=== PATIENT | female | born 1970 | race Caucasian/White ===

== ENCOUNTER 2016-10-27 13:16 | Inpatient (IN) | payer MEDICAID ==
[~2016-10-27] VITALS: Ht 147.3 cm; Wt 87.8 kg
[2016-10-27] MEDS ORDERED: SOD CHLORIDE 0.9% 1,000 ML IV STA ×2 (14:19→18:04)
[2016-10-27] MEDS ORDERED: ONDANSETRON 4 MG INJ IV STA (14:19)
[2016-10-27] MEDS ORDERED: KETOROLAC 30 MG INJ IV STA (14:19)
[2016-10-27 15:30] LABS: ALBUMIN 4.6 g/dl (3.3-4.9); POTASSIUM 3.7 mmol/L (3.5-5.1)
[2016-10-27 15:32] LABS: BASOPHILS % 0.3 % (0.0-2.0); CREATININE 0.48 mg/dl (0.44-1.00); EOSINOPHILS # 0.1 10^3/ul (0.0-0.5); EOSINOPHILS % 0.5 % (0.0-7.0); HEMATOCRIT 42.1 % (37.0-47.0); HEMOGLOBIN 14.8 g/dl (12.0-16.0); LYMPHOCYTES % 16.8 % (15.0-51.0); MEAN CORPUSCULAR HEMOGLOBIN 32.4 pg (29.0-33.0); MEAN CORPUSCULAR HGB CONC 35.2 g/dl (32.0-37.0); MEAN CORPUSCULAR VOLUME 92.1 fl (82.0-101.0); MEAN PLATELET VOLUME 8.4 fl (7.4-10.4); MONOCYTE # 0.5 10^3/ul (0.3-0.9); MONOCYTES % 4.5 % (0.0-11.0); NEUTROPHIL # 9.3 10^3/ul (1.6-7.5); NEUTROPHILS % 77.9 % (39.0-77.0); PLATELET COUNT 254 10^3/UL (140-440); RED BLOOD COUNT 4.57 10^6/ul (4.20-5.40); RED CELL DISTRIBUTION WIDTH 12.3 % (11.5-14.5)
[2016-10-27 15:33] LABS: ALBUMIN/GLOBULIN RATIO 1.09; BILIRUBIN,INDIRECT 0.9 mg/dl (0-1.1); BILIRUBIN,TOTAL 0.9 mg/dl (0.2-1.3); CALCIUM 9.4 mg/dl (8.4-10.2); CONDITION 1; TOTAL PROTEIN 8.8 g/dl (6.1-8.1)
[2016-10-27 15:46] LABS: ADD UMIC YES; URINE BILIRUBIN (Dip) NEGATIVE (NEGATIVE); URINE BLOOD (Dip) NEGATIVE (NEGATIVE); URINE COLOR YELLOW (YELLOW); URINE GLUCOSE (Dip) NEGATIVE (NEGATIVE); URINE KETONES (Dip) TRACE (NEGATIVE); URINE LEUKOCYTE ESTERASE (Dip) NEGATIVE (NEGATIVE); URINE NITRITE (Dip) NEGATIVE (NEGATIVE); URINE TOTAL PROTEIN (Dip) TRACE (NEGATIVE); URINE UROBILINOGEN (Dip) 1.0 E.U./dL (0.1-1.0)
[2016-10-27 15:56] LABS: MUCUS,URINE MODERATE; URINE RBCS 0-2 /HPF (0)
[2016-10-27 15:57] LABS: BACTERIA,URINE FEW
[2016-10-27] MEDS ORDERED: IOHEXOL 300MG/ML 150 ML BTL ONE (17:29)
[2016-10-27] MEDS ORDERED: SOD CHLORIDE 0.9% 100 ML ONE (17:29)
[2016-10-27] MEDS ORDERED: metroNIDAZOLE 500 MG/NS (PMX) 100 ML IVPB STA (18:04)
[2016-10-27] MEDS ORDERED: CIPROFLOXACIN 400MG/D5W 200 ML IVPB STA (18:04)
--- NOTE | 2016-10-27 18:07 | RADRPT ---
PROCEDURE: CT Abdomen and Pelvis with contrast. CLINICAL INDICATION: Abdomen and pelvis pain. TECHNIQUE: CT scan of the abdomen and pelvis with contrast was performed. The patient was scanned following the uncomplicated intravenous administration of 100 cc of Omnipaque-300. Coronal and sag ittal reformatted images were obtained from the axial source images. Images were reviewed on a high- resolution PACS workstation. Total exam DLP is 812.81 mGy-cm. CTDIvol is 15.18 mGy. One or more o f the following dose reduction techniques were used: Automated exposure control, adjustment of the m A and/or kV according to patient size, use of iterative reconstruction technique. COMPARISON: None. FINDINGS: The lung bases are normal. There is no pleural effusion. The liver is normal in size and diffusely decreased attenuation consistent with fatty metamorphosis. There is no focal hepatic lesion. The gallbladder and bile ducts are normal. The spleen is normal in size. There is no focal splenic lesion. Both adrenals are normal with no enlargement or mass. The pancreas is unremarkable with no mass or evidence of pancreatitis. Both kidneys demonstrate normal contrast enhancement. There is no renal mass or hydronephrosis. The abdominal aorta is not dilated. There is no retroperitoneal lymphadenopathy or mass. There is no pelvic lymphadenopathy. There is a large predominately cystic midline anterior pelvic m ass measuring 7.7 x 14.2 x 8.3 cm in AP, transverse, and cranial caudal dimensions. There is a sing le thin vertical septation in the sagittal plane. A second cyst is noted posteriorly on the right c onsistent with a right adnexal cyst measuring 4.0 x 2.7 x 3.3 cm in AP, transverse, and cranial caud al dimensions. The bladder and distal ureters are normal. At the expected location of the appendix, there is a tubular blind ending fluid filled structure kia suring 10.3 x 4.5 x 4.5 cm in AP, transverse, and cranial caudal dimensions. A small amount of calc ification is present in the wall superiorly and there is a round calcification measuring 0.5 cm at t he bases adjacent to the cecum. This is suspicious for a mucocele of the appendix. There is diverticulosis of the sigmoid colon. There is diffuse thickening of the wall of the sigmoi d colon. In the midsigmoid colon there is a region of focal wall thickening, surrounding mesenteric edema, and microperforation with free air in a region measuring approximately 2.5 cm in maximal dim ension. There is no abscess at this site with no fluid collection or mass. There is no free fluid. The osseous structures are unremarkable with no fracture or lytic lesion. IMPRESSION: 1. Fatty metamorphosis of the liver. 2. 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 3. Right ovarian cyst measuring 4.0 x 2.7 x 3.3 cm. 4. 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 5. Diverticulosis of the sigmoid colon with probable region of diverticulitis in the midsigmoid col on with microperforation and adjacent free air. No abscess. Neoplasm with perforation may also giv e this appearance. Clinical correlation and follow-up advised. 6. Otherwise unremarkable study. Call report: A call report of the findings was made to Dr. Giordano on 10/27/2016 at 1805 hours. RPTAT: QQ .Monster Zacarias MD, Date Time Electronically viewed and signed by .Monster Zacarias MD, MD on 10/27/2016 18:07 .R/
--- NOTE | 2016-10-27 18:16 | ERA ---
ER Documentation Chief Complaint Date/Time DATE: 10/27/16 TIME: 18:13 Chief Complaint headache and fever for the past 2 days. no distress. no cough HPI This is a 46-year-old female with no past medical history that presents to the emergency department complaining of 3 days of generalized myalgias, decrease in appetite, bandlike headache and a documented fever of 102. The patient indicates that she also developed a sudden onset of severe left lower quadrant pain, nonradiating with a pressure-like sensation 3 days ago. The pain has been persistent. She indicates she has been taking Tylenol every 4 hours for the past 3 days and the last dose was at 12:20 PM, roughly 2 hours ago. She states she also is experiencing pain with urination but denies any gross hematuria. She indicates her past surgical history is 3 sections. She denies any recent remote blunt or penetrating abdominal trauma. She indicates that the headache is not the worst headache of her life. She denies any neck pain. She has had no rashes. She denies any chest pressure that radiates to the neck arm back or jaw no shortness of breath ROS All systems reviewed and are negative except as per history of present illness. PMhx/Soc Medical and Surgical Hx: pt denies Medical Hx History of Surgery: Yes (csect x3) Hx Alcohol Use: No Hx Substance Use: No Hx Tobacco Use: No Physical Exam Vitals Vital Signs Date Time Temp Pulse Resp B/P Pulse Ox O2 Delivery O2 Flow Rate FiO2 10/27/16 13:18 98.8 98 16 150/68 99 Physical Exam Constitutional:Well-developed. Well-nourished. HEENT:Normocephalic. Atraumatic.Pupils were equal round reactive to light. Moist mucous membranes.No tonsillar exudates. Endoscopy exam shows sharp optic disc bilaterally venous pulsations were present Neck: No nuchal rigidity. No lymphadenopathy. No posterior cervical spine tenderness or step-offs. Respiratory: Not using accessory muscles of respiration.Lungs were clear to auscultation bilaterally. No rhonchi. No rales. No wheezing. Cardiovascular: Regular rate regular rhythm.No murmurs. No rubs were appreciated.S1, S2 normal. Distal pulses are palpable 2+ bilaterally. GI: Abdomen was obese so exam is limited due to body habitus. Tenderness in the left lower. Non Distended. No pulsatile abdominal masses or bruits. No rebound. Voluntary guarding. Bowel sounds were present and normal. Muscle skeletal: Full range of motion of both the upper and lower extremities bilaterally.Normal muscle tone.No assymetrical calf tenderness or swelling. Skin: No petechia, no purpura. No lesions on the palms or the soles of the feet. No maculopapular rash. NEURO: Patient was alert, awake, orientated x3.No facial droop. Gait observed and normal with no ataxia.Speech had regular rate and rhythm. No focal neurological deficits. Result Diagram: 10/27/16 1455 10/27/16 1455 Results 24 hrs Laboratory Tests Test 10/27/16 14:55 10/27/16 15:15 Alanine Aminotransferase (ALT/SGPT) 62IU/L Albumin 4.6g/dl Albumin/Globulin Ratio 1.09 Alkaline Phosphatase 87IU/L Amylase Level 57U/L Anion Gap 20 Aspartate Amino Transf (AST/SGOT) 52IU/L Basophils # 0.010^3/ul Basophils % 0.3% Blood Urea Nitrogen 9mg/dl Calcium Level 9.4mg/dl Carbon Dioxide Level 28mmol/L Chloride Level 100mmol/L Creatinine 0.48mg/dl Direct Bilirubin 0.00mg/dl Eosinophils # 0.110^3/ul Eosinophils % 0.5% Globulin 4.20g/dl Glucose Level 143mg/dl Hematocrit 42.1% Hemoglobin 14.8g/dl Indirect Bilirubin 0.9mg/dl Lipase 82U/L Lymphocytes # 2.010^3/ul Lymphocytes % 16.8% Mean Corpuscular Hemoglobin 32.4pg Mean Corpuscular Hemoglobin Concent 35.2g/dl Mean Corpuscular Volume 92.1fl Mean Platelet Volume 8.4fl Monocytes # 0.510^3/ul Monocytes % 4.5% Neutrophils # 9.310^3/ul Neutrophils % 77.9% Nucleated Red Blood Cells # 0.010^3/ul Nucleated Red Blood Cells % 0.0/100WBC Platelet Count 06787^3/UL Potassium Level 3.7mmol/L Red Blood Count 4.5710^6/ul Red Cell Distribution Width 12.3% Sodium Level 144mmol/L Total Bilirubin 0.9mg/dl Total Protein 8.8g/dl White Blood Count 12.010^3/ul Urine Bacteria FEW Urine Bilirubin NEGATIVE Urine Clarity SLIGHTLY CLOUDY Urine Color YELLOW Urine Epithelial Cells MANY Urine Glucose NEGATIVE% Urine Hemoglobin NEGATIVE Urine Ketones TRACE Urine Leukocyte Esterase NEGATIVE Urine Microscopic RBC 0-2/HPF Urine Microscopic WBC 0-2/HPF Urine Mucus MODERATE Urine Nitrite NEGATIVE Urine Specific [place] >=1.030 Urine Total Protein TRACE Urine Urobilinogen 1.0 E.U./dL Urine pH 5.5 Current Medications Medications (Trade) Dose Ordered Sig/Nubia Route PRN Reason Start Time Stop Time Status Last Admin Dose Admin Sodium Chloride (NS) 1,000 ml @ 1,000 mls/hr Q1H STAT IV 10/27/16 14:19 10/27/16 15:18 DC 10/27/16 15:13 Ondansetron HCl (Zofran Inj) 4 mg ONCE STAT IV 10/27/16 14:19 10/27/16 14:21 DC 10/27/16 15:12 Ketorolac Tromethamine (Toradol) 30 mg ONCE STAT IV 10/27/16 14:19 10/27/16 14:21 DC 10/27/16 15:13 IV Flush 10 ml 10 ml STK-MED ONCE .ROUTE 10/27/16 17:29 10/27/16 17:30 DC 10/27/16 17:41 Sodium Chloride (NS) 100 ml @ ud STK-MED ONCE .ROUTE 10/27/16 17:29 10/27/16 17:30 DC 10/27/16 17:41 Iohexol 150 ml 150 ml STK-MED ONCE .ROUTE 10/27/16 17:29 10/27/16 17:30 DC 10/27/16 17:41 Sodium Chloride 1,000 ml @ 1,000 mls/hr Q1H STAT IV 10/27/16 18:04 10/27/16 19:03 10/27/16 18:17 Metronidazole 100 ml @ 100 mls/hr ONCE STAT IVPB 10/27/16 18:04 10/27/16 19:03 10/27/16 18:17 Ciprofloxacin/ Dextrose (Cipro Ivpb) 200 ml @ 200 mls/hr ONCE STAT IVPB 10/27/16 18:04 10/27/16 19:03 Ondansetron HCl (Zofran Inj) 4 mg BRIDGE ORDER PRN IV NAUSEA AND/OR VOMITING 10/27/16 18:30 10/28/16 18:29 Procedures/MDM This patient presented to the emergency department with abdominal pain and was seen and evaluated by myself. My differential diagnosis included but was not limited to abdominal aortic aneurysm, appendicitis, pancreatitis, perforated peptic ulcer, perforated viscus, Boerhaaves syndrome or visceral pain such as diverticulitis, DKA, esophagitis, hepatitis or bowel obstruction. The patient was placed on a alarm operator, continuous pulse oximetry, and IV access was established by nursing staff. The patient received intravenous morphine and Zofran for analgesic control. The patient was afebrile upon arrival to the emergency department but did take antipyretics just prior to arrival. The patient also presented to the emergency department with an acute single headache that presented within hours of onset my differential diagnosis included but was not limited to meningitis, SAH, intracerebral hemorrhage, hypertensive encephalopathy, cranial artery dissection, cerebral venous sinus thrombosis, traumatic, acute sinusitis. The patient has no ocular symptoms to suggest temporal neuritis, acute narrow-angle glaucoma or pituitary apoplexy. The patient did not appear to have a toxic or metabolic etiology such as fever, hypoglycemia, high-altitude disease or carbon monoxide poisoning. This was not the patients worse headache of their life. The patient had a complete neurologic and fundoscopic exam performed by myself that was normal with no focal neurological deficits or retinal hemorrhage. The patient stated this headache was not severe or distinct from other headaches and the history with the physical exam findings did not likely suggest SAH. Therefore, I did not feel it was clinically necessary to perform a lumbar puncture and CSF analysis. I did feel the patient's bandlike headache was likely result of her fever and a tension headache. I spoke with Dr. Zacarias who reviewed the patient's CT scan that I had obtained due to her tenderness in her left lower quadrant. The CT scan findings indicated the followin. Fatty metamorphosis of the liver. 2. 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 3. Right ovarian cyst measuring 4.0 x 2.7 x 3.3 cm. 4. 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 5. Diverticulosis of the sigmoid colon with probable region of diverticulitis in the midsigmoid colon with microperforation and adjacent free air. No abscess. Neoplasm with perforation may also give this appearance. Clinical correlation and follow-up advised. At this time I spoke with Dr. Orosco, who kindly stated he will be consulted as a surgeon. Patient was given broad-spectrum antibiotics which included ciprofloxacin, flagyl and IV Zosyn. In addition to the patient's diverticulitis with microperforation and mucocele and the appendix, the patient also had a very large left ovarian cyst. I obtained an ultrasound of the pelvis which showed no evidence of ovarian torsion. I placed a consult to the SUPERVISOR MAINTENANCE who stated they will kindly come and see the patient. I spoke with Dr. Vance however she will sign the patient out to the oncoming [employer] as she currently was in a surgical procedure section. The patient will be admitted in serious condition with an anticipated stay of greater than 2 midnights under the care of Dr. Lara. Critical Care: Time: 55 minutes Treatments/Evaluations: Close monitoring and treatment of unstable vital signs, cardiorespiratory, and neurologic status, while maintaining tight balance of fluid, respiratory, and cardiac interventions. Time does not include performing any of the above billable procedures. Departure Diagnosis: Primary Impression: Diverticulitis of colon with perforation Additional Impressions: Mucocele of appendix Ovarian cyst Qualified Code: N83.202 - Cyst of left ovary Condition: Serious ROSAS CLEMENTE Oct 27, 2016 18:16
[2016-10-27] MEDS ORDERED: NACL 0.9% 3 ML SYG IV SCH (18:30)
[2016-10-27] MEDS ORDERED: BISACODYL (EC) 5 MG TAB PO PRN (18:30)
[2016-10-27] MEDS ORDERED: DOCUSATE SODIUM 100 MG CAP PO PRN (18:30)
[2016-10-27] MEDS ORDERED: ONDANSETRON 4 MG INJ IV PRN (18:30)
[2016-10-27] MEDS: HYDROCODONE/APAP (5/325) TAB PO PRN (19:47)
--- NOTE | 2016-10-27 19:48 | HP ---
DATE OF ADMISSION: 10/27/2016 CONSULTANTS: 1. Dr. Cruz, BENCH REPAIR TECHNICIAN. 2. Dr. Orosco, general surgery. CHIEF COMPLAINT: Abdominal pain. HISTORY OF PRESENT ILLNESS: This is a pleasant 46-year-old female with no significant past medical history, past surgical history of x3, who presents to [facility] to having abdominal discomfort off and on for the past month, abdominal distention, and 3 days of severe abdominal pain accompanied with nausea without any vomiting. Upon arrival to emergency room , patient was found to be afebrile with temperature 98.0, blood pressure 150/68. WBC was found to b e mildly elevated at 12.0, anion gap 20, AST 52. Urinalysis was negative. The patient had a CT of the abdomen and pelvis, which was positive for large predominantly cystic midline anterior pelvic ma ss measuring 7.7 x 14.2 x 8.3 cm, likely due to left ovarian cystic neoplasm, which may be benign or malignant, right ovarian cyst measuring 4.0 x 2.7 x 3.3 cm, probable mucocele of the appendix measu ring 10.3 x 4.5 x 4.5 cm, diverticulosis of the sigmoid colon with probable region of diverticulitis in the mid sigmoid colon with microperforation and adjacent free air, no abscess, neoplasm and perf oration may also give this appearance. Otherwise, the patient was treated with normal saline, Torad ol, and Zofran in the course of the emergency room. At this time, patient denies having any chest p ain, shortness of breath. Positive for nausea, no vomiting. Positive for abdominal pain in the mid epigastric. No recent travel history. No sick contact. No consumption of unusual food. No hemato chezia, melena, or hematemesis. No change in the color of stool. No dysuria, hematuria, urgency, i ncontinence. Other 12 review of systems has been found to be negative. PAST MEDICAL AND SURGICAL HISTORY: As above per HPI. MEDICATIONS: None. ALLERGIES: NO KNOWN DRUG ALLERGIES. FAMILY HISTORY: No family history of cancer. Positive for hypertension, diabetes mellitus. SOCIAL HISTORY: Negative x3 for smoking, alcohol, illicit drugs. REVIEW OF SYSTEMS: As above per HPI, otherwise 12 review of systems has been found to be negative. PHYSICAL EXAMINATION: VITAL SIGNS: Temperature 98.8, pulse 98, respirations 16, blood pressure 150/60, oxygen saturation 99% in room air. GENERAL APPEARANCE: The patient is lying in the bed with mild discomfort. She is awake, alert, alexx ented. Body habitus morbidly obese. EYES AND EARS, NOSE, THROAT: Conjunctivae and lids are normal. Pupils are normal. Extraocular nor mal. Hearing grossly normal. Lips are normal. Oral mucosa is mildly dry. NECK: Supple. Trachea is midline. No lymphadenopathy. RESPIRATORY: Effort is normal. Clear to auscultation bilaterally. CARDIOVASCULAR: Normal S1, S2. Regular rhythm and rate. No murmur, no bruits, no edema. Peripher al pulses, radial pulses palpable. Cap refill is normal. CHEST: Normal expansion of thorax during inspiration. GASTROINTESTINAL: Abdomen is soft, mildly distended. Tender in superior region. Bowel sounds are distant secondary to body habitus. GENITOURINARY: Deferred. MUSCULOSKELETAL: Upper and lower extremities within normal limits. Full range of motion. Strength 5/5 in both upper and lower extremities. NEUROLOGIC: Cranial nerves II through XII are grossly intact. PSYCHIATRIC: Normal judgment and insight. Alert and oriented x3. Mood and affect is normal. LABORATORY WORK AND IMAGING: Urinalysis within normal limits except many epithelial cells. WBC 12, hemoglobin 14.8, hematocrit 42.1, platelets 254. Sodium 144, potassium 3.7, chloride 100, bicarbon ate 28, BUN 9, creatinine 0.48, glucose 143. AST 52, ALT 62. Lipase 82. CT of the abdomen and pel vis as above per HPI. ASSESSMENT AND PLAN: 1. Bilateral ovarian cysts, likely due to the left ovarian cyst neoplasm, which may be benign or ma lignant. BENCH REPAIR TECHNICIAN has been consulted. We will follow their recommendation. 2. Mucocele of the appendix. General surgery has been consulted. The patient has been started on ciprofloxacin, Flagyl, and pain medication. 3. Diverticulitis with microperforation. General surgery has been consulted. Obtain an MRCP to ru le out neoplasm. 4. For deep venous thrombosis prophylaxis, on Lovenox. 5. For gastrointestinal prophylaxis, on Protonix. 6. Morbid obesity. Diet and exercise has been recommended. 7. We will continue to monitor patient closely. Further recommendations, management, and treatment as clinical course. Total amount of time that was spent on evaluation of the patient and admission workup was 40 minutes . Dictated By: SOFIE COBB/NTS Conf#: [id number] DID#: [id number]
[2016-10-27] MEDS: D5W-0.45 NACL + KCL 20 MEQ 1,000 ML IV SCH (19:53)
[2016-10-27 19:55] VITALS: TEMP 98.8
--- NOTE | 2016-10-27 20:04 | RADRPT ---
PROCEDURE: Pelvic ultrasound. CLINICAL INDICATION: Pelvic pain TECHNIQUE: Martinez scale, color doppler, spectral doppler ultrasound of the pelvis was performed with transabdominal and transvaginal transducers. COMPARISON: CT abdomen pelvis 10/27/1969 FINDINGS: Uterus: Position: Retroverted Normal myometrial echogenicity. Normal appearance of the endometrium. Poor visualization of the right ovary and lack of visualization of the left ovary. Partial incomplete visualization of bilateral cystic adnexal lesions. Blood flows present bilateral ly however these lesions are not adequately characterized due to their size and location. IMPRESSION: Ovaries are not well visualized. Large cystic lesions seen on the prior CT abdomen pelvis are only partially visualized. No evidence of torsion is seen. Recommend MRI of the pelvis with and without contrast for further evaluation. RPTAT: AADD .Navneet Delarosa MD, MD Date Time Electronically viewed and signed by .Navneet Delarosa MD, on 10/27/2016 20:04 .B/
[2016-10-27 20:22] LABS: INR 0.99; PROTIME 13.1 Sec (12.2-14.2)
[2016-10-27 20:23] LABS: PARTIAL THROMBOPLASTIN TIME 33.8 Sec (25.0-35.0)
[2016-10-27 20:24] LABS: CREATINE KINASE 57 IU/L (23-200)
[2016-10-27 21:06] LABS: CK-MB < 0.22 ng/ml (0.0-2.4); TROPONIN-I < 0.012 ng/ml (0.00-0.12)
[2016-10-27 21:50] VITALS: Ht 147.3 cm; Wt 87.8 kg
[2016-10-27 22:00] VITALS: BP 122/61; PULSE 122; RESP 19
[2016-10-27] MEDS: ACETAMINOPHEN 650 MG SUPP PR PRN (22:12)
--- NOTE | 2016-10-27 23:01 | CONS ---
Date/Time of Note Date/Time of Note DATE: 10/27/16 TIME: 22:49 Assessment/Plan Assessment/Plan Chief Complaint/Hosp Course 46-year-old obese female admitted for 1. Lower abdominal pain, bilateral ? adnexal cystic mass, larger in the left side than right, ultrasound limited however did not show any evidence of torsion CT shows presence of possible mucocele of appendix. Recommended further evaluation by MRI of the abdomen and pelvis with and without contrast, due to inability to adequately evaluate if these masses belonged to ovaries versus other pelvic structures. Cannot rule out benign versus malignant ovarian masses, like mucinous serocystadenoma versus mucinous serous cystadenocarcinoma Recommended to have tumor markers including CA 125, CA-19-9 and CEA . This has been requested and will be followed by upcoming BENCH SHEAR OPERATOR team ( Laborist team). If tumor markers abnormal, BENCH SHEAR OPERATOR onc consultation will be considered. 2, fever , CT findings consistent with diverticulosis with diverticulitis with microperforation she is currently being treated medically by primary team by antibiotics 3, obesity irregular cycles, likely secondary to chronic anovulation secondary to body habitus. Cannot rule out hypothyroidism. patient never been on medication for menstrual regulation as well as never been evaluated. TSH, Free T4 requested. Consider endometrial evaluation by biopsy as a pre op evaluation and that can be set up when the patient is stable and her clinical condition improves. 4. Chronic hypertension, after reviewing her blood pressure during this admission. Follow-up and evaluation by primary care team If at any time patient need to go to operating room for treatment of her diverticulitis, please contact BENCH SHEAR OPERATOR for availability in OR. Patient will be followed by BENCH SHEAR OPERATOR team Thank you Dr. Bell for letting us to take care of this patient, Please contact extension: [phone] for any additional questions or concerns Problems: Consultation Date/Type/Reason Admit Date/Time Oct 27, 2016 at 18:25 Date of Consultation: Oct 27, 2016 Type of Consultation: BENCH SHEAR OPERATOR Reason for Consultation Left lower abdominal pain and left adnexal mass Hx of Present Illness I was consulted by Dr. Bell, for BENCH SHEAR OPERATOR evaluation for this very pleasant 46- year-old female who presented today to emergency department with complaint of left lower quadrant pain for the last 3 days. Patient reports pain has been going on for about 1 and half years however significantly worsened for the past 3 days. She also reports fever started 3 days ago as well as a frontal headache. Patient reports pain is sharp, constant and stabbing. She reports sitting as well as standing and bending will worsen the pain. She also reports pain worsens with bowel movement. She reports when she had a bowel movement she feels, something is tearing inside. She denies any bloating, early satiety or history of gynecologic problem in the past. She denies any history of ovarian cyst, pelvic mass or fibroids. She has been currently undergoing treatment by primary care team for diverticulitis and currently receiving IV antibiotics. Patient is a 3 para 3. Status post 3. She denies any prior gynecologic problem except that had one episode of heavy vaginal bleeding 2 years ago that resolved. In further history and physical examination patient reports that her cycles has been irregular and she has her period every 2 years very scant. She had not been evaluated for this or has not been seen by her garment parts cutter hand for this issue. Her last Pap smear was about 3 years ago and she denies any history of abnormal Pap smear in the past. She reports that she had a left sided breast cyst about 12 years ago that was diagnosed to be benign. She denies feeling any breast lump or mass or abnormal discharge. Her last mammogram was about 5 years ago. Patient denies having any medical problems. Subjective hx not possible: other (Stable, febrile) Constitutional: febrile Eyes: no complaints ENT: no complaints Respiratory: no complaints Cardiovascular: no complaints Gastrointestinal: other (Lower abdominal pain in the left side. Feels something tearing inside with a bowel movement patient feels that something is moving inside her abdomen like a baby. ), pain Genitourinary: other (Low back pain) Musculoskeletal: back pain Skin: no complaints Neurologic: no complaints Endocrine: no complaints Lymphatic: no complaints Psychological: no complaints Immunologic: no complaints Past Medical History Medical History: no pertinent history Past Surgical History Status post section 3 Family History Significant Family History: other (Mother with arthritis) Social History Alcohol Use: none Smoking Status: Former smoker Drug Use: none Other Social History Patient was previously working in restaurant She reports that she has green card Exam/Review of Systems Vital Signs Vitals Vital Signs Date Time Temp Pulse Resp B/P Pulse Ox O2 Delivery O2 Flow Rate FiO2 10/27/16 22:00 102.1 122 19 122/61 95 Room Air Exam Constitutional: alert, obese, oriented, other (In mild distress) Psych: no complaints Head: atraumatic, normocephalic Eyes: EOMI, nl conjunctiva, nl lids ENMT: nl external ears & nose, nl lips & teeth, nl nasal mucosa & septum Neck: non-tender, supple Respiratory: clear to auscultation, normal air movement Cardiovascular: nl pulses, regular rate and rhythm Gastrointestinal: other (Tenderness noted in palpation in different parts of the abdomen, area of tenderness moving and changing during examination. There is tenderness above the umbilicus and sometimes in the left and sometimes in the right lower quadrant as well as tenderness in the right upper quadrant and sometimes in the left upper quadrant. There is no rebound tenderness, no guarding, no rigidity, no evidence of acute abdomen. Abdomen is soft.), soft Genitourinary - Female: other (Speculum examination, there is scant amount cervix looks normal cottage cheesy vaginal discharge .. No blood in the vault. No purulent vaginal discharge noted. Exam consistent with Vandana vaginalis. bimanual examination no CMT. No fullness in adnexa uterus appears to be normal size there is tenderness in palpation in lower abdomen mild to moderate. Exam is very limited due to patient's discomfort during palpation of the lower abdomen. ) Musculoskeletal: nl extremities to inspection, nl gait and stance Extremities: normal pulses Neurological: CENTER MANAGER II-XII intact, nl mental status, nl speech, nl strength Skin: nl turgor Lymph: nl lymph nodes Results Result Diagram: 10/27/16 1455 10/27/16 1455 Results 24 hrs Laboratory Tests Test 10/27/16 14:55 10/27/16 15:15 10/27/16 20:00 Alanine Aminotransferase (ALT/SGPT) 62 Albumin 4.6 Albumin/Globulin Ratio 1.09 Alkaline Phosphatase 87 Amylase Level 57 Anion Gap 20 H Aspartate Amino Transf (AST/SGOT) 52 H Basophils # 0.0 Basophils % 0.3 Blood Urea Nitrogen 9 Calcium Level 9.4 Carbon Dioxide Level 28 Chloride Level 100 Creatinine 0.48 Direct Bilirubin 0.00 Eosinophils # 0.1 Eosinophils % 0.5 Globulin 4.20 H Glucose Level 143 Hematocrit 42.1 Hemoglobin 14.8 Indirect Bilirubin 0.9 Lipase 82 Lymphocytes # 2.0 Lymphocytes % 16.8 Mean Corpuscular Hemoglobin 32.4 Mean Corpuscular Hemoglobin Concent 35.2 Mean Corpuscular Volume 92.1 Mean Platelet Volume 8.4 Monocytes # 0.5 Monocytes % 4.5 Neutrophils # 9.3 H Neutrophils % 77.9 H Nucleated Red Blood Cells # 0.0 Nucleated Red Blood Cells % 0.0 Platelet Count 254 Potassium Level 3.7 Red Blood Count 4.57 Red Cell Distribution Width 12.3 Sodium Level 144 Total Bilirubin 0.9 Total Protein 8.8 H White Blood Count 12.0 H Urine Bacteria FEW Urine Bilirubin NEGATIVE Urine Clarity SLIGHTLY CLOUDY Urine Color YELLOW Urine Epithelial Cells MANY Urine Glucose NEGATIVE Urine Hemoglobin NEGATIVE Urine Ketones TRACE H Urine Leukocyte Esterase NEGATIVE Urine Microscopic RBC 0-2 Urine Microscopic WBC 0-2 Urine Mucus MODERATE Urine Nitrite NEGATIVE Urine Specific [place] >=1.030 H Urine Total Protein TRACE Urine Urobilinogen 1.0 E.U./dL Urine pH 5.5 Activated Partial Thromboplast Time 33.8 Creatine Kinase 57 Creatine Kinase Index 0.4 Creatinine Kinase MB (Mass) < 0.22 INR International Normalized Ratio 0.99 Lactic Acid Level 1.2 Prothrombin Time 13.1 Prothrombin Time Ratio 1.0 Troponin I < 0.012 Medications Medications Current Medications Potassium Chloride/Dextrose/ Sod Cl (D5-1/2ns + KCl 20 Meq) 1,000 ml @ 70 mls/ hr [id number] IV Last administered on 10/27/16 19:53; Admin Dose 70 MLS/HR; Start 10/27/16 at 18:28 Ondansetron HCl (Zofran Inj) 4 mg Q6H PRN IV NAUSEA AND/OR VOMITING; Start at 18:30 Acetaminophen (Tylenol Tab) 650 mg Q6H PRN PO PAIN LEVEL 1-3 OR FEVER; Start at 18:30 Acetaminophen (Tylenol Supp) 650 mg Q6H PRN DE PAIN LEVEL 1-3 OR FEVER Last administered on 10/27/16 22:12; Admin Dose 650 MG; Start 10/27/16 at 18:30 Acetaminophen/ Hydrocodone Bitart ([place] (5/325)) 1 tab Q6H PRN PO MODERATE PAIN LEVEL 4-6 Last administered on 10/27/16 19:47; Admin Dose 1 TAB; Start at 18:30 Morphine Sulfate (morphine) 2 mg Q4H PRN IV SEVERE PAIN LEVEL 7-10; Start 10/27 at 18:30 Docusate Sodium (Colace) 100 mg Q12H PRN PO CONSTIPATION; Start 10/27/16 at 18: 30 Bisacodyl (Dulcolax) 5 mg DAILY PRN PO CONSTIPATION; Start 10/27/16 at 18:30 Pantoprazole 40 mg 40 mg DAILY@06 PO ; Start 10/28/16 at 06:00 Ciprofloxacin/ Dextrose 200 ml @ 200 mls/hr Q12 IVPB ; Start 10/28/16 at 07:30 Metronidazole (Flagyl 500 Mg (Pmx)) 100 ml @ 100 mls/hr Q8 IVPB ; Start at 01:00 Procedures Procedures PROCEDURE: Pelvic ultrasound. CLINICAL INDICATION: Pelvic pain TECHNIQUE: Martinez scale, color doppler, spectral doppler ultrasound of the pelvis was performed with transabdominal and transvaginal transducers. COMPARISON: CT abdomen pelvis 10/27/1969 FINDINGS: Uterus: Position: Retroverted Normal myometrial echogenicity. Normal appearance of the endometrium. Poor visualization of the right ovary and lack of visualization of the left ovary. Partial incomplete visualization of bilateral cystic adnexal lesions. Blood flows present bilaterally however these lesions are not adequately characterized due to their size and location. IMPRESSION: Ovaries are not well visualized. Large cystic lesions seen on the prior CT abdomen pelvis are only partially visualized. No evidence of torsion is seen. Recommend MRI of the pelvis with and without contrast for further evaluation. RPTAT: AADD PROCEDURE: CT Abdomen and Pelvis with contrast. CLINICAL INDICATION: Abdomen and pelvis pain. TECHNIQUE: CT scan of the abdomen and pelvis with contrast was performed. The patient was scanned following the uncomplicated intravenous administration of 100 cc of Omnipaque-300. Coronal and sagittal reformatted images were obtained from the axial source images. Images were reviewed on a high- resolution PACS workstation. Total exam DLP is 812.81 mGy-cm. CTDIvol is 15.18 mGy. One or more of the following dose reduction techniques were used: Automated exposure control, adjustment of the mA and/or kV according to patient size, use of iterative reconstruction technique. COMPARISON: None. FINDINGS: The lung bases are normal. There is no pleural effusion. The liver is normal in size and diffusely decreased attenuation consistent with fatty metamorphosis. There is no focal hepatic lesion. The gallbladder and bile ducts are normal. The spleen is normal in size. There is no focal splenic lesion. Both adrenals are normal with no enlargement or mass. The pancreas is unremarkable with no mass or evidence of pancreatitis. Both kidneys demonstrate normal contrast enhancement. There is no renal mass or hydronephrosis. The abdominal aorta is not dilated. There is no retroperitoneal lymphadenopathy or mass. There is no pelvic lymphadenopathy. There is a large predominately cystic midline anterior pelvic mass measuring 7.7 x 14.2 x 8.3 cm in AP, transverse, and cranial caudal dimensions. There is a single thin vertical septation in the sagittal plane. A second cyst is noted posteriorly on the right consistent with a right adnexal cyst measuring 4.0 x 2.7 x 3.3 cm in AP, transverse, and cranial caudal dimensions. The bladder and distal ureters are normal. At the expected location of the appendix, there is a tubular blind ending fluid filled structure measuring 10.3 x 4.5 x 4.5 cm in AP, transverse, and cranial caudal dimensions. A small amount of calcification is present in the wall superiorly and there is a round calcification measuring 0.5 cm at the bases adjacent to the cecum. This is suspicious for a mucocele of the appendix. There is diverticulosis of the sigmoid colon. There is diffuse thickening of the wall of the sigmoid colon. In the midsigmoid colon there is a region of focal wall thickening, surrounding mesenteric edema, and microperforation with free air in a region measuring approximately 2.5 cm in maximal dimension. There is no abscess at this site with no fluid collection or mass. There is no free fluid. The osseous structures are unremarkable with no fracture or lytic lesion. IMPRESSION: 1. Fatty metamorphosis of the liver. 2. 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 3. Right ovarian cyst measuring 4.0 x 2.7 x 3.3 cm. 4. 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 5. Diverticulosis of the sigmoid colon with probable region of diverticulitis in the midsigmoid colon with microperforation and adjacent free air. No abscess. Neoplasm with perforation may also give this appearance. Clinical correlation and follow-up advised. 6. Otherwise unremarkable study. Call report: A call report of the findings was made to Dr. Giordano on 2016 at 1805 hours. STEFFANIE OLIVER MD Oct 27, 2016 23:00
[2016-10-27 23:30] VITALS: BP 111/55; RESP 18
[2016-10-28 00:53] LABS: CANCER ANTIGEN 125 7.7 U/ml (0.0-35.0)
[2016-10-28] MEDS: metroNIDAZOLE 500 MG/NS (PMX) 100 ML IVPB SCH ×4 (01:08→22:17)
[2016-10-28] MEDS: PANTOPRAZOLE (EC) 40 MG TAB PO SCH (05:34)
[2016-10-28] MEDS: ACETAMINOPHEN 325 MG TAB PO PRN ×2 (05:35→18:17)
[2016-10-28] MEDS: morphine 2 MG INJ IV PRN ×4 (05:40→22:10)
[2016-10-28] MEDS: D5W-0.45 NACL + KCL 20 MEQ 1,000 ML IV SCH ×2 (06:07→12:44)
[2016-10-28 06:32] LABS: ALBUMIN 3.8 g/dl (3.3-4.9)
[2016-10-28 06:33] LABS: POTASSIUM 3.9 mmol/L (3.5-5.1)
[2016-10-28 06:35] LABS: ALBUMIN/GLOBULIN RATIO 1.26; BILIRUBIN,INDIRECT 1.3 mg/dl (0-1.1); BILIRUBIN,TOTAL 1.3 mg/dl (0.2-1.3); CALCIUM 8.8 mg/dl (8.4-10.2); CREATININE 0.47 mg/dl (0.44-1.00); TOTAL PROTEIN 6.8 g/dl (6.1-8.1)
[2016-10-28 06:36] LABS: CHOL/HDL RATIO 3.1 RATIO; MAGNESIUM 1.8 mg/dl (1.7-2.5)
[2016-10-28 07:34] VITALS: BP 114/55; RESP 18
[2016-10-28 08:04] LABS: BASOPHILS % 0.2 % (0.0-2.0); HEMATOCRIT 36.2 % (37.0-47.0); HEMOGLOBIN 12.4 g/dl (12.0-16.0); LYMPHOCYTES # 1.7 10^3/ul (0.8-2.9); LYMPHOCYTES % 12.9 % (15.0-51.0); MEAN CORPUSCULAR HEMOGLOBIN 31.7 pg (29.0-33.0); MEAN CORPUSCULAR HGB CONC 34.3 g/dl (32.0-37.0); MEAN CORPUSCULAR VOLUME 92.6 fl (82.0-101.0); MEAN PLATELET VOLUME 10.4 fl (7.4-10.4); MONOCYTE # 0.7 10^3/ul (0.3-0.9); MONOCYTES % 5.1 % (0.0-11.0); NEUTROPHIL # 10.8 10^3/ul (1.6-7.5); NEUTROPHILS % 81.3 % (39.0-77.0); PLATELET COUNT 215 10^3/UL (140-415); RED BLOOD COUNT 3.91 10^6/ul (4.20-5.40); RED CELL DISTRIBUTION WIDTH 12.2 % (11.5-14.5); WHITE BLOOD COUNT 13.2 10^3/ul (4.8-10.8)
[2016-10-28 08:11] LABS: IRON 27 ug/dl (35-150)
[2016-10-28 08:20] LABS: TOTAL IRON BINDING CAPACITY 234 ug/dl (241-421)
[2016-10-28] MEDS: CIPROFLOXACIN 400MG/D5W 200 ML IVPB SCH ×2 (08:41→21:25)
[2016-10-28] MEDS: HYDROCODONE/APAP (5/325) TAB PO PRN (08:43)
--- NOTE | 2016-10-28 10:48 | CONS ---
DATE OF ADMISSION: 10/27/2016 DATE OF CONSULTATION: 10/28/2016 TYPE OF CONSULTATION: Surgical REASON FOR CONSULTATION: Perforated diverticulitis. HISTORY OF PRESENT ILLNESS: The patient is a 46-year-old female who presented to the emergency room with a 3-day history of left lower quadrant abdominal pain. In the emergency room, she was noted t o have a tender left lower quadrant, an elevated white blood cell count of 12,[address] scan whic h showed diverticulitis with microperforation. Incidentally, also found were bilateral ovarian cyst s for which the patient has been seen and evaluated by HIGH SCHOOL COUNSELOR yesterday. Another incidental finding wa s a mucocele of the appendix. She has been started on intravenous antibiotics. The patient states that she feels symptomatically improved today; however, her white blood cell count has gone up to 13 ,200. This morning she is afebrile, but her maximum temperature yesterday was 103. PAST MEDICAL HISTORY: The patient has had section in the past. No other hospitalizations or illnesses. OUTPATIENT MEDICATIONS: None. ALLERGIES: NONE. REVIEW OF SYSTEMS: HEENT: Unremarkable. PULMONARY: No history of pneumonia or shortness of breath. CARDIAC: No history of chest pain or NV. ABDOMEN: As in the HPI. EXTREMITIES: Unremarkable. PHYSICAL EXAMINATION: GENERAL: The patient is a morbidly obese 46-year-old, predominantly [place]adian-speaking female who is awake and alert, in no acute distress. HEENT: Within normal limits. LUNGS: Clear. HEART: Regular rhythm. ABDOMEN: Obese with slight tenderness in the left lower quadrant without guarding or rebound. EXTREMITIES: Unremarkable. LABORATORY DATA: Hematocrit is 36 with a white count of 13,200. CT findings as noted above. IMPRESSION: Diverticulitis with microperforation. PLAN: We will continue to treat with broad-spectrum antibiotics. Further recommendations will depe nd on the patient's further workup and clinical course. If there is no response to medical manageme nt or the patient worsens, patient will require surgery. I will follow with you. Dictated By: ANISHA MO/NTS Conf#: [id number] DID#: [id number]
[2016-10-28] MEDS ORDERED: hydrALAzine 20 MG INJ IV PRN (15:00)
--- NOTE | 2016-10-28 15:27 | PN ---
DATE: 10/28/2016 SUBJECTIVE DATA: Complains of abdominal pain. Pain well controlled with analgesics. Complains of nausea. Denies any vomiting. OBJECTIVE DATA: VITAL SIGNS: Temperature 99.6, pulse rate 91, respiratory rate 18, blood pressure 114/55, oxygen saturation 96% on room air. GENERAL: This is an obese female lying in bed in no apparent distress. HEENT: Head normocephalic and atraumatic. Eyes: Anicteric sclerae. Conjunctivae clear. ENT: Nasal septum is midline. Oral mucosa is dry. NECK: Short and obese. Unable to visualize any neck veins. CARDIAC: Regular rate and rhythm. ABDOMEN: Distended. Diffuse tenderness. Bowel sounds hypoactive in all 4 quadrants. GENITOURINARY: Deferred. EXTREMITIES: No cyanosis, no clubbing, no edema. Peripheral pulses are palpable. NEUROLOGIC: The patient is awake, alert and oriented. Cranial nerves are grossly intact. LABORATORY AND DIAGNOSTIC DATA: WBC 13.2, hemoglobin 12.4, hematocrit 36.2, platelet count 215. Sodium 141, potassium 3.9, chloride 103, carbon dioxide 27 , anion gap 15, BUN 6, creatinine 0.47, glucose 151, calcium 8.8, magnesium 1.8. ASSESSMENT AND PLAN: 1. Acute abdominal pain. Most probably secondary to underlying diverticulitis with microperforation. Continue n.p.o. Continue empiric antibiotics. We will involve infectious disease on the case. General surgery following the patient. 2. Questionable bilateral adnexal cystic mass. The patient was seen and evaluated by MACHINE WIPER. Tumor markers are negative so far. Pending MRI for further evaluation of this. 3. Essential hypertension. Continue antihypertensives. Blood pressure well controlled. 4. Systemic inflammatory response syndrome with fevers, leukocytosis and sinus tachycardia. Most probably secondary to underlying intra-abdominal pathology. Continue antibiotics. We will involve infectious diseases on the case. 5. Obesity. BMI of 40.5 kg/meter squared. Fasting lipid panel satisfactory. Hemoglobin A1c 5.7. We will advise weight reduction on this patient. 6. Iron deficiency with no evidence of anemia. We will monitor hemoglobin and hematocrit closely. 7. Fluid, electrolytes and nutrition. Continue IV fluids. We will keep the patient n.p.o. 8. Deep venous thrombosis prophylaxis. Bilateral sequential compression devices. 9. Gastrointestinal prophylaxis. Proton pump inhibitors. PLAN: Continue pain control. Continue antibiotics. Call infectious disease consult for antibiotic management. Await abdominal and pelvic MRI results. Case discussed with Dr. Patten. The plan of care was explained to the patient's family who was at the bedside. CL PATTEN MD, AM/LIBAN Conf#: [id number] DID#: [id number] MTDD
--- NOTE | 2016-10-28 19:22 | CONS ---
DATE OF ADMISSION: 10/27/2016 DATE OF CONSULTATION: 10/28/2016 TYPE OF CONSULTATION: Infectious Disease. REASON FOR CONSULTATION: Antibiotic management. HISTORY OF PRESENT ILLNESS: Ayah Jurado is 46-year-old female who was admitted with abdo brett pain and is being seen for antibiotic management. Her past problems include past surgical his tory of C-sections x3. She presents with abdominal discomfort intermittently over the past month, w ith abstention and 3 days of severe abdominal pain. accompanied with nausea without any vomiting. S he was afebrile. White count was mildly elevated at 12, anion gap of 20. Urinalysis was negative. CT of the abdomen and pelvis was positive for large, predominantly cystic, midline, anterior pelvic mass measuring 7.7 x 14.2 x 8.3 cm, likely due to a left ovarian cyst neoplasm, which may be benig n or malignant. She has a right ovarian cyst measuring 4.0 x 2.7 x 3.3, probable mucocele of the ap pendix, measuring 10.3 x 4.5 x 4.5 cm. She has diverticulosis of the sigmoid colon, with a probable region of diverticulitis in the mid-sigmoid colon with microperforation and adjacent free air; no a bscess, neoplasm, or perforation. Otherwise, the patient was treated with normal saline, Toradol an d Zofran. On admission, her white count was 12,000; H and H of 14.8/42.1; platelet count 254,000. BUN and creatinine 9/0.48, glucose 143, AST 52, ALT 62. Lipase 82. CT scan of the abdomen and pelv is as per above. PAST MEDICAL HISTORY: Operations, as outlined. FAMILY HISTORY: Noncontributory. SOCIAL HISTORY: She does not smoke, drink or abuse drugs. ALLERGIES: NONE TO PENICILLIN, SULFA OR FOODS. MEDICATIONS: Per chart. REVIEW OF SYSTEMS: As per HPI. PHYSICAL EXAMINATION GENERAL: The patient is a well-developed, well-nourished, actually morbidly obese female who is porter rt, responsive, in no acute distress. VITAL SIGNS: Stable. She is afebrile. SKIN: Without generalized rash. HEENT: Within normal limits. NECK: Supple. LYMPHATIC: Lymph nodes: None palpable. CHEST: Decreased breath sounds at the bases. HEART: Without murmur or gallop. ABDOMEN: Soft, nontender, without organosplenomegaly or masses. RECTAL: Deferred. GENITAL: Deferred. NEUROLOGIC: No focal neurological abnormalities. IMPRESSION AND PLAN: The patient has bilateral ovarian cysts. She could have a neoplasm. She was started on Cipro and Flagyl. She has possible diverticulitis with microperforation. A general surg antony has been requested. An MRCP was also requested. A pelvic ultrasound just showed a ____ cystic lesion. The CT scan of the abdomen and pelvis is essentially as outlined. I do not see any obvious source of sepsis, at this point. Her urine, however, is growing gram-negative rods but only 20,000 to 30,000 colony-forming units per mL, which is not significant and influenza A and B are negative. We will continue her antibiotics, however, for the time being. I will dictate my findings to the hospitalist and to Dr. Orosco, who felt that the patient had perforated diverticulitis and that was the cause of the abdominal distention and a temperature of 103 yesterday. Her white count went up t o 13.2. We will continue her on the current therapy. We may want to switch her over to Zosyn. I will dictate my findings to the hospitalist and to Dr. Orosco. Dictated By: JEFFRY DAVILA MD, JD/LIBAN Conf#: [id number] DID#: [id number]
[2016-10-28 20:15] VITALS: BP 135/71; RESP 20
[2016-10-28] MEDS: MICONAZOLE 200 MG VAG SUPP VAG SCH (21:34)
--- NOTE | 2016-10-28 23:39 | CONS ---
DATE OF ADMISSION: 10/27/2016 DATE OF CONSULTATION: HISTORY OF PRESENT ILLNESS: This patient is a 46-year-old . She is 3, para 3, all deliveries by . She came to the hospital yesterday complaining of lower abdominal pain mostly on the left side for 2 days. On CAT scan, there is a description of a large predominantly cystic midline anterior pelvic mass measuring 7.7 x 14.2 x 8.3. The bladder and distal ureters were normal. The appendix was normal. The right ovary was 4 x 2.7 x 3.3 cm. Also there was evidence of diverticulosis of the sigmoid colon with probable region of diverticulitis in the mid sigmoid colon with microperforation adjacent to the free air. No abscess, no other neoplasm was noted. With these findings, the patient was seen by General Surgery, Dr. Orosco as well as a GI specialist and will be seen by an infectious disease specialist tom. She is scheduled to have an MRI to further clarify her condition. PHYSICAL EXAMINATION: Today she had a temperature of around 100. She is still complaining of headache as well as the abdominal pain. On examination, the pain is mostly on the left lower quadrant. However, she does have pain generalized on the abdomen. There is slight rebound tenderness. Pelvic exam was not repeated. With these findings, she will have her MRI today, and if any suspicions of malignancy, we will contact an oncologist. Other than that, if she is going to have a diagnostic laparotomy, a airways control specialist, one of us would be involved. Dictated By: HAKAN FERRIS/LIBAN Conf#: [id number] DID#: [id number] MTDD
[2016-10-29] MEDS: morphine 2 MG INJ IV PRN ×5 (02:09→21:57)
[2016-10-29] MEDS: D5W-0.45 NACL + KCL 20 MEQ 1,000 ML IV SCH ×3 (02:10→18:23)
[2016-10-29 05:26] LABS: ADD SCAN DIFF NO
[2016-10-29 05:32] LABS: BASOPHILS % 0.2 % (0.0-2.0); EOSINOPHILS % 0.4 % (0.0-7.0); HEMATOCRIT 37.5 % (37.0-47.0); LYMPHOCYTES # 1.9 10^3/ul (0.8-2.9); LYMPHOCYTES % 16.5 % (15.0-51.0); MEAN CORPUSCULAR HEMOGLOBIN 31.4 pg (29.0-33.0); MEAN CORPUSCULAR HGB CONC 34.7 g/dl (32.0-37.0); MEAN CORPUSCULAR VOLUME 90.6 fl (82.0-101.0); MEAN PLATELET VOLUME 9.7 fl (7.4-10.4); MONOCYTE # 0.5 10^3/ul (0.3-0.9); MONOCYTES % 4.6 % (0.0-11.0); NEUTROPHIL # 8.8 10^3/ul (1.6-7.5); NEUTROPHILS % 77.9 % (39.0-77.0); PLATELET COUNT 231 10^3/UL (140-415); RED BLOOD COUNT 4.14 10^6/ul (4.20-5.40); WHITE BLOOD COUNT 11.3 10^3/ul (4.8-10.8)
[2016-10-29] MEDS: PANTOPRAZOLE (EC) 40 MG TAB PO SCH (05:35)
[2016-10-29] MEDS: metroNIDAZOLE 500 MG/NS (PMX) 100 ML IVPB SCH ×3 (05:35→22:06)
[2016-10-29 05:52] LABS: POTASSIUM 3.9 mmol/L (3.5-5.1)
[2016-10-29 05:54] LABS: CREATININE 0.51 mg/dl (0.44-1.00)
[2016-10-29 05:55] LABS: CALCIUM 9.3 mg/dl (8.4-10.2)
[2016-10-29 05:58] LABS: MAGNESIUM 1.9 mg/dl (1.7-2.5); PHOSPHORUS 3.7 mg/dl (2.5-4.9)
--- NOTE | 2016-10-29 08:01 | RADRPT ---
PROCEDURE: MRI abdomen with contrast CLINICAL INDICATION: Pelvic mass and diverticulitis TECHNIQUE: An MRI of the abdomen was performed utilizing a high field MRI scanner with the following pulsed seq uences: Axial T2 fast spin-echo, axial T2 non-fat saturation fast spin-echo, axial T1 gradient echo in-phase and opposed-phase. Coronal BFFE T2-weighted images and coronal T2 fat saturation images we re obtained. Single coronal MRCP image was also obtained. In addition, axial T1 gradient-echo post-p hase fat saturation pre- and post-contrast images were obtained after the uncomplicated intravenous administration of 20 mL of Magnevist. Images were obtained at 20 seconds, 1 minute, 3 minutes, 5 mi nutes and 8 minutes. COMPARISON: CT 10/27/2016 FINDINGS: These are the findings for the MRI of the abdomen with description of only the abdominal structures. Please see separate report for the MRI pelvis with pelvic findings. The lung bases are clear. There is hepatomegaly with diffuse loss of signal throughout the hepatic parenchyma on the out-of-ph ase gradient images consistent with fatty infiltration of the liver. There is no focal signal abnor mality within the liver or abnormal enhancement to suggest a hepatic mass or hepatic abscess. There is no biliary ductal dilatation. The adrenal glands are within normal limits without mass. The kidneys enhance symmetrically bilate rally without hydronephrosis or perinephric stranding. The spleen is unremarkable. The gallbladder is distended with fluid with no visible layering fillin g defects and no surrounding inflammatory changes. The portal vein is opacified with contrast witho ut evidence of thrombus. The pancreas is unremarkable without focal lesion or surrounding inflammatory changes. There is a fecal filled colon within the abdomen. There is inflammatory changes sigmoid colon again seen with adjacent susceptibility artifact consistent with extraluminal bowel gas and localized inf lammatory changes which could represent developing phlegmon without a visible mature abscess. Aorta is unremarkable. There is no acute osseous abnormality. RPTAT: AA IMPRESSION: Diverticulitis with adjacent extraluminal bowel gas with no evidence of a mature abscess at this erica e. Developing phlegmon is suspected adjacent to the area of inflammation. Diffuse fatty infiltration of the liver without evidence of a hepatic mass. Please see separate report for the MRI pelvis for remainder of the pelvic organs findings para .Josh Segovia MD, MD Date Time Electronically viewed and signed by .Josh Segovia MD, MD on 10/29/2016 08:01 .J/
--- NOTE | 2016-10-29 08:04 | CONS ---
Date/Time of Note Date/Time of Note DATE: 10/29/16 TIME: 07:58 Consult Date/Type/Reason Admit Date/Time Oct 27, 2016 at 18:25 Initial Consult Date 10/27/16 Type of Consultation: OPERATING ROOM SCHEDULER Subjective Pt feeling better with pain meds although still having some abdominal pain. CLINICAL INDICATION: Pelvic mass TECHNIQUE: Multiplanar, multisequence imaging of the pelvis was obtained. Sequences include coronal, sagittal, and axial T2-weighted images with axial T2 fat-saturated images. Axial T1 and fat saturated T1-weighted images were obtained with postcontrast fat saturated T1-weighted images as well. The patient received 20 ml of Magnevist intravenously. Axial diffusion-weighted images and ADC maps were also obtained. COMPARISON: CT 10/27/2016 FINDINGS: The uterus is anteverted and retroflexed. There is a prominent appearance of the junctional zone that measures up to 15 mm encompassing the majority of the uterine parenchyma. Nabothian cysts are seen in the cervix. There is no focal uterine mass. In the anterior pelvis arising from the left ovary there is a large cystic structure which measures 7.8 x 1.3 x 8.5 cm as a single septation which enhances. There is a unilocular structure within the right ovary there is posterior to the uterus measuring 3.8 cm and has a thin wall which enhances. There is no visible nodular component. In addition, along the right pelvis there is an oblong somewhat tubular-shaped structure that measures 11.2 x 3.5 x 3.9 cm in diameter. There is had previously been more lateral and anterior within the right pelvis on the CT and now has a more medial appearance of the pelvis and is indeterminate. It is not appeared to be definitively connected with bowel and has a thin enhancing wall without a visible nodular component. Inflammatory changes of the sigmoid colon is seen with diverticulitis adjacent extrapleural air and developing phlegmonous changes. There is a trace amount of free fluid in the pelvis. There are no enlarged lymph nodes present. There is no acute osseous abnormality. The bladder and urethra are grossly unremarkable. There is a small fat containing umbilical hernia. RPTAT: AA IMPRESSION: There is a large ovarian cystic structure with a single septation that has enhancement arising to the left ovary and this could represent a benign or malignant ovarian neoplasm. There is a unilocular cyst with a thin enhancing wall involving the right ovary and this could represent a follicle or cystic lesion of the ovary. There is an indeterminate oblong somewhat tubular-shaped structure seen in the right pelvis which appears mobile since the prior CT. This could represent a focally distended loop of bowel or could represent a hydrosalpinx. Continued follow-up is recommended with MRI after 3 months. Prominence of the junctional zone of the uterus is suggestive for adenomyosis. There is acute diverticulitis with surrounding inflammatory changes of the sigmoid colon and phlegmonous changes of the mesentery with small bubbles of extraluminal bowel gas. Objective Vital Signs Date Time Temp Pulse Resp B/P Pulse Ox O2 Delivery O2 Flow Rate FiO2 10/28/16 20:15 99.4 101 20 135/71 93 10/27/16 23:30 Room Air Intake and Output 10/28/16 10/28/16 10/29/16 15:00 23:00 07:00 Intake Total 200 ml 1300 ml 1010 ml Balance 200 ml 1300 ml 1010 ml Gen: lying in bed asleep, easily arousable, NAD, pleasant CV: RRR, nl s1s2 Resp: CTAB Abd: soft, obese, NABS, min to mod TTP LUQ and bilateral lower quadrants mainly Results/Medications Result Diagram: 10/29/1615 10/29/16 0515 Results 24 hrs Laboratory Tests Test 10/29/16 05:15 Anion Gap 14 Basophils # 0.0 Basophils % 0.2 Blood Urea Nitrogen 5 L Calcium Level 9.3 Carbon Dioxide Level 28 Chloride Level 101 Creatinine 0.51 Eosinophils # 0.0 Eosinophils % 0.4 Glucose Level 125 Hematocrit 37.5 Hemoglobin 13.0 Lymphocytes # 1.9 Lymphocytes % 16.5 Magnesium Level 1.9 Mean Corpuscular Hemoglobin 31.4 Mean Corpuscular Hemoglobin Concent 34.7 Mean Corpuscular Volume 90.6 Mean Platelet Volume 9.7 Monocytes # 0.5 Monocytes % 4.6 Neutrophils # 8.8 H Neutrophils % 77.9 H Nucleated Red Blood Cells # 0.0 Nucleated Red Blood Cells % 0.0 Phosphorus Level 3.7 Platelet Count 231 Potassium Level 3.9 Red Blood Count 4.14 L Red Cell Distribution Width 12.0 Sodium Level 139 White Blood Count 11.3 H Medications Current Medications Potassium Chloride/Dextrose/ Sod Cl (D5-1/2ns + KCl 20 Meq) 1,000 ml @ 100 mls/ hr Q10H IV Last administered on 10/29/16 02:10; Admin Dose 100 MLS/HR; Start 10/27/16 at 18:28 Ondansetron HCl (Zofran Inj) 4 mg Q6H PRN IV NAUSEA AND/OR VOMITING; Start at 18:30 Acetaminophen (Tylenol Tab) 650 mg Q6H PRN PO PAIN LEVEL 1-3 OR FEVER Last administered on 10/28/16 18:17; Admin Dose 650 MG; Start 10/27/16 at 18:30 Acetaminophen (Tylenol Supp) 650 mg Q6H PRN ME PAIN LEVEL 1-3 OR FEVER Last administered on 10/27/16 22:12; Admin Dose 650 MG; Start 10/27/16 at 18:30 Acetaminophen/ Hydrocodone Bitart ([place] (5/325)) 1 tab Q6H PRN PO MODERATE PAIN LEVEL 4-6 Last administered on 10/28/16 08:43; Admin Dose 1 TAB; Start at 18:30 Morphine Sulfate (morphine) 2 mg Q4H PRN IV SEVERE PAIN LEVEL 7-10 Last administered on 10/29/16 07:16; Admin Dose 2 MG; Start 10/27/16 at 18:30 Docusate Sodium (Colace) 100 mg Q12H PRN PO CONSTIPATION; Start 10/27/16 at 18: 30 Bisacodyl (Dulcolax) 5 mg DAILY PRN PO CONSTIPATION; Start 10/27/16 at 18:30 Pantoprazole 40 mg 40 mg DAILY@06 PO Last administered on 10/29/16 05:35; Admin Dose 40 MG; Start 10/28/16 at 06:00 Ciprofloxacin/ Dextrose 200 ml @ 200 mls/hr Q12 IVPB Last administered on 10/28 21:25; Admin Dose 200 MLS/HR; Start 10/28/16 at 07:30 Metronidazole (Flagyl 500 Mg (Pmx)) 100 ml @ 100 mls/hr Q8 IVPB Last administered on 10/29/16 05:35; Admin Dose 100 MLS/HR; Start 10/28/16 at 01:00 Miconazole (Monistat-3) 1 supp HS VAG Last administered on 10/28/16t 21:34; Admin Dose 1 SUPP; Start 10/28/16 at 21:00; Stop 10/30/16 at 21:01 Hydralazine HCl (Apresoline) 10 mg Q6H PRN IV SBP>160; Start 10/28/16 at 15:00 Assessment/Plan Additional Assessment/Plan 46yo obese P3 admitted to medicine service 2/2 abdominal pain in the setting of fevers, diverticulitis with microperforation being treated conservatively with antibiotics and incidental bilateral ovarian masses noted on CT and seen on MRI -Pt afebrile since yesterday 0500 with downtrending WBC. -MRI A/P performed yesterday with bilateral cystic structures arising from the ovary and a midline tubular structure as well of unclear origin. Prior imaging and exam at this time not concerning for torsion. -Tumor markers thus far wnl, awaiting result of CA-19-9. Called lab this AM, having difficulty calibrating machine but will try again today if specimen still available. Will await to hear back regarding progress on resulting this marker -Discussed with the patient that should surgery not be indicated during this hospitalization, she should follow-up with a OPERATING ROOM SCHEDULER as an outpatient for a pap smear, endometrial biopsy (given hx of likely anovulatory bleeding) and surgical planning for large L ovarian cyst. Also discussed the role of her weight in anovulation and encouraged pt to f/up with hardware engineering manager to aid in weight loss to decrease risk of endometrial hyperplasia and/or CA in the event EMB is wnl. Pt verbalized understanding of counseling -Continue Abx per primary team, surgery and ID recs -Please alert OPERATING ROOM SCHEDULER (laborist on-call at 1000) if surgery is being planned FRANKLIN GONZALEZ MD Oct 29, 2016 08:04
--- NOTE | 2016-10-29 08:15 | RADRPT ---
PROCEDURE: MRI pelvis with contrast CLINICAL INDICATION: Pelvic mass TECHNIQUE: Multiplanar, multisequence imaging of the pelvis was obtained. Sequences include coron al, sagittal, and axial T2-weighted images with axial T2 fat-saturated images. Axial T1 and fat sat urated T1-weighted images were obtained with postcontrast fat saturated T1-weighted images as well. The patient received 20 ml of Magnevist intravenously. Axial diffusion-weighted images and ADC maps were also obtained. COMPARISON: CT 10/27/2016 FINDINGS: The uterus is anteverted and retroflexed. There is a prominent appearance of the junctional zone noé t measures up to 15 mm encompassing the majority of the uterine parenchyma. Nabothian cysts are see n in the cervix. There is no focal uterine mass. In the anterior pelvis arising from the left ovary there is a large cystic structure which measures 7.8 x 1.3 x 8.5 cm as a single septation which enhances. There is a unilocular structure within the right ovary there is posterior to the uterus measuring 3.8 cm and has a thin wall which enhances. There is no visible nodular component. In addition, along the right pelvis there is an oblong somew hat tubular-shaped structure that measures 11.2 x 3.5 x 3.9 cm in diameter. There is had previously been more lateral and anterior within the right pelvis on the CT and now has a more medial appearan ce of the pelvis and is indeterminate. It is not appeared to be definitively connected with bowel a nd has a thin enhancing wall without a visible nodular component. Inflammatory changes of the sigmoid colon is seen with diverticulitis adjacent extrapleural air and developing phlegmonous changes. There is a trace amount of free fluid in the pelvis. There are no enlarged lymph nodes present. There is no acute osseous abnormality. The bladder and urethra are grossly unremarkable. There is a small fat containing umbilical hernia. RPTAT: AA IMPRESSION: There is a large ovarian cystic structure with a single septation that has enhancement arising to th e left ovary and this could represent a benign or malignant ovarian neoplasm. There is a unilocular cyst with a thin enhancing wall involving the right ovary and this could repre sent a follicle or cystic lesion of the ovary. There is an indeterminate oblong somewhat tubular-shaped structure seen in the right pelvis which ap pears mobile since the prior CT. This could represent a focally distended loop of bowel or could re present a hydrosalpinx. Continued follow-up is recommended with MRI after 3 months. Prominence of the junctional zone of the uterus is suggestive for adenomyosis. There is acute diverticulitis with surrounding inflammatory changes of the sigmoid colon and phlegmo nous changes of the mesentery with small bubbles of extraluminal bowel gas. RPTAT: AA .Josh Segovia MD, Date Time Electronically viewed and signed by .Josh Segovia MD, MD on 10/29/2016 08:15 .J/
[2016-10-29] MEDS: CIPROFLOXACIN 400MG/D5W 200 ML IVPB SCH ×2 (08:29→20:32)
[2016-10-29 08:32] VITALS: BP 120/80; RESP 21
[2016-10-29] MEDS: ONDANSETRON 4 MG INJ IV PRN (09:31)
[2016-10-29 09:40] LABS: CANCER ANTIGEN 19-9 2.3 U/ml (0.0-37.0)
--- NOTE | 2016-10-29 13:43 | PN ---
DATE: 10/29/2016 SUBJECTIVE: The patient is alert, lying comfortably in bed, still has pain in her abdomen, she is i n no distress. VITAL SIGNS: T-max of 102.5, T current 99.5. LABORATORY DATA: WBC 11.3, neutrophils 77.9. No bands. BUN 5, creatinine 0.51. MICROBIOLOGY: Urine culture grew E. coli on admission. Blood cultures negative. ANTIMICROBIALS: 1. Cipro. 2. Flagyl. PHYSICAL EXAMINATION: GENERAL: This is a morbidly obese, middle-aged woman who is lying comfortably in bed. HEENT: Head atraumatic, normocephalic. Sclerae anicteric. Buccal mucosa dry. NECK: Supple, trachea midline. CHEST: Rise symmetrical. Breath sounds diminished to bases. HEART: S1, S2. ABDOMEN: Soft, bowel tones present. EXTREMITIES: Without cyanosis. ASSESSMENT: 1. Abdominal pain. 2. Large ovarian cystic structure, questionable benign or malignant ovarian neoplasm. 3. Diverticulitis with microperforation. 4. Morbid obesity. 5. Escherichia coli urinary tract infection. PLAN: The patient is covered with appropriate antimicrobials. She is being followed by multiple co nsultants. We will continue observing her and await for clinical improvement. Dictated By: FAM OSULLIVAN WEBSITE DESIGNER for JEFFRY FERRO/LIBAN Conf#: [id number] DID#: [id number]
--- NOTE | 2016-10-29 15:45 | PN ---
Date/Time of Note Date/Time of Note DATE: 10/29/16 TIME: 15:45 Assessment/Plan VTE Prophylaxis VTE Prophylaxis Intervention: SCD's Lines/Catheters IV Catheter Type (from Nrs): Peripheral IV Assessment/Plan Chief Complaint/Hosp Course 1. Acute abdominal pain. Most probably secondary to underlying diverticulitis. Continue n.p.o. Continue empiric antibiotics. General surgery following the patient. 2. Large ovarian cystic structure with a single septation arising from the left ovary along with an indeterminate oblong, somewhat tubular shaped structure in the right pelvis The patient was seen and evaluated by WAREHOUSE HELPER. Tumor markers are negative so far. Will involve WAREHOUSE HELPER/ONC on the case. 3. Essential hypertension. Continue antihypertensives. Blood pressure well controlled. 4. Systemic inflammatory response syndrome with fevers, leukocytosis and sinus tachycardia. Most probably secondary to underlying intra-abdominal pathology. Continue antibiotics. We will involve infectious diseases on the case. 5. Obesity. BMI of 40.5 kg/meter squared. Fasting lipid panel satisfactory. Hemoglobin A1c 5.7. We will advise weight reduction on this patient. 6. Iron deficiency with no evidence of anemia. We will monitor hemoglobin and hematocrit closely. 7. Vaginal candidiasis. Continue local antifungals. 8. Fluid, electrolytes and nutrition. Continue IV fluids. We will keep the patient n.p.o. 9. Deep venous thrombosis prophylaxis. Bilateral sequential compression devices. 10. Gastrointestinal prophylaxis. Proton pump inhibitors. PLAN: Continue pain control. Continue antibiotics. Call WAREHOUSE HELPER/ONC consult. Case discussed with Dr. Shin. The plan of care was explained to the patient's family who was at the bedside. Problems: Subjective 24 Hr Interval Summary Free Text/Dictation Abdominal pain well controlled with analgesics. Denies any nausea or vomiting. Exam/Review of Systems Vital Signs Vitals Vital Signs Date Time Temp Pulse Resp B/P Pulse Ox O2 Delivery O2 Flow Rate FiO2 10/29/16 08:32 99.5 100 21 120/80 96 10/27/16 23:30 Room Air Intake and Output 10/28/16 10/28/16 10/29/16 15:00 23:00 07:00 Intake Total 200 ml 1300 ml 1010 ml Balance 200 ml 1300 ml 1010 ml Exam GENERAL: This is an obese female lying in bed in no apparent distress. HEENT: Head normocephalic and atraumatic. Eyes: Anicteric sclerae. Conjunctivae clear. ENT: Nasal septum is midline. Oral mucosa is dry. NECK: Short and obese. Unable to visualize any neck veins. CARDIAC: Regular rate and rhythm. ABDOMEN: Distended. Diffuse tenderness. Bowel sounds hypoactive in all 4 quadrants. GENITOURINARY: Deferred. EXTREMITIES: No cyanosis, no clubbing, no edema. Peripheral pulses are palpable. NEUROLOGIC: The patient is awake, alert and oriented. Cranial nerves are grossly intact. Results Result Diagram: 10/29/16 0515 10/29/16 0515 Results 24 hrs Laboratory Tests Test 10/29/16 05:15 Anion Gap 14 Basophils # 0.0 Basophils % 0.2 Blood Urea Nitrogen 5 L Calcium Level 9.3 Carbon Dioxide Level 28 Chloride Level 101 Creatinine 0.51 Eosinophils # 0.0 Eosinophils % 0.4 Glucose Level 125 Hematocrit 37.5 Hemoglobin 13.0 Lymphocytes # 1.9 Lymphocytes % 16.5 Magnesium Level 1.9 Mean Corpuscular Hemoglobin 31.4 Mean Corpuscular Hemoglobin Concent 34.7 Mean Corpuscular Volume 90.6 Mean Platelet Volume 9.7 Monocytes # 0.5 Monocytes % 4.6 Neutrophils # 8.8 H Neutrophils % 77.9 H Nucleated Red Blood Cells # 0.0 Nucleated Red Blood Cells % 0.0 Phosphorus Level 3.7 Platelet Count 231 Potassium Level 3.9 Red Blood Count 4.14 L Red Cell Distribution Width 12.0 Sodium Level 139 White Blood Count 11.3 H Medications Medications Current Medications Potassium Chloride/Dextrose/ Sod Cl (D5-1/2ns + KCl 20 Meq) 1,000 ml @ 100 mls/ hr Q10H IV Last administered on 10/29/16 02:10; Admin Dose 100 MLS/HR; Start 10/27/16 at 18:28 Ondansetron HCl (Zofran Inj) 4 mg Q6H PRN IV NAUSEA AND/OR VOMITING Last administered on 10/29/16 09:31; Admin Dose 4 MG; Start 10/27/16 at 18:30 Acetaminophen (Tylenol Tab) 650 mg Q6H PRN PO PAIN LEVEL 1-3 OR FEVER Last administered on 10/28/16 18:17; Admin Dose 650 MG; Start 10/27/16 at 18:30 Acetaminophen (Tylenol Supp) 650 mg Q6H PRN [place] PAIN LEVEL 1-3 OR FEVER Last administered on 10/27/16 22:12; Admin Dose 650 MG; Start 10/27/16 at 18:30 Acetaminophen/ Hydrocodone Bitart ([place] (5/325)) 1 tab Q6H PRN PO MODERATE PAIN LEVEL 4-6 Last administered on 10/28/16 08:43; Admin Dose 1 TAB; Start at 18:30 Morphine Sulfate (morphine) 2 mg Q4H PRN IV SEVERE PAIN LEVEL 7-10 Last administered on 10/29/16 12:28; Admin Dose 2 MG; Start 10/27/16 at 18:30 Docusate Sodium (Colace) 100 mg Q12H PRN PO CONSTIPATION; Start 10/27/16 at 18: 30 Bisacodyl (Dulcolax) 5 mg DAILY PRN PO CONSTIPATION; Start 10/27/16 at 18:30 Pantoprazole 40 mg 40 mg DAILY@06 PO Last administered on 10/29/16 05:35; Admin Dose 40 MG; Start 10/28/16 at 06:00 Ciprofloxacin/ Dextrose 200 ml @ 200 mls/hr Q12 IVPB Last administered on 10/29 08:29; Admin Dose 200 MLS/HR; Start 10/28/16 at 07:30 Metronidazole (Flagyl 500 Mg (Pmx)) 100 ml @ 100 mls/hr Q8 IVPB Last administered on 10/29/16 13:57; Admin Dose 100 MLS/HR; Start 10/28/16 at 01:00 Miconazole (Monistat-3) 1 supp HS VAG Last administered on 10/28/16 21:34; Admin Dose 1 SUPP; Start 10/28/16 at 21:00; Stop 10/30/16 at 21:01 Hydralazine HCl (Apresoline) 10 mg Q6H PRN IV SBP>160; Start 10/28/16 at 15:00 CL KERR NP Oct 29, 2016 15:45
--- NOTE | 2016-10-29 15:58 | PN ---
DATE: 10/29/2016 The patient is symptomatically improved. She is afebrile since this morning. Her T-max has come do wn to 102.5. OBJECTIVE: ABDOMEN: Improved with much less left lower quadrant tenderness. LABORATORY DATA: Her white blood cell count has improved and come down to 11,300, but still with a left shift. IMPRESSION: Sigmoid diverticulitis with microperforation. PLAN: Continue medical management. I will follow with you. Dictated By: ANISHA MO/LIBAN Conf#: [id number] DID#: [id number]
[2016-10-29 20:00] VITALS: BP 130/80; PULSE 95; RESP 18
--- NOTE | 2016-10-29 22:35 | QN ---
Documentation Comment Chart reviewed in detail. Will examine and complete consultation Tuesday a.m. Thank you YASMINE GILES MD Oct 29, 2016 22:35
[2016-10-29] MEDS: MICONAZOLE 200 MG VAG SUPP VAG SCH (22:47)
[2016-10-30] MEDS: morphine 2 MG INJ IV PRN ×3 (04:46→13:42)
[2016-10-30] MEDS: metroNIDAZOLE 500 MG/NS (PMX) 100 ML IVPB SCH ×3 (05:42→22:24)
[2016-10-30] MEDS: D5W-0.45 NACL + KCL 20 MEQ 1,000 ML IV SCH ×4 (05:43→22:25)
[2016-10-30] MEDS: PANTOPRAZOLE (EC) 40 MG TAB PO SCH (05:43)
[2016-10-30 06:25] LABS: ADD SCAN DIFF NO
[2016-10-30 06:34] LABS: BASOPHILS % 0.3 % (0.0-2.0); EOSINOPHILS # 0.1 10^3/ul (0.0-0.5); HEMATOCRIT 38.7 % (37.0-47.0); HEMOGLOBIN 13.2 g/dl (12.0-16.0); LYMPHOCYTES # 1.8 10^3/ul (0.8-2.9); LYMPHOCYTES % 18.3 % (15.0-51.0); MEAN CORPUSCULAR HEMOGLOBIN 31.3 pg (29.0-33.0); MEAN CORPUSCULAR HGB CONC 34.1 g/dl (32.0-37.0); MEAN CORPUSCULAR VOLUME 91.7 fl (82.0-101.0); MEAN PLATELET VOLUME 9.7 fl (7.4-10.4); MONOCYTE # 0.5 10^3/ul (0.3-0.9); MONOCYTES % 5.2 % (0.0-11.0); NEUTROPHIL # 7.3 10^3/ul (1.6-7.5); NEUTROPHILS % 74.9 % (39.0-77.0); PLATELET COUNT 271 10^3/UL (140-415); RED BLOOD COUNT 4.22 10^6/ul (4.20-5.40); RED CELL DISTRIBUTION WIDTH 11.9 % (11.5-14.5); WHITE BLOOD COUNT 9.8 10^3/ul (4.8-10.8)
[2016-10-30 06:48] LABS: POTASSIUM 3.8 mmol/L (3.5-5.1)
[2016-10-30 06:51] LABS: CREATININE 0.65 mg/dl (0.44-1.00)
[2016-10-30 06:52] LABS: CALCIUM 9.3 mg/dl (8.4-10.2)
[2016-10-30 06:52] LABS: PHOSPHORUS 4.4 mg/dl (2.5-4.9)
[2016-10-30 08:25] VITALS: BP 113/58; RESP 20
[2016-10-30] MEDS: CIPROFLOXACIN 400MG/D5W 200 ML IVPB SCH ×2 (08:39→21:26)
--- NOTE | 2016-10-30 10:08 | PN ---
DATE: 10/30/2016 SUBJECTIVE: The patient is now afebrile for 24 hours and her white blood cell count has come down t o 9800 with resolution of her left shift. Her abdominal examination is benign. PLAN: Continue medical management. Okay to start clear liquids and gradually advance diet as coleen ated. Dictated By: ANISHA MO/LIBAN Conf#: [id number] DID#: [id number]
--- NOTE | 2016-10-30 10:25 | PN ---
Date/Time of Note Date/Time of Note DATE: 10/30/16 TIME: 10:23 Assessment/Plan VTE Prophylaxis VTE Prophylaxis Intervention: SCD's Lines/Catheters IV Catheter Type (from Nrs): Peripheral IV Assessment/Plan Chief Complaint/Hosp Course 1. Acute abdominal pain. Most probably secondary to underlying diverticulitis. Continue empiric antibiotics. General surgery following the patient. The patient was started on a clear liquid diet. 2. Large ovarian cystic structure with a single septation arising from the left ovary along with an indeterminate oblong, somewhat tubular shaped structure in the right pelvis The patient was seen and evaluated by ADMITTING CLERK. Tumor markers are negative so far. Will involve ADMITTING CLERK/ONC on the case. 3. Essential hypertension. Continue antihypertensives. Blood pressure well controlled. 4. Systemic inflammatory response syndrome with fevers, leukocytosis and sinus tachycardia. Most probably secondary to underlying intra-abdominal pathology. Continue antibiotics. Infectious diseases on the case. 5. Obesity. BMI of 40.5 kg/meter squared. Fasting lipid panel satisfactory. Hemoglobin A1c 5.7. We will advise weight reduction on this patient. 6. Iron deficiency with no evidence of anemia. We will monitor hemoglobin and hematocrit closely. 7. Vaginal candidiasis. Continue local antifungals. 8. Fluid, electrolytes and nutrition. Continue IV fluids. We will keep the patient n.p.o. 9. Deep venous thrombosis prophylaxis. Bilateral sequential compression devices. 10. Gastrointestinal prophylaxis. Proton pump inhibitors. PLAN: Continue pain control. Continue antibiotics. Await ADMITTING CLERK/ONC consult. Case discussed with Dr. Shin. The plan of care was explained to the patient's family who was at the bedside. Problems: Subjective 24 Hr Interval Summary Free Text/Dictation Had a few episodes of vomiting last night. Still having some abdominal pain. Remains afebrile. Exam/Review of Systems Vital Signs Vitals Vital Signs Date Time Temp Pulse Resp B/P Pulse Ox O2 Delivery O2 Flow Rate FiO2 10/30/16 08:25 98.9 96 20 113/58 98 10/29/16 20:00 Room Air Intake and Output 10/29/16 10/29/16 10/30/16 15:00 23:00 07:00 Intake Total 1300 ml 200 ml Balance 1300 ml 200 ml Exam GENERAL: This is an obese female lying in bed in no apparent distress. HEENT: Head normocephalic and atraumatic. Eyes: Anicteric sclerae. Conjunctivae clear. ENT: Nasal septum is midline. Oral mucosa is dry. NECK: Short and obese. Unable to visualize any neck veins. CARDIAC: Regular rate and rhythm. ABDOMEN: Distended. Diffuse tenderness. Bowel sounds hypoactive in all 4 quadrants. GENITOURINARY: Deferred. EXTREMITIES: No cyanosis, no clubbing, no edema. Peripheral pulses are palpable. NEUROLOGIC: The patient is awake, alert and oriented. Cranial nerves are grossly intact. Results Result Diagram: 10/30/16 0536 10/30/16 0536 Results 24 hrs Laboratory Tests Test 10/30/16 05:35 10/30/16 05:36 Magnesium Level 2.0 Phosphorus Level 4.4 Anion Gap 19 H Basophils # 0.0 Basophils % 0.3 Blood Urea Nitrogen 7 Calcium Level 9.3 Carbon Dioxide Level 27 Chloride Level 100 Creatinine 0.65 Eosinophils # 0.1 Eosinophils % 1.0 Glucose Level 134 Hematocrit 38.7 Hemoglobin 13.2 Lymphocytes # 1.8 Lymphocytes % 18.3 Mean Corpuscular Hemoglobin 31.3 Mean Corpuscular Hemoglobin Concent 34.1 Mean Corpuscular Volume 91.7 Mean Platelet Volume 9.7 Monocytes # 0.5 Monocytes % 5.2 Neutrophils # 7.3 Neutrophils % 74.9 Nucleated Red Blood Cells # 0.0 Nucleated Red Blood Cells % 0.0 Platelet Count 271 Potassium Level 3.8 Red Blood Count 4.22 Red Cell Distribution Width 11.9 Sodium Level 142 White Blood Count 9.8 Medications Medications Current Medications Potassium Chloride/Dextrose/ Sod Cl (D5-1/2ns + KCl 20 Meq) 1,000 ml @ 100 mls/ hr Q10H IV Last administered on 10/30/16 05:43; Admin Dose 100 MLS/HR; Start 10/27/16 at 18:28 Ondansetron HCl (Zofran Inj) 4 mg Q6H PRN IV NAUSEA AND/OR VOMITING Last administered on 10/29/16 09:31; Admin Dose 4 MG; Start 10/27/16 at 18:30 Acetaminophen (Tylenol Tab) 650 mg Q6H PRN PO PAIN LEVEL 1-3 OR FEVER Last administered on 10/28/16 18:17; Admin Dose 650 MG; Start 10/27/16 at 18:30 Acetaminophen (Tylenol Supp) 650 mg Q6H PRN [place] PAIN LEVEL 1-3 OR FEVER Last administered on 10/27/16 22:12; Admin Dose 650 MG; Start 10/27/16 at 18:30 Acetaminophen/ Hydrocodone Bitart ([place] (5/325)) 1 tab Q6H PRN PO MODERATE PAIN LEVEL 4-6 Last administered on 10/28/16 08:43; Admin Dose 1 TAB; Start at 18:30 Morphine Sulfate (morphine) 2 mg Q4H PRN IV SEVERE PAIN LEVEL 7-10 Last administered on 10/30/16 08:49; Admin Dose 2 MG; Start 10/27/16 at 18:30 Docusate Sodium (Colace) 100 mg Q12H PRN PO CONSTIPATION; Start 10/27/16 at 18: 30 Bisacodyl (Dulcolax) 5 mg DAILY PRN PO CONSTIPATION; Start 10/27/16 at 18:30 Pantoprazole 40 mg 40 mg DAILY@06 PO Last administered on 10/30/16 05:43; Admin Dose 40 MG; Start 10/28/16 at 06:00 Ciprofloxacin/ Dextrose 200 ml @ 200 mls/hr Q12 IVPB Last administered on 10/30 08:39; Admin Dose 200 MLS/HR; Start 10/28/16 at 07:30 Metronidazole (Flagyl 500 Mg (Pmx)) 100 ml @ 100 mls/hr Q8 IVPB Last administered on 10/30/16 05:42; Admin Dose 100 MLS/HR; Start 10/28/16 at 01:00 Miconazole (Monistat-3) 1 supp HS VAG Last administered on 10/29/16 22:47; Admin Dose 1 SUPP; Start 10/28/16 at 21:00; Stop 10/30/16 at 21:01 Hydralazine HCl (Apresoline) 10 mg Q6H PRN IV SBP>160; Start 10/28/16 at 15:00 CL KERR NP Oct 30, 2016 10:25
[2016-10-30] MEDS ORDERED: VITAMIN A & D 5 GM OINT PACKET TOP ONE (11:42)
--- NOTE | 2016-10-30 14:22 | CONS ---
Date/Time of Note Date/Time of Note DATE: 10/30/16 TIME: 14:22 Assessment/Plan Assessment/Plan Chief Complaint/Hosp Course ID PROGRESS NOTE CURRENT ABX=> TOTAL DAYS = #3.5 Cipro + Flagyl 24H INTERVAL SUMMARY * A/A/O sitting up in chair feels better, Afebrile, VSS, NAD * TMax 103 on admission -- now 72H afebrile w/low grade Tmax 99.5 PHYSICAL EXAMINATION: GENERAL: VSS, NAD, obese HEENT: Unremarkable -- except for white coated tongue NECK: Supple, trachea midline. CHEST: Rise symmetrical, without dyspnea on observation HEART: Pulse RRR ABDOMEN: Soft, obese EXTREMITIES: Warm, moves extremities ID ASSESSMENT 46 yo morbid obese F admit with: 1. Abdominal pain due to #3 + #4 2. Sepsis w/fever 103.0, leukocytosis, tachycardia on admission 10/27/16 -> resolved * BCx (-) * WBC normalized today * VSS, no hemodynamic compromise 3. Diverticulitis with microperforation. * MRI: Diverticulitis with adjacent extraluminal bowel gas with no evidence of a mature abscess at this time. Developing phlegmon is suspected adjacent to the area of inflammation. * CT on admission w/mucocele on appendix 4. Escherichia coli urinary tract infection/possible early pyelonephritis without hydronephrosis on CT 5. Large ovarian cystic structure, questionable benign or malignant ovarian neoplasm. * MRI ?bowel vs could represent a hydrosalpinx. Continued follow-up is recommended with MRI after 3 months. * Prominence of the junctional zone of the uterus is suggestive for adenomyosis. 6. Oral thrush on ABX -> Start Nystatin PO QID (? )MRSA Nares = not screened INVASIVES: PIV, ABX ALLERGY: KNDA CURRENT ABX: TOTAL DAYS => #3.5 Cipro + Flagyl s/p ID RECOMMENDATIONS 1. Continue current ABX as patient is improving 2. Nystatin 5mL po QID swish/spit 3. Further recs per consultants . Problems: Consultation Date/Type/Reason Admit Date/Time Oct 27, 2016 at 18:25 Initial Consult Date 10/27/16 Type of Consultation: ID Exam/Review of Systems Vital Signs Vitals Vital Signs Date Time Temp Pulse Resp B/P Pulse Ox O2 Delivery O2 Flow Rate FiO2 10/30/16 08:25 98.9 96 20 113/58 98 10/29/16 20:00 Room Air Intake and Output 10/29/16 10/29/16 10/30/16 15:00 23:00 07:00 Intake Total 1300 ml 200 ml Balance 1300 ml 200 ml Results Result Diagram: 10/30/16 0536 10/30/16 0536 Results 24 hrs Laboratory Tests Test 10/30/16 05:35 10/30/16 05:36 Magnesium Level 2.0 Phosphorus Level 4.4 Anion Gap 19 H Basophils # 0.0 Basophils % 0.3 Blood Urea Nitrogen 7 Calcium Level 9.3 Carbon Dioxide Level 27 Chloride Level 100 Creatinine 0.65 Eosinophils # 0.1 Eosinophils % 1.0 Glucose Level 134 Hematocrit 38.7 Hemoglobin 13.2 Lymphocytes # 1.8 Lymphocytes % 18.3 Mean Corpuscular Hemoglobin 31.3 Mean Corpuscular Hemoglobin Concent 34.1 Mean Corpuscular Volume 91.7 Mean Platelet Volume 9.7 Monocytes # 0.5 Monocytes % 5.2 Neutrophils # 7.3 Neutrophils % 74.9 Nucleated Red Blood Cells # 0.0 Nucleated Red Blood Cells % 0.0 Platelet Count 271 Potassium Level 3.8 Red Blood Count 4.22 Red Cell Distribution Width 11.9 Sodium Level 142 White Blood Count 9.8 Medications Medications Current Medications Potassium Chloride/Dextrose/ Sod Cl (D5-1/2ns + KCl 20 Meq) 1,000 ml @ 100 mls/ hr Q10H IV Last administered on 10/30/16 05:43; Admin Dose 100 MLS/HR; Start 10/27/16 at 18:28 Ondansetron HCl (Zofran Inj) 4 mg Q6H PRN IV NAUSEA AND/OR VOMITING Last administered on 10/29/16 09:31; Admin Dose 4 MG; Start 10/27/16 at 18:30 Acetaminophen (Tylenol Tab) 650 mg Q6H PRN PO PAIN LEVEL 1-3 OR FEVER Last administered on 10/28/16 18:17; Admin Dose 650 MG; Start 10/27/16 at 18:30 Acetaminophen (Tylenol Supp) 650 mg Q6H PRN [place] PAIN LEVEL 1-3 OR FEVER Last administered on 10/27/16 22:12; Admin Dose 650 MG; Start 10/27/16 at 18:30 Acetaminophen/ Hydrocodone Bitart ([place] (5/325)) 1 tab Q6H PRN PO MODERATE PAIN LEVEL 4-6 Last administered on 10/28/16 08:43; Admin Dose 1 TAB; Start at 18:30 Morphine Sulfate (morphine) 2 mg Q4H PRN IV SEVERE PAIN LEVEL 7-10 Last administered on 10/30/16 13:42; Admin Dose 2 MG; Start 10/27/16 at 18:30 Docusate Sodium (Colace) 100 mg Q12H PRN PO CONSTIPATION; Start 10/27/16 at 18: 30 Bisacodyl (Dulcolax) 5 mg DAILY PRN PO CONSTIPATION; Start 10/27/16 at 18:30 Pantoprazole 40 mg 40 mg DAILY@06 PO Last administered on 10/30/16 05:43; Admin Dose 40 MG; Start 10/28/16 at 06:00 Ciprofloxacin/ Dextrose 200 ml @ 200 mls/hr Q12 IVPB Last administered on 10/30 08:39; Admin Dose 200 MLS/HR; Start 10/28/16 at 07:30 Metronidazole (Flagyl 500 Mg (Pmx)) 100 ml @ 100 mls/hr Q8 IVPB Last administered on 10/30/16 13:41; Admin Dose 100 MLS/HR; Start 10/28/16 at 01:00 Miconazole (Monistat-3) 1 supp HS VAG Last administered on 10/29/16 22:47; Admin Dose 1 SUPP; Start 10/28/16 at 21:00; Stop 10/30/16 at 21:01 Hydralazine HCl (Apresoline) 10 mg Q6H PRN IV SBP>160; Start 10/28/16 at 15:00 GURU HAAS NP Oct 30, 2016 14:22
[2016-10-30] MEDS: NYSTATIN SUSP 5 ML CUP PO SCH ×2 (17:50→21:26)
--- NOTE | 2016-10-30 18:57 | CONS ---
Date/Time of Note Date/Time of Note DATE: 10/30/16 TIME: 18:56 Consultation Date/Type/Reason Admit Date/Time Oct 27, 2016 at 18:25 Hx of Present Illness Yasmine Salazar M.D. [facility] History and Physical Examination/ Consultation Ayah Lowenashnnamdi Date:Oct 30, 2016 :1970 Age: 46 Physicians: Car Seat Maker Tape Maker: Dr. Bell Oncologist Referring MD: as above History of the Present Illness: A 46 year old female with pelvic/abdominal pain bilateral probable adnexal masses and probable diverticular disease with probable diverticulitis and a possible micro-perf per imaging studies. Additionally patient noted increasing abd girth 1-2 months and pain over the last 2-4 wk. During hospital stay imaging revelaed an 8 cm left adnexal mass ( cystic), 4 cm right adnexal mass possibly ovulatory (cystic) and a 12-14 anterior/right pelvic mass subject to interpretation (hydrosalpinx vs appendiceal mucocele). Tumor markers negative. Has thus far responded well to Abx. Medical history/ROS: all other systems unremarkable. Surgical history: CS x 3. Medications: reviewed; none prior gardisil Allergies: No active allergies recorded Family Hx: non-contributary Social HX: non-contributary ROS: as above Colonoscopy: never Physical Examination General: Alert. HEENT: Pupils are equal, round, reactive to light and accommodation. Neck: Supple with no masses of lymphadenopathy. Breast: Deferred due to recent examination and responsibility of primary care physician. Chest: Clear to auscultation Heart: Normal rhythm . Abdomen: Mildly tender L > R, no ascites nor organomeglay but very obese a/o lower abd mass. No CVAT Pelvic exam: Bilateral adnexal cystic fullness, no cul-de-sac nodularity noted Rectal: confirmatory with pelvic exam. Neurological: Grossly intact Assessment: 1-Pelvic masses, benign vs CA vs endometrioma 2- Diverticulitis 3-Cystitis- unlikely pyelo as no CVAT and no hydro Plan: Continue current rx. Patients abdominal discomfort partly due to pelvic masses. Pelvic masses may be partly compressing colon and contributing to stool issue and exacerbation of diverticular issue. Will discuss ronald Orosco in terms of timing of Thread Pulling Machine Attendant procedure and whether it should be done separate as can be approached laparoscopic vs delay until complete recovery of acute colonic issue vs combined open procedure together only if essential Yasmine Salazar M.D. Constitutional: febrile Eyes: no complaints ENT: no complaints Respiratory: no complaints Cardiovascular: no complaints Gastrointestinal: other (Lower abdominal pain in the left side. Feels something tearing inside with a bowel movement patient feels that something is moving inside her abdomen like a baby. ), pain Genitourinary: other (Low back pain) Musculoskeletal: back pain Skin: no complaints Neurologic: no complaints Endocrine: no complaints Lymphatic: no complaints Psychological: no complaints Immunologic: no complaints Past Medical History Medical History: no pertinent history Social History Alcohol Use: none Smoking Status: Former smoker Drug Use: none Exam/Review of Systems Vital Signs Vitals Vital Signs Date Time Temp Pulse Resp B/P Pulse Ox O2 Delivery O2 Flow Rate FiO2 10/30/16 08:25 98.9 96 20 113/58 98 10/29/16 20:00 Room Air Intake and Output 10/29/16 10/29/16 10/30/16 15:00 23:00 07:00 Intake Total 1300 ml 200 ml Balance 1300 ml 200 ml Results Result Diagram: 10/30/16 0536 10/30/16 0536 Results 24 hrs Laboratory Tests Test 10/30/16 05:35 10/30/16 05:36 Magnesium Level 2.0 Phosphorus Level 4.4 Anion Gap 19 H Basophils # 0.0 Basophils % 0.3 Blood Urea Nitrogen 7 Calcium Level 9.3 Carbon Dioxide Level 27 Chloride Level 100 Creatinine 0.65 Eosinophils # 0.1 Eosinophils % 1.0 Glucose Level 134 Hematocrit 38.7 Hemoglobin 13.2 Lymphocytes # 1.8 Lymphocytes % 18.3 Mean Corpuscular Hemoglobin 31.3 Mean Corpuscular Hemoglobin Concent 34.1 Mean Corpuscular Volume 91.7 Mean Platelet Volume 9.7 Monocytes # 0.5 Monocytes % 5.2 Neutrophils # 7.3 Neutrophils % 74.9 Nucleated Red Blood Cells # 0.0 Nucleated Red Blood Cells % 0.0 Platelet Count 271 Potassium Level 3.8 Red Blood Count 4.22 Red Cell Distribution Width 11.9 Sodium Level 142 White Blood Count 9.8 Medications Medications Current Medications Potassium Chloride/Dextrose/ Sod Cl (D5-1/2ns + KCl 20 Meq) 1,000 ml @ 100 mls/ hr Q10H IV Last administered on 10/30/16 05:43; Admin Dose 100 MLS/HR; Start 10/27/16 at 18:28 Ondansetron HCl (Zofran Inj) 4 mg Q6H PRN IV NAUSEA AND/OR VOMITING Last administered on 10/29/16 09:31; Admin Dose 4 MG; Start 10/27/16 at 18:30 Acetaminophen (Tylenol Tab) 650 mg Q6H PRN PO PAIN LEVEL 1-3 OR FEVER Last administered on 10/28/16 18:17; Admin Dose 650 MG; Start 10/27/16 at 18:30 Acetaminophen (Tylenol Supp) 650 mg Q6H PRN [place] PAIN LEVEL 1-3 OR FEVER Last administered on 10/27/16 22:12; Admin Dose 650 MG; Start 10/27/16 at 18:30 Acetaminophen/ Hydrocodone Bitart ([place] (5/325)) 1 tab Q6H PRN PO MODERATE PAIN LEVEL 4-6 Last administered on 10/28/16 08:43; Admin Dose 1 TAB; Start at 18:30 Morphine Sulfate (morphine) 2 mg Q4H PRN IV SEVERE PAIN LEVEL 7-10 Last administered on 10/30/16 13:42; Admin Dose 2 MG; Start 10/27/16 at 18:30 Docusate Sodium (Colace) 100 mg Q12H PRN PO CONSTIPATION; Start 10/27/16 at 18: 30 Bisacodyl (Dulcolax) 5 mg DAILY PRN PO CONSTIPATION; Start 10/27/16 at 18:30 Pantoprazole 40 mg 40 mg DAILY@06 PO Last administered on 10/30/16 05:43; Admin Dose 40 MG; Start 10/28/16 at 06:00 Ciprofloxacin/ Dextrose 200 ml @ 200 mls/hr Q12 IVPB Last administered on 10/30 08:39; Admin Dose 200 MLS/HR; Start 10/28/16 at 07:30 Metronidazole (Flagyl 500 Mg (Pmx)) 100 ml @ 100 mls/hr Q8 IVPB Last administered on 10/30/16 13:41; Admin Dose 100 MLS/HR; Start 10/28/16 at 01:00 Miconazole (Monistat-3) 1 supp HS VAG Last administered on 10/29/16 22:47; Admin Dose 1 SUPP; Start 10/28/16 at 21:00; Stop 10/30/16 at 21:01 Hydralazine HCl (Apresoline) 10 mg Q6H PRN IV SBP>160; Start 10/28/16 at 15:00 Nystatin (Nystatin Susp) 5 ml QID PO Last administered on 10/30/16 17:50; Admin Dose 5 ML; Start 10/30/16 at 17:45 YASMINE SALAZAR MD Oct 30, 2016 18:57
[2016-10-30 19:53] VITALS: BP 125/67; PULSE 96; RESP 18
[2016-10-30 20:14] VITALS: BP 123/56; RESP 20
[2016-10-30] MEDS: ACETAMINOPHEN 325 MG TAB PO PRN (21:26)
[2016-10-30] MEDS: MICONAZOLE 200 MG VAG SUPP VAG SCH (21:26)
[2016-10-31] MEDS: morphine 2 MG INJ IV PRN ×6 (00:29→22:27)
[2016-10-31] MEDS: D5W-0.45 NACL + KCL 20 MEQ 1,000 ML IV SCH ×3 (03:40→14:07)
[2016-10-31] MEDS: PANTOPRAZOLE (EC) 40 MG TAB PO SCH (05:34)
[2016-10-31] MEDS: metroNIDAZOLE 500 MG/NS (PMX) 100 ML IVPB SCH ×3 (05:34→22:26)
[2016-10-31 05:48] LABS: ADD SCAN DIFF NO
[2016-10-31 06:01] LABS: POTASSIUM 3.6 mmol/L (3.5-5.1)
[2016-10-31 06:04] LABS: BASOPHILS % 0.3 % (0.0-2.0); CREATININE 0.56 mg/dl (0.44-1.00); EOSINOPHILS # 0.2 10^3/ul (0.0-0.5); EOSINOPHILS % 1.7 % (0.0-7.0); HEMOGLOBIN 12.5 g/dl (12.0-16.0); LYMPHOCYTES # 2.1 10^3/ul (0.8-2.9); LYMPHOCYTES % 24.7 % (15.0-51.0); MEAN CORPUSCULAR HEMOGLOBIN 30.9 pg (29.0-33.0); MEAN CORPUSCULAR HGB CONC 33.8 g/dl (32.0-37.0); MEAN CORPUSCULAR VOLUME 91.6 fl (82.0-101.0); MEAN PLATELET VOLUME 9.6 fl (7.4-10.4); MONOCYTE # 0.6 10^3/ul (0.3-0.9); MONOCYTES % 6.8 % (0.0-11.0); NEUTROPHIL # 5.7 10^3/ul (1.6-7.5); NEUTROPHILS % 66.2 % (39.0-77.0); PLATELET COUNT 265 10^3/UL (140-415); RED BLOOD COUNT 4.04 10^6/ul (4.20-5.40); RED CELL DISTRIBUTION WIDTH 11.9 % (11.5-14.5); WHITE BLOOD COUNT 8.6 10^3/ul (4.8-10.8)
[2016-10-31 06:07] LABS: PHOSPHORUS 4.4 mg/dl (2.5-4.9)
[2016-10-31 06:08] LABS: MAGNESIUM 2.1 mg/dl (1.7-2.5)
[2016-10-31 07:41] VITALS: BP 122/82; RESP 18
[2016-10-31] MEDS: CIPROFLOXACIN 400MG/D5W 200 ML IVPB SCH ×2 (09:52→20:49)
[2016-10-31] MEDS: NYSTATIN SUSP 5 ML CUP PO SCH ×4 (09:55→20:49)
--- NOTE | 2016-10-31 10:11 | PN ---
Date/Time of Note Date/Time of Note DATE: 10/31/16 TIME: 10:11 Assessment/Plan VTE Prophylaxis VTE Prophylaxis Intervention: SCD's Lines/Catheters IV C[facility]ter Type (from [facility] Peripheral IV Urinary Cath still in place: No Assessment/Plan Chief Complaint/Hosp Course 1. Acute abdominal pain. Most probably secondary to underlying diverticulitis. Continue empiric antibiotics. General surgery following the patient. The patient was started on a clear liquid diet. 2. Large ovarian cystic structure with a single septation arising from the left ovary along with an indeterminate oblong, somewhat tubular shaped structure in the right pelvis The patient was seen and evaluated by SOCIETY EDITOR. Tumor markers are negative so far. SOCIETY EDITOR/ONC on the case. 3. Essential hypertension. Continue antihypertensives. Blood pressure well controlled. 4. Systemic inflammatory response syndrome with fevers, leukocytosis and sinus tachycardia. Most probably secondary to underlying intra-abdominal pathology. Continue antibiotics. Infectious diseases on the case. 5. Obesity. BMI of 40.5 kg/meter squared. Fasting lipid panel satisfactory. Hemoglobin A1c 5.7. We will advise weight reduction on this patient. 6. Iron deficiency with no evidence of anemia. We will monitor hemoglobin and hematocrit closely. 7. Vaginal candidiasis. Continue local antifungals. 8. 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 Continue antibiotics. General surgery following. 9. Fluid, electrolytes and nutrition. Continue IV fluids. On clears. 10. Deep venous thrombosis prophylaxis. Bilateral sequential compression devices. 11. Gastrointestinal prophylaxis. Proton pump inhibitors. PLAN: Continue pain control. Continue antibiotics. Plan for surgical intervention by SOCIETY EDITOR/ONC. Case discussed with Dr. Shin. The plan of care was explained to the patient's family who was at the bedside. Problems: Subjective 24 Hr Interval Summary Free Text/Dictation Pain well controlled with analgesics. Exam/Review of Systems Vital Signs Vitals Vital Signs Date Time Temp Pulse Resp B/P Pulse Ox O2 Delivery O2 Flow Rate FiO2 10/31/16 07:41 99.3 93 18 122/82 97 10/30/16 19:53 Room Air Intake and Output 10/30/16 10/30/16 10/31/16 15:00 23:00 07:00 Intake Total 1980 ml 1140 ml Balance 1980 ml 1140 ml Exam GENERAL: This is an obese female lying in bed in no apparent distress. HEENT: Head normocephalic and atraumatic. Eyes: Anicteric sclerae. Conjunctivae clear. ENT: Nasal septum is midline. Oral mucosa is dry. NECK: Short and obese. Unable to visualize any neck veins. CARDIAC: Regular rate and rhythm. ABDOMEN: Distended. Diffuse tenderness. Bowel sounds hypoactive in all 4 quadrants. GENITOURINARY: Deferred. EXTREMITIES: No cyanosis, no clubbing, no edema. Peripheral pulses are palpable. NEUROLOGIC: The patient is awake, alert and oriented. Cranial nerves are grossly intact. Results Result Diagram: 10/31/16 0506 10/31/16 0506 Results 24 hrs Laboratory Tests Test 10/31/16 05:06 Anion Gap 17 H Basophils # 0.0 Basophils % 0.3 Blood Urea Nitrogen 6 L Calcium Level 9.0 Carbon Dioxide Level 28 Chloride Level 101 Creatinine 0.56 Eosinophils # 0.2 Eosinophils % 1.7 Glucose Level 117 Hematocrit 37.0 Hemoglobin 12.5 Lymphocytes # 2.1 Lymphocytes % 24.7 Magnesium Level 2.1 Mean Corpuscular Hemoglobin 30.9 Mean Corpuscular Hemoglobin Concent 33.8 Mean Corpuscular Volume 91.6 Mean Platelet Volume 9.6 Monocytes # 0.6 Monocytes % 6.8 Neutrophils # 5.7 Neutrophils % 66.2 Nucleated Red Blood Cells # 0.0 Nucleated Red Blood Cells % 0.0 Phosphorus Level 4.4 Platelet Count 265 Potassium Level 3.6 Red Blood Count 4.04 L Red Cell Distribution Width 11.9 Sodium Level 142 White Blood Count 8.6 Medications Medications Current Medications Potassium Chloride/Dextrose/ Sod Cl (D5-1/2ns + KCl 20 Meq) 1,000 ml @ 100 mls/ hr Q10H IV Last administered on 10/31/16 09:54; Admin Dose 100 MLS/HR; Start 10/27/16 at 18:28 Ondansetron HCl (Zofran Inj) 4 mg Q6H PRN IV NAUSEA AND/OR VOMITING Last administered on 10/29/16 09:31; Admin Dose 4 MG; Start 10/27/16 at 18:30 Acetaminophen (Tylenol Tab) 650 mg Q6H PRN PO PAIN LEVEL 1-3 OR FEVER Last administered on 10/30/16 21:26; Admin Dose 650 MG; Start 10/27/16 at 18:30 Acetaminophen (Tylenol Supp) 650 mg Q6H PRN [place] PAIN LEVEL 1-3 OR FEVER Last administered on 10/27/16 22:12; Admin Dose 650 MG; Start 10/27/16 at 18:30 Acetaminophen/ Hydrocodone Bitart ([place] (5/325)) 1 tab Q6H PRN PO MODERATE PAIN LEVEL 4-6 Last administered on 10/28/16 08:43; Admin Dose 1 TAB; Start at 18:30 Morphine Sulfate (morphine) 2 mg Q4H PRN IV SEVERE PAIN LEVEL 7-10 Last administered on 10/31/16 09:56; Admin Dose 2 MG; Start 10/27/16 at 18:30 Docusate Sodium (Colace) 100 mg Q12H PRN PO CONSTIPATION; Start 10/27/16 at 18: 30 Bisacodyl (Dulcolax) 5 mg DAILY PRN PO CONSTIPATION; Start 10/27/16 at 18:30 Pantoprazole 40 mg 40 mg DAILY@06 PO Last administered on 10/31/16 05:34; Admin Dose 40 MG; Start 10/28/16 at 06:00 Ciprofloxacin/ Dextrose 200 ml @ 200 mls/hr Q12 IVPB Last administered on 10/31 09:52; Admin Dose 200 MLS/HR; Start 10/28/16 at 07:30 Metronidazole (Flagyl 500 Mg (Pmx)) 100 ml @ 100 mls/hr Q8 IVPB Last administered on 10/31/16 05:34; Admin Dose 100 MLS/HR; Start 10/28/16 at 01:00 Hydralazine HCl (Apresoline) 10 mg Q6H PRN IV SBP>160; Start 10/28/16 at 15:00 Nystatin (Nystatin Susp) 5 ml QID PO Last administered on 10/31/16 09:55; Admin Dose 5 ML; Start 10/30/16 at 17:45 CL KERR NP Oct 31, 2016 10:11
--- NOTE | 2016-10-31 10:14 | PN ---
Date/Time of Note Date/Time of Note DATE: 10/31/16 TIME: 10:13 Assessment/Plan VTE Prophylaxis VTE Prophylaxis Intervention: SCD's Exam/Review of Systems Vital Signs Vitals Vital Signs Date Time Temp Pulse Resp B/P Pulse Ox O2 Delivery O2 Flow Rate FiO2 10/31/16 07:41 99.3 93 18 122/82 97 10/30/16 19:53 Room Air Intake and Output 10/30/16 10/30/16 10/31/16 15:00 23:00 07:00 Intake Total 1980 ml 1140 ml Balance 1980 ml 1140 ml Results Result Diagram: 10/31/16 0506 10/31/16 0506 Results 24 hrs Medications Medications CL KERR NP Oct 31, 2016 10:[address] Shin. The plan of care was explained to the patient's family who was at the bedside. Problems: Exam/Review of Systems Vital Signs Vitals Vital Signs Date Time Temp Pulse Resp B/P Pulse Ox O2 Delivery O2 Flow Rate FiO2 10/31/16 07:41 99.3 93 18 122/82 97 10/30/16 19:53 Room Air Intake and Output 10/30/16 10/30/16 10/31/16 15:00 23:00 07:00 Intake Total 1980 ml 1140 ml Balance 1980 ml 1140 ml Results Result Diagram: 10/31/16 0506 10/31/16 0506 Results 24 hrs Laboratory Tests Test 10/31/16 05:06 Anion Gap 17 H Basophils # 0.0 Basophils % 0.3 Blood Urea Nitrogen 6 L Calcium Level 9.0 Carbon Dioxide Level 28 Chloride Level 101 Creatinine 0.56 Eosinophils # 0.2 Eosinophils % 1.7 Glucose Level 117 Hematocrit 37.0 Hemoglobin 12.5 Lymphocytes # 2.1 Lymphocytes % 24.7 Magnesium Level 2.1 Mean Corpuscular Hemoglobin 30.9 Mean Corpuscular Hemoglobin Concent 33.8 Mean Corpuscular Volume 91.6 Mean Platelet Volume 9.6 Monocytes # 0.6 Monocytes % 6.8 Neutrophils # 5.7 Neutrophils % 66.2 Nucleated Red Blood Cells # 0.0 Nucleated Red Blood Cells % 0.0 Phosphorus Level 4.4 Platelet Count 265 Potassium Level 3.6 Red Blood Count 4.04 L Red Cell Distribution Width 11.9 Sodium Level 142 White Blood Count 8.6 Medications Medications Current Medications Potassium Chloride/Dextrose/ Sod Cl (D5-1/2ns + KCl 20 Meq) 1,000 ml @ 100 mls/ hr Q10H IV Last administered on 10/31/16 09:54; Admin Dose 100 MLS/HR; Start 10/27/16 at 18:28 Ondansetron HCl (Zofran Inj) 4 mg Q6H PRN IV NAUSEA AND/OR VOMITING Last administered on 10/29/16 09:31; Admin Dose 4 MG; Start 10/27/16 at 18:30 Acetaminophen (Tylenol Tab) 650 mg Q6H PRN PO PAIN LEVEL 1-3 OR FEVER Last administered on 10/30/16 21:26; Admin Dose 650 MG; Start 10/27/16 at 18:30 Acetaminophen (Tylenol Supp) 650 mg Q6H PRN [place] PAIN LEVEL 1-3 OR FEVER Last administered on 10/27/16 22:12; Admin Dose 650 MG; Start 10/27/16 at 18:30 Acetaminophen/ Hydrocodone Bitart ([place] (5/325)) 1 tab Q6H PRN PO MODERATE PAIN LEVEL 4-6 Last administered on 10/28/16 08:43; Admin Dose 1 TAB; Start at 18:30 Morphine Sulfate (morphine) 2 mg Q4H PRN IV SEVERE PAIN LEVEL 7-10 Last administered on 10/31/16 09:56; Admin Dose 2 MG; Start 10/27/16 at 18:30 Docusate Sodium (Colace) 100 mg Q12H PRN PO CONSTIPATION; Start 10/27/16 at 18: 30 Bisacodyl (Dulcolax) 5 mg DAILY PRN PO CONSTIPATION; Start 10/27/16 at 18:30 Pantoprazole 40 mg 40 mg DAILY@06 PO Last administered on 10/31/16 05:34; Admin Dose 40 MG; Start 10/28/16 at 06:00 Ciprofloxacin/ Dextrose 200 ml @ 200 mls/hr Q12 IVPB Last administered on 10/31 09:52; Admin Dose 200 MLS/HR; Start 10/28/16 at 07:30 Metronidazole (Flagyl 500 Mg (Pmx)) 100 ml @ 100 mls/hr Q8 IVPB Last administered on 10/31/16 05:34; Admin Dose 100 MLS/HR; Start 10/28/16 at 01:00 Hydralazine HCl (Apresoline) 10 mg Q6H PRN IV SBP>160; Start 10/28/16 at 15:00 Nystatin (Nystatin Susp) 5 ml QID PO Last administered on 10/31/16t 09:55; Admin Dose 5 ML; Start 10/30/16 at 17:45 CL KERR NP Oct 31, 2016 10:14
[2016-10-31] MEDS ORDERED: BARIUM SULF 2% 450 ML BTL (BERRY SMOOTHIE) PO ONE (10:30)
--- NOTE | 2016-10-31 10:38 | PN ---
DATE: 10/31/2016 The patient is responding nicely for therapy for diverticulitis. Her white blood cell count has com e down to 8600 with resolution of left shift. Her T-max is 100.5. Her abdominal examination is liz ign and she has symptomatically improved. IMPRESSION: Patient will be ready for laparoscopic gynecologic evaluation by Dr. Salazar. At that time, I will be happy to be present to proceed with laparoscopic appendectomy because of the patien t's mucocele of the appendix. Prior to laparoscopy, she should have a repeat CT scan to ensure that the diverticulitis has responded. We will arrange for a CT scan tomorrow morning. Dictated By: ANISHA MO/LIBAN Conf#: [id number] DID#: [id number]
[2016-10-31] MEDS: ONDANSETRON 4 MG INJ IV PRN (11:54)
[2016-10-31] MEDS ORDERED: SOD CHLORIDE 0.9% 100 ML ONE (15:29)
[2016-10-31] MEDS ORDERED: IOHEXOL 300MG/ML 150 ML BTL ONE (15:29)
--- NOTE | 2016-10-31 15:46 | CONS ---
Date/Time of Note Date/Time of Note DATE: 10/31/16 TIME: 15:41 Assessment/Plan Assessment/Plan Chief Complaint/Hosp Course ID PROGRESS NOTE CURRENT ABX=> TOTAL DAYS = #4.5 Cipro + Flagyl 24H INTERVAL SUMMARY * Continues to improve -> A/A/O sitting up in chair feels better, denies ABD pain, Afebrile, VSS, NAD * TMax 103 on admission -- now 96H afebrile w/low grade Tmax 99.5 PHYSICAL EXAMINATION: GENERAL: VSS, NAD, obese HEENT: Unremarkable -- except for white coated tongue NECK: Supple, trachea midline. CHEST: Rise symmetrical, without dyspnea on observation HEART: Pulse RRR ABDOMEN: Soft, obese EXTREMITIES: Warm, moves extremities ID ASSESSMENT 46 yo morbid obese F admit with: 1. Abdominal pain due to #3 + #4 = IMPROVING 2. Sepsis w/fever 103.0, leukocytosis, tachycardia on admission 10/27/16 -> RESOLVED * BCx (-) * WBC normalized * VSS, no hemodynamic compromise 3. Diverticulitis with microperforation. * MRI: Diverticulitis with adjacent extraluminal bowel gas with no evidence of a mature abscess at this time. Developing phlegmon is suspected adjacent to the area of inflammation. * CT on admission w/mucocele on appendix 4. Escherichia coli urinary tract infection/possible early pyelonephritis without hydronephrosis on CT 5. Large ovarian cystic structure, questionable benign or malignant ovarian neoplasm. * MRI ?bowel vs could represent a hydrosalpinx. Continued follow-up is recommended with MRI after 3 months. * Prominence of the junctional zone of the uterus is suggestive for adenomyosis. 6. Oral thrush on ABX -> Start Nystatin PO QID (? )MRSA Nares = not screened INVASIVES: PIV, ABX ALLERGY: KNDA CURRENT ABX: TOTAL DAYS => #4.5 Cipro + Flagyl + Oral Nystatin s/p ID RECOMMENDATIONS 1. Continue current ABX as patient is improving 2. Nystatin 5mL po QID swish/spit Rx for oral thrush 3. Further recs per consultants: * = CT scan planned for Wednesday 11/[address] Orosco * Plan if diverticulitis resolved on CT => to proceed to laparoscopic gynecologic evaluation + laparoscopic appendectomy because of the patient's mucocele of the appendix. . . Problems: Consultation Date/Type/Reason Admit Date/Time Oct 27, 2016 at 18:25 Initial Consult Date 10/27/16 Type of Consultation: ID Exam/Review of Systems Vital Signs Vitals Vital Signs Date Time Temp Pulse Resp B/P Pulse Ox O2 Delivery O2 Flow Rate FiO2 10/31/16 13:42 Room Air 10/31/16 07:41 99.3 93 18 122/82 97 Intake and Output 10/30/16 10/30/16 10/31/16 15:00 23:00 07:00 Intake Total 1980 ml 1140 ml Balance 1980 ml 1140 ml Results Result Diagram: 10/31/16 0506 10/31/16 0506 Results 24 hrs Laboratory Tests Test 10/31/16 05:06 Anion Gap 17 H Basophils # 0.0 Basophils % 0.3 Blood Urea Nitrogen 6 L Calcium Level 9.0 Carbon Dioxide Level 28 Chloride Level 101 Creatinine 0.56 Eosinophils # 0.2 Eosinophils % 1.7 Glucose Level 117 Hematocrit 37.0 Hemoglobin 12.5 Lymphocytes # 2.1 Lymphocytes % 24.7 Magnesium Level 2.1 Mean Corpuscular Hemoglobin 30.9 Mean Corpuscular Hemoglobin Concent 33.8 Mean Corpuscular Volume 91.6 Mean Platelet Volume 9.6 Monocytes # 0.6 Monocytes % 6.8 Neutrophils # 5.7 Neutrophils % 66.2 Nucleated Red Blood Cells # 0.0 Nucleated Red Blood Cells % 0.0 Phosphorus Level 4.4 Platelet Count 265 Potassium Level 3.6 Red Blood Count 4.04 L Red Cell Distribution Width 11.9 Sodium Level 142 White Blood Count 8.6 Medications Medications Current Medications Potassium Chloride/Dextrose/ Sod Cl (D5-1/2ns + KCl 20 Meq) 1,000 ml @ 100 mls/ hr Q10H IV Last administered on 10/31/16 09:54; Admin Dose 100 MLS/HR; Start 10/27/16 at 18:28 Ondansetron HCl (Zofran Inj) 4 mg Q6H PRN IV NAUSEA AND/OR VOMITING Last administered on 10/31/16 11:54; Admin Dose 4 MG; Start 10/27/16 at 18:30 Acetaminophen (Tylenol Tab) 650 mg Q6H PRN PO PAIN LEVEL 1-3 OR FEVER Last administered on 10/30/16 21:26; Admin Dose 650 MG; Start 10/27/16 at 18:30 Acetaminophen (Tylenol Supp) 650 mg Q6H PRN [place] PAIN LEVEL 1-3 OR FEVER Last administered on 10/27/16 22:12; Admin Dose 650 MG; Start 10/27/16 at 18:30 Acetaminophen/ Hydrocodone Bitart ([place] (5/325)) 1 tab Q6H PRN PO MODERATE PAIN LEVEL 4-6 Last administered on 10/28/16 08:43; Admin Dose 1 TAB; Start at 18:30 Morphine Sulfate (morphine) 2 mg Q4H PRN IV SEVERE PAIN LEVEL 7-10 Last administered on 10/31/16 14:28; Admin Dose 2 MG; Start 10/27/16 at 18:30 Docusate Sodium (Colace) 100 mg Q12H PRN PO CONSTIPATION; Start 10/27/16 at 18: 30 Bisacodyl (Dulcolax) 5 mg DAILY PRN PO CONSTIPATION; Start 10/27/16 at 18:30 Pantoprazole 40 mg 40 mg DAILY@06 PO Last administered on 10/31/16 05:34; Admin Dose 40 MG; Start 10/28/16 at 06:00 Ciprofloxacin/ Dextrose 200 ml @ 200 mls/hr Q12 IVPB Last administered on 10/31 09:52; Admin Dose 200 MLS/HR; Start 10/28/16 at 07:30 Metronidazole (Flagyl 500 Mg (Pmx)) 100 ml @ 100 mls/hr Q8 IVPB Last administered on 10/31/16 14:28; Admin Dose 100 MLS/HR; Start 10/28/16 at 01:00 Hydralazine HCl (Apresoline) 10 mg Q6H PRN IV SBP>160; Start 10/28/16 at 15:00 Nystatin (Nystatin Susp) 5 ml QID PO Last administered on 10/31/16 09:55; Admin Dose 5 ML; Start 10/30/16 at 17:45 GURU HAAS MEDICAL ASSISTANT FLOAT Oct 31, 2016 15:46
--- NOTE | 2016-10-31 16:26 | RADRPT ---
PROCEDURE: CT Abdomen and Pelvis without contrast. CLINICAL INDICATION: Abdominal and pelvic pain. TECHNIQUE: CT scan of the abdomen and pelvis without contrast was performed. Coronal and sagittal reformatted images were obtained from the axial source images. Images were reviewed on a high-resolu tion PACS workstation. Total exam DLP is 1907.42 mGy-cm. CTDIvol is 17.95 mGy. One or more of the following dose reduction techniques were used: Automated exposure control, adjustment of the mA and/ or kV according to patient size, use of iterative reconstruction technique. 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 FINDINGS: There is mild linear atelectasis at both lung bases posteriorly. The lung bases are otherwise kar l. There is no pleural effusion or pericardial effusion. The heart size is normal. The liver is normal in size and diffusely decreased attenuation consistent with fatty metamorphosis. There is no focal hepatic lesion. The gallbladder and bile ducts are normal. The spleen is normal in size. There is no focal splenic lesion. Both adrenals are normal with no enlargement or mass. The pancreas is unremarkable with no mass or evidence of pancreatitis. Both kidneys are normal in size.. There is no renal mass or hydronephrosis. The abdominal aorta is not dilated. There is no retroperitoneal lymphadenopathy or mass. There is no pelvic lymphadenopathy. There is a large predominately cystic midline anterior pelvic ma ss measuring 8.2 x 14.0 x 8.3 cm in AP, transverse, and cranial caudal dimensions, unchanged. There is a single thin vertical septation in the sagittal plane. A second cyst is noted posteriorly on the right consistent with a right adnexal cyst measuring 3.1 x 3.2 x 3.3 cm in AP, transverse, and cran ial caudal dimensions, unchanged. The bladder and distal ureters are normal. At the expected location of the appendix, there is a tubular blind ending fluid filled structure kia suring 10.3 x 4.5 x 4.5 cm in AP, transverse, and cranial caudal dimensions. A small amount of calci fication is present in the wall superiorly and there is a round calcification measuring 0.5 cm at th e bases adjacent to the cecum. This is suspicious for a mucocele of the appendix. There is diverticulosis of the sigmoid colon. There is diffuse thickening of the wall of the sigmoid colon. In the midsigmoid colon there is a region of focal wall thickening, surrounding mesenteric e malick, and microperforation with free air in a region measuring approximately 5.5 cm in maximal dimen abraham, larger than seen previously. The region of mesenteric edema is also larger than seen previous ly. There is no abscess at this site with no fluid collection or mass. There is no free fluid. The osseous structures are unremarkable with no fracture or lytic lesion. IMPRESSION: 1. Fatty metamorphosis of the liver. 2. Large predominately cystic midline anterior pelvic mass measuring 8.2 x 14.0 x 8.3 cm, likely due to a left ovarian cystic neoplasm which may be benign or malignant, unchanged. 3. Right ovarian cyst measuring 3.1 x 3.2 x 3.3 cm, unchanged. 4. 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 5. Diverticulosis of the sigmoid colon with probable region of diverticulitis in the midsigmoid colo n with microperforation and adjacent free air, larger than seen previously. No abscess. Neoplasm wit h perforation may also give this appearance. Clinical correlation and follow-up advised. 6. Otherwise unremarkable study. RPTAT: QQ .Monster Zacarias MD, Date Time Electronically viewed and signed by .Monster Zacarias MD, on 10/31/2016 16:26 .R/
--- NOTE | 2016-10-31 16:28 | PN ---
Date/Time of Note Date/Time of Note DATE: 10/31/16 TIME: 16:23 Assessment/Plan VTE Prophylaxis VTE Prophylaxis Intervention: SCD's Lines/Catheters IV C[facility]ter Type (from [facility] Peripheral IV Urinary Cath still in place: No Assessment/Plan Chief Complaint/Hosp Course Assessment: 1-Pelvic masses, benign vs CA vs endometrioma vs hydrosalpinx vs mucocele 2- Diverticulitis 3-Cystitis- unlikely pyelo as no CVAT and no hydro Problems: Assessment/Plan P- await CT and discuss with Dr. Orosco Subjective 24 Hr Interval Summary Free Text/Dictation S- mando clear liq but ongoing LLQ and suprapubic tenderness. O- Resp- clear CVS-NSR Abd- some distension and unchgd tenderness Ext- NT no edema A- minimal chg and diverticulitis and unclear L adnexal mass and R hydrosalpinx vs appendiceal mucocele P- await CT and discuss with Dr. Orosco Exam/Review of Systems Vital Signs Vitals Vital Signs Date Time Temp Pulse Resp B/P Pulse Ox O2 Delivery O2 Flow Rate FiO2 10/31/16 13:42 Room Air 10/31/16 07:41 99.3 93 18 122/82 97 Intake and Output 10/30/16 10/30/16 10/31/16 15:00 23:00 07:00 Intake Total 1980 ml 1140 ml Balance 1980 ml 1140 ml Results Result Diagram: 10/31/16 0506 10/31/16 0506 Results 24 hrs Laboratory Tests Test 10/31/16 05:06 Anion Gap 17 H Basophils # 0.0 Basophils % 0.3 Blood Urea Nitrogen 6 L Calcium Level 9.0 Carbon Dioxide Level 28 Chloride Level 101 Creatinine 0.56 Eosinophils # 0.2 Eosinophils % 1.7 Glucose Level 117 Hematocrit 37.0 Hemoglobin 12.5 Lymphocytes # 2.1 Lymphocytes % 24.7 Magnesium Level 2.1 Mean Corpuscular Hemoglobin 30.9 Mean Corpuscular Hemoglobin Concent 33.8 Mean Corpuscular Volume 91.6 Mean Platelet Volume 9.6 Monocytes # 0.6 Monocytes % 6.8 Neutrophils # 5.7 Neutrophils % 66.2 Nucleated Red Blood Cells # 0.0 Nucleated Red Blood Cells % 0.0 Phosphorus Level 4.4 Platelet Count 265 Potassium Level 3.6 Red Blood Count 4.04 L Red Cell Distribution Width 11.9 Sodium Level 142 White Blood Count 8.6 Medications Medications Current Medications Potassium Chloride/Dextrose/ Sod Cl (D5-1/2ns + KCl 20 Meq) 1,000 ml @ 100 mls/ hr Q10H IV Last administered on 10/31/16 09:54; Admin Dose 100 MLS/HR; Start 10/27/16 at 18:28 Ondansetron HCl (Zofran Inj) 4 mg Q6H PRN IV NAUSEA AND/OR VOMITING Last administered on 10/31/16 11:54; Admin Dose 4 MG; Start 10/27/16 at 18:30 Acetaminophen (Tylenol Tab) 650 mg Q6H PRN PO PAIN LEVEL 1-3 OR FEVER Last administered on 10/30/16 21:26; Admin Dose 650 MG; Start 10/27/16 at 18:30 Acetaminophen (Tylenol Supp) 650 mg Q6H PRN [place] PAIN LEVEL 1-3 OR FEVER Last administered on 10/27/16 22:12; Admin Dose 650 MG; Start 10/27/16 at 18:30 Acetaminophen/ Hydrocodone Bitart ([place] (5/325)) 1 tab Q6H PRN PO MODERATE PAIN LEVEL 4-6 Last administered on 10/28/16 08:43; Admin Dose 1 TAB; Start at 18:30 Morphine Sulfate (morphine) 2 mg Q4H PRN IV SEVERE PAIN LEVEL 7-10 Last administered on 10/31/16 14:28; Admin Dose 2 MG; Start 10/27/16 at 18:30 Docusate Sodium (Colace) 100 mg Q12H PRN PO CONSTIPATION; Start 10/27/16 at 18: 30 Bisacodyl (Dulcolax) 5 mg DAILY PRN PO CONSTIPATION; Start 10/27/16 at 18:30 Pantoprazole 40 mg 40 mg DAILY@06 PO Last administered on 10/31/16 05:34; Admin Dose 40 MG; Start 10/28/16 at 06:00 Ciprofloxacin/ Dextrose 200 ml @ 200 mls/hr Q12 IVPB Last administered on 10/31 09:52; Admin Dose 200 MLS/HR; Start 10/28/16 at 07:30 Metronidazole (Flagyl 500 Mg (Pmx)) 100 ml @ 100 mls/hr Q8 IVPB Last administered on 10/31/16 14:28; Admin Dose 100 MLS/HR; Start 10/28/16 at 01:00 Hydralazine HCl (Apresoline) 10 mg Q6H PRN IV SBP>160; Start 10/28/16 at 15:00 Nystatin (Nystatin Susp) 5 ml QID PO Last administered on 10/31/16 09:55; Admin Dose 5 ML; Start 10/30/16 at 17:45 YASMINE GILES MD Oct 31, 2016 16:28
[2016-10-31 19:31] VITALS: BP 129/60; RESP 18
[2016-11-01] MEDS: ACETAMINOPHEN 325 MG TAB PO PRN (00:17)
[2016-11-01] MEDS: D5W-0.45 NACL + KCL 20 MEQ 1,000 ML IV SCH ×3 (00:18→18:16)
[2016-11-01] MEDS: morphine 2 MG INJ IV PRN ×5 (02:55→20:08)
[2016-11-01 04:52] LABS: ADD SCAN DIFF NO
[2016-11-01 04:56] LABS: BASOPHILS % 0.3 % (0.0-2.0); EOSINOPHILS # 0.1 10^3/ul (0.0-0.5); EOSINOPHILS % 0.5 % (0.0-7.0); HEMATOCRIT 36.5 % (37.0-47.0); HEMOGLOBIN 12.7 g/dl (12.0-16.0); LYMPHOCYTES # 2.3 10^3/ul (0.8-2.9); LYMPHOCYTES % 19.1 % (15.0-51.0); MEAN CORPUSCULAR HEMOGLOBIN 31.5 pg (29.0-33.0); MEAN CORPUSCULAR HGB CONC 34.8 g/dl (32.0-37.0); MEAN CORPUSCULAR VOLUME 90.6 fl (82.0-101.0); MEAN PLATELET VOLUME 9.1 fl (7.4-10.4); MONOCYTE # 0.8 10^3/ul (0.3-0.9); MONOCYTES % 6.5 % (0.0-11.0); NEUTROPHIL # 8.6 10^3/ul (1.6-7.5); NEUTROPHILS % 72.9 % (39.0-77.0); PLATELET COUNT 285 10^3/UL (140-415); RED BLOOD COUNT 4.03 10^6/ul (4.20-5.40); RED CELL DISTRIBUTION WIDTH 11.6 % (11.5-14.5); WHITE BLOOD COUNT 11.8 10^3/ul (4.8-10.8)
[2016-11-01] MEDS: PANTOPRAZOLE (EC) 40 MG TAB PO SCH (05:05)
[2016-11-01] MEDS: metroNIDAZOLE 500 MG/NS (PMX) 100 ML IVPB SCH ×3 (05:05→22:37)
[2016-11-01 05:35] LABS: POTASSIUM 3.9 mmol/L (3.5-5.1)
[2016-11-01 05:37] LABS: CREATININE 0.59 mg/dl (0.44-1.00)
[2016-11-01 05:38] LABS: CALCIUM 9.1 mg/dl (8.4-10.2)
[2016-11-01 05:57] LABS: PHOSPHORUS 4.7 mg/dl (2.5-4.9)
[2016-11-01 05:58] LABS: MAGNESIUM 2.2 mg/dl (1.7-2.5)
[2016-11-01 07:47] VITALS: BP 126/70; RESP 20
[2016-11-01] MEDS: NYSTATIN SUSP 5 ML CUP PO SCH ×4 (08:35→21:13)
[2016-11-01] MEDS: CIPROFLOXACIN 400MG/D5W 200 ML IVPB SCH ×2 (08:36→21:13)
--- NOTE | 2016-11-01 13:05 | PN ---
Date/Time of Note Date/Time of Note DATE: 11/01/16 TIME: 13:02 Assessment/Plan VTE Prophylaxis VTE Prophylaxis Intervention: SCD's Lines/Catheters IV Catheter Type (from Nrs): Peripheral IV Urinary Cath still in place: No Assessment/Plan Chief Complaint/Hosp Course Assessment: 1-Pelvic masses, benign vs CA vs endometrioma vs hydrosalpinx vs mucocele 2- Diverticulitis 3-Cystitis- unlikely pyelo as no CVAT and no hydro Problems: Assessment/Plan A- ongoing fever and pain P- Discuss with Dr. Orosco and IM concerning chg in abx vs surgery Subjective 24 Hr Interval Summary Free Text/Dictation S- Ongoing LLQ and suprapubic tenderness. O- Resp- clear CVS-NSR Abd- some distension and unchgd tenderness- some suggestion of worse Ext- NT no edema A- ongoing fever and pain P- Discuss with Dr. Orosco and IM concerning chg in abx vs surgery Exam/Review of Systems Vital Signs Vitals Vital Signs Date Time Temp Pulse Resp B/P Pulse Ox O2 Delivery O2 Flow Rate FiO2 11/01/16 07:47 98.8 92 20 126/70 97 10/31/16 13:42 Room Air Intake and Output 10/31/16 10/31/16 11/01/16 14:59 22:59 06:59 Intake Total 200 ml 1400 ml 1850 ml Balance 200 ml 1400 ml 1850 ml Results Result Diagram: 11/01/16 0430 11/01/16 0430 Results 24 hrs Laboratory Tests Test 11/01/16 04:30 Anion Gap 16 Basophils # 0.0 Basophils % 0.3 Blood Urea Nitrogen 4 L Calcium Level 9.1 Carbon Dioxide Level 29 Chloride Level 100 Creatinine 0.59 Eosinophils # 0.1 Eosinophils % 0.5 Glucose Level 123 Hematocrit 36.5 L Hemoglobin 12.7 Lymphocytes # 2.3 Lymphocytes % 19.1 Magnesium Level 2.2 Mean Corpuscular Hemoglobin 31.5 Mean Corpuscular Hemoglobin Concent 34.8 Mean Corpuscular Volume 90.6 Mean Platelet Volume 9.1 Monocytes # 0.8 Monocytes % 6.5 Neutrophils # 8.6 H Neutrophils % 72.9 Nucleated Red Blood Cells # 0.0 Nucleated Red Blood Cells % 0.0 Phosphorus Level 4.7 Platelet Count 285 Potassium Level 3.9 Red Blood Count 4.03 L Red Cell Distribution Width 11.6 Sodium Level 141 White Blood Count 11.8 #H Medications Medications Current Medications Potassium Chloride/Dextrose/ Sod Cl (D5-1/2ns + KCl 20 Meq) 1,000 ml @ 100 mls/ hr Q10H IV Last administered on 11/01/16 08:36; Admin Dose 100 MLS/HR; Start 10/27/16 at 18:28 Ondansetron HCl (Zofran Inj) 4 mg Q6H PRN IV NAUSEA AND/OR VOMITING Last administered on 10/31/16 11:54; Admin Dose 4 MG; Start 10/27/16 at 18:30 Acetaminophen (Tylenol Tab) 650 mg Q6H PRN PO PAIN LEVEL 1-3 OR FEVER Last administered on 11/01/16 00:17; Admin Dose 650 MG; Start 10/27/16 at 18:30 Acetaminophen (Tylenol Supp) 650 mg Q6H PRN [place] PAIN LEVEL 1-3 OR FEVER Last administered on 10/27/16 22:12; Admin Dose 650 MG; Start 10/27/16 at 18:30 Acetaminophen/ Hydrocodone Bitart ([place] (5/325)) 1 tab Q6H PRN PO MODERATE PAIN LEVEL 4-6 Last administered on 10/28/16 08:43; Admin Dose 1 TAB; Start at 18:30 Morphine Sulfate (morphine) 2 mg Q4H PRN IV SEVERE PAIN LEVEL 7-10 Last administered on 11/01/16 11:33; Admin Dose 2 MG; Start 10/27/16 at 18:30 Docusate Sodium (Colace) 100 mg Q12H PRN PO CONSTIPATION; Start 10/27/16 at 18: 30 Bisacodyl (Dulcolax) 5 mg DAILY PRN PO CONSTIPATION; Start 10/27/16 at 18:30 Pantoprazole 40 mg 40 mg DAILY@06 PO Last administered on 11/01/16 05:05; Admin Dose 40 MG; Start 10/28/16 at 06:00 Ciprofloxacin/ Dextrose 200 ml @ 200 mls/hr Q12 IVPB Last administered on 11/01 08:36; Admin Dose 200 MLS/HR; Start 10/28/16 at 07:30 Metronidazole (Flagyl 500 Mg (Pmx)) 100 ml @ 100 mls/hr Q8 IVPB Last administered on 11/01/16 12:59; Admin Dose 100 MLS/HR; Start 10/28/16 at 01:00 Hydralazine HCl (Apresoline) 10 mg Q6H PRN IV SBP>160; Start 10/28/16 at 15:00 Nystatin (Nystatin Susp) 5 ml QID PO Last administered on 11/01/16 12:58; Admin Dose 5 ML; Start 10/30/16 at 17:45 YASMINE GILES MD Nov 01, 2016 13:05
--- NOTE | 2016-11-01 14:12 | PN ---
Date/Time of Note Date/Time of Note DATE: 11/01/16 TIME: 14:02 Assessment/Plan VTE Prophylaxis VTE Prophylaxis Intervention: SCD's Lines/Catheters IV Catheter Type (from Nrs): Peripheral IV Urinary Cath still in place: No Assessment/Plan Chief Complaint/Hosp Course Assessment and Plan: 1. Acute abdominal pain secondary to diverticulitis cont on abx. diet per surgeon. 2. Large ovarian cystic structure with a single septation arising from the left ovary along with an indeterminate oblong, somewhat tubular shaped structure in the right pelvis The patient was seen and evaluated by SIGHTER. Tumor markers negative cont with men's basketball coach/onc recs 3. Essential hypertension. Continue antihypertensives. Adjust as needed 4. Obesity. BMI of 40.5. Weight reduction advised 6. Iron deficiency . H&H stable. Will monitor 7. Vaginal candidiasis. Continue antifungals. 8. 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 Continue antibiotics. Follow up with surgeon recs. DISPO/PLAN: cont abx. Follow up with surgeon recs. Cont inpatient monitoring Discussed plan of care with Dr. Becerra Problems: Subjective 24 Hr Interval Summary Free Text/Dictation still with some reports of abd discomfort Exam/Review of Systems Vital Signs Vitals Vital Signs Date Time Temp Pulse Resp B/P Pulse Ox O2 Delivery O2 Flow Rate FiO2 11/01/16 07:47 98.8 92 20 126/70 97 10/31/16 13:42 Room Air Intake and Output 10/31/16 10/31/16 11/01/16 14:59 22:59 06:59 Intake Total 200 ml 1400 ml 1850 ml Balance 200 ml 1400 ml 1850 ml Exam General: No acute signs or symptoms of distress, obese Eyes: pupils equal round, Anicteric sclera Neck: Supple nontender, no JVD Cardiac: S1, S2 auscultated, regular rhythm and rate Pulmonary: No coarse rhonchi or breathing auscultated GI: tender on palpation. Extremities: No edema bilateral lower extremities Skin: Clean dry and intact Neurologic: Alert to person place and time and situation Results Result Diagram: 11/01/16 0430 11/01/16 0430 Results 24 hrs Laboratory Tests Test 11/01/16 04:30 Anion Gap 16 Basophils # 0.0 Basophils % 0.3 Blood Urea Nitrogen 4 L Calcium Level 9.1 Carbon Dioxide Level 29 Chloride Level 100 Creatinine 0.59 Eosinophils # 0.1 Eosinophils % 0.5 Glucose Level 123 Hematocrit 36.5 L Hemoglobin 12.7 Lymphocytes # 2.3 Lymphocytes % 19.1 Magnesium Level 2.2 Mean Corpuscular Hemoglobin 31.5 Mean Corpuscular Hemoglobin Concent 34.8 Mean Corpuscular Volume 90.6 Mean Platelet Volume 9.1 Monocytes # 0.8 Monocytes % 6.5 Neutrophils # 8.6 H Neutrophils % 72.9 Nucleated Red Blood Cells # 0.0 Nucleated Red Blood Cells % 0.0 Phosphorus Level 4.7 Platelet Count 285 Potassium Level 3.9 Red Blood Count 4.03 L Red Cell Distribution Width 11.6 Sodium Level 141 White Blood Count 11.8 #H Medications Medications Current Medications Potassium Chloride/Dextrose/ Sod Cl (D5-1/2ns + KCl 20 Meq) 1,000 ml @ 100 mls/ hr Q10H IV Last administered on 11/01/16 08:36; Admin Dose 100 MLS/HR; Start 10/27/16 at 18:28 Ondansetron HCl (Zofran Inj) 4 mg Q6H PRN IV NAUSEA AND/OR VOMITING Last administered on 10/31/16 11:54; Admin Dose 4 MG; Start 10/27/16 at 18:30 Acetaminophen (Tylenol Tab) 650 mg Q6H PRN PO PAIN LEVEL 1-3 OR FEVER Last administered on 11/01/16 00:17; Admin Dose 650 MG; Start 10/27/16 at 18:30 Acetaminophen (Tylenol Supp) 650 mg Q6H PRN [place] PAIN LEVEL 1-3 OR FEVER Last administered on 10/27/16 22:12; Admin Dose 650 MG; Start 10/27/16 at 18:30 Acetaminophen/ Hydrocodone Bitart ([place] (5/325)) 1 tab Q6H PRN PO MODERATE PAIN LEVEL 4-6 Last administered on 10/28/16 08:43; Admin Dose 1 TAB; Start at 18:30 Morphine Sulfate (morphine) 2 mg Q4H PRN IV SEVERE PAIN LEVEL 7-10 Last administered on 11/01/16 11:33; Admin Dose 2 MG; Start 10/27/16 at 18:30 Docusate Sodium (Colace) 100 mg Q12H PRN PO CONSTIPATION; Start 10/27/16 at 18: 30 Bisacodyl (Dulcolax) 5 mg DAILY PRN PO CONSTIPATION; Start 10/27/16 at 18:30 Pantoprazole 40 mg 40 mg DAILY@06 PO Last administered on 11/01/16 05:05; Admin Dose 40 MG; Start 10/28/16 at 06:00 Ciprofloxacin/ Dextrose 200 ml @ 200 mls/hr Q12 IVPB Last administered on 11/01 08:36; Admin Dose 200 MLS/HR; Start 10/28/16 at 07:30 Metronidazole (Flagyl 500 Mg (Pmx)) 100 ml @ 100 mls/hr Q8 IVPB Last administered on 11/01/16 12:59; Admin Dose 100 MLS/HR; Start 10/28/16 at 01:00 Hydralazine HCl (Apresoline) 10 mg Q6H PRN IV SBP>160; Start 10/28/16 at 15:00 Nystatin (Nystatin Susp) 5 ml QID PO Last administered on 11/01/16 12:58; Admin Dose 5 ML; Start 10/30/16 at 17:45 KHANG KWAN Nov 01, 2016 14:12
--- NOTE | 2016-11-01 14:28 | PN ---
DATE: 11/01/2016 INFECTIOUS DISEASE PROGRESS NOTE SUBJECTIVE: The patient is lying comfortably in bed. She tolerates clear liquids. She spiked feve r of 101.5 last night, currently afebrile, tolerates clear liquids. No labs this morning. MICROBIOLOGY: Blood cultures remain negative, unclear if yesterday cultures were sent. ANTIMICROBIALS: The patient is on: 1. Cipro. 2. Flagyl. PHYSICAL EXAMINATION: GENERAL: This is an obese, well-developed, middle-aged woman who is in no distress. HEENT: Head atraumatic, normocephalic. Sclerae anicteric. Buccal mucosa dry. NECK: Supple, trachea midline. CHEST: Rise symmetrical. Breath sounds diminished to bases. HEART: S1, S2. ABDOMEN: Soft, bowel sounds present. EXTREMITIES: Without cyanosis. ASSESSMENT: 1. Systemic inflammatory response syndrome with fevers and leukocytosis. 2. Multiple pelvic masses, questionable benign versus malignant. 3. Diverticulitis. 4. Status post urinary tract infection. 5. Morbid obesity. PLAN: The patient remains stable. She is being seen by surgery and also Dr. Salazar as per Dr. Aida guerrero' note, pending laparoscopic gynecologic evaluation. Continue antimicrobials. Repeat blood c ultures p.r.n. for fever of 101 and above. Dictated By: FAM OSULLIVAN FERMENTER for JEFFRY FERRO/LIBAN Conf#: [id number] DID#: [id number]
--- NOTE | 2016-11-01 14:42 | PN ---
DATE: 11/01/2016 SUBJECTIVE: The patient's abdominal pain has returned. She has had a fever of 101.5, and her white count this morning is 11,800. CT scan shows persistent diverticulitis with slightly worsening of h er diverticulitis. The mucocele and ovarian changes are unchanged. IMPRESSION: This patient will likely need open surgery consisting of partial colon resection and ap pendectomy with TECHNICAL PROJECT MANAGER evaluation and surgery by Dr. Salazar. Will contact Dr. Salazar regarding the timing of the above. Discussed this with the patient. The patient is most anxious to proceed as sh e is symptomatic. Dictated By: ANISHA MO/LIBAN Conf#: [id number] DID#: [id number]
[2016-11-01 19:12] VITALS: BP 118/62; RESP 18
[2016-11-01 23:30] VITALS: PULSE 86
[2016-11-02] MEDS: morphine 2 MG INJ IV PRN ×6 (00:25→23:29)
[2016-11-02] MEDS: D5W-0.45 NACL + KCL 20 MEQ 1,000 ML IV SCH ×3 (02:47→18:42)
[2016-11-02] MEDS: PANTOPRAZOLE (EC) 40 MG TAB PO SCH (06:32)
[2016-11-02] MEDS: metroNIDAZOLE 500 MG/NS (PMX) 100 ML IVPB SCH ×3 (06:32→23:28)
[2016-11-02 08:21] VITALS: BP 116/55; PULSE 93; RESP 18
[2016-11-02] MEDS: CIPROFLOXACIN 400MG/D5W 200 ML IVPB SCH ×2 (08:23→22:06)
[2016-11-02] MEDS: NYSTATIN SUSP 5 ML CUP PO SCH ×4 (08:23→22:06)
[2016-11-02 09:20] LABS: ADD SCAN DIFF NO
[2016-11-02 09:24] LABS: BASOPHILS % 0.2 % (0.0-2.0); EOSINOPHILS # 0.1 10^3/ul (0.0-0.5); EOSINOPHILS % 1.1 % (0.0-7.0); HEMATOCRIT 35.6 % (37.0-47.0); HEMOGLOBIN 12.1 g/dl (12.0-16.0); LYMPHOCYTES # 2.1 10^3/ul (0.8-2.9); LYMPHOCYTES % 21.6 % (15.0-51.0); MEAN CORPUSCULAR HEMOGLOBIN 31.3 pg (29.0-33.0); MEAN CORPUSCULAR VOLUME 92.2 fl (82.0-101.0); MEAN PLATELET VOLUME 9.2 fl (7.4-10.4); MONOCYTE # 0.5 10^3/ul (0.3-0.9); MONOCYTES % 5.3 % (0.0-11.0); NEUTROPHIL # 6.9 10^3/ul (1.6-7.5); NEUTROPHILS % 71.2 % (39.0-77.0); PLATELET COUNT 288 10^3/UL (140-415); RED BLOOD COUNT 3.86 10^6/ul (4.20-5.40); RED CELL DISTRIBUTION WIDTH 11.9 % (11.5-14.5); WHITE BLOOD COUNT 9.7 10^3/ul (4.8-10.8)
[2016-11-02 09:41] LABS: CREATININE 0.59 mg/dl (0.44-1.00)
[2016-11-02 09:42] LABS: CALCIUM 8.9 mg/dl (8.4-10.2)
[2016-11-02] MEDS ORDERED: MAGNESIUM CITRATE 300 ML BTL PO ONE ×2 (11:00→17:30)
--- NOTE | 2016-11-02 11:28 | PN ---
DATE: 11/02/2016 The patient's fever has improved with a T-max of 100.3. Her white count has come down to 9700. The case was discussed with Dr. Gonzalez Salazar. Because of the CT findings, the patient will undergo open sigmoid colon resection with appendectomy and CONTROL ENGINEER procedure per Dr. Salazar. This has been ar ranged for 4:30 tomorrow afternoon. I have discussed the procedure, outcomes, expectations, alterna tives and risks in detail with the patient, who has an understanding of the nature of her situation and agrees to the proposed plan of therapy as outlined. Dictated By: ANISHA OM/NTS Conf#: [id number] DID#: [id number]
--- NOTE | 2016-11-02 12:00 | CONS ---
Date/Time of Note Date/Time of Note DATE: 11/02/16 TIME: 11:57 Assessment/Plan Assessment/Plan Chief Complaint/Hosp Course SUBJECTIVE: The patient is lying comfortably in bed. Spiking low grade temps, nad MICROBIOLOGY: Blood cultures remain negative. ANTIMICROBIALS: 1. Cipro. 2. Flagyl. PHYSICAL EXAMINATION: GENERAL: This is an obese, well-developed, middle-aged woman who is in no distress. HEENT: Head atraumatic, normocephalic. Sclerae anicteric. Buccal mucosa dry. NECK: Supple, trachea midline. CHEST: Rise symmetrical. Breath sounds diminished to bases. HEART: S1, S2. ABDOMEN: Soft, bowel sounds present. EXTREMITIES: Without cyanosis. ASSESSMENT: 1. Systemic inflammatory response syndrome with fevers and leukocytosis. 2. Multiple pelvic masses, questionable benign versus malignant. 3. Diverticulitis. 4. Status post urinary tract infection. 5. Morbid obesity. PLAN: The patient remains clinically unchanged. Scheduled for open sigmoid colon resection with appendectomy per Dr Orosco and ANIMAL ATTENDANTS AND TRAINERS procedure per Dr. Salazar tomorrow. Continue abx DW staff Problems: Consultation Date/Type/Reason Admit Date/Time Oct 27, 2016 at 18:25 Initial Consult Date 10/27/16 Type of Consultation: ID Exam/Review of Systems Vital Signs Vitals Vital Signs Date Time Temp Pulse Resp B/P Pulse Ox O2 Delivery O2 Flow Rate FiO2 11/02/16 08:21 99.2 93 18 116/55 95 Room Air Intake and Output 11/01/16 11/01/16 11/02/16 15:00 23:00 07:00 Intake Total 1400 ml 2790 ml Output Total 0 ml 200 ml Balance 1400 ml 2590 ml Results Result Diagram: 11/02/16 0900 11/02/16 0900 Results 24 hrs Laboratory Tests Test 11/02/16 09:00 Anion Gap 16 Basophils # 0.0 Basophils % 0.2 Blood Urea Nitrogen 5 L Calcium Level 8.9 Carbon Dioxide Level 27 Chloride Level 100 Creatinine 0.59 Eosinophils # 0.1 Eosinophils % 1.1 Glucose Level 161 Hematocrit 35.6 L Hemoglobin 12.1 Lymphocytes # 2.1 Lymphocytes % 21.6 Mean Corpuscular Hemoglobin 31.3 Mean Corpuscular Hemoglobin Concent 34.0 Mean Corpuscular Volume 92.2 Mean Platelet Volume 9.2 Monocytes # 0.5 Monocytes % 5.3 Neutrophils # 6.9 Neutrophils % 71.2 Nucleated Red Blood Cells # 0.0 Nucleated Red Blood Cells % 0.0 Platelet Count 288 Potassium Level 4.0 Red Blood Count 3.86 L Red Cell Distribution Width 11.9 Sodium Level 139 White Blood Count 9.7 Medications Medications Current Medications Potassium Chloride/Dextrose/ Sod Cl (D5-1/2ns + KCl 20 Meq) 1,000 ml @ 100 mls/ hr Q10H IV Last administered on 11/02/16 02:47; Admin Dose 100 MLS/HR; Start 10/27/16 at 18:28 Ondansetron HCl (Zofran Inj) 4 mg Q6H PRN IV NAUSEA AND/OR VOMITING Last administered on 10/31/16 11:54; Admin Dose 4 MG; Start 10/27/16 at 18:30 Acetaminophen (Tylenol Tab) 650 mg Q6H PRN PO PAIN LEVEL 1-3 OR FEVER Last administered on 11/01/16 00:17; Admin Dose 650 MG; Start 10/27/16 at 18:30 Acetaminophen (Tylenol Supp) 650 mg Q6H PRN [place] PAIN LEVEL 1-3 OR FEVER Last administered on 10/27/16 22:12; Admin Dose 650 MG; Start 10/27/16 at 18:30 Acetaminophen/ Hydrocodone Bitart ([place] (5/325)) 1 tab Q6H PRN PO MODERATE PAIN LEVEL 4-6 Last administered on 10/28/16 08:43; Admin Dose 1 TAB; Start at 18:30 Docusate Sodium (Colace) 100 mg Q12H PRN PO CONSTIPATION; Start 10/27/16 at 18: 30 Bisacodyl (Dulcolax) 5 mg DAILY PRN PO CONSTIPATION; Start 10/27/16 at 18:30 Pantoprazole 40 mg 40 mg DAILY@06 PO Last administered on 11/02/16 06:32; Admin Dose 40 MG; Start 10/28/16 at 06:00 Ciprofloxacin/ Dextrose 200 ml @ 200 mls/hr Q12 IVPB Last administered on 11/02 08:23; Admin Dose 200 MLS/HR; Start 10/28/16 at 07:30 Metronidazole (Flagyl 500 Mg (Pmx)) 100 ml @ 100 mls/hr Q8 IVPB Last administered on 11/02/16 06:32; Admin Dose 100 MLS/HR; Start 10/28/16 at 01:00 Hydralazine HCl (Apresoline) 10 mg Q6H PRN IV SBP>160; Start 10/28/16 at 15:00 Nystatin (Nystatin Susp) 5 ml QID PO Last administered on 11/02/16 08:23; Admin Dose 5 ML; Start 10/30/16 at 17:45 Morphine Sulfate (morphine) 2 mg Q4H PRN IV SEVERE PAIN LEVEL 7-10 Last administered on 11/02/16 10:33; Admin Dose 2 MG; Start 11/01/16 at 15:30 Neomycin Sulfate (Neomycin) 500 mg QID PO ; Start 11/02/16 at 13:00 Erythromycin (Erythromycin Base (Ec)) 500 mg Q8 PO ; Start 11/02/16 at 14:00 FAM OSULLIVAN NP Nov 02, 2016 12:00
[2016-11-02] MEDS: ERYTHROMYCIN BASE (EC) 500 MG TAB PO SCH ×2 (13:52→22:06)
--- NOTE | 2016-11-02 14:27 | PN ---
Date/Time of Note Date/Time of Note DATE: 11/02/16 TIME: 14:23 Assessment/Plan VTE Prophylaxis VTE Prophylaxis Intervention: SCD's Lines/Catheters IV Catheter Type (from Nrs): Peripheral IV Urinary Cath still in place: No Assessment/Plan Chief Complaint/Hosp Course Assessment and Plan: 1. Acute abdominal pain secondary to diverticulitis cont on abx. diet per surgeon. 2. Large ovarian cystic structure with a single septation arising from the left ovary along with an indeterminate oblong, somewhat tubular shaped structure in the right pelvis The patient was seen and evaluated by INFORMATION SYSTEMS AUDITOR. Tumor markers negative cont with head machine feeder/onc recs. 3. Essential hypertension. Continue antihypertensives. Adjust as needed 4. Obesity. BMI of 40.5. Weight reduction advised 6. Iron deficiency . H&H stable. Will monitor 7. Vaginal candidiasis. Continue antifungals. 8. 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 Continue antibiotics. Follow up with surgeon recs. DISPO/PLAN: Patient with pelvic mass. Tentative plan for sigmoid colon Resection as well as appendectomy. Continue with analgesics. Discussed plan of care with Dr. Becerra Problems: Subjective 24 Hr Interval Summary Free Text/Dictation Still with reported abdominal pain. Exam/Review of Systems Vital Signs Vitals Vital Signs Date Time Temp Pulse Resp B/P Pulse Ox O2 Delivery O2 Flow Rate FiO2 11/02/16 08:21 99.2 93 18 116/55 95 Room Air Intake and Output 11/01/16 11/01/16 11/02/16 15:00 23:00 07:00 Intake Total 1400 ml 2790 ml Output Total 0 ml 200 ml Balance 1400 ml 2590 ml Exam General: No acute signs or symptoms of distress, obese Eyes: pupils equal round, Anicteric sclera Neck: Supple nontender, no JVD Cardiac: S1, S2 auscultated, regular rhythm and rate Pulmonary: No coarse rhonchi or breathing auscultated GI: tender on palpation. Extremities: No edema bilateral lower extremities Skin: Clean dry and intact Neurologic: Alert to person place and time and situation Results Result Diagram: 11/02/16 0900 11/02/16 0900 Results 24 hrs Laboratory Tests Test 11/02/16 09:00 Anion Gap 16 Basophils # 0.0 Basophils % 0.2 Blood Urea Nitrogen 5 L Calcium Level 8.9 Carbon Dioxide Level 27 Chloride Level 100 Creatinine 0.59 Eosinophils # 0.1 Eosinophils % 1.1 Glucose Level 161 Hematocrit 35.6 L Hemoglobin 12.1 Lymphocytes # 2.1 Lymphocytes % 21.6 Mean Corpuscular Hemoglobin 31.3 Mean Corpuscular Hemoglobin Concent 34.0 Mean Corpuscular Volume 92.2 Mean Platelet Volume 9.2 Monocytes # 0.5 Monocytes % 5.3 Neutrophils # 6.9 Neutrophils % 71.2 Nucleated Red Blood Cells # 0.0 Nucleated Red Blood Cells % 0.0 Platelet Count 288 Potassium Level 4.0 Red Blood Count 3.86 L Red Cell Distribution Width 11.9 Sodium Level 139 White Blood Count 9.7 Medications Medications Current Medications Potassium Chloride/Dextrose/ Sod Cl (D5-1/2ns + KCl 20 Meq) 1,000 ml @ 100 mls/ hr Q10H IV Last administered on 11/02/16 02:47; Admin Dose 100 MLS/HR; Start 10/27/16 at 18:28 Ondansetron HCl (Zofran Inj) 4 mg Q6H PRN IV NAUSEA AND/OR VOMITING Last administered on 10/31/16 11:54; Admin Dose 4 MG; Start 10/27/16 at 18:30 Acetaminophen (Tylenol Tab) 650 mg Q6H PRN PO PAIN LEVEL 1-3 OR FEVER Last administered on 11/01/16 00:17; Admin Dose 650 MG; Start 10/27/16 at 18:30 Acetaminophen (Tylenol Supp) 650 mg Q6H PRN [place] PAIN LEVEL 1-3 OR FEVER Last administered on 10/27/16 22:12; Admin Dose 650 MG; Start 10/27/16 at 18:30 Acetaminophen/ Hydrocodone Bitart ([place] (5/325)) 1 tab Q6H PRN PO MODERATE PAIN LEVEL 4-6 Last administered on 10/28/16 08:43; Admin Dose 1 TAB; Start at 18:30 Docusate Sodium (Colace) 100 mg Q12H PRN PO CONSTIPATION; Start 10/27/16 at 18: 30 Bisacodyl (Dulcolax) 5 mg DAILY PRN PO CONSTIPATION; Start 10/27/16 at 18:30 Pantoprazole 40 mg 40 mg DAILY@06 PO Last administered on 11/02/16 06:32; Admin Dose 40 MG; Start 10/28/16 at 06:00 Ciprofloxacin/ Dextrose 200 ml @ 200 mls/hr Q12 IVPB Last administered on 11/02 08:23; Admin Dose 200 MLS/HR; Start 10/28/16 at 07:30 Metronidazole (Flagyl 500 Mg (Pmx)) 100 ml @ 100 mls/hr Q8 IVPB Last administered on 11/02/16 13:52; Admin Dose 100 MLS/HR; Start 10/28/16 at 01:00 Hydralazine HCl (Apresoline) 10 mg Q6H PRN IV SBP>160; Start 10/28/16 at 15:00 Nystatin (Nystatin Susp) 5 ml QID PO Last administered on 11/02/16 13:52; Admin Dose 5 ML; Start 10/30/16 at 17:45 Morphine Sulfate (morphine) 2 mg Q4H PRN IV SEVERE PAIN LEVEL 7-10 Last administered on 11/02/16 10:33; Admin Dose 2 MG; Start 11/01/16 at 15:30 Neomycin Sulfate (Neomycin) 500 mg QID PO ; Start 11/02/16 at 13:00 Erythromycin (Erythromycin Base (Ec)) 500 mg Q8 PO Last administered on 13:52; Admin Dose 500 MG; Start 11/02/16 at 14:00 KHANG KWAN Nov 02, 2016 14:26
[2016-11-02] MEDS: NEOMYCIN 500 MG TAB PO SCH ×3 (14:39→22:06)
--- NOTE | 2016-11-02 15:55 | PN ---
Date/Time of Note Date/Time of Note DATE: 11/02/16 TIME: 15:50 Assessment/Plan VTE Prophylaxis VTE Prophylaxis Intervention: SCD's Lines/Catheters IV [facility]from [facility]): Peripheral IV Urinary Cath still in place: No Assessment/Plan Chief Complaint/Hosp Course Assessment: 1-Pelvic masses, benign vs CA vs endometrioma vs hydrosalpinx vs mucocele 2- Diverticulitis 3-Cystitis- unlikely pyelo as no CVAT and no hydro Problems: Assessment/Plan A- ongoing fever and pain-diverticulitis and pelvic masses P- Concur with surgery as planned tomorrow. Discussed options with patient ( and family) in event of finding of ovarian cancer and patient NOT interested in fertility. Therefore will do conservative surgery if benign and complete hyst/ BSO if cancer with staging and cytoreduction if needed. Subjective 24 Hr Interval Summary Free Text/Dictation S- No chg LLQ and suprapubic tenderness. O- Resp- clear CVS-NSR Abd- some distension and no change in tenderness Ext- NT no edema A- ongoing fever and pain-diverticulitis and pelvic masses P- Concur with surgery as planned tomorrow. Discussed options with patient ( and family) in event of finding of ovarian cancer and patient NOT interested in fertility. Therefore will do conservative surgery if benign and complete hyst/ BSO if cancer with staging and cytoreduction if needed. Exam/Review of Systems Vital Signs Vitals Vital Signs Date Time Temp Pulse Resp B/P Pulse Ox O2 Delivery O2 Flow Rate FiO2 11/02/16 08:21 99.2 93 18 116/55 95 Room Air Intake and Output 11/01/16 11/01/16 11/02/16 15:00 23:00 07:00 Intake Total 1400 ml 2790 ml Output Total 0 ml 200 ml Balance 1400 ml 2590 ml Results Result Diagram: 11/02/16 0900 11/02/16 0900 Results 24 hrs Laboratory Tests Test 11/02/16 09:00 Anion Gap 16 Basophils # 0.0 Basophils % 0.2 Blood Urea Nitrogen 5 L Calcium Level 8.9 Carbon Dioxide Level 27 Chloride Level 100 Creatinine 0.59 Eosinophils # 0.1 Eosinophils % 1.1 Glucose Level 161 Hematocrit 35.6 L Hemoglobin 12.1 Lymphocytes # 2.1 Lymphocytes % 21.6 Mean Corpuscular Hemoglobin 31.3 Mean Corpuscular Hemoglobin Concent 34.0 Mean Corpuscular Volume 92.2 Mean Platelet Volume 9.2 Monocytes # 0.5 Monocytes % 5.3 Neutrophils # 6.9 Neutrophils % 71.2 Nucleated Red Blood Cells # 0.0 Nucleated Red Blood Cells % 0.0 Platelet Count 288 Potassium Level 4.0 Red Blood Count 3.86 L Red Cell Distribution Width 11.9 Sodium Level 139 White Blood Count 9.7 Medications Medications Current Medications Potassium Chloride/Dextrose/ Sod Cl (D5-1/2ns + KCl 20 Meq) 1,000 ml @ 100 mls/ hr Q10H IV Last administered on 11/02/16 02:47; Admin Dose 100 MLS/HR; Start 10/27/16 at 18:28 Ondansetron HCl (Zofran Inj) 4 mg Q6H PRN IV NAUSEA AND/OR VOMITING Last administered on 10/31/16 11:54; Admin Dose 4 MG; Start 10/27/16 at 18:30 Acetaminophen (Tylenol Tab) 650 mg Q6H PRN PO PAIN LEVEL 1-3 OR FEVER Last administered on 11/01/16 00:17; Admin Dose 650 MG; Start 10/27/16 at 18:30 Acetaminophen (Tylenol Supp) 650 mg Q6H PRN [place] PAIN LEVEL 1-3 OR FEVER Last administered on 10/27/16 22:12; Admin Dose 650 MG; Start 10/27/16 at 18:30 Acetaminophen/ Hydrocodone Bitart ([place] (5/325)) 1 tab Q6H PRN PO MODERATE PAIN LEVEL 4-6 Last administered on 10/28/16 08:43; Admin Dose 1 TAB; Start at 18:30 Docusate Sodium (Colace) 100 mg Q12H PRN PO CONSTIPATION; Start 10/27/16 at 18: 30 Bisacodyl (Dulcolax) 5 mg DAILY PRN PO CONSTIPATION; Start 10/27/16 at 18:30 Pantoprazole 40 mg 40 mg DAILY@06 PO Last administered on 11/02/16 06:32; Admin Dose 40 MG; Start 10/28/16 at 06:00 Ciprofloxacin/ Dextrose 200 ml @ 200 mls/hr Q12 IVPB Last administered on 11/02 08:23; Admin Dose 200 MLS/HR; Start 10/28/16 at 07:30 Metronidazole (Flagyl 500 Mg (Pmx)) 100 ml @ 100 mls/hr Q8 IVPB Last administered on 11/02/16 13:52; Admin Dose 100 MLS/HR; Start 10/28/16 at 01:00 Hydralazine HCl (Apresoline) 10 mg Q6H PRN IV SBP>160; Start 10/28/16 at 15:00 Nystatin (Nystatin Susp) 5 ml QID PO Last administered on 11/02/16 13:52; Admin Dose 5 ML; Start 10/30/16 at 17:45 Morphine Sulfate (morphine) 2 mg Q4H PRN IV SEVERE PAIN LEVEL 7-10 Last administered on 11/02/16 14:38; Admin Dose 2 MG; Start 11/01/16 at 15:30 Neomycin Sulfate (Neomycin) 500 mg QID PO Last administered on 11/02/16 14:39 ; Admin Dose 500 MG; Start 11/02/16 at 13:00 Erythromycin (Erythromycin Base (Ec)) 500 mg Q8 PO Last administered on 13:52; Admin Dose 500 MG; Start 11/02/16 at 14:00 Magnesium Citrate (Citroma) 300 ml ONCE ONCE PO ; Start 11/02/16 at 17:30; Stop 11/02/16 at 17:31 YASMINE GILES MD Nov 02, 2016 15:55
--- NOTE | 2016-11-02 18:24 | QN ---
Documentation Comment November 02, 2016 Progress note Laboratory Tests Test 11/02/16 09:00 Anion Gap 16 Basophils # 0.010^3/ul Basophils % 0.2% Blood Urea Nitrogen 5mg/dl Calcium Level 8.9mg/dl Carbon Dioxide Level 27mmol/L Chloride Level 100mmol/L Creatinine 0.59mg/dl Eosinophils # 0.110^3/ul Eosinophils % 1.1% Glucose Level 161mg/dl Hematocrit 35.6% Hemoglobin 12.1g/dl Lymphocytes # 2.110^3/ul Lymphocytes % 21.6% Mean Corpuscular Hemoglobin 31.3pg Mean Corpuscular Hemoglobin Concent 34.0g/dl Mean Corpuscular Volume 92.2fl Mean Platelet Volume 9.2fl Monocytes # 0.510^3/ul Monocytes % 5.3% Neutrophils # 6.910^3/ul Neutrophils % 71.2% Nucleated Red Blood Cells # 0.010^3/ul Nucleated Red Blood Cells % 0.0/100WBC Platelet Count 37383^3/UL Potassium Level 4.0mmol/L Red Blood Count 3.8610^6/ul Red Cell Distribution Width 11.9% Sodium Level 139mmol/L White Blood Count 9.710^3/ul Current Medications Medications (Trade) Dose Ordered Sig/Nubia Route PRN Reason Start Time Stop Time Status Last Admin Dose Admin Sodium Chloride (NS) 1,000 ml @ 1,000 mls/hr Q1H STAT IV 10/27/16 14:19 10/27/16 15:18 DC 10/27/16 15:13 Ondansetron HCl (Zofran Inj) 4 mg ONCE STAT IV 10/27/16 14:19 10/27/16 14:21 DC 10/27/16 15:12 Ketorolac Tromethamine (Toradol) 30 mg ONCE STAT IV 10/27/16 14:19 10/27/16 14:21 DC 10/27/16 15:13 IV Flush 10 ml 10 ml STK-MED ONCE .ROUTE 10/27/16 17:29 10/27/16 17:30 DC 10/27/16 17:41 Sodium Chloride (NS) 100 ml @ ud STK-MED ONCE .ROUTE 10/27/16 17:29 10/27/16 17:30 DC 10/27/16 17:41 Iohexol 150 ml 150 ml STK-MED ONCE .ROUTE 10/27/16 17:29 10/27/16 17:30 DC 10/27/16 17:41 Sodium Chloride 1,000 ml @ 1,000 mls/hr Q1H STAT IV 10/27/16 18:04 10/27/16 19:03 DC 10/27/16 18:17 Metronidazole 100 ml @ 100 mls/hr ONCE STAT IVPB 10/27/16 18:04 10/27/16 19:03 DC 10/27/16 18:17 Ciprofloxacin/ Dextrose (Cipro Ivpb) 200 ml @ 200 mls/hr ONCE STAT IVPB 10/27/16 18:04 10/27/16 19:03 DC 10/27/16 19:07 Ondansetron HCl 4 mg 4 mg BRIDGE ORDER PRN IV NAUSEA AND/OR VOMITING 10/27/16 18:30 10/27/16 19:19 DC Potassium Chloride/Dextrose/ Sod Cl (D5-1/2ns + KCl 20 Meq) 1,000 ml @ 100 mls/hr Q10H IV 10/27/16 18:28 11/02/16 02:47 IV Flush (NS 3 ml) 3 ml PER PROTOCOL IV 10/27/16 18:30 Ondansetron HCl (Zofran Inj) 4 mg Q6H PRN IV NAUSEA AND/OR VOMITING 10/27/16 18:30 10/31/16 11:54 Acetaminophen (Tylenol Tab) 650 mg Q6H PRN PO PAIN LEVEL 1-3 OR FEVER 10/27/16 18:30 11/01/16 00:17 Acetaminophen (Tylenol Supp) 650 mg Q6H PRN [place] PAIN LEVEL 1-3 OR FEVER 10/27/16 18:30 10/27/16 22:12 Acetaminophen/ Hydrocodone Bitart ([place] (5/325)) 1 tab Q6H PRN PO MODERATE PAIN LEVEL 4-6 10/27/16 18:30 10/28/16 08:43 Morphine Sulfate (morphine) 2 mg Q4H PRN IV SEVERE PAIN LEVEL 7-10 10/27/16 18:30 11/01/16 15:29 DC 11/01/16 11:33 Docusate Sodium (Colace) 100 mg Q12H PRN PO CONSTIPATION 10/27/16 18:30 Bisacodyl (Dulcolax) 5 mg DAILY PRN PO CONSTIPATION 10/27/16 18:30 Pantoprazole 40 mg 40 mg DAILY@06 PO 10/28/16 06:00 11/02/16 06:32 Ciprofloxacin/ Dextrose 200 ml @ 200 mls/hr Q12 IVPB 10/28/16 07:30 11/02/16 08:23 Metronidazole (Flagyl 500 Mg (Pmx)) 100 ml @ 100 mls/hr Q8 IVPB 10/28/16 01:00 11/02/16 13:52 Miconazole (Monistat-3) 1 supp HS VAG 10/28/16 21:00 10/30/16 21:01 DC 10/30/16 21:26 Hydralazine HCl (Apresoline) 10 mg Q6H PRN IV SBP>160 10/28/16 15:00 Vitamin A/Vitamin D (Vitamin A & D Oint) 1 applic STK-MED ONCE TOP 10/30/16 11:42 10/30/16 11:43 DC Nystatin (Nystatin Susp) 5 ml QID PO 10/30/16 17:45 11/02/16 17:16 Barium Sulfate (Readi-Cat 2 ( [employer] )) 900 ml GIVE PRIOR TO CT ONCE PO 10/31/16 10:30 10/31/16 10:31 DC 10/31/16 11:55 IV Flush 10 ml 10 ml STK-MED ONCE .ROUTE 10/31/16 15:29 10/31/16 15:30 DC 10/31/16 15:55 Sodium Chloride (NS) 100 ml @ ud STK-MED ONCE .ROUTE 10/31/16 15:29 10/31/16 15:30 DC 10/31/16 15:55 Iohexol (Omnipaque 300mg/ ml) 150 ml STK-MED ONCE .ROUTE 10/31/16 15:29 10/31/16 15:30 DC 10/31/16 15:55 Morphine Sulfate (morphine) 2 mg Q4H PRN IV SEVERE PAIN LEVEL 7-10 11/01/16 15:30 11/02/16 14:38 Magnesium Citrate (Citroma) 300 ml ONCE ONCE PO 11/02/16 11:00 11/02/16 11:01 DC 11/02/16 14:00 Neomycin Sulfate (Neomycin) 500 mg QID PO 11/02/16 13:00 11/02/16 17:16 Erythromycin (Erythromycin Base (Ec)) 500 mg Q8 PO 11/02/16 14:00 11/02/16 13:52 Magnesium Citrate (Citroma) 300 ml ONCE ONCE PO 11/02/16 17:30 11/02/16 17:31 DC 11/02/16 17:16 This is a 46 years old 3 para 3 3 who was admitted in the hospital on October 27 with abdominal pain and fever Different diagnostic studies were done she has bilateral ovarian mass so there is a question of diverticuli with possible micro-perforation. Her fever is virtually subsided. She still complaining of pain using morphine She is scheduled to undergo a exploratory laparotomy possible removal of ovaries and it will possible partial colectomy I reviewed her condition with her and answered some of the questions that she had. Apparently she understand her condition and anticipated surgeries with possible different outcome.. She is a scheduled for surgery at 430 tomorrow afternoon. HAKAN AGUILAR MD Nov 02, 2016 18:24
[2016-11-02 20:18] VITALS: BP 121/60; RESP 24
[2016-11-03] VITALS (24 sets, daily range): BP systolic 104–134; BP diastolic 52–75; PULSE 62–106; RESP 16–35
[2016-11-03 05:42] LABS: ADD SCAN DIFF NO
[2016-11-03 05:47] LABS: BASOPHILS % 0.4 % (0.0-2.0); EOSINOPHILS # 0.2 10^3/ul (0.0-0.5); EOSINOPHILS % 1.4 % (0.0-7.0); HEMATOCRIT 35.5 % (37.0-47.0); LYMPHOCYTES # 2.5 10^3/ul (0.8-2.9); LYMPHOCYTES % 22.7 % (15.0-51.0); MEAN CORPUSCULAR HEMOGLOBIN 31.3 pg (29.0-33.0); MEAN CORPUSCULAR HGB CONC 33.8 g/dl (32.0-37.0); MEAN CORPUSCULAR VOLUME 92.7 fl (82.0-101.0); MEAN PLATELET VOLUME 9.3 fl (7.4-10.4); MONOCYTE # 0.7 10^3/ul (0.3-0.9); MONOCYTES % 6.2 % (0.0-11.0); NEUTROPHIL # 7.7 10^3/ul (1.6-7.5); NEUTROPHILS % 68.7 % (39.0-77.0); PLATELET COUNT 327 10^3/UL (140-415); RED BLOOD COUNT 3.83 10^6/ul (4.20-5.40); RED CELL DISTRIBUTION WIDTH 11.9 % (11.5-14.5); WHITE BLOOD COUNT 11.2 10^3/ul (4.8-10.8)
[2016-11-03 05:58] LABS: POTASSIUM 4.1 mmol/L (3.5-5.1)
[2016-11-03 06:00] LABS: CREATININE 0.62 mg/dl (0.44-1.00)
[2016-11-03] MEDS: ERYTHROMYCIN BASE (EC) 500 MG TAB PO SCH ×3 (06:00→22:00)
[2016-11-03] MEDS: PANTOPRAZOLE (EC) 40 MG TAB PO SCH (06:00)
[2016-11-03 06:01] LABS: CALCIUM 8.9 mg/dl (8.4-10.2)
[2016-11-03] MEDS: metroNIDAZOLE 500 MG/NS (PMX) 100 ML IVPB SCH ×3 (06:06→22:12)
[2016-11-03] MEDS: NYSTATIN SUSP 5 ML CUP PO SCH ×3 (08:30→23:25)
[2016-11-03] MEDS: CIPROFLOXACIN 400MG/D5W 200 ML IVPB SCH ×2 (08:30→22:11)
[2016-11-03] MEDS: NEOMYCIN 500 MG TAB PO SCH ×4 (08:30→21:00)
[2016-11-03] MEDS: D5W-0.45 NACL + KCL 20 MEQ 1,000 ML IV SCH ×2 (09:53→22:11)
--- NOTE | 2016-11-03 14:47 | CONS ---
Date/Time of Note Date/Time of Note DATE: 11/03/16 TIME: 14:46 Assessment/Plan Assessment/Plan Chief Complaint/Hosp Course SUBJECTIVE: The patient is lying comfortably in bed. Spiking low grade temps, nad MICROBIOLOGY: Blood cultures remain negative. ANTIMICROBIALS: 1. Cipro. 2. Flagyl. 3. Erythromycin PHYSICAL EXAMINATION: GENERAL: This is an obese, well-developed, middle-aged woman who is in no distress. HEENT: Head atraumatic, normocephalic. Sclerae anicteric. Buccal mucosa dry. NECK: Supple, trachea midline. CHEST: Rise symmetrical. Breath sounds diminished to bases. HEART: S1, S2. ABDOMEN: Soft, bowel sounds present. EXTREMITIES: Without cyanosis. ASSESSMENT: 1. Systemic inflammatory response syndrome with fevers and leukocytosis. 2. Multiple pelvic masses, questionable benign versus malignant. 3. Diverticulitis. 4. Status post urinary tract infection. 5. Morbid obesity. PLAN: The patient remains clinically unchanged. Scheduled for open sigmoid colon resection with appendectomy per Dr Orosco and INFORMATION ASSURANCE ENGINEER procedure per Dr. Salazar. Continue abx==> Erythromycin added per surgery [facility] staff Problems: Consultation Date/Type/Reason Admit Date/Time Oct 27, 2016 at 18:25 Initial Consult Date 10/27/16 Type of Consultation: ID Exam/Review of Systems Vital Signs Vitals Vital Signs Date Time Temp Pulse Resp B/P Pulse Ox O2 Delivery O2 Flow Rate FiO2 11/03/16 07:57 98.4 80 20 104/56 97 11/02/16 08:21 Room Air Intake and Output 11/02/16 11/02/16 11/03/16 15:00 23:00 07:00 Intake Total 100 ml 1170 ml 1100 ml Balance 100 ml 1170 ml 1100 ml Results Result Diagram: 11/03/16 0440 11/03/16 0440 Results 24 hrs Laboratory Tests Test 11/03/16 04:40 Anion Gap 16 Basophils # 0.0 Basophils % 0.4 Blood Urea Nitrogen 6 L Calcium Level 8.9 Carbon Dioxide Level 27 Chloride Level 102 Creatinine 0.62 Eosinophils # 0.2 Eosinophils % 1.4 Glucose Level 116 # Hematocrit 35.5 L Hemoglobin 12.0 Lymphocytes # 2.5 Lymphocytes % 22.7 Mean Corpuscular Hemoglobin 31.3 Mean Corpuscular Hemoglobin Concent 33.8 Mean Corpuscular Volume 92.7 Mean Platelet Volume 9.3 Monocytes # 0.7 Monocytes % 6.2 Neutrophils # 7.7 H Neutrophils % 68.7 Nucleated Red Blood Cells # 0.0 Nucleated Red Blood Cells % 0.0 Platelet Count 327 Potassium Level 4.1 Red Blood Count 3.83 L Red Cell Distribution Width 11.9 Sodium Level 141 White Blood Count 11.2 H Medications Medications Current Medications Potassium Chloride/Dextrose/ Sod Cl (D5-1/2ns + KCl 20 Meq) 1,000 ml @ 100 mls/ hr Q10H IV Last administered on 11/03/16 09:53; Admin Dose 100 MLS/HR; Start at 18:28 Ondansetron HCl (Zofran Inj) 4 mg Q6H PRN IV NAUSEA AND/OR VOMITING Last administered on 10/31/16 11:54; Admin Dose 4 MG; Start 10/27/16 at 18:30 Acetaminophen (Tylenol Tab) 650 mg Q6H PRN PO PAIN LEVEL 1-3 OR FEVER Last administered on 11/01/16 00:17; Admin Dose 650 MG; Start 10/27/16 at 18:30 Acetaminophen (Tylenol Supp) 650 mg Q6H PRN [place] PAIN LEVEL 1-3 OR FEVER Last administered on 10/27/16 22:12; Admin Dose 650 MG; Start 10/27/16 at 18:30 Acetaminophen/ Hydrocodone Bitart ([place] (5/325)) 1 tab Q6H PRN PO MODERATE PAIN LEVEL 4-6 Last administered on 10/28/16 08:43; Admin Dose 1 TAB; Start at 18:30 Docusate Sodium (Colace) 100 mg Q12H PRN PO CONSTIPATION; Start 10/27/16 at 18: 30 Bisacodyl (Dulcolax) 5 mg DAILY PRN PO CONSTIPATION; Start 10/27/16 at 18:30 Pantoprazole 40 mg 40 mg DAILY@06 PO Last administered on 11/02/16 06:32; Admin Dose 40 MG; Start 10/28/16 at 06:00 Ciprofloxacin/ Dextrose 200 ml @ 200 mls/hr Q12 IVPB Last administered on 08:30; Admin Dose 200 MLS/HR; Start 10/28/16 at 07:30 Metronidazole (Flagyl 500 Mg (Pmx)) 100 ml @ 100 mls/hr Q8 IVPB Last administered on 11/03/16 06:06; Admin Dose 100 MLS/HR; Start 10/28/16 at 01:00 Hydralazine HCl (Apresoline) 10 mg Q6H PRN IV SBP>160; Start 10/28/16 at 15:00 Nystatin (Nystatin Susp) 5 ml QID PO Last administered on 11/03/16 08:30; Admin Dose 5 ML; Start 10/30/16 at 17:45 Morphine Sulfate (morphine) 2 mg Q4H PRN IV SEVERE PAIN LEVEL 7-10 Last administered on 11/02/16 23:29; Admin Dose 2 MG; Start 11/01/16 at 15:30 Neomycin Sulfate (Neomycin) 500 mg QID PO Last administered on 11/02/16 22:06 ; Admin Dose 500 MG; Start 11/02/16 at 13:00 Erythromycin (Erythromycin Base (Ec)) 500 mg Q8 PO Last administered on 22:06; Admin Dose 500 MG; Start 11/02/16 at 14:00 FAM OSULLIVAN NP Nov 03, 2016 14:46
[2016-11-03] MEDS ORDERED: POLYMYXIN/BACITRACIN 1L IRRIG ONE (14:54)
[2016-11-03] MEDS ORDERED: METHYLENE BLUE 10 MG/ML VIAL ONE (14:54)
[2016-11-03] MEDS ORDERED: FENTAnyl 50 MCG/ML VIAL ONE (15:12)
[2016-11-03] MEDS ORDERED: morphine SULFATE/PF (10 MG/10 ML) INJ ONE (15:12)
[2016-11-03] MEDS ORDERED: MIDAZOLAM 1 MG/ML 2 ML INJ ONE (15:12)
--- NOTE | 2016-11-03 15:23 | PN ---
Date/Time of Note Date/Time of Note DATE: 11/03/16 TIME: 10:00 Assessment/Plan VTE Prophylaxis VTE Prophylaxis Intervention: SCD's Lines/Catheters IV Catheter Type (from Nrs): Peripheral IV Urinary Cath still in place: No Assessment/Plan Chief Complaint/Hosp Course Assessment and Plan: 1. Acute abdominal pain secondary to diverticulitis cont on abx. diet per surgeon. 2. Pelvic mass. PULP ROLLER/ONC and surgeon following. Tentative plan for surgical intervention. We'll follow-up postop care 3. Essential hypertension. Continue antihypertensives. Adjust as needed 4. Obesity. BMI of 40.5. Weight reduction advised 6. Iron deficiency . H&H stable. Will monitor 7. Vaginal candidiasis. On ABX per ID 8. 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 Continue antibiotics. Follow up with surgeon recs. Tentative plan for appendectomy DISPO/PLAN: Patient with pelvic mass. Tentative plan for surgical intervention. Continue with postop care. We'll provide with analgesics. We'll follow-up Discussed plan of care with Dr. Becerra Problems: Subjective 24 Hr Interval Summary Free Text/Dictation Still has some reports of abdominal discomfort Exam/Review of Systems Vital Signs Vitals Vital Signs Date Time Temp Pulse Resp B/P Pulse Ox O2 Delivery O2 Flow Rate FiO2 11/03/16 07:57 98.4 80 20 104/56 97 11/02/16 08:21 Room Air Intake and Output 11/02/16 11/02/16 11/03/16 15:00 23:00 07:00 Intake Total 100 ml 1170 ml 1100 ml Balance 100 ml 1170 ml 1100 ml Exam General: Still with some abdominal discomfort. No other specific complaints resting in bed. No obvious distress Eyes: Pupils equal round reactive to light Neck: No JVD seen Cardiac: Noted with regular rate. S1-S2 auscultated Pulmonary: No obvious wheezing or rhonchi. GI: Morbidly obese. Minimally tender upon palpation of lower abdomen Extremities: No edema bilateral lower extremities Skin: Clean dry and intact Neurologic: Alert to person place and time and situation Results Result Diagram: 11/03/16 0440 11/03/16 0440 Results 24 hrs Laboratory Tests Test 11/03/16 04:40 Anion Gap 16 Basophils # 0.0 Basophils % 0.4 Blood Urea Nitrogen 6 L Calcium Level 8.9 Carbon Dioxide Level 27 Chloride Level 102 Creatinine 0.62 Eosinophils # 0.2 Eosinophils % 1.4 Glucose Level 116 # Hematocrit 35.5 L Hemoglobin 12.0 Lymphocytes # 2.5 Lymphocytes % 22.7 Mean Corpuscular Hemoglobin 31.3 Mean Corpuscular Hemoglobin Concent 33.8 Mean Corpuscular Volume 92.7 Mean Platelet Volume 9.3 Monocytes # 0.7 Monocytes % 6.2 Neutrophils # 7.7 H Neutrophils % 68.7 Nucleated Red Blood Cells # 0.0 Nucleated Red Blood Cells % 0.0 Platelet Count 327 Potassium Level 4.1 Red Blood Count 3.83 L Red Cell Distribution Width 11.9 Sodium Level 141 White Blood Count 11.2 H Medications Medications Current Medications Potassium Chloride/Dextrose/ Sod Cl (D5-1/2ns + KCl 20 Meq) 1,000 ml @ 100 mls/ hr Q10H IV Last administered on 11/03/16 09:53; Admin Dose 100 MLS/HR; Start at 18:28 Ondansetron HCl (Zofran Inj) 4 mg Q6H PRN IV NAUSEA AND/OR VOMITING Last administered on 10/31/16 11:54; Admin Dose 4 MG; Start 10/27/16 at 18:30 Acetaminophen (Tylenol Tab) 650 mg Q6H PRN PO PAIN LEVEL 1-3 OR FEVER Last administered on 11/01/16 00:17; Admin Dose 650 MG; Start 10/27/16 at 18:30 Acetaminophen (Tylenol Supp) 650 mg Q6H PRN [place] PAIN LEVEL 1-3 OR FEVER Last administered on 10/27/16 22:12; Admin Dose 650 MG; Start 10/27/16 at 18:30 Acetaminophen/ Hydrocodone Bitart ([place] (5/325)) 1 tab Q6H PRN PO MODERATE PAIN LEVEL 4-6 Last administered on 10/28/16 08:43; Admin Dose 1 TAB; Start at 18:30 Docusate Sodium (Colace) 100 mg Q12H PRN PO CONSTIPATION; Start 10/27/16 at 18: 30 Bisacodyl (Dulcolax) 5 mg DAILY PRN PO CONSTIPATION; Start 10/27/16 at 18:30 Pantoprazole 40 mg 40 mg DAILY@06 PO Last administered on 11/02/16 06:32; Admin Dose 40 MG; Start 10/28/16 at 06:00 Ciprofloxacin/ Dextrose 200 ml @ 200 mls/hr Q12 IVPB Last administered on 08:30; Admin Dose 200 MLS/HR; Start 10/28/16 at 07:30 Metronidazole (Flagyl 500 Mg (Pmx)) 100 ml @ 100 mls/hr Q8 IVPB Last administered on 11/03/16 06:06; Admin Dose 100 MLS/HR; Start 10/28/16 at 01:00 Hydralazine HCl (Apresoline) 10 mg Q6H PRN IV SBP>160; Start 10/28/16 at 15:00 Nystatin (Nystatin Susp) 5 ml QID PO Last administered on 11/03/16 08:30; Admin Dose 5 ML; Start 10/30/16 at 17:45 Morphine Sulfate (morphine) 2 mg Q4H PRN IV SEVERE PAIN LEVEL 7-10 Last administered on 11/02/16 23:29; Admin Dose 2 MG; Start 11/01/16 at 15:30 Neomycin Sulfate (Neomycin) 500 mg QID PO Last administered on 11/02/16 22:06 ; Admin Dose 500 MG; Start 11/02/16 at 13:00 Erythromycin (Erythromycin Base (Ec)) 500 mg Q8 PO Last administered on 22:06; Admin Dose 500 MG; Start 11/02/16 at 14:00 KHANG KWAN Nov 03, 2016 15:23
[2016-11-03] MEDS ORDERED: DIPHENHYDRAMINE 50 MG INJ IV PRN (16:00)
[2016-11-03] MEDS ORDERED: METOCLOPRAMIDE 10 MG INJ IV PRN (16:00)
[2016-11-03] MEDS ORDERED: NALOXONE (0.4 MG/ML) INJ IV PRN ×2 (16:00→18:30)
[2016-11-03] MEDS ORDERED: morphine (1 MG/ML) 10ML SYRINGE IV PRN ×2 (16:00)
[2016-11-03] MEDS ORDERED: ONDANSETRON 4 MG INJ IV PRN (16:00)
[2016-11-03] MEDS ORDERED: FENTAnyl 50 MCG/ML VIAL IV PRN (16:00)
[2016-11-03] MEDS ORDERED: MEPERIDINE 25 MG INJ IV PRN (16:00)
[2016-11-03] MEDS ORDERED: GLUCAGON 1 MG INJ ONE (17:12)
[2016-11-03] MEDS ORDERED: NEOSTIGMINE 3 MG/3 ML SYRINGE ONE (18:27)
[2016-11-03] MEDS ORDERED: CIPROFLOXACIN 400MG/D5W 200 ML ONE (18:27)
[2016-11-03] MEDS ORDERED: ROCURONIUM 50 MG INJ ONE (18:27)
[2016-11-03] MEDS ORDERED: LIDOCAINE 2% (SDV) 5 ML INJ ONE (18:27)
[2016-11-03] MEDS ORDERED: GLYCOPYRROLATE 0.4 MG INJ ONE (18:27)
[2016-11-03] MEDS ORDERED: PROPOFOL 20 ML ONE (18:27)
[2016-11-03] MEDS ORDERED: ONDANSETRON 4 MG INJ ONE (18:27)
[2016-11-03] MEDS ORDERED: OXYCODONE/ACETAMINOPHEN (5/325) TAB PO PRN ×2 (18:30)
--- NOTE | 2016-11-03 19:17 | OPR ---
DATE OF OPERATION: 11/03/2016 PREOPERATIVE DIAGNOSES: 1. Perforated diverticulitis. 2. Large appendiceal mucocele. POSTOPERATIVE DIAGNOSES: 1. Perforated diverticulitis. 2. Large appendiceal mucocele. OPERATION PERFORMED: 1. Low anterior resection. 2. Takedown of splenic flexure. 3. Partial omentectomy. 4. Rigid sigmoidoscopy. SURGEON: Anisha Orosco MD ANESTHESIA: General. ANESTHESIOLOGIST: Dr. Chavez CEMENT MASON HELPER: Gonzalez Salazar MD OPERATIVE REPORT: After satisfactory general anesthesia was achieved, the patient was placed in Isaias stirrups and a Green catheter was placed. The abdomen was entered through a vertical midline incision. Abdominal exploration showed a large mucocele of the appendix, and an approximately 10 cm cystic structure in the left adnexa, as well as a rock hard sigmoid diverticulitis with adjacent diverticular abscess. The appendectomy was performed first. The appendix was divided at the junction of the cecum with a laparoscopic linear cutter, as was the mesoappendix. The appendix was submitted. At this point during the procedure, Dr. Gonzalez Salazar took over and did a pelvic exploration with lysis of the left ureter. His surgery consisted of a left oophorectomy, ureterolysis, and surgery on right ovarian cyst. This will be dictated separately by him. Once the gynecologic portion of the procedure was completed , we mobilized the entire left colon in order to achieve anastomosis in the pelvis, which is what was required. The splenic flexure was mobilized using electrocautery and impact LigaSure. The rectosigmoid distal to the indurated perforated colon was divided with a contour stapler. The mesentery to the sigmoid was divided with an impact LigaSure. The left transverse colon was divided over a pursestring device on the patient's side. The specimen was submitted as sigmoid colon with stapled end being distal. This would later return as benign diverticular disease with peridiverticular abscess. The proximal colon was evaluated with Doppler and had demonstrable arterial flow. A 33 mm EEA stapler was used. The anvil was inserted into the proximal colon and the pursestring tied snugly around the shaft. Next, the stapler was inserted per rectum and opened such that the piercing kyler pierced through the center of the staple line. The anvil was attached to the stapler, which was then closed, fired, and removed. Both colonic donuts were intact 360 degrees. A rigid sigmoidoscopy with insufflation was performed and there was a leak in the anterior anastomosis. This was reinforced in 2 layers, a full layer of interrupted 3-0 Vicryl sutures. The anastomosis was now retested with pressure insufflation and was now airtight. The repair was then buttressed with a seromuscular row of silk sutures anteriorly. Through a separate stab in the right lower quadrant, a #19 round Alfred drain was performed. Also, during the procedure, the Dr. Salazar performed an omentectomy, which will be dictated separately by him. Irrigant returned clear. The abdomen was closed with en janis figure-of-8 sutures of #2 Vicryl. Subcutaneous was irrigated. The drain was secured with 2-0 nylon and skin closed with mal. Operative blood loss less than a unit. Sponge, needle, and instrument counts were reported as correct x2. The patient tolerated the procedure well and without incident or complication. Dictated By: ANISHA MO/LIBAN Conf#: [id number] DID#: [id number] CC: SOFIE WATSON MD;*EndCC* MTDJoseph
[2016-11-03 21:04] LABS: HEMATOCRIT 39.9 % (37.0-47.0); HEMOGLOBIN 13.5 g/dl (12.0-16.0)
[2016-11-03] MEDS: ONDANSETRON 4 MG INJ IV PRN (22:07)
[2016-11-03] MEDS: morphine 2 MG INJ IV PRN (23:25)
[2016-11-04] VITALS (13 sets, daily range): BP systolic 104–134; BP diastolic 57–65; PULSE 88–103; RESP 16–20
[2016-11-04] MEDS: METOCLOPRAMIDE 10 MG INJ IV SCH ×4 (00:50→19:12)
[2016-11-04] MEDS: morphine 2 MG INJ IV PRN (03:37)
[2016-11-04] MEDS: ACETAMINOPHEN 650 MG SUPP PR PRN (05:10)
[2016-11-04] MEDS: PANTOPRAZOLE (EC) 40 MG TAB PO SCH (06:00)
[2016-11-04] MEDS: ERYTHROMYCIN BASE (EC) 500 MG TAB PO SCH ×3 (06:00→21:12)
[2016-11-04] MEDS: metroNIDAZOLE 500 MG/NS (PMX) 100 ML IVPB SCH ×3 (06:37→22:59)
[2016-11-04] MEDS: PANTOPRAZOLE 40 MG INJ IV SCH (06:37)
[2016-11-04] MEDS: HYDROmorphONE 0.2 MG/ML PCA IV SCH ×2 (06:49→21:46)
[2016-11-04 06:57] LABS: ADD SCAN DIFF NO
[2016-11-04 06:59] LABS: POTASSIUM 4.9 mmol/L (3.5-5.1)
[2016-11-04 07:02] LABS: CREATININE 0.83 mg/dl (0.44-1.00)
[2016-11-04 07:03] LABS: CALCIUM 8.2 mg/dl (8.4-10.2)
[2016-11-04 07:04] LABS: BASOPHILS % 0.2 % (0.0-2.0); EOSINOPHILS % 0.2 % (0.0-7.0); HEMATOCRIT 38.1 % (37.0-47.0); HEMOGLOBIN 12.9 g/dl (12.0-16.0); LYMPHOCYTES # 1.4 10^3/ul (0.8-2.9); LYMPHOCYTES % 13.9 % (15.0-51.0); MEAN CORPUSCULAR HEMOGLOBIN 31.5 pg (29.0-33.0); MEAN CORPUSCULAR HGB CONC 33.9 g/dl (32.0-37.0); MEAN CORPUSCULAR VOLUME 92.9 fl (82.0-101.0); MEAN PLATELET VOLUME 9.2 fl (7.4-10.4); MONOCYTE # 0.7 10^3/ul (0.3-0.9); MONOCYTES % 6.5 % (0.0-11.0); NEUTROPHIL # 8.2 10^3/ul (1.6-7.5); NEUTROPHILS % 78.9 % (39.0-77.0); PLATELET COUNT 349 10^3/UL (140-415); RED CELL DISTRIBUTION WIDTH 11.9 % (11.5-14.5); WHITE BLOOD COUNT 10.3 10^3/ul (4.8-10.8)
[2016-11-04] MEDS: D5W-0.45 NACL + KCL 20 MEQ 1,000 ML IV SCH ×2 (09:49→15:59)
[2016-11-04] MEDS: NEOMYCIN 500 MG TAB PO SCH ×4 (09:51→21:12)
[2016-11-04] MEDS: CIPROFLOXACIN 400MG/D5W 200 ML IVPB SCH ×2 (09:51→21:12)
[2016-11-04] MEDS: NYSTATIN SUSP 5 ML CUP PO SCH ×4 (09:52→21:12)
[2016-11-04] MEDS: ENOXAPARIN 40 MG/0.4 ML SYG SC SCH (10:05)
--- NOTE | 2016-11-04 10:07 | PN ---
DATE: 11/04/2016 Postoperative day #1. The patient's vital signs have been stable throughout. Her temperature max i s 100.7. Her abdominal examination is benign. Her dressing is blood-tinged. CASSIE drainage has been 200 mL. LABORATORY DATA: Hematocrit this morning is 38 with a white count of 10,300. BUN, glucose, electro lytes are unremarkable. IMPRESSION: Recovering well. PLAN: Ambulate. Discontinue Green. Continue medical management. Dictated By: ANISHA MO/LIBAN Conf#: [id number] DID#: [id number]
--- NOTE | 2016-11-04 15:59 | PN ---
Date/Time of Note Date/Time of Note DATE: 11/04/16 TIME: 15:54 Assessment/Plan VTE Prophylaxis VTE Prophylaxis Intervention: SCD's Lines/Catheters Urinary Cath still in place: Yes Assessment/Plan Chief Complaint/Hosp Course Assessment and Plan: 1. Acute abdominal pain noted with Pelvic mass. Patient also had perforated diverticulitis as well as large appendiceal mucocele. Patient status post appendectomy, sigmoid colon resection, left salpingo-oophorectomy, right paratubal cystectomy, ureteral lysis and omentectomy. Continue postop care and with surgeon recommendations. 3. Essential hypertension. Continue antihypertensives. Adjust as needed. stable 4. Obesity. BMI of 40.5. Weight reduction advised 6. Iron deficiency . H&H stable. Will monitor 7. Vaginal candidiasis. On ABX per ID 8. 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 Continue antibiotics. Follow up with surgeon robert. s/p appendectomy DISPO/PLAN: continue post op care. Follow up with surgeon robert. cont on abx. continue inpatient monitoring Discussed plan of care with Dr. Becerra Problems: Subjective 24 Hr Interval Summary Free Text/Dictation seen on PSYCHIATRY ADULT PHYSICIAN pump. s/p surgical intervention Exam/Review of Systems Vital Signs Vitals Vital Signs Date Time Temp Pulse Resp B/P Pulse Ox O2 Delivery O2 Flow Rate FiO2 11/04/16 15:25 100.8 106 20 118/61 94 11/04/16 05:00 Nasal Cannula 3.0 Intake and Output 11/03/16 11/03/16 11/04/16 15:00 23:00 07:00 Intake Total 700 ml 1400 ml 900 ml Output Total 780 ml 950 ml Balance 700 ml 620 ml -50 ml Exam General: reports abdominal pain secondary recent surgery. Eyes: pupils equal round, Anicteric sclera Neck: Supple nontender, no JVD Cardiac: Remains in regular rate. On telemetry. S1-S2 auscultated Pulmonary: Diminished at lung bases GI: Upon palpation. Extremities: No edema bilateral lower extremities Skin: Digital site on abdomen clean dry and intact with noted CASSIE bulb on right lower abdominal quadrant Neurologic: Alert to person place and time and situation Results Result Diagram: 11/04/16 0600 11/04/16 0608 Results 24 hrs Laboratory Tests Test 11/03/16 20:55 11/04/16 06:00 11/04/16 06:08 Hematocrit 39.9 38.1 Hemoglobin 13.5 12.9 Basophils # 0.0 Basophils % 0.2 Eosinophils # 0.0 Eosinophils % 0.2 Lymphocytes # 1.4 Lymphocytes % 13.9 L Mean Corpuscular Hemoglobin 31.5 Mean Corpuscular Hemoglobin Concent 33.9 Mean Corpuscular Volume 92.9 Mean Platelet Volume 9.2 Monocytes # 0.7 Monocytes % 6.5 Neutrophils # 8.2 H Neutrophils % 78.9 H Nucleated Red Blood Cells # 0.0 Nucleated Red Blood Cells % 0.0 Platelet Count 349 Red Blood Count 4.10 L Red Cell Distribution Width 11.9 White Blood Count 10.3 Anion Gap 16 Blood Urea Nitrogen 10 Calcium Level 8.2 L Carbon Dioxide Level 28 Chloride Level 100 Creatinine 0.83 Glucose Level 142 Potassium Level 4.9 Sodium Level 139 Medications Medications Current Medications Potassium Chloride/Dextrose/ Sod Cl (D5-1/2ns + KCl 20 Meq) 1,000 ml @ 100 mls/ hr Q10H IV Last administered on 11/04/16 09:49; Admin Dose 100 MLS/HR; Start at 18:28 Ondansetron HCl (Zofran Inj) 4 mg Q6H PRN IV NAUSEA AND/OR VOMITING Last administered on 11/03/16 22:07; Admin Dose 4 MG; Start 10/27/16 at 18:30 Acetaminophen (Tylenol Tab) 650 mg Q6H PRN PO PAIN LEVEL 1-3 OR FEVER Last administered on 11/01/16 00:17; Admin Dose 650 MG; Start 10/27/16 at 18:30 Acetaminophen (Tylenol Supp) 650 mg Q6H PRN [place] PAIN LEVEL 1-3 OR FEVER Last administered on 11/04/16 05:10; Admin Dose 650 MG; Start 10/27/16 at 18:30 Acetaminophen/ Hydrocodone Bitart ([place] (5/325)) 1 tab Q6H PRN PO MODERATE PAIN LEVEL 4-6 Last administered on 10/28/16 08:43; Admin Dose 1 TAB; Start at 18:30 Docusate Sodium (Colace) 100 mg Q12H PRN PO CONSTIPATION; Start 10/27/16 at 18: 30 Bisacodyl 5 mg 5 mg DAILY PRN PO CONSTIPATION; Start 10/27/16 at 18:30 Ciprofloxacin/ Dextrose 200 ml @ 200 mls/hr Q12 IVPB Last administered on 09:51; Admin Dose 200 MLS/HR; Start 10/28/16 at 07:30 Metronidazole (Flagyl 500 Mg (Pmx)) 100 ml @ 100 mls/hr Q8 IVPB Last administered on 11/04/16 13:47; Admin Dose 100 MLS/HR; Start 10/28/16 at 01:00 Hydralazine HCl (Apresoline) 10 mg Q6H PRN IV SBP>160; Start 10/28/16 at 15:00 Nystatin (Nystatin Susp) 5 ml QID PO Last administered on 11/04/16 13:47; Admin Dose 5 ML; Start 10/30/16 at 17:45 Morphine Sulfate (morphine) 2 mg Q4H PRN IV SEVERE PAIN LEVEL 7-10 Last administered on 11/04/16 03:37; Admin Dose 2 MG; Start 11/01/16 at 15:30 Neomycin Sulfate (Neomycin) 500 mg QID PO Last administered on 11/04/16 13:47; Admin Dose 500 MG; Start 11/02/16 at 13:00 Erythromycin (Erythromycin Base (Ec)) 500 mg Q8 PO Last administered on 13:48; Admin Dose 500 MG; Start 11/02/16 at 14:00 Naloxone HCl (Narcan) 0.2 mg Q2M PRN IV FOR RESP RATE 8 OR LESS; Start 11/03/16 at 16:00 Hydromorphone HCl (Dilaudid PSYCHIATRY ADULT PHYSICIAN) 0.4 MG LOADING DOSE 0 ... Q4PCA IV Last administered on 11/04/16 06:49; Admin Dose 0.4 MG; Start 11/04/16 at 07:00; Stop 11/06/16 at 06:59 Oxycodone/ Acetaminophen (Percocet (5/ 325)) 1 tab Q4H PRN PO MILD PAIN (1-3); Start 11/03/16 at 18:30 Oxycodone/ Acetaminophen (Percocet (5/ 325)) 2 tab Q4H PRN PO MODERATE PAIN (4- 6); Start 11/03/16 at 18:30 Metoclopramide HCl (Reglan) 10 mg Q6 IV Last administered on 11/04/16 13:47; Admin Dose 10 MG; Start 11/04/16 at 00:00 Pantoprazole (Protonix Iv) 40 mg DAILY@06 IV Last administered on 11/04/16 06: 37; Admin Dose 40 MG; Start 11/04/16 at 06:00 Enoxaparin Sodium (Lovenox) 40 mg DAILY SC Last administered on 11/04/16 10:05 ; Admin Dose 40 MG; Start 11/04/16 at 09:00 Zolpidem Tartrate (Ambien) 5 mg HS PRN PO INSOMNIA; Start 11/03/16 at 18:30 KHANG KWAN Nov 04, 2016 15:59
--- NOTE | 2016-11-04 16:04 | PN ---
DATE: 11/04/2016 SUBJECTIVE: No acute changes overnight. The patient is lying comfortably in bed. 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 T-max 100.7, T-current 98.7. WBC 10.3, platelets 349, neutrophils 78.9. BUN 10, creatinine 0.83. INDWELLINGS: Right abdominal CASSIE, Green. ANTIMICROBIALS: 1. Erythromycin. 2. Cipro 3. Flagyl. PHYSICAL EXAMINATION: GENERAL: This is a morbidly obese, middle-aged woman who is lying comfortably in bed. HEENT: Head atraumatic, normocephalic. Sclerae anicteric. Buccal mucosa dry. NECK: Supple. CHEST: Rise symmetrical. Breath sounds diminished. HEART: S1, S2. ABDOMEN: Obese, mid abdominal dressing intact. The patient has right CASSIE. EXTREMITIES: With trace edema. ASSESSMENT: 1. Systemic inflammatory response syndrome. 2. Perforated diverticulitis with a large appendiceal mucocele status post resection, partial shivani ectomy, as well as left oophorectomy, ureterolysis and surgery on the right ovarian cyst. Surgery w as performed both by Dr. Orosco and Dr. Salazar, postop day #1 today. 3. Morbid obesity. 4. Status post urinary tract infection. PLAN: The patient remains stable postoperatively. Continue present care, antibiotics. Follow intr aoperative cultures. Follow surgical recommendations. Dictated By: FAM OSULLIVAN PROPERTY ANALYST for JEFFRY DAVILA MD NI/NTS Conf#: [id number] DID#: [id number] CC: SOFIE WATSON MD;*EndCC*
[2016-11-04] MEDS: ACETAMINOPHEN 325 MG TAB PO PRN (16:39)
--- NOTE | 2016-11-04 21:34 | PN ---
Date/Time of Note Date/Time of Note DATE: 11/04/16 TIME: 21:32 Assessment/Plan VTE Prophylaxis VTE Prophylaxis Intervention: SCD's Lines/Catheters IV Catheter Type (from Nrs): Peripheral IV Urinary Cath still in place: Yes Assessment/Plan Chief Complaint/Hosp Course Assessment: 1-Pelvic masses, benign vs CA vs endometrioma vs hydrosalpinx vs mucocele 2- Diverticulitis 3-Cystitis- unlikely pyelo as no CVAT and no hydro Problems: Assessment/Plan A- doing well P- Per GS and IM Subjective 24 Hr Interval Summary Free Text/Dictation S- Feels OK other than some incisional pain, no flatus. O- Resp- clear CVS-NSR Abd- some distension and less tenderness Ext- NT no edema A- doing well P- Per GS and IM Exam/Review of Systems Vital Signs Vitals Vital Signs Date Time Temp Pulse Resp B/P Pulse Ox O2 Delivery O2 Flow Rate FiO2 11/04/16 20:09 100 11/04/16 19:29 99.4 20 128/65 93 11/04/16 08:10 Nasal Cannula 3.0 Intake and Output 11/03/16 11/03/16 11/04/16 15:00 23:00 07:00 Intake Total 700 ml 1400 ml 900 ml Output Total 780 ml 950 ml Balance 700 ml 620 ml -50 ml Results Result Diagram: 11/04/16 0600 11/04/16 0608 Results 24 hrs Laboratory Tests Test 11/04/16 06:00 11/04/16 06:08 Basophils # 0.0 Basophils % 0.2 Eosinophils # 0.0 Eosinophils % 0.2 Hematocrit 38.1 Hemoglobin 12.9 Lymphocytes # 1.4 Lymphocytes % 13.9 L Mean Corpuscular Hemoglobin 31.5 Mean Corpuscular Hemoglobin Concent 33.9 Mean Corpuscular Volume 92.9 Mean Platelet Volume 9.2 Monocytes # 0.7 Monocytes % 6.5 Neutrophils # 8.2 H Neutrophils % 78.9 H Nucleated Red Blood Cells # 0.0 Nucleated Red Blood Cells % 0.0 Platelet Count 349 Red Blood Count 4.10 L Red Cell Distribution Width 11.9 White Blood Count 10.3 Anion Gap 16 Blood Urea Nitrogen 10 Calcium Level 8.2 L Carbon Dioxide Level 28 Chloride Level 100 Creatinine 0.83 Glucose Level 142 Potassium Level 4.9 Sodium Level 139 Medications Medications Current Medications Potassium Chloride/Dextrose/ Sod Cl (D5-1/2ns + KCl 20 Meq) 1,000 ml @ 100 mls/ hr Q10H IV Last administered on 11/04/16 15:59; Admin Dose 100 MLS/HR; Start at 18:28 Ondansetron HCl (Zofran Inj) 4 mg Q6H PRN IV NAUSEA AND/OR VOMITING Last administered on 11/03/16 22:07; Admin Dose 4 MG; Start 10/27/16 at 18:30 Acetaminophen (Tylenol Tab) 650 mg Q6H PRN PO PAIN LEVEL 1-3 OR FEVER Last administered on 11/04/16 16:39; Admin Dose 650 MG; Start 10/27/16 at 18:30 Acetaminophen (Tylenol Supp) 650 mg Q6H PRN [place] PAIN LEVEL 1-3 OR FEVER Last administered on 11/04/16 05:10; Admin Dose 650 MG; Start 10/27/16 at 18:30 Acetaminophen/ Hydrocodone Bitart ([place] (5/325)) 1 tab Q6H PRN PO MODERATE PAIN LEVEL 4-6 Last administered on 10/28/16 08:43; Admin Dose 1 TAB; Start at 18:30 Docusate Sodium (Colace) 100 mg Q12H PRN PO CONSTIPATION; Start 10/27/16 at 18: 30 Bisacodyl 5 mg 5 mg DAILY PRN PO CONSTIPATION; Start 10/27/16 at 18:30 Ciprofloxacin/ Dextrose 200 ml @ 200 mls/hr Q12 IVPB Last administered on 21:12; Admin Dose 200 MLS/HR; Start 10/28/16 at 07:30 Metronidazole (Flagyl 500 Mg (Pmx)) 100 ml @ 100 mls/hr Q8 IVPB Last administered on 11/04/16 13:47; Admin Dose 100 MLS/HR; Start 10/28/16 at 01:00 Hydralazine HCl (Apresoline) 10 mg Q6H PRN IV SBP>160; Start 10/28/16 at 15:00 Nystatin (Nystatin Susp) 5 ml QID PO Last administered on 11/04/16 21:12; Admin Dose 5 ML; Start 10/30/16 at 17:45 Morphine Sulfate (morphine) 2 mg Q4H PRN IV SEVERE PAIN LEVEL 7-10 Last administered on 11/04/16 03:37; Admin Dose 2 MG; Start 11/01/16 at 15:30 Neomycin Sulfate (Neomycin) 500 mg QID PO Last administered on 11/04/16 21:12; Admin Dose 500 MG; Start 11/02/16 at 13:00 Erythromycin (Erythromycin Base (Ec)) 500 mg Q8 PO Last administered on 21:12; Admin Dose 500 MG; Start 11/02/16 at 14:00 Naloxone HCl (Narcan) 0.2 mg Q2M PRN IV FOR RESP RATE 8 OR LESS; Start 11/03/16 at 16:00 Hydromorphone HCl (Dilaudid LICENSED NUCLEAR CONTROL ROOM OPERATOR) 0.4 MG LOADING DOSE 0 ... Q4PCA IV Last administered on 11/04/16 06:49; Admin Dose 0.4 MG; Start 11/04/16 at 07:00; Stop 11/06/16 at 06:59 Oxycodone/ Acetaminophen (Percocet (5/ 325)) 1 tab Q4H PRN PO MILD PAIN (1-3); Start 11/03/16 at 18:30 Oxycodone/ Acetaminophen (Percocet (5/ 325)) 2 tab Q4H PRN PO MODERATE PAIN (4- 6); Start 11/03/16 at 18:30 Metoclopramide HCl (Reglan) 10 mg Q6 IV Last administered on 11/04/16 19:12; Admin Dose 10 MG; Start 11/04/16 at 00:00 Pantoprazole (Protonix Iv) 40 mg DAILY@06 IV Last administered on 11/04/16 06: 37; Admin Dose 40 MG; Start 11/04/16 at 06:00 Enoxaparin Sodium (Lovenox) 40 mg DAILY SC Last administered on 11/04/16 10:05 ; Admin Dose 40 MG; Start 11/04/16 at 09:00 Zolpidem Tartrate (Ambien) 5 mg HS PRN PO INSOMNIA; Start 11/03/16 at 18:30 YASMINE GILES MD Nov 04, 2016 21:34
[2016-11-05] VITALS (10 sets, daily range): BP systolic 92–122; BP diastolic 58–64; PULSE 92–111; RESP 17–18
[2016-11-05] MEDS: METOCLOPRAMIDE 10 MG INJ IV SCH ×4 (00:20→18:27)
[2016-11-05] MEDS: D5W-0.45 NACL + KCL 20 MEQ 1,000 ML IV SCH ×2 (04:07→14:07)
[2016-11-05] MEDS: metroNIDAZOLE 500 MG/NS (PMX) 100 ML IVPB SCH ×3 (06:06→22:49)
[2016-11-05] MEDS: ERYTHROMYCIN BASE (EC) 500 MG TAB PO SCH ×3 (06:06→22:48)
[2016-11-05] MEDS: PANTOPRAZOLE 40 MG INJ IV SCH (06:06)
[2016-11-05 06:55] LABS: ADD SCAN DIFF NO
[2016-11-05 07:01] LABS: BASOPHILS % 0.3 % (0.0-2.0); EOSINOPHILS # 0.1 10^3/ul (0.0-0.5); EOSINOPHILS % 0.8 % (0.0-7.0); HEMATOCRIT 34.5 % (37.0-47.0); HEMOGLOBIN 11.4 g/dl (12.0-16.0); LYMPHOCYTES # 1.6 10^3/ul (0.8-2.9); MEAN CORPUSCULAR HEMOGLOBIN 31.3 pg (29.0-33.0); MEAN CORPUSCULAR VOLUME 94.8 fl (82.0-101.0); MEAN PLATELET VOLUME 9.1 fl (7.4-10.4); MONOCYTE # 0.9 10^3/ul (0.3-0.9); MONOCYTES % 6.5 % (0.0-11.0); NEUTROPHIL # 10.4 10^3/ul (1.6-7.5); NEUTROPHILS % 79.9 % (39.0-77.0); PLATELET COUNT 305 10^3/UL (140-415); RED BLOOD COUNT 3.64 10^6/ul (4.20-5.40)
[2016-11-05 07:11] LABS: POTASSIUM 4.4 mmol/L (3.5-5.1)
[2016-11-05 07:14] LABS: CREATININE 0.66 mg/dl (0.44-1.00)
[2016-11-05 07:15] LABS: CALCIUM 8.2 mg/dl (8.4-10.2)
[2016-11-05] MEDS: HYDROmorphONE 0.2 MG/ML PCA IV SCH ×2 (08:23→18:35)
[2016-11-05] MEDS: CIPROFLOXACIN 400MG/D5W 200 ML IVPB SCH ×2 (08:56→20:58)
[2016-11-05] MEDS: NEOMYCIN 500 MG TAB PO SCH ×4 (08:56→20:58)
[2016-11-05] MEDS: ENOXAPARIN 40 MG/0.4 ML SYG SC SCH (08:57)
[2016-11-05] MEDS: NYSTATIN SUSP 5 ML CUP PO SCH ×4 (08:57→20:58)
--- NOTE | 2016-11-05 11:21 | CONS ---
Date/Time of Note Date/Time of Note DATE: 11/05/16 TIME: 11:20 Assessment/Plan Assessment/Plan Chief Complaint/Hosp Course SUBJECTIVE: No acute changes overnight. The patient is alert, tolerates clears , nad INDWELLINGS: Right abdominal CASSIE, Green. ANTIMICROBIALS: 1. Erythromycin. 2. Cipro 3. Flagyl. PHYSICAL EXAMINATION: GENERAL: This is a morbidly obese, middle-aged woman who is lying comfortably in bed. HEENT: Head atraumatic, normocephalic. Sclerae anicteric. Buccal mucosa dry. NECK: Supple. CHEST: Rise symmetrical. Breath sounds diminished. HEART: S1, S2. ABDOMEN: Obese, mid abdominal dressing intact. The patient has right CASSIE. EXTREMITIES: With trace edema. ASSESSMENT: 1. Systemic inflammatory response syndrome. 2. Perforated diverticulitis with a large appendiceal mucocele status post resection, partial laminectomy, as well as left oophorectomy, ureterolysis and surgery on the right ovarian cyst. Surgery was performed both by Dr. rOosco and Dr. Salazar, postop day #2 . 3. Morbid obesity. 4. Status post urinary tract infection. PLAN: The patient remains stable postoperatively. Continue present care, antibiotics. Follow intraoperative cultures. Follow surgical recommendations. DW staff/pt Problems: Consultation Date/Type/Reason Admit Date/Time Oct 27, 2016 at 18:25 Initial Consult Date 10/27/16 Type of Consultation: ID Exam/Review of Systems Vital Signs Vitals Vital Signs Date Time Temp Pulse Resp B/P Pulse Ox O2 Delivery O2 Flow Rate FiO2 11/05/16 08:23 103 11/05/16 07:11 98.6 18 101/58 95 11/04/16 20:00 Nasal Cannula 3.0 Intake and Output 11/04/16 11/04/16 11/05/16 15:00 23:00 07:00 Intake Total 880 ml 700 ml Output Total 1000 ml 650 ml Balance -120 ml 50 ml Results Result Diagram: 11/05/16 0615 11/05/16 0615 Results 24 hrs Laboratory Tests Test 11/05/16 06:15 Anion Gap 13 Basophils # 0.0 Basophils % 0.3 Blood Urea Nitrogen 6 L Calcium Level 8.2 L Carbon Dioxide Level 30 Chloride Level 98 Creatinine 0.66 Eosinophils # 0.1 Eosinophils % 0.8 Glucose Level 149 Hematocrit 34.5 L Hemoglobin 11.4 L Lymphocytes # 1.6 Lymphocytes % 12.0 L Mean Corpuscular Hemoglobin 31.3 Mean Corpuscular Hemoglobin Concent 33.0 Mean Corpuscular Volume 94.8 Mean Platelet Volume 9.1 Monocytes # 0.9 Monocytes % 6.5 Neutrophils # 10.4 H Neutrophils % 79.9 H Nucleated Red Blood Cells # 0.0 Nucleated Red Blood Cells % 0.0 Platelet Count 305 Potassium Level 4.4 Red Blood Count 3.64 L Red Cell Distribution Width 12.0 Sodium Level 137 White Blood Count 13.0 #H Medications Medications Current Medications Potassium Chloride/Dextrose/ Sod Cl (D5-1/2ns + KCl 20 Meq) 1,000 ml @ 100 mls/ hr Q10H IV Last administered on 11/05/16 04:07; Admin Dose 100 MLS/HR; Start at 18:28 Ondansetron HCl (Zofran Inj) 4 mg Q6H PRN IV NAUSEA AND/OR VOMITING Last administered on 11/03/16 22:07; Admin Dose 4 MG; Start 10/27/16 at 18:30 Acetaminophen (Tylenol Tab) 650 mg Q6H PRN PO PAIN LEVEL 1-3 OR FEVER Last administered on 11/04/16 16:39; Admin Dose 650 MG; Start 10/27/16 at 18:30 Acetaminophen (Tylenol Supp) 650 mg Q6H PRN [place] PAIN LEVEL 1-3 OR FEVER Last administered on 11/04/16 05:10; Admin Dose 650 MG; Start 10/27/16 at 18:30 Acetaminophen/ Hydrocodone Bitart ([place] (5/325)) 1 tab Q6H PRN PO MODERATE PAIN LEVEL 4-6 Last administered on 10/28/16 08:43; Admin Dose 1 TAB; Start at 18:30 Docusate Sodium (Colace) 100 mg Q12H PRN PO CONSTIPATION; Start 10/27/16 at 18: 30 Bisacodyl 5 mg 5 mg DAILY PRN PO CONSTIPATION; Start 10/27/16 at 18:30 Ciprofloxacin/ Dextrose 200 ml @ 200 mls/hr Q12 IVPB Last administered on 08:56; Admin Dose 200 MLS/HR; Start 10/28/16 at 07:30 Metronidazole (Flagyl 500 Mg (Pmx)) 100 ml @ 100 mls/hr Q8 IVPB Last administered on 11/05/16 06:06; Admin Dose 100 MLS/HR; Start 10/28/16 at 01:00 Hydralazine HCl (Apresoline) 10 mg Q6H PRN IV SBP>160; Start 10/28/16 at 15:00 Nystatin (Nystatin Susp) 5 ml QID PO Last administered on 11/05/16 08:57; Admin Dose 5 ML; Start 10/30/16 at 17:45 Morphine Sulfate (morphine) 2 mg Q4H PRN IV SEVERE PAIN LEVEL 7-10 Last administered on 11/04/16 03:37; Admin Dose 2 MG; Start 11/01/16 at 15:30 Neomycin Sulfate (Neomycin) 500 mg QID PO Last administered on 11/05/16 08:56; Admin Dose 500 MG; Start 11/02/16 at 13:00 Erythromycin (Erythromycin Base (Ec)) 500 mg Q8 PO Last administered on 06:06; Admin Dose 500 MG; Start 11/02/16 at 14:00 Naloxone HCl (Narcan) 0.2 mg Q2M PRN IV FOR RESP RATE 8 OR LESS; Start 11/03/16 at 16:00 Hydromorphone HCl (Dilaudid DRYLAND FARMER) 0.4 MG LOADING DOSE 0 ... Q4PCA IV Last administered on 11/05/16 08:23; Admin Dose 6 MG; Start 11/04/16 at 07:00; Stop at 06:59 Oxycodone/ Acetaminophen (Percocet (5/ 325)) 1 tab Q4H PRN PO MILD PAIN (1-3); Start 11/03/16 at 18:30 Oxycodone/ Acetaminophen (Percocet (5/ 325)) 2 tab Q4H PRN PO MODERATE PAIN (4- 6); Start 11/03/16 at 18:30 Metoclopramide HCl (Reglan) 10 mg Q6 IV Last administered on 11/05/16 06:06; Admin Dose 10 MG; Start 11/04/16 at 00:00 Pantoprazole (Protonix Iv) 40 mg DAILY@06 IV Last administered on 11/05/16 06: 06; Admin Dose 40 MG; Start 11/04/16 at 06:00 Enoxaparin Sodium (Lovenox) 40 mg DAILY SC Last administered on 11/05/16 08:57 ; Admin Dose 40 MG; Start 11/04/16 at 09:00 Zolpidem Tartrate (Ambien) 5 mg HS PRN PO INSOMNIA; Start 11/03/16 at 18:30 FAM OSULLIVAN NP Nov 05, 2016 11:21
--- NOTE | 2016-11-05 11:23 | PN ---
DATE: 11/05/2016 Postoperative day #2. The patient is clinically stable. She is afebrile. Her abdominal examination is benign. Her incision is clean and the CASSIE drainage is draining serosanguineous fluid. She has p assed gas. LABORATORY DATA: Hematocrit is 34 with a white count of 13,000 with slight left shift with 79 polys . BUN, glucose, electrolytes are within normal limits. IMPRESSION: Coming along nicely. PLAN: The patient needs to mobilize with physical therapy. Continue medical management. Dictated By: ANISHA MO/LIBAN Conf#: [id number] DID#: [id number]
--- NOTE | 2016-11-05 15:55 | PN ---
Date/Time of Note Date/Time of Note DATE: 11/05/16 TIME: 15:53 Assessment/Plan VTE Prophylaxis VTE Prophylaxis Intervention: SCD's Lines/Catheters IV [facility] Type (from [facility]): Peripheral IV Urinary Cath still in place: No Assessment/Plan Chief Complaint/Hosp Course Assessment and Plan: 1. Acute abdominal pain noted with Pelvic mass. Patient also had perforated diverticulitis as well as large appendiceal mucocele. Patient status post appendectomy, sigmoid colon resection, left salpingo-oophorectomy, right paratubal cystectomy, ureteral lysis and omentectomy. Continue postop care and with surgeon recommendations. Continue with analgesics. We'll get physical therapy to follow 3. Essential hypertension. Continue antihypertensives. Adjust as needed. stable at present 4. Obesity. BMI of 40.5. Weight reduction advised 6. Iron deficiency . H&H stable. Will monitor 7. Vaginal candidiasis. On ABX per ID. Continue recommendations 8. 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 Continue antibiotics. Follow up with surgeon recs. s/p appendectomy. Continue postop care DISPO/PLAN: Physical therapy to follow. Continue with surgeon recommendations. Discharge when cleared by consultants Discussed plan of care with Dr. Becerra Problems: Subjective 24 Hr Interval Summary Free Text/Dictation Still with abdominal pain status post surgical intervention. Exam/Review of Systems Vital Signs Vitals Vital Signs Date Time Temp Pulse Resp B/P Pulse Ox O2 Delivery O2 Flow Rate FiO2 11/05/16 15:44 100.0 104 18 115/59 98 11/05/16 07:45 Nasal Cannula 3.0 Intake and Output 11/04/16 11/04/16 11/05/16 15:00 23:00 07:00 Intake Total 880 ml 700 ml Output Total 1000 ml 650 ml Balance -120 ml 50 ml Exam General: reports abdominal pain secondary recent surgery. Not much changed Eyes: pupils equal round, Anicteric sclera Neck: Supple nontender, no JVD Cardiac: S1-S2 auscultated Pulmonary: Diminished at lung bases GI: Upon palpation. Is tender Extremities: No edema bilateral lower extremities Skin: Surgical site on abdomen clean dry and intact with noted CASSIE bulb on right lower abdominal quadrant. Noted with serosanguineous drainage Neurologic: Alert to person place and time and situation Results Result Diagram: 11/05/1615 11/05/16 0615 Results 24 hrs Laboratory Tests Test 11/05/16 06:15 Anion Gap 13 Basophils # 0.0 Basophils % 0.3 Blood Urea Nitrogen 6 L Calcium Level 8.2 L Carbon Dioxide Level 30 Chloride Level 98 Creatinine 0.66 Eosinophils # 0.1 Eosinophils % 0.8 Glucose Level 149 Hematocrit 34.5 L Hemoglobin 11.4 L Lymphocytes # 1.6 Lymphocytes % 12.0 L Mean Corpuscular Hemoglobin 31.3 Mean Corpuscular Hemoglobin Concent 33.0 Mean Corpuscular Volume 94.8 Mean Platelet Volume 9.1 Monocytes # 0.9 Monocytes % 6.5 Neutrophils # 10.4 H Neutrophils % 79.9 H Nucleated Red Blood Cells # 0.0 Nucleated Red Blood Cells % 0.0 Platelet Count 305 Potassium Level 4.4 Red Blood Count 3.64 L Red Cell Distribution Width 12.0 Sodium Level 137 White Blood Count 13.0 #H Medications Medications Current Medications Potassium Chloride/Dextrose/ Sod Cl (D5-1/2ns + KCl 20 Meq) 1,000 ml @ 100 mls/ hr Q10H IV Last administered on 11/05/16 04:07; Admin Dose 100 MLS/HR; Start at 18:28 Ondansetron HCl (Zofran Inj) 4 mg Q6H PRN IV NAUSEA AND/OR VOMITING Last administered on 11/03/16 22:07; Admin Dose 4 MG; Start 10/27/16 at 18:30 Acetaminophen (Tylenol Tab) 650 mg Q6H PRN PO PAIN LEVEL 1-3 OR FEVER Last administered on 11/04/16 16:39; Admin Dose 650 MG; Start 10/27/16 at 18:30 Acetaminophen (Tylenol Supp) 650 mg Q6H PRN [place] PAIN LEVEL 1-3 OR FEVER Last administered on 11/04/16 05:10; Admin Dose 650 MG; Start 10/27/16 at 18:30 Acetaminophen/ Hydrocodone Bitart ([place] (5/325)) 1 tab Q6H PRN PO MODERATE PAIN LEVEL 4-6 Last administered on 10/28/16 08:43; Admin Dose 1 TAB; Start at 18:30 Docusate Sodium (Colace) 100 mg Q12H PRN PO CONSTIPATION; Start 10/27/16 at 18: 30 Bisacodyl 5 mg 5 mg DAILY PRN PO CONSTIPATION; Start 10/27/16 at 18:30 Ciprofloxacin/ Dextrose 200 ml @ 200 mls/hr Q12 IVPB Last administered on 08:56; Admin Dose 200 MLS/HR; Start 10/28/16 at 07:30 Metronidazole (Flagyl 500 Mg (Pmx)) 100 ml @ 100 mls/hr Q8 IVPB Last administered on 11/05/16 13:12; Admin Dose 100 MLS/HR; Start 10/28/16 at 01:00 Hydralazine HCl (Apresoline) 10 mg Q6H PRN IV SBP>160; Start 10/28/16 at 15:00 Nystatin (Nystatin Susp) 5 ml QID PO Last administered on 11/05/16 13:12; Admin Dose 5 ML; Start 10/30/16 at 17:45 Morphine Sulfate (morphine) 2 mg Q4H PRN IV SEVERE PAIN LEVEL 7-10 Last administered on 11/04/16 03:37; Admin Dose 2 MG; Start 11/01/16 at 15:30 Neomycin Sulfate (Neomycin) 500 mg QID PO Last administered on 11/05/16 13:12; Admin Dose 500 MG; Start 11/02/16 at 13:00 Erythromycin (Erythromycin Base (Ec)) 500 mg Q8 PO Last administered on 13:12; Admin Dose 500 MG; Start 11/02/16 at 14:00 Naloxone HCl (Narcan) 0.2 mg Q2M PRN IV FOR RESP RATE 8 OR LESS; Start 11/03/16 at 16:00 Hydromorphone HCl (Dilaudid FORGE SHOP MACHINE REPAIRER) 0.4 MG LOADING DOSE 0 ... Q4PCA IV Last administered on 11/05/16 08:23; Admin Dose 6 MG; Start 11/04/16 at 07:00; Stop at 06:59 Oxycodone/ Acetaminophen (Percocet (5/ 325)) 1 tab Q4H PRN PO MILD PAIN (1-3); Start 11/03/16 at 18:30 Oxycodone/ Acetaminophen (Percocet (5/ 325)) 2 tab Q4H PRN PO MODERATE PAIN (4- 6); Start 11/03/16 at 18:30 Metoclopramide HCl (Reglan) 10 mg Q6 IV Last administered on 11/05/16 13:10; Admin Dose 10 MG; Start 11/04/16 at 00:00 Pantoprazole (Protonix Iv) 40 mg DAILY@06 IV Last administered on 11/05/16 06: 06; Admin Dose 40 MG; Start 11/04/16 at 06:00 Enoxaparin Sodium (Lovenox) 40 mg DAILY SC Last administered on 11/05/16 08:57 ; Admin Dose 40 MG; Start 11/04/16 at 09:00 Zolpidem Tartrate (Ambien) 5 mg HS PRN PO INSOMNIA; Start 11/03/16 at 18:30 KHANG KWAN Nov 05, 2016 15:55
[2016-11-06] VITALS (9 sets, daily range): BP systolic 99–111; BP diastolic 53–60; PULSE 81–110; RESP 18
[2016-11-06] MEDS: D5W-0.45 NACL + KCL 20 MEQ 1,000 ML IV SCH ×3 (00:07→20:07)
[2016-11-06] MEDS: HYDROmorphONE 0.2 MG/ML PCA IV SCH (01:54)
[2016-11-06] MEDS: ERYTHROMYCIN BASE (EC) 500 MG TAB PO SCH ×3 (05:25→22:52)
[2016-11-06] MEDS: metroNIDAZOLE 500 MG/NS (PMX) 100 ML IVPB SCH ×3 (05:25→22:52)
[2016-11-06] MEDS: PANTOPRAZOLE 40 MG INJ IV SCH (05:25)
[2016-11-06] MEDS: METOCLOPRAMIDE 10 MG INJ IV SCH ×4 (05:31→17:42)
[2016-11-06 06:55] LABS: ADD SCAN DIFF NO
[2016-11-06 07:07] LABS: BASOPHILS % 0.2 % (0.0-2.0); EOSINOPHILS # 0.3 10^3/ul (0.0-0.5); EOSINOPHILS % 2.2 % (0.0-7.0); HEMATOCRIT 30.9 % (37.0-47.0); HEMOGLOBIN 10.5 g/dl (12.0-16.0); LYMPHOCYTES # 1.8 10^3/ul (0.8-2.9); LYMPHOCYTES % 15.3 % (15.0-51.0); MEAN CORPUSCULAR HEMOGLOBIN 31.6 pg (29.0-33.0); MEAN CORPUSCULAR VOLUME 93.1 fl (82.0-101.0); MEAN PLATELET VOLUME 8.9 fl (7.4-10.4); MONOCYTE # 0.7 10^3/ul (0.3-0.9); MONOCYTES % 6.4 % (0.0-11.0); NEUTROPHIL # 8.8 10^3/ul (1.6-7.5); NEUTROPHILS % 75.4 % (39.0-77.0); PLATELET COUNT 316 10^3/UL (140-415); RED BLOOD COUNT 3.32 10^6/ul (4.20-5.40); RED CELL DISTRIBUTION WIDTH 11.9 % (11.5-14.5); WHITE BLOOD COUNT 11.6 10^3/ul (4.8-10.8)
[2016-11-06 07:15] LABS: POTASSIUM 3.4 mmol/L (3.5-5.1)
[2016-11-06 07:18] LABS: CREATININE 0.58 mg/dl (0.44-1.00)
[2016-11-06 07:19] LABS: CALCIUM 8.2 mg/dl (8.4-10.2)
--- NOTE | 2016-11-06 08:46 | PN ---
DATE: 11/06/2016 Postoperative day #3. SUBJECTIVE: Patient continues to improve. She remains afebrile, is passing gas and tolerating andres ar liquids. PHYSICAL EXAMINATION: ABDOMEN: Soft and nontender. The incision is clean. The CASSIE is serosanguineous. LABORATORY DATA: Hematocrit is 30. White blood cell count has come down to 11,600 with resolution of left shift. IMPRESSION: Continued improvement. PLAN: Continue medical therapy. Dictated By: ANISHA MO/LIBAN Conf#: [id number] DID#: [id number]
[2016-11-06] MEDS: CIPROFLOXACIN 400MG/D5W 200 ML IVPB SCH ×2 (08:57→21:48)
[2016-11-06] MEDS: NEOMYCIN 500 MG TAB PO SCH ×4 (09:01→21:48)
[2016-11-06] MEDS: NYSTATIN SUSP 5 ML CUP PO SCH ×4 (09:01→21:47)
[2016-11-06] MEDS: ENOXAPARIN 40 MG/0.4 ML SYG SC SCH (09:10)
[2016-11-06] MEDS: morphine 2 MG INJ IV PRN (10:54)
[2016-11-06] MEDS ORDERED: POTASSIUM CHLORIDE (SR) 20 MEQ TAB PO STA (12:25)
[2016-11-06] MEDS: HYDROmorphONE 1 MG/ML SYG IV PRN ×3 (13:32→21:45)
--- NOTE | 2016-11-06 14:00 | CONS ---
Date/Time of Note Date/Time of Note DATE: 11/06/16 TIME: 13:59 Assessment/Plan Assessment/Plan Chief Complaint/Hosp Course SUBJECTIVE: No acute changes overnight. The patient is alert, off DIRECTOR FINANCIAL SYSTEMS, looks comfortable, c/o poor appetite, no fevers INDWELLINGS: Right abdominal CASSIE, Green. ANTIMICROBIALS: 1. Erythromycin. 2. Cipro 3. Flagyl. PHYSICAL EXAMINATION: GENERAL: This is a morbidly obese, middle-aged woman who is lying comfortably in bed. HEENT: Head atraumatic, normocephalic. Sclerae anicteric. Buccal mucosa dry. NECK: Supple. CHEST: Rise symmetrical. Breath sounds diminished. HEART: S1, S2. ABDOMEN: Obese, mid abdominal dressing intact. The patient has right CASSIE. EXTREMITIES: With trace edema. ASSESSMENT: 1. Systemic inflammatory response syndrome. 2. Perforated diverticulitis with a large appendiceal mucocele status post resection, partial laminectomy, as well as left oophorectomy, ureterolysis and surgery on the right ovarian cyst. Surgery was performed both by Dr. Orosco and Dr. Salazar, postop day #3 . 3. Morbid obesity. 4. Status post urinary tract infection. PLAN: The patient remains stable. Continue present care, antibiotics. Follow surgical recommendations. DW staff/pt Problems: Consultation Date/Type/Reason Admit Date/Time Oct 27, 2016 at 18:25 Initial Consult Date 10/27/16 Type of Consultation: ID Exam/Review of Systems Vital Signs Vitals Vital Signs Date Time Temp Pulse Resp B/P Pulse Ox O2 Delivery O2 Flow Rate FiO2 11/06/16 12:06 96 11/06/16 11:44 99.3 18 107/53 90 11/06/16 08:00 Nasal Cannula 4.0 Intake and Output 11/05/16 11/05/16 11/06/16 15:00 23:00 07:00 Intake Total 750 ml 1250 ml Balance 750 ml 1250 ml Results Result Diagram: 11/06/16 0602 11/06/16 0602 Results 24 hrs Laboratory Tests Test 11/06/16 06:02 Anion Gap 12 Basophils # 0.0 Basophils % 0.2 Blood Urea Nitrogen 4 L Calcium Level 8.2 L Carbon Dioxide Level 31 Chloride Level 97 Creatinine 0.58 Eosinophils # 0.3 Eosinophils % 2.2 Glucose Level 105 # Hematocrit 30.9 L Hemoglobin 10.5 L Lymphocytes # 1.8 Lymphocytes % 15.3 Mean Corpuscular Hemoglobin 31.6 Mean Corpuscular Hemoglobin Concent 34.0 Mean Corpuscular Volume 93.1 Mean Platelet Volume 8.9 Monocytes # 0.7 Monocytes % 6.4 Neutrophils # 8.8 H Neutrophils % 75.4 Nucleated Red Blood Cells # 0.0 Nucleated Red Blood Cells % 0.0 Platelet Count 316 Potassium Level 3.4 L Red Blood Count 3.32 L Red Cell Distribution Width 11.9 Sodium Level 137 White Blood Count 11.6 H Medications Medications Current Medications Potassium Chloride/Dextrose/ Sod Cl (D5-1/2ns + KCl 20 Meq) 1,000 ml @ 100 mls/ hr Q10H IV Last administered on 11/06/16 10:54; Admin Dose 100 MLS/HR; Start at 18:28 Ondansetron HCl (Zofran Inj) 4 mg Q6H PRN IV NAUSEA AND/OR VOMITING Last administered on 11/03/16 22:07; Admin Dose 4 MG; Start 10/27/16 at 18:30 Acetaminophen (Tylenol Tab) 650 mg Q6H PRN PO PAIN LEVEL 1-3 OR FEVER Last administered on 11/04/16 16:39; Admin Dose 650 MG; Start 10/27/16 at 18:30 Acetaminophen (Tylenol Supp) 650 mg Q6H PRN [place] PAIN LEVEL 1-3 OR FEVER Last administered on 11/04/16 05:10; Admin Dose 650 MG; Start 10/27/16 at 18:30 Acetaminophen/ Hydrocodone Bitart ([place] (5/325)) 1 tab Q6H PRN PO MODERATE PAIN LEVEL 4-6 Last administered on 10/28/16 08:43; Admin Dose 1 TAB; Start at 18:30 Docusate Sodium (Colace) 100 mg Q12H PRN PO CONSTIPATION; Start 10/27/16 at 18: 30 Bisacodyl 5 mg 5 mg DAILY PRN PO CONSTIPATION; Start 10/27/16 at 18:30 Ciprofloxacin/ Dextrose 200 ml @ 200 mls/hr Q12 IVPB Last administered on 08:57; Admin Dose 200 MLS/HR; Start 10/28/16 at 07:30 Metronidazole (Flagyl 500 Mg (Pmx)) 100 ml @ 100 mls/hr Q8 IVPB Last administered on 11/06/16 13:29; Admin Dose 100 MLS/HR; Start 10/28/16 at 01:00 Hydralazine HCl (Apresoline) 10 mg Q6H PRN IV SBP>160; Start 10/28/16 at 15:00 Nystatin (Nystatin Susp) 5 ml QID PO Last administered on 11/06/16 13:29; Admin Dose 5 ML; Start 10/30/16 at 17:45 Morphine Sulfate (morphine) 2 mg Q4H PRN IV SEVERE PAIN LEVEL 7-10 Last administered on 11/06/16 10:54; Admin Dose 2 MG; Start 11/01/16 at 15:30 Neomycin Sulfate (Neomycin) 500 mg QID PO Last administered on 11/06/16 13:30; Admin Dose 500 MG; Start 11/02/16 at 13:00 Erythromycin (Erythromycin Base (Ec)) 500 mg Q8 PO Last administered on 05:25; Admin Dose 500 MG; Start 11/02/16 at 14:00 Naloxone HCl (Narcan) 0.2 mg Q2M PRN IV FOR RESP RATE 8 OR LESS; Start 11/03/16 at 16:00 Oxycodone/ Acetaminophen (Percocet (5/ 325)) 1 tab Q4H PRN PO MILD PAIN (1-3); Start 11/03/16 at 18:30 Oxycodone/ Acetaminophen (Percocet (5/ 325)) 2 tab Q4H PRN PO MODERATE PAIN (4- 6) Last administered on 11/06/16 09:05; Admin Dose 2 TAB; Start 11/03/16 at 18:30 Metoclopramide HCl (Reglan) 10 mg Q6 IV Last administered on 11/06/16 13:30; Admin Dose 10 MG; Start 11/04/16 at 00:00 Pantoprazole (Protonix Iv) 40 mg DAILY@06 IV Last administered on 11/06/16 05: 25; Admin Dose 40 MG; Start 11/04/16 at 06:00 Enoxaparin Sodium (Lovenox) 40 mg DAILY SC Last administered on 11/06/16 09:10 ; Admin Dose 40 MG; Start 11/04/16 at 09:00 Zolpidem Tartrate (Ambien) 5 mg HS PRN PO INSOMNIA; Start 11/03/16 at 18:30 Hydromorphone HCl (Dilaudid) 0.5 mg Q2H PRN IV PAIN Last administered on t 13:32; Admin Dose 0.5 MG; Start 11/06/16 at 13:00 FAM OSULLIVAN NP Nov 06, 2016 14:00
[2016-11-06] MEDS ORDERED: SOD CHLORIDE 0.9% 250 ML IV ONE (16:30)
--- NOTE | 2016-11-06 17:44 | PN ---
Date/Time of Note Date/Time of Note DATE: 11/06/16 TIME: 17:42 Assessment/Plan VTE Prophylaxis VTE Prophylaxis Intervention: SCD's Lines/Catheters [facility]from [facility] Saline Lock Urinary Cath still in place: No Assessment/Plan Chief Complaint/Hosp Course Assessment and Plan: 1. Acute abdominal pain noted with Pelvic mass. Patient also had perforated diverticulitis as well as large appendiceal mucocele. Patient status post appendectomy, sigmoid colon resection, left salpingo-oophorectomy, right paratubal cystectomy, ureteral lysis and omentectomy. Continue postop care and with surgeon recommendations. Continue with analgesics. encourage physical therapy involvement 3. Essential hypertension. Continue antihypertensives. Adjust as needed. stable at present 4. Obesity. BMI of 40.5. Weight reduction was advised 6. Iron deficiency . H&H stable. Will monitor 7. Vaginal candidiasis. On ABX per ID. Continue recommendations per ID 8. 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 Continue antibiotics. Follow up with surgeon recs. s/p appendectomy. Continue postop care DISPO/PLAN: Patient titrated off FUR LINER Dilaudid. Continue to encourage ambulation. Discharge when cleared by consult Discussed plan of care with Dr. Becerra Problems: Subjective 24 Hr Interval Summary Free Text/Dictation Still reports having moderate abdominal pain. Family at bedside Exam/Review of Systems Vital Signs Vitals Vital Signs Date Time Temp Pulse Resp B/P Pulse Ox O2 Delivery O2 Flow Rate FiO2 11/06/16 16:05 81 11/06/16 15:21 98.2 18 111/60 93 11/06/16 08:00 Nasal Cannula 4.0 Intake and Output 11/05/16 11/05/16 11/06/16 14:59 22:59 06:59 Intake Total 750 ml 1250 ml Balance 750 ml 1250 ml Exam General: Still reporting moderate abdominal pain. Eyes: pupils equal round, Anicteric sclera Neck: No JVD seen Cardiac: S1-S2 auscultated Pulmonary: Diminished at lung bases GI: Upon palpation. Is tender still Extremities: No edema bilateral lower extremities Skin: Surgical site on abdomen clean dry and intact with noted CASSIE bulb on right lower abdominal quadrant. Noted with serosanguineous drainage still Neurologic: Alert to person place and time and situation Results Result Diagram: 11/06/16 0602 11/06/16 0602 Results 24 hrs Laboratory Tests Test 11/06/16 06:02 Anion Gap 12 Basophils # 0.0 Basophils % 0.2 Blood Urea Nitrogen 4 L Calcium Level 8.2 L Carbon Dioxide Level 31 Chloride Level 97 Creatinine 0.58 Eosinophils # 0.3 Eosinophils % 2.2 Glucose Level 105 # Hematocrit 30.9 L Hemoglobin 10.5 L Lymphocytes # 1.8 Lymphocytes % 15.3 Mean Corpuscular Hemoglobin 31.6 Mean Corpuscular Hemoglobin Concent 34.0 Mean Corpuscular Volume 93.1 Mean Platelet Volume 8.9 Monocytes # 0.7 Monocytes % 6.4 Neutrophils # 8.8 H Neutrophils % 75.4 Nucleated Red Blood Cells # 0.0 Nucleated Red Blood Cells % 0.0 Platelet Count 316 Potassium Level 3.4 L Red Blood Count 3.32 L Red Cell Distribution Width 11.9 Sodium Level 137 White Blood Count 11.6 H Medications Medications Current Medications Potassium Chloride/Dextrose/ Sod Cl (D5-1/2ns + KCl 20 Meq) 1,000 ml @ 100 mls/ hr Q10H IV Last administered on 11/06/16 10:54; Admin Dose 100 MLS/HR; Start at 18:28 Ondansetron HCl (Zofran Inj) 4 mg Q6H PRN IV NAUSEA AND/OR VOMITING Last administered on 11/03/16 22:07; Admin Dose 4 MG; Start 10/27/16 at 18:30 Acetaminophen (Tylenol Tab) 650 mg Q6H PRN PO PAIN LEVEL 1-3 OR FEVER Last administered on 11/04/16 16:39; Admin Dose 650 MG; Start 10/27/16 at 18:30 Acetaminophen (Tylenol Supp) 650 mg Q6H PRN [place] PAIN LEVEL 1-3 OR FEVER Last administered on 11/04/16 05:10; Admin Dose 650 MG; Start 10/27/16 at 18:30 Acetaminophen/ Hydrocodone Bitart ([place] (5/325)) 1 tab Q6H PRN PO MODERATE PAIN LEVEL 4-6 Last administered on 10/28/16 08:43; Admin Dose 1 TAB; Start at 18:30 Docusate Sodium (Colace) 100 mg Q12H PRN PO CONSTIPATION; Start 10/27/16 at 18: 30 Bisacodyl 5 mg 5 mg DAILY PRN PO CONSTIPATION; Start 10/27/16 at 18:30 Ciprofloxacin/ Dextrose 200 ml @ 200 mls/hr Q12 IVPB Last administered on 08:57; Admin Dose 200 MLS/HR; Start 10/28/16 at 07:30 Metronidazole (Flagyl 500 Mg (Pmx)) 100 ml @ 100 mls/hr Q8 IVPB Last administered on 11/06/16 13:29; Admin Dose 100 MLS/HR; Start 10/28/16 at 01:00 Hydralazine HCl (Apresoline) 10 mg Q6H PRN IV SBP>160; Start 10/28/16 at 15:00 Nystatin (Nystatin Susp) 5 ml QID PO Last administered on 11/06/16 13:29; Admin Dose 5 ML; Start 10/30/16 at 17:45 Morphine Sulfate (morphine) 2 mg Q4H PRN IV SEVERE PAIN LEVEL 7-10 Last administered on 11/06/16 10:54; Admin Dose 2 MG; Start 11/01/16 at 15:30 Neomycin Sulfate (Neomycin) 500 mg QID PO Last administered on 11/06/16 13:30; Admin Dose 500 MG; Start 11/02/16 at 13:00 Erythromycin (Erythromycin Base (Ec)) 500 mg Q8 PO Last administered on 15:08; Admin Dose 500 MG; Start 11/02/16 at 14:00 Naloxone HCl (Narcan) 0.2 mg Q2M PRN IV FOR RESP RATE 8 OR LESS; Start 11/03/16 at 16:00 Oxycodone/ Acetaminophen (Percocet (5/ 325)) 1 tab Q4H PRN PO MILD PAIN (1-3); Start 11/03/16 at 18:30 Oxycodone/ Acetaminophen (Percocet (5/ 325)) 2 tab Q4H PRN PO MODERATE PAIN (4- 6) Last administered on 11/06/16 09:05; Admin Dose 2 TAB; Start 11/03/16 at 18:30 Metoclopramide HCl (Reglan) 10 mg Q6 IV Last administered on 11/06/16 13:30; Admin Dose 10 MG; Start 11/04/16 at 00:00 Pantoprazole (Protonix Iv) 40 mg DAILY@06 IV Last administered on 11/06/16 05: 25; Admin Dose 40 MG; Start 11/04/16 at 06:00 Enoxaparin Sodium (Lovenox) 40 mg DAILY SC Last administered on 11/06/16 09:10 ; Admin Dose 40 MG; Start 11/04/16 at 09:00 Zolpidem Tartrate (Ambien) 5 mg HS PRN PO INSOMNIA; Start 11/03/16 at 18:30 Hydromorphone HCl (Dilaudid) 0.5 mg Q2H PRN IV PAIN Last administered on 13:32; Admin Dose 0.5 MG; Start 11/06/16 at 13:00 KHANG KWAN Nov 06, 2016 17:44
--- NOTE | 2016-11-06 20:24 | PN ---
Date/Time of Note Date/Time of Note DATE: 11/06/16 TIME: 20:19 Assessment/Plan VTE Prophylaxis VTE Prophylaxis Intervention: SCD's Lines/Catheters IV Catheter Type (from [facility] [place]): Saline Lock Urinary Cath still in place: No Assessment/Plan Chief Complaint/Hosp Course Assessment: 1-Divertulitis/perf 2- Ovaran cystadenoma Problems: Assessment/Plan A- doing reasonably well P- discussed/reiterated findings and final path all benign; no further Ticket Writer Onc treatment needed. Will be available but per Dr. Orosco and IM Subjective 24 Hr Interval Summary Free Text/Dictation S- + flatus x 1. Minimally OOB. [place] clear liq. O- Resp- clear CVS- NSR Abd- soft, less tender and clean wound Ext- NT no edema A- doing reasonably well P- discussed/reiterated findings and final path all benign; no further Ticket Writer Onc treatment needed. Will be available but per Dr. Orosco and IM Exam/Review of Systems Vital Signs Vitals Vital Signs Date Time Temp Pulse Resp B/P Pulse Ox O2 Delivery O2 Flow Rate FiO2 11/06/16 16:05 81 11/06/16 15:21 98.2 18 111/60 93 11/06/16 08:00 Nasal Cannula 4.0 Intake and Output 11/05/16 11/05/16 11/06/16 15:00 23:00 07:00 Intake Total 750 ml 1250 ml Balance 750 ml 1250 ml Results Result Diagram: 11/06/16 0602 11/06/16 0602 Results 24 hrs Laboratory Tests Test 11/06/16 06:02 Anion Gap 12 Basophils # 0.0 Basophils % 0.2 Blood Urea Nitrogen 4 L Calcium Level 8.2 L Carbon Dioxide Level 31 Chloride Level 97 Creatinine 0.58 Eosinophils # 0.3 Eosinophils % 2.2 Glucose Level 105 # Hematocrit 30.9 L Hemoglobin 10.5 L Lymphocytes # 1.8 Lymphocytes % 15.3 Mean Corpuscular Hemoglobin 31.6 Mean Corpuscular Hemoglobin Concent 34.0 Mean Corpuscular Volume 93.1 Mean Platelet Volume 8.9 Monocytes # 0.7 Monocytes % 6.4 Neutrophils # 8.8 H Neutrophils % 75.4 Nucleated Red Blood Cells # 0.0 Nucleated Red Blood Cells % 0.0 Platelet Count 316 Potassium Level 3.4 L Red Blood Count 3.32 L Red Cell Distribution Width 11.9 Sodium Level 137 White Blood Count 11.6 H Medications Medications Current Medications Potassium Chloride/Dextrose/ Sod Cl (D5-1/2ns + KCl 20 Meq) 1,000 ml @ 100 mls/ hr Q10H IV Last administered on 11/06/16 10:54; Admin Dose 100 MLS/HR; Start at 18:28 Ondansetron HCl (Zofran Inj) 4 mg Q6H PRN IV NAUSEA AND/OR VOMITING Last administered on 11/03/16 22:07; Admin Dose 4 MG; Start 10/27/16 at 18:30 Acetaminophen (Tylenol Tab) 650 mg Q6H PRN PO PAIN LEVEL 1-3 OR FEVER Last administered on 11/04/16 16:39; Admin Dose 650 MG; Start 10/27/16 at 18:30 Acetaminophen (Tylenol Supp) 650 mg Q6H PRN [place] PAIN LEVEL 1-3 OR FEVER Last administered on 11/04/16 05:10; Admin Dose 650 MG; Start 10/27/16 at 18:30 Acetaminophen/ Hydrocodone Bitart ([place] (5/325)) 1 tab Q6H PRN PO MODERATE PAIN LEVEL 4-6 Last administered on 10/28/16 08:43; Admin Dose 1 TAB; Start at 18:30 Docusate Sodium (Colace) 100 mg Q12H PRN PO CONSTIPATION; Start 10/27/16 at 18: 30 Bisacodyl 5 mg 5 mg DAILY PRN PO CONSTIPATION; Start 10/27/16 at 18:30 Ciprofloxacin/ Dextrose 200 ml @ 200 mls/hr Q12 IVPB Last administered on 08:57; Admin Dose 200 MLS/HR; Start 10/28/16 at 07:30 Metronidazole (Flagyl 500 Mg (Pmx)) 100 ml @ 100 mls/hr Q8 IVPB Last administered on 11/06/16 13:29; Admin Dose 100 MLS/HR; Start 10/28/16 at 01:00 Hydralazine HCl (Apresoline) 10 mg Q6H PRN IV SBP>160; Start 10/28/16 at 15:00 Nystatin (Nystatin Susp) 5 ml QID PO Last administered on 11/06/16 17:42; Admin Dose 5 ML; Start 10/30/16 at 17:45 Morphine Sulfate (morphine) 2 mg Q4H PRN IV SEVERE PAIN LEVEL 7-10 Last administered on 11/06/16 10:54; Admin Dose 2 MG; Start 11/01/16 at 15:30 Neomycin Sulfate (Neomycin) 500 mg QID PO Last administered on 11/06/16 17:42; Admin Dose 500 MG; Start 11/02/16 at 13:00 Erythromycin (Erythromycin Base (Ec)) 500 mg Q8 PO Last administered on 15:08; Admin Dose 500 MG; Start 11/02/16 at 14:00 Naloxone HCl (Narcan) 0.2 mg Q2M PRN IV FOR RESP RATE 8 OR LESS; Start 11/03/16 at 16:00 Oxycodone/ Acetaminophen (Percocet (5/ 325)) 1 tab Q4H PRN PO MILD PAIN (1-3); Start 11/03/16 at 18:30 Oxycodone/ Acetaminophen (Percocet (5/ 325)) 2 tab Q4H PRN PO MODERATE PAIN (4- 6) Last administered on 11/06/16 09:05; Admin Dose 2 TAB; Start 11/03/16 at 18:30 Metoclopramide HCl (Reglan) 10 mg Q6 IV Last administered on 11/06/16 17:42; Admin Dose 10 MG; Start 11/04/16 at 00:00 Pantoprazole (Protonix Iv) 40 mg DAILY@06 IV Last administered on 11/06/16 05: 25; Admin Dose 40 MG; Start 11/04/16 at 06:00 Enoxaparin Sodium (Lovenox) 40 mg DAILY SC Last administered on 11/06/16 09:10 ; Admin Dose 40 MG; Start 11/04/16 at 09:00 Zolpidem Tartrate (Ambien) 5 mg HS PRN PO INSOMNIA; Start 11/03/16 at 18:30 Hydromorphone HCl (Dilaudid) 0.5 mg Q2H PRN IV PAIN Last administered on 17:42; Admin Dose 0.5 MG; Start 11/06/16 at 13:00 YASMINE GILES MD Nov 06, 2016 20:24
[2016-11-07] VITALS (12 sets, daily range): BP systolic 106–124; BP diastolic 53–70; PULSE 81–99; RESP 16–18
[2016-11-07] MEDS: HYDROmorphONE 1 MG/ML SYG IV PRN ×10 (00:01→23:54)
[2016-11-07] MEDS: METOCLOPRAMIDE 10 MG INJ IV SCH ×5 (00:10→23:56)
[2016-11-07] MEDS: D5W-0.45 NACL + KCL 20 MEQ 1,000 ML IV SCH ×3 (05:53→23:57)
[2016-11-07] MEDS: metroNIDAZOLE 500 MG/NS (PMX) 100 ML IVPB SCH ×3 (05:54→21:42)
[2016-11-07] MEDS: PANTOPRAZOLE 40 MG INJ IV SCH (05:59)
[2016-11-07 06:02] LABS: ADD SCAN DIFF NO
[2016-11-07] MEDS: ERYTHROMYCIN BASE (EC) 500 MG TAB PO SCH ×3 (06:02→21:42)
[2016-11-07 06:18] LABS: BASOPHILS % 0.3 % (0.0-2.0); EOSINOPHILS # 0.2 10^3/ul (0.0-0.5); HEMOGLOBIN 10.4 g/dl (12.0-16.0); LYMPHOCYTES # 1.4 10^3/ul (0.8-2.9); LYMPHOCYTES % 13.8 % (15.0-51.0); MEAN CORPUSCULAR HEMOGLOBIN 31.1 pg (29.0-33.0); MEAN CORPUSCULAR HGB CONC 33.5 g/dl (32.0-37.0); MEAN CORPUSCULAR VOLUME 92.8 fl (82.0-101.0); MEAN PLATELET VOLUME 8.8 fl (7.4-10.4); MONOCYTE # 0.7 10^3/ul (0.3-0.9); MONOCYTES % 6.8 % (0.0-11.0); NEUTROPHIL # 7.5 10^3/ul (1.6-7.5); NEUTROPHILS % 76.5 % (39.0-77.0); PLATELET COUNT 334 10^3/UL (140-415); RED BLOOD COUNT 3.34 10^6/ul (4.20-5.40); RED CELL DISTRIBUTION WIDTH 11.9 % (11.5-14.5); WHITE BLOOD COUNT 9.8 10^3/ul (4.8-10.8)
[2016-11-07 07:03] LABS: CREATININE 0.55 mg/dl (0.44-1.00)
[2016-11-07 07:04] LABS: CALCIUM 8.5 mg/dl (8.4-10.2)
--- NOTE | 2016-11-07 08:59 | PN ---
Date/Time of Note Date/Time of Note DATE: 11/07/16 TIME: 08:55 Assessment/Plan VTE Prophylaxis VTE Prophylaxis Intervention: SCD's Lines/Catheters IV [facility] Type [facility] Peripheral IV Urinary Cath still in place: No Assessment/Plan Chief Complaint/Hosp Course Assessment and Plan: 1. Acute abdominal pain noted with Pelvic mass. Patient also had perforated diverticulitis as well as large appendiceal mucocele. Patient status post appendectomy, sigmoid colon resection, left salpingo-oophorectomy, right paratubal cystectomy, ureteral lysis and omentectomy. Continue postop care and with surgeon recommendations. Continue with analgesics. encourage physical therapy involvement. Encourage incentive spirometry. Continue with analgesics. 3. Essential hypertension. Continue antihypertensives. Adjust as needed. stable at present 4. Obesity. BMI of 40.5. Weight reduction was advised 6. Iron deficiency . H&H stable today. Will monitor 7. Vaginal candidiasis. On ABX per ID. Continue recommendations per ID 8. 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 Continue antibiotics. Follow up with surgeon recs. s/p appendectomy. Continue postop care DISPO/PLAN: Continue with analgesics. Encourage participation with physical therapy. Incentive spirometry. Transfer to [facility]. Discharge when cleared by consultants Discussed plan of care with Dr. Becerra Problems: Subjective 24 Hr Interval Summary Free Text/Dictation Still with some abdominal pain. Less today. Exam/Review of Systems Vital Signs Vitals Vital Signs Date Time Temp Pulse Resp B/P Pulse Ox O2 Delivery O2 Flow Rate FiO2 11/07/16 08:08 81 11/07/16 07:30 98.5 18 112/53 97 11/07/16 04:30 Nasal Cannula 2.0 Intake and Output 11/06/16 11/06/16 11/07/16 15:00 23:00 07:00 Intake Total 1430 ml 1500 ml Output Total 15 ml Balance 1430 ml 1485 ml Exam General: Still with noted pain but less today Eyes: Pupils equal round. Neck: No JVD seen today Cardiac: S1-S2 auscultated. Regular rhythm Pulmonary: Still diminished at lung bases GI: Tender upon palpation more around the incisional site. Bowel sounds active Extremities: No edema bilateral lower extremities Skin: Surgical site on abdomen clean dry and intact with noted CASSIE bulb on right lower abdominal quadrant. Still noted with serosanguineous drainage Neurologic: Alert to person place and time and situation Results Result Diagram: 11/07/16 0536 11/07/16 0536 Results 24 hrs Laboratory Tests Test 11/07/16 05:36 Anion Gap 13 Basophils # 0.0 Basophils % 0.3 Blood Urea Nitrogen 4 L Calcium Level 8.5 Carbon Dioxide Level 30 Chloride Level 99 Creatinine 0.55 Eosinophils # 0.2 Eosinophils % 2.0 Glucose Level 121 Hematocrit 31.0 L Hemoglobin 10.4 L Lymphocytes # 1.4 Lymphocytes % 13.8 L Mean Corpuscular Hemoglobin 31.1 Mean Corpuscular Hemoglobin Concent 33.5 Mean Corpuscular Volume 92.8 Mean Platelet Volume 8.8 Monocytes # 0.7 Monocytes % 6.8 Neutrophils # 7.5 Neutrophils % 76.5 Nucleated Red Blood Cells # 0.0 Nucleated Red Blood Cells % 0.0 Platelet Count 334 Potassium Level 4.0 Red Blood Count 3.34 L Red Cell Distribution Width 11.9 Sodium Level 138 White Blood Count 9.8 Medications Medications Current Medications Potassium Chloride/Dextrose/ Sod Cl (D5-1/2ns + KCl 20 Meq) 1,000 ml @ 100 mls/ hr Q10H IV Last administered on 11/07/16 05:53; Admin Dose 100 MLS/HR; Start at 18:28 Ondansetron HCl (Zofran Inj) 4 mg Q6H PRN IV NAUSEA AND/OR VOMITING Last administered on 11/03/16 22:07; Admin Dose 4 MG; Start 10/27/16 at 18:30 Acetaminophen (Tylenol Tab) 650 mg Q6H PRN PO PAIN LEVEL 1-3 OR FEVER Last administered on 11/04/16 16:39; Admin Dose 650 MG; Start 10/27/16 at 18:30 Acetaminophen (Tylenol Supp) 650 mg Q6H PRN [place] PAIN LEVEL 1-3 OR FEVER Last administered on 11/04/16 05:10; Admin Dose 650 MG; Start 10/27/16 at 18:30 Acetaminophen/ Hydrocodone Bitart ([place] (5/325)) 1 tab Q6H PRN PO MODERATE PAIN LEVEL 4-6 Last administered on 10/28/16 08:43; Admin Dose 1 TAB; Start at 18:30 Docusate Sodium (Colace) 100 mg Q12H PRN PO CONSTIPATION; Start 10/27/16 at 18: 30 Bisacodyl 5 mg 5 mg DAILY PRN PO CONSTIPATION; Start 10/27/16 at 18:30 Ciprofloxacin/ Dextrose 200 ml @ 200 mls/hr Q12 IVPB Last administered on 21:48; Admin Dose 200 MLS/HR; Start 10/28/16 at 07:30 Metronidazole (Flagyl 500 Mg (Pmx)) 100 ml @ 100 mls/hr Q8 IVPB Last administered on 11/07/16 05:54; Admin Dose 100 MLS/HR; Start 10/28/16 at 01:00 Hydralazine HCl (Apresoline) 10 mg Q6H PRN IV SBP>160; Start 10/28/16 at 15:00 Nystatin (Nystatin Susp) 5 ml QID PO Last administered on 11/06/16 21:47; Admin Dose 5 ML; Start 10/30/16 at 17:45 Morphine Sulfate (morphine) 2 mg Q4H PRN IV SEVERE PAIN LEVEL 7-10 Last administered on 11/06/16 10:54; Admin Dose 2 MG; Start 11/01/16 at 15:30 Neomycin Sulfate (Neomycin) 500 mg QID PO Last administered on 11/06/16 21:48; Admin Dose 500 MG; Start 11/02/16 at 13:00 Erythromycin (Erythromycin Base (Ec)) 500 mg Q8 PO Last administered on 06:02; Admin Dose 500 MG; Start 11/02/16 at 14:00 Naloxone HCl (Narcan) 0.2 mg Q2M PRN IV FOR RESP RATE 8 OR LESS; Start 11/03/16 at 16:00 Oxycodone/ Acetaminophen (Percocet (5/ 325)) 1 tab Q4H PRN PO MILD PAIN (1-3); Start 11/03/16 at 18:30 Oxycodone/ Acetaminophen (Percocet (5/ 325)) 2 tab Q4H PRN PO MODERATE PAIN (4- 6) Last administered on 11/06/16 09:05; Admin Dose 2 TAB; Start 11/03/16 at 18:30 Metoclopramide HCl (Reglan) 10 mg Q6 IV Last administered on 11/07/16 05:56; Admin Dose 10 MG; Start 11/04/16 at 00:00 Pantoprazole (Protonix Iv) 40 mg DAILY@06 IV Last administered on 11/07/16 05: 59; Admin Dose 40 MG; Start 11/04/16 at 06:00 Enoxaparin Sodium (Lovenox) 40 mg DAILY SC Last administered on 11/06/16 09:10 ; Admin Dose 40 MG; Start 11/04/16 at 09:00 Zolpidem Tartrate (Ambien) 5 mg HS PRN PO INSOMNIA; Start 11/03/16 at 18:30 Hydromorphone HCl (Dilaudid) 0.5 mg Q2H PRN IV PAIN Last administered on 08:01; Admin Dose 0.5 MG; Start 11/06/16 at 13:00 KHANG KWAN Nov 07, 2016 08:59
[2016-11-07] MEDS: NEOMYCIN 500 MG TAB PO SCH ×4 (09:23→21:42)
[2016-11-07] MEDS: NYSTATIN SUSP 5 ML CUP PO SCH ×4 (09:23→21:42)
[2016-11-07] MEDS: CIPROFLOXACIN 400MG/D5W 200 ML IVPB SCH ×2 (09:23→21:42)
[2016-11-07] MEDS: ENOXAPARIN 40 MG/0.4 ML SYG SC SCH (09:52)
[2016-11-07] MEDS: ONDANSETRON 4 MG INJ IV PRN ×2 (10:47→21:41)
--- NOTE | 2016-11-07 13:48 | PN ---
DATE: 11/07/2016 SUBJECTIVE: Postoperative day #5. The patient is afebrile throughout. She is passing gas, but no bowel movements. Earlier today, she had a small emesis while on clear liquids. OBJECTIVE: ABDOMEN: Benign. Incision is clean, and CASSIE is serosanguineous. LABORATORY DATA: Hematocrit 31 with a white count of 9800 without left shift. BUN, glucose, electr olytes are unremarkable. IMPRESSION: Continued improvement emesis. Unclear whether this represents intolerance to Jello as patient thinks, or whether she is developing an ileus. PLAN: Continue medical management. Dictated By: ANISHA MO/LIBAN Conf#: [id number] DID#: [id number]
--- NOTE | 2016-11-07 15:07 | CONS ---
Date/Time of Note Date/Time of Note DATE: 11/07/16 TIME: 15:06 Assessment/Plan Assessment/Plan Chief Complaint/Hosp Course SUBJECTIVE: No acute changes overnight, looks comfortable, no fevers, s/p emesis in am INDWELLINGS: Right abdominal CASSIE, Green. ANTIMICROBIALS: 1. Erythromycin. 2. Cipro 3. Flagyl. PHYSICAL EXAMINATION: GENERAL: This is a morbidly obese, middle-aged woman who is lying comfortably in bed. HEENT: Head atraumatic, normocephalic. Sclerae anicteric. Buccal mucosa dry. NECK: Supple. CHEST: Rise symmetrical. Breath sounds diminished. HEART: S1, S2. ABDOMEN: Obese, mid abdominal dressing intact. The patient has right CASSIE. EXTREMITIES: With trace edema. ASSESSMENT: 1. Systemic inflammatory response syndrome. 2. Perforated diverticulitis with a large appendiceal mucocele status post resection, partial laminectomy, as well as left oophorectomy, ureterolysis and surgery on the right ovarian cyst. Surgery was performed both by Dr. Orosco and Dr. Salazar 11/05/16 . 3. Morbid obesity. 4. Status post urinary tract infection. PLAN: The patient remains stable. WBC tracing down. Continue present care, antibiotics. Follow surgical recommendations. DW staff/pt Problems: Consultation Date/Type/Reason Admit Date/Time Oct 27, 2016 at 18:25 Initial Consult Date 10/27/16 Type of Consultation: ID Exam/Review of Systems Vital Signs Vitals Vital Signs Date Time Temp Pulse Resp B/P Pulse Ox O2 Delivery O2 Flow Rate FiO2 11/07/16 12:16 86 11/07/16 11:37 99.0 18 108/58 98 11/07/16 08:00 Nasal Cannula 2.0 Intake and Output 11/06/16 11/06/16 11/07/16 15:00 23:00 07:00 Intake Total 1430 ml 1500 ml Output Total 15 ml Balance 1430 ml 1485 ml Results Result Diagram: 11/07/16 0536 11/07/16 0536 Results 24 hrs Laboratory Tests Test 11/07/16 05:36 Anion Gap 13 Basophils # 0.0 Basophils % 0.3 Blood Urea Nitrogen 4 L Calcium Level 8.5 Carbon Dioxide Level 30 Chloride Level 99 Creatinine 0.55 Eosinophils # 0.2 Eosinophils % 2.0 Glucose Level 121 Hematocrit 31.0 L Hemoglobin 10.4 L Lymphocytes # 1.4 Lymphocytes % 13.8 L Mean Corpuscular Hemoglobin 31.1 Mean Corpuscular Hemoglobin Concent 33.5 Mean Corpuscular Volume 92.8 Mean Platelet Volume 8.8 Monocytes # 0.7 Monocytes % 6.8 Neutrophils # 7.5 Neutrophils % 76.5 Nucleated Red Blood Cells # 0.0 Nucleated Red Blood Cells % 0.0 Platelet Count 334 Potassium Level 4.0 Red Blood Count 3.34 L Red Cell Distribution Width 11.9 Sodium Level 138 White Blood Count 9.8 Medications Medications Current Medications Potassium Chloride/Dextrose/ Sod Cl (D5-1/2ns + KCl 20 Meq) 1,000 ml @ 100 mls/ hr Q10H IV Last administered on 11/07/16 05:53; Admin Dose 100 MLS/HR; Start at 18:28 Ondansetron HCl (Zofran Inj) 4 mg Q6H PRN IV NAUSEA AND/OR VOMITING Last administered on 11/07/16 10:47; Admin Dose 4 MG; Start 10/27/16 at 18:30 Acetaminophen (Tylenol Tab) 650 mg Q6H PRN PO PAIN LEVEL 1-3 OR FEVER Last administered on 11/04/16 16:39; Admin Dose 650 MG; Start 10/27/16 at 18:30 Acetaminophen (Tylenol Supp) 650 mg Q6H PRN [place] PAIN LEVEL 1-3 OR FEVER Last administered on 11/04/16 05:10; Admin Dose 650 MG; Start 10/27/16 at 18:30 Acetaminophen/ Hydrocodone Bitart ([place] (5/325)) 1 tab Q6H PRN PO MODERATE PAIN LEVEL 4-6 Last administered on 10/28/16 08:43; Admin Dose 1 TAB; Start at 18:30 Docusate Sodium (Colace) 100 mg Q12H PRN PO CONSTIPATION; Start 10/27/16 at 18: 30 Bisacodyl 5 mg 5 mg DAILY PRN PO CONSTIPATION; Start 10/27/16 at 18:30 Ciprofloxacin/ Dextrose 200 ml @ 200 mls/hr Q12 IVPB Last administered on 09:23; Admin Dose 200 MLS/HR; Start 10/28/16 at 07:30 Metronidazole (Flagyl 500 Mg (Pmx)) 100 ml @ 100 mls/hr Q8 IVPB Last administered on 11/07/16 14:46; Admin Dose 100 MLS/HR; Start 10/28/16 at 01:00 Hydralazine HCl (Apresoline) 10 mg Q6H PRN IV SBP>160; Start 10/28/16 at 15:00 Nystatin (Nystatin Susp) 5 ml QID PO Last administered on 11/07/16 11:53; Admin Dose 5 ML; Start 10/30/16 at 17:45 Morphine Sulfate (morphine) 2 mg Q4H PRN IV SEVERE PAIN LEVEL 7-10 Last administered on 11/06/16 10:54; Admin Dose 2 MG; Start 11/01/16 at 15:30 Neomycin Sulfate (Neomycin) 500 mg QID PO Last administered on 11/07/16 11:53; Admin Dose 500 MG; Start 11/02/16 at 13:00 Erythromycin (Erythromycin Base (Ec)) 500 mg Q8 PO Last administered on 14:46; Admin Dose 500 MG; Start 11/02/16 at 14:00 Naloxone HCl (Narcan) 0.2 mg Q2M PRN IV FOR RESP RATE 8 OR LESS; Start 11/03/16 at 16:00 Oxycodone/ Acetaminophen (Percocet (5/ 325)) 1 tab Q4H PRN PO MILD PAIN (1-3); Start 11/03/16 at 18:30 Oxycodone/ Acetaminophen (Percocet (5/ 325)) 2 tab Q4H PRN PO MODERATE PAIN (4- 6) Last administered on 11/06/16 09:05; Admin Dose 2 TAB; Start 11/03/16 at 18:30 Metoclopramide HCl (Reglan) 10 mg Q6 IV Last administered on 11/07/16 11:53; Admin Dose 10 MG; Start 11/04/16 at 00:00 Pantoprazole (Protonix Iv) 40 mg DAILY@06 IV Last administered on 11/07/16 05: 59; Admin Dose 40 MG; Start 11/04/16 at 06:00 Enoxaparin Sodium (Lovenox) 40 mg DAILY SC Last administered on 11/07/16 09:52 ; Admin Dose 40 MG; Start 11/04/16 at 09:00 Zolpidem Tartrate (Ambien) 5 mg HS PRN PO INSOMNIA; Start 11/03/16 at 18:30 Hydromorphone HCl (Dilaudid) 0.5 mg Q2H PRN IV PAIN Last administered on t 14:46; Admin Dose 0.5 MG; Start 11/06/16 at 13:00 FAM OSULLIVAN NP Nov 07, 2016 15:07
--- NOTE | 2016-11-07 21:16 | OPR ---
Date/Time of Note Date/Time of Note DATE: 11/07/16 TIME: 21:15 Operative Report Free Text/Dictation OPERATIVE REPORT [facility] Name: Ayah Damon [id number] Date: 11/03/16 Preoperative Diagnosis: 1- Pelvic mass left side 2- Diverticulitis with perforation 3- Right pelvic cyst; appendiceal Mucocele vs tubal cystectomy 4- Severe pelvic/abdominal pain Postoperative Diagnosis: 1- Left benign vs LMP; pathology pending 2- Ureteral stricture 3- Right paratubal cyst 4- Diverticulitis with perforation 5- Appendiceal mucocele Procedures: 1-Left salpingoophorectomy 2- Left ureteral dissection with repositioning 3- Omentectomy with staging 4-Partial colectomy with anastamosis (dictated as a separate procedure by Dr. Orosco) 5-Appendectomy Surgeon: Dr. Salazar Regional Property Manager: Dr. Orosco Anaesthesia: General with regional Indications for surgery: The patient is a 39 year old female with a pelvic mass and diverticular disease including perforation and sepsis not doing well on antibiotics for whom Name: Ayah Damon [id number] laparotomy with USO and appropriate sigmoid colon procedure and possible staging and cytoreduction was undertaken after addressing all options with risks and benefits. Findings and Summary After opening with exploration a complex left adnexal mass densely adherent to the sidewall with anticipated severe diverticular disease and right mucocele was noted and due to the diverticular disease and adnexal mass the retroperitoneum was opened and the left ureter was dissected and repositioned laterally, permitting the IP-ligament to be addressed and sigmoid colon to be mobilized. The LSO was completed and on frozen section a possible LMP was noted in the left adnexia, after which a staging was completed and removal of small right paratubal cyst and Dr. Orosco completed the sigmoid colon resection and anastamosis and appendectomy. Procedure: After being prepped and draped in the usual manner a midline skin incision was made of appropriate length by Dr. Orosco. Upon entering the peritoneal cavity we inspected the abdominal and pelvic contents and found a complex left adnexal mass densely adherent to the sidewall with anticipated severe diverticular disease and appendiceal mucocele. We further explored and there was no intraperitoneal disease while washings were taken. Initially the Mucocele was removed by Dr. Orosco with an appendectomy and subsequently to facilitate exposure for Dr. Orosco the left round ligament was transected with a Ligasure uneventfully. The retroperitoneum was opened and the ureter was identified due to the adnexal mass being densely adherent to the sidewall and the diverticular disease. Due to very extensive anatomical displacement and some element of ureteral distortion is was essential do thoroughly dissect and reposition the ureter, as it was impossible to simply address the IP and place a clamp adjacent Name: Ayah [facility] [id number] IP-ligament. The ureter was therefore thoroughly dissected away from the broad ligament with a right angle clamp and peanut as needed throughout the length. The left IP was then isolated and cauterized and transected with the Ligasure and free-tied as well. Subsequently the triple pedicle was clamped, cut and tied with 0- Vicryl suture interrupted and the mass removed and a frozen section was suggestive of LMP. Subsequently, the omentum was dissected throughout the length of the omentum and transverse colon and an omentectomy was completed with the Ligasure and sharp dissection as needed. Subsequently the sigmoid colon resection and anastamosis was completed by Dr. Orosco. Additionally, a small right paratubal simple cyst was removed on the right without incident and sent to pathology pending with the Ligasure and sharp dissection. At this time, after all packing was removed, the abdomen thoroughly irrigated, hemostasis confirmed, and a Alfred drain placed. A 2- Vicryl suture and used for exposure by elevating with a Pean clamp. Interrupted 2- Vicryl suture was used from the rostral apex and continued to the supra-pubic area. The final suture was tied appropriately, after which the figure of eight was tied. The subcutaneous tissue was irrigated and the skin was closed with skin clips. The sponge, needle, and instrument were correct two times. The estimated blood loss was 200 cc. The patient tolerated the procedure well and left the OR in good condition. Gonzalez Salazar M.D. GONZALEZ SALAZAR MD Nov 07, 2016 21:15
[2016-11-08] VITALS (12 sets, daily range): BP systolic 100–129; BP diastolic 55–66; PULSE 75–94; RESP 16–22
[2016-11-08] MEDS: HYDROmorphONE 1 MG/ML SYG IV PRN ×8 (02:07→21:40)
[2016-11-08] MEDS: METOCLOPRAMIDE 10 MG INJ IV SCH ×3 (05:07→17:25)
[2016-11-08] MEDS: ERYTHROMYCIN BASE (EC) 500 MG TAB PO SCH ×3 (05:08→21:40)
[2016-11-08] MEDS: PANTOPRAZOLE 40 MG INJ IV SCH (05:09)
[2016-11-08] MEDS: metroNIDAZOLE 500 MG/NS (PMX) 100 ML IVPB SCH ×3 (05:12→21:40)
[2016-11-08 06:41] LABS: ADD SCAN DIFF NO
[2016-11-08 06:46] LABS: BASOPHILS % 0.4 % (0.0-2.0); EOSINOPHILS # 0.2 10^3/ul (0.0-0.5); EOSINOPHILS % 2.6 % (0.0-7.0); HEMATOCRIT 31.7 % (37.0-47.0); HEMOGLOBIN 10.7 g/dl (12.0-16.0); LYMPHOCYTES # 1.2 10^3/ul (0.8-2.9); LYMPHOCYTES % 16.6 % (15.0-51.0); MEAN CORPUSCULAR HEMOGLOBIN 31.2 pg (29.0-33.0); MEAN CORPUSCULAR HGB CONC 33.8 g/dl (32.0-37.0); MEAN CORPUSCULAR VOLUME 92.4 fl (82.0-101.0); MEAN PLATELET VOLUME 8.7 fl (7.4-10.4); MONOCYTE # 0.6 10^3/ul (0.3-0.9); MONOCYTES % 8.3 % (0.0-11.0); NEUTROPHIL # 5.2 10^3/ul (1.6-7.5); PLATELET COUNT 354 10^3/UL (140-415); RED BLOOD COUNT 3.43 10^6/ul (4.20-5.40); RED CELL DISTRIBUTION WIDTH 11.9 % (11.5-14.5); WHITE BLOOD COUNT 7.3 10^3/ul (4.8-10.8)
[2016-11-08 06:56] LABS: POTASSIUM 3.9 mmol/L (3.5-5.1)
[2016-11-08 06:58] LABS: CREATININE 0.59 mg/dl (0.44-1.00)
[2016-11-08 06:59] LABS: CALCIUM 8.5 mg/dl (8.4-10.2)
[2016-11-08] MEDS: ONDANSETRON 4 MG INJ IV PRN ×2 (08:43→21:46)
[2016-11-08] MEDS: NYSTATIN SUSP 5 ML CUP PO SCH ×4 (08:46→21:40)
[2016-11-08] MEDS: NEOMYCIN 500 MG TAB PO SCH ×4 (08:46→21:40)
[2016-11-08] MEDS: CIPROFLOXACIN 400MG/D5W 200 ML IVPB SCH ×2 (08:46→21:40)
[2016-11-08] MEDS: ENOXAPARIN 40 MG/0.4 ML SYG SC SCH (08:47)
[2016-11-08] MEDS: HYDROCODONE/APAP (5/325) TAB PO PRN (10:18)
--- NOTE | 2016-11-08 11:47 | PN ---
DATE: 11/08/2016 HOSPITALIST PROGRESS NOTE TIME OF EVALUATION: 10:45 a.m. SUBJECTIVE DATA: The patient continues to be n.p.o. Getting pain medications as needed. OBJECTIVE DATA: VITAL SIGNS: Temperature 98.6, pulse rate 80, respiratory rate 18, blood pressure 122/60, oxygen saturation 96% on low flow O2. GENERAL: This is an obese female lying in bed in no apparent distress. HEENT: Head normocephalic and atraumatic. Eyes: Anicteric sclerae. Conjunctivae clear. ENT: Nasal septum is midline. Oral mucosa is dry. NECK: Supple. No JVD noticed. RESPIRATORY: Bilaterally clear to auscultation. No adventitious breath sounds heard. No use of accessory muscles of respiration. CARDIAC: Regular rate and rhythm. No murmurs. ABDOMEN: Distended. Diffuse tenderness. Incision sites clean, dry, and intact. Right sided CASSIE drain. GENITOURINARY: Deferred. EXTREMITIES: No cyanosis, no clubbing, no edema. Peripheral pulses are palpable. NEUROLOGIC: The patient is awake, alert, and oriented. Cranial nerves are grossly intact. LABORATORY AND DIAGNOSTIC DATA: WBC 7.3, hemoglobin 10.7, hematocrit 31.7, platelet count 354. Sodium 130, potassium 2.9, chloride 100, carbon dioxide 28 , anion gap 14, BUN 5, creatinine 0.59, glucose 100, calcium 8.5. ASSESSMENT AND PLAN: 1. Perforated diverticulitis and enlarged appendiceal mucocele. Status post appendectomy and partial colectomy with anastomosis on 11/03/2016. Continue postoperative care. 2. Pelvic mass. Status post left salpingo-oophorectomy, left ureteral dissection with repositioning, and omentectomy with staging. Pathology negative for any malignancy (preliminary). Continue postoperative care. 3. Urinary tract infection. On antibiotics as per infectious diseases. 4. Essentially hypertension. Continue antihypertensives. 5. Obesity. Weight reduction advised. 6. Normocytic normochromic anemia with underlying iron deficiency. Continue to monitor the H and H closely. 7. Vaginal candidiasis. Status post treatment. 8. Fluid, electrolytes, and nutrition. N.p.o. as per surgery. 9. Deep venous thrombosis prophylaxis with bilateral sequential compression devices. Subcutaneous Lovenox. 10. Gastrointestinal prophylaxis. Proton pump inhibitors. PLAN: Continue postoperative care. Initiation and advancement of diet as per surgery. Encourage frequent ambulation. Encouraged frequent use of incentive spirometry. Continue pain control. The case was discussed with Dr. Patten. CL PATTEN MD, AM/LIBAN Conf#: [id number] DID#: [id number] MTDD
--- NOTE | 2016-11-08 11:59 | CONS ---
Date/Time of Note Date/Time of Note DATE: 11/08/16 TIME: 11:58 Assessment/Plan Assessment/Plan Chief Complaint/Hosp Course SUBJECTIVE: No acute changes overnight, alert, c/o nausea, no fevers INDWELLINGS: Right abdominal CASSIE, Green. ANTIMICROBIALS: 1. Erythromycin. 2. Cipro 3. Flagyl. PHYSICAL EXAMINATION: GENERAL: This is a morbidly obese, middle-aged woman who is lying comfortably in bed. HEENT: Head atraumatic, normocephalic. Sclerae anicteric. Buccal mucosa dry. NECK: Supple. CHEST: Rise symmetrical. Breath sounds diminished. HEART: S1, S2. ABDOMEN: Obese, mid abdominal dressing intact. The patient has right CASSIE. EXTREMITIES: With trace edema. ASSESSMENT: 1. Systemic inflammatory response syndrome. 2. Perforated diverticulitis with a large appendiceal mucocele status post resection, partial laminectomy, as well as left oophorectomy, ureterolysis and surgery on the right ovarian cyst. Surgery was performed both by Dr. Orosco and Dr. Salazar 11/05/16 . 3. Morbid obesity. 4. Status post urinary tract infection. 5. ?Post-op ileus PLAN: The patient remains stable. Continue present care, antibiotics. Follow surgical recommendations. DW staff/pt Problems: Consultation Date/Type/Reason Admit Date/Time Oct 27, 2016 at 18:25 Initial Consult Date 10/27/16 Type of Consultation: ID Exam/Review of Systems Vital Signs Vitals Vital Signs Date Time Temp Pulse Resp B/P Pulse Ox O2 Delivery O2 Flow Rate FiO2 11/08/16 11:07 98.0 79 18 129/66 95 11/08/16 07:57 Nasal Cannula 2.0 Intake and Output 11/07/16 11/07/16 11/08/16 15:00 23:00 07:00 Intake Total 100 ml 650 ml 1160 ml Output Total 200 ml 55 ml Balance 100 ml 450 ml 1105 ml Results Result Diagram: 11/08/16 0615 11/08/16 0615 Results 24 hrs Laboratory Tests Test 11/08/16 06:15 Anion Gap 14 Basophils # 0.0 Basophils % 0.4 Blood Urea Nitrogen 5 L Calcium Level 8.5 Carbon Dioxide Level 28 Chloride Level 100 Creatinine 0.59 Eosinophils # 0.2 Eosinophils % 2.6 Glucose Level 100 Hematocrit 31.7 L Hemoglobin 10.7 L Lymphocytes # 1.2 Lymphocytes % 16.6 Mean Corpuscular Hemoglobin 31.2 Mean Corpuscular Hemoglobin Concent 33.8 Mean Corpuscular Volume 92.4 Mean Platelet Volume 8.7 Monocytes # 0.6 Monocytes % 8.3 Neutrophils # 5.2 Neutrophils % 71.0 Nucleated Red Blood Cells # 0.0 Nucleated Red Blood Cells % 0.0 Platelet Count 354 Potassium Level 3.9 Red Blood Count 3.43 L Red Cell Distribution Width 11.9 Sodium Level 138 White Blood Count 7.3 # Medications Medications Current Medications Potassium Chloride/Dextrose/ Sod Cl (D5-1/2ns + KCl 20 Meq) 1,000 ml @ 100 mls/ hr Q10H IV Last administered on 11/07/16 23:57; Admin Dose 100 MLS/HR; Start at 18:28 Ondansetron HCl (Zofran Inj) 4 mg Q6H PRN IV NAUSEA AND/OR VOMITING Last administered on 11/08/16 08:43; Admin Dose 4 MG; Start 10/27/16 at 18:30 Acetaminophen (Tylenol Tab) 650 mg Q6H PRN PO PAIN LEVEL 1-3 OR FEVER Last administered on 11/04/16 16:39; Admin Dose 650 MG; Start 10/27/16 at 18:30 Acetaminophen (Tylenol Supp) 650 mg Q6H PRN [place] PAIN LEVEL 1-3 OR FEVER Last administered on 11/04/16 05:10; Admin Dose 650 MG; Start 10/27/16 at 18:30 Acetaminophen/ Hydrocodone Bitart ([place] (5/325)) 1 tab Q6H PRN PO MODERATE PAIN LEVEL 4-6 Last administered on 11/08/16 10:18; Admin Dose 1 TAB; Start at 18:30 Docusate Sodium (Colace) 100 mg Q12H PRN PO CONSTIPATION; Start 10/27/16 at 18: 30 Bisacodyl 5 mg 5 mg DAILY PRN PO CONSTIPATION; Start 10/27/16 at 18:30 Ciprofloxacin/ Dextrose 200 ml @ 200 mls/hr Q12 IVPB Last administered on 08:46; Admin Dose 200 MLS/HR; Start 10/28/16 at 07:30 Metronidazole (Flagyl 500 Mg (Pmx)) 100 ml @ 100 mls/hr Q8 IVPB Last administered on 11/08/16 05:12; Admin Dose 100 MLS/HR; Start 10/28/16 at 01:00 Hydralazine HCl (Apresoline) 10 mg Q6H PRN IV SBP>160; Start 10/28/16 at 15:00 Nystatin (Nystatin Susp) 5 ml QID PO Last administered on 11/08/16 08:46; Admin Dose 5 ML; Start 10/30/16 at 17:45 Morphine Sulfate (morphine) 2 mg Q4H PRN IV SEVERE PAIN LEVEL 7-10 Last administered on 11/06/16 10:54; Admin Dose 2 MG; Start 11/01/16 at 15:30 Neomycin Sulfate (Neomycin) 500 mg QID PO Last administered on 11/08/16 08:46; Admin Dose 500 MG; Start 11/02/16 at 13:00 Erythromycin (Erythromycin Base (Ec)) 500 mg Q8 PO Last administered on 05:08; Admin Dose 500 MG; Start 11/02/16 at 14:00 Naloxone HCl (Narcan) 0.2 mg Q2M PRN IV FOR RESP RATE 8 OR LESS; Start 11/03/16 at 16:00 Oxycodone/ Acetaminophen (Percocet (5/ 325)) 1 tab Q4H PRN PO MILD PAIN (1-3); Start 11/03/16 at 18:30 Oxycodone/ Acetaminophen (Percocet (5/ 325)) 2 tab Q4H PRN PO MODERATE PAIN (4- 6) Last administered on 11/06/16 09:05; Admin Dose 2 TAB; Start 11/03/16 at 18:30 Metoclopramide HCl (Reglan) 10 mg Q6 IV Last administered on 11/08/16 05:07; Admin Dose 10 MG; Start 11/04/16 at 00:00 Pantoprazole (Protonix Iv) 40 mg DAILY@06 IV Last administered on 11/08/16 05: 09; Admin Dose 40 MG; Start 11/04/16 at 06:00 Enoxaparin Sodium (Lovenox) 40 mg DAILY SC Last administered on 11/08/16 08:47 ; Admin Dose 40 MG; Start 11/04/16 at 09:00 Zolpidem Tartrate (Ambien) 5 mg HS PRN PO INSOMNIA; Start 11/03/16 at 18:30 Hydromorphone HCl (Dilaudid) 0.5 mg Q2H PRN IV PAIN Last administered on t 09:27; Admin Dose 0.5 MG; Start 11/06/16 at 13:00 FAM OSULLIVAN NP Nov 08, 2016 11:59
[2016-11-08] MEDS: D5W-0.45 NACL + KCL 20 MEQ 1,000 ML IV SCH ×3 (12:07→21:41)
--- NOTE | 2016-11-08 13:15 | RADRPT ---
PROCEDURE: XR Abdomen 1 vw. CLINICAL INDICATION: Vomiting TECHNIQUE: AP view of the abdomen . COMPARISON: CT abdomen/pelvis 10/31/2016 FINDINGS: There is a drain present in the pelvis. There are vertical midline skin mal. No organomegaly is identified. There is a mild ileus bowel gas pattern. There is no evidence of heavenly wel obstruction. No free air is identified. No calculi are identified. The axial skeleton is unrem arkable. IMPRESSION: Mild ileus bowel gas pattern No obstruction identified RPTAT: HGDB .Dada Tillman MD, MD Date Time Electronically viewed and signed by .Dada Tillman MD, on 11/08/2016 13:15 .B/
--- NOTE | 2016-11-08 13:20 | PN ---
DATE: Postoperative day #5. The patient remains afebrile and her white count is normal without left shift The patient has vomited twice, once last night and again earlier this morning. Her abdominal examination is benign, the incision is clean, and the CASSIE is serosanguineous. PLAN: Continue medical management. KUB has been ordered. Dictated By: ANISHA MO/LIBAN Conf#: [id number] DID#: [id number]
[2016-11-08] MEDS: ACETAMINOPHEN 1000MG/100ML IV 100 ML IVPB SCH ×2 (15:49→20:30)
--- NOTE | 2016-11-08 16:12 | CONS ---
DATE OF ADMISSION: 10/27/2016 DATE OF CONSULTATION: 11/08/2016 TYPE OF CONSULTATION: Pain Management. HISTORY OF PRESENT ILLNESS: This history has been taken from the patient's medical records and in p art speaking to patient. She is a poor historian but essentially was admitted to [facility] on 10/27/2016 with diverticulitis and microperforation. Also other findings including an ovarian cyst. She was seen thereafter by Dr. Salazar and Dr. Orosco on 11/03/2016. She underwent surgery with low anterior resection and take down of splenic flexure, partial omentectomy and rigid sigmoidoscopy was done intraoperatively. The patient has complained of postoperative pain since th at time. As far as the patient's pelvic findings, she is status post left salpingo-oophorectomy, left ureteral dissection with repositioning omentectomy. Path will be followed up. Patient had a u rinary tract infection while in-house. Also being treated. She continues to complain of pain prima rily in the left lower quadrant radiating to the left upper quadrant. She is n.p.o. except for flui ds at this time and she still has a drain in. She denies nausea, vomiting associated with it. Stat es she has not had a bowel movement in some prolonged period of time, unclear as to how long. There is no past medical history of any opioid abuse. The pain is described as gnawing type of discomfor t once again without radiation. At the time of this consultation, the patient is being treated with a combination of Dilaudid, [place], OxyContin and morphine and she still has not had alleviation of h er discomfort. MEDICATIONS: Please refer to reconciliation sheet. ALLERGIES: NO KNOWN DRUG ALLERGIES. MAJOR MEDICAL PROBLEMS IN THE PAST: Essentially noncontributory prior to this hospitalization excep t there is a history of obesity and type 2 diabetes. SOCIAL HISTORY: No smoking, no alcohol, no illicit drug use. FAMILY HISTORY: Noncontributory towards this hospitalization. REVIEW OF SYSTEMS: A 12-point review of systems is unremarkable except which is as per history of p resent illness. PHYSICAL EXAMINATION: GENERAL: Shows a well-nourished, well-developed female in no major acute distress. She is normocep halic, atraumatic, anicteric, acyanotic on examination. VITAL SIGNS: Blood pressure 129/66, pulse of 79 and regular, respirations of 18, temperature 98.0 d egrees, 95% saturation on 2 liters. CHEST: Shows bilateral distant but clear breath sounds throughout both lung resendiz. COR: S1, S2, without S3, S4, murmur, gallop, rub. Normal rate, normal rhythm. ABDOMEN: Grossly benign. She is distended. She has hypoactive bowel sounds. LABORATORY TESTS: White blood cell count is 7.3, hemoglobin of 10.7, hematocrit is 31.7, MCV of 92. 4, platelet count of 354,000. Chemistry: Serum sodium 138, potassium 3.9, chloride 100, bicarbonat e 28, BUN of 5, creatinine 0.59, blood sugar 100. ASSESSMENT AND PLAN: This is a 46-year-old female who is status post abdominal surgery as per my hi story and physical as well as OP report done by Dr. Salazar and Dr. Orosco. She had extensive surg solo and she is having postoperative pain. She is one day postop Dr. Salazar's surgery and [address] Orosco's surgery and is failing current combinations of pain control medications. I have had an extensive conversation with her and explained to her that we can alleviate her pain 100%. I believe she is somewhat tolerant to the current pain medication she is receiving right now and expec tations are to alleviate her pain 100% with higher doses and stronger pain control medications. We had an extensive conversation about that which is not possible. However, I did tell her of the pote ntial side effects associated with increasing opioids to the doses that that would alleviate her traci n 100%. She understands that we cannot do that. I will, therefore, stop her current pain control m edications and switch her off to a continuous scheduled dose of Tylenol. She has normal renal funct ion and also normal liver function. We will adjust her Dilaudid to 1 mg q.4h. p.r.n. pain. I have started off on Relistor also which will block the constipating effects of opioids and continue to s upport her. Dictated By: LA BALDERAS MD, LP/LIBAN Conf#: [id number] DID#: [id number]
[2016-11-09] VITALS (11 sets, daily range): BP systolic 114–130; BP diastolic 58–66; PULSE 78–109; RESP 16–20
[2016-11-09] MEDS: HYDROmorphONE 1 MG/ML SYG IV PRN ×5 (01:17→17:21)
[2016-11-09] MEDS: ACETAMINOPHEN 1000MG/100ML IV 100 ML IVPB SCH ×4 (02:30→20:41)
[2016-11-09] MEDS: METOCLOPRAMIDE 10 MG INJ IV SCH ×5 (05:13→23:50)
[2016-11-09] MEDS: PANTOPRAZOLE 40 MG INJ IV SCH (05:13)
[2016-11-09] MEDS: metroNIDAZOLE 500 MG/NS (PMX) 100 ML IVPB SCH ×3 (05:14→21:46)
[2016-11-09] MEDS: ERYTHROMYCIN BASE (EC) 500 MG TAB PO SCH ×3 (05:17→21:46)
[2016-11-09] MEDS: D5W-0.45 NACL + KCL 20 MEQ 1,000 ML IV SCH ×2 (07:32→17:44)
[2016-11-09 07:56] LABS: ADD SCAN DIFF NO
[2016-11-09 07:59] LABS: BASOPHILS % 0.4 % (0.0-2.0); EOSINOPHILS # 0.1 10^3/ul (0.0-0.5); EOSINOPHILS % 1.5 % (0.0-7.0); HEMATOCRIT 33.2 % (37.0-47.0); HEMOGLOBIN 11.6 g/dl (12.0-16.0); LYMPHOCYTES # 1.2 10^3/ul (0.8-2.9); LYMPHOCYTES % 14.4 % (15.0-51.0); MEAN CORPUSCULAR HEMOGLOBIN 31.7 pg (29.0-33.0); MEAN CORPUSCULAR HGB CONC 34.9 g/dl (32.0-37.0); MEAN CORPUSCULAR VOLUME 90.7 fl (82.0-101.0); MEAN PLATELET VOLUME 8.6 fl (7.4-10.4); MONOCYTE # 0.5 10^3/ul (0.3-0.9); MONOCYTES % 6.3 % (0.0-11.0); NEUTROPHIL # 6.3 10^3/ul (1.6-7.5); NEUTROPHILS % 76.2 % (39.0-77.0); PLATELET COUNT 418 10^3/UL (140-415); RED BLOOD COUNT 3.66 10^6/ul (4.20-5.40); RED CELL DISTRIBUTION WIDTH 11.8 % (11.5-14.5); WHITE BLOOD COUNT 8.3 10^3/ul (4.8-10.8)
[2016-11-09] MEDS: METHYLNALTREXONE 12 MG/0.6 ML VIAL SC SCH ×2 (08:26→08:31)
[2016-11-09] MEDS: NEOMYCIN 500 MG TAB PO SCH ×4 (08:26→20:42)
[2016-11-09] MEDS: CIPROFLOXACIN 400MG/D5W 200 ML IVPB SCH ×2 (08:26→20:41)
[2016-11-09] MEDS: NYSTATIN SUSP 5 ML CUP PO SCH ×4 (08:26→20:42)
[2016-11-09] MEDS: ENOXAPARIN 40 MG/0.4 ML SYG SC SCH (08:29)
[2016-11-09 08:30] LABS: POTASSIUM 3.9 mmol/L (3.5-5.1)
[2016-11-09 08:33] LABS: CREATININE 0.59 mg/dl (0.44-1.00)
[2016-11-09 08:34] LABS: CALCIUM 8.6 mg/dl (8.4-10.2)
[2016-11-09 08:47] LABS: MAGNESIUM 1.9 mg/dl (1.7-2.5); PHOSPHORUS 4.5 mg/dl (2.5-4.9)
--- NOTE | 2016-11-09 09:27 | PN ---
DATE: 11/09/2016 Postoperative day #6. The patient is no longer nauseated. She is passing gas and has had a small b owel movement. Abdominal x-ray shows no obstruction. PHYSICAL EXAMINATION: The abdomen is soft. The dressing is dry. CASSIE drainage is serosanguineous. LABORATORY DATA: Hematocrit is 33.2 with a white count of 8300, without left shift. PLAN: Clear liquids, advance diet as tolerated. Dictated By: ANISHA MO/LIBAN Conf#: [id number] DID#: [id number]
--- NOTE | 2016-11-09 12:50 | CONS ---
Date/Time of Note Date/Time of Note DATE: 11/09/16 TIME: 12:48 Assessment/Plan Assessment/Plan Chief Complaint/Hosp Course SUBJECTIVE: No acute changes overnight, alert, no fevers, no n/v today INDWELLINGS: Right abdominal CASSIE, Green. ANTIMICROBIALS: 1. Erythromycin. 2. Cipro 3. Flagyl. PHYSICAL EXAMINATION: GENERAL: This is a morbidly obese, middle-aged woman who is lying comfortably in bed. HEENT: Head atraumatic, normocephalic. Sclerae anicteric. Buccal mucosa dry. NECK: Supple. CHEST: Rise symmetrical. Breath sounds diminished. HEART: S1, S2. ABDOMEN: Obese, mid abdominal dressing intact. The patient has right CASSIE. EXTREMITIES: With trace edema. ASSESSMENT: 1. Systemic inflammatory response syndrome. 2. Perforated diverticulitis with a large appendiceal mucocele status post resection, partial laminectomy, as well as left oophorectomy, ureterolysis and surgery on the right ovarian cyst. Surgery was performed both by Dr. Orosco and Dr. Salazar 11/05/16 . 3. Morbid obesity. 4. Status post urinary tract infection. 5. ?Post-op ileus PLAN: The patient remains stable. Continue present care, antibiotics. Follow surgical recommendations. DW pt DW Dr Orosco Problems: Consultation Date/Type/Reason Admit Date/Time Oct 27, 2016 at 18:25 Initial Consult Date 10/27/16 Type of Consultation: ID Exam/Review of Systems Vital Signs Vitals Vital Signs Date Time Temp Pulse Resp B/P Pulse Ox O2 Delivery O2 Flow Rate FiO2 11/09/16 12:02 91 11/09/16 11:25 98.6 18 125/65 97 11/09/16 07:39 Nasal Cannula 2.0 Intake and Output 11/08/16 11/08/16 11/09/16 15:00 23:00 07:00 Intake Total 100 ml 1460 ml 150 ml Output Total 45 ml 30 ml Balance 100 ml 1415 ml 120 ml Results Result Diagram: 11/09/16 0655 11/09/16 0655 Results 24 hrs Laboratory Tests Test 11/09/16 06:55 Anion Gap 17 H Basophils # 0.0 Basophils % 0.4 Blood Urea Nitrogen 7 Calcium Level 8.6 Carbon Dioxide Level 26 Chloride Level 97 Creatinine 0.59 Eosinophils # 0.1 Eosinophils % 1.5 Glucose Level 94 Hematocrit 33.2 L Hemoglobin 11.6 L Lymphocytes # 1.2 Lymphocytes % 14.4 L Magnesium Level 1.9 Mean Corpuscular Hemoglobin 31.7 Mean Corpuscular Hemoglobin Concent 34.9 Mean Corpuscular Volume 90.7 Mean Platelet Volume 8.6 Monocytes # 0.5 Monocytes % 6.3 Neutrophils # 6.3 Neutrophils % 76.2 Nucleated Red Blood Cells # 0.0 Nucleated Red Blood Cells % 0.0 Phosphorus Level 4.5 Platelet Count 418 H Potassium Level 3.9 Red Blood Count 3.66 L Red Cell Distribution Width 11.8 Sodium Level 136 White Blood Count 8.3 Medications Medications Current Medications Potassium Chloride/Dextrose/ Sod Cl (D5-1/2ns + KCl 20 Meq) 1,000 ml @ 100 mls/ hr Q10H IV Last administered on 11/08/16 15:49; Admin Dose 100 MLS/HR; Start at 18:28 Ondansetron HCl (Zofran Inj) 4 mg Q6H PRN IV NAUSEA AND/OR VOMITING Last administered on 11/08/16 21:46; Admin Dose 4 MG; Start 10/27/16 at 18:30 Docusate Sodium (Colace) 100 mg Q12H PRN PO CONSTIPATION; Start 10/27/16 at 18: 30 Bisacodyl 5 mg 5 mg DAILY PRN PO CONSTIPATION; Start 10/27/16 at 18:30 Ciprofloxacin/ Dextrose 200 ml @ 200 mls/hr Q12 IVPB Last administered on 08:26; Admin Dose 200 MLS/HR; Start 10/28/16 at 07:30 Metronidazole (Flagyl 500 Mg (Pmx)) 100 ml @ 100 mls/hr Q8 IVPB Last administered on 11/09/16 05:14; Admin Dose 100 MLS/HR; Start 10/28/16 at 01:00 Hydralazine HCl (Apresoline) 10 mg Q6H PRN IV SBP>160; Start 10/28/16 at 15:00 Nystatin (Nystatin Susp) 5 ml QID PO Last administered on 11/09/16 12:27; Admin Dose 5 ML; Start 10/30/16 at 17:45 Neomycin Sulfate (Neomycin) 500 mg QID PO Last administered on 11/09/16 12:27; Admin Dose 500 MG; Start 11/02/16 at 13:00 Erythromycin (Erythromycin Base (Ec)) 500 mg Q8 PO Last administered on 05:17; Admin Dose 500 MG; Start 11/02/16 at 14:00 Naloxone HCl (Narcan) 0.2 mg Q2M PRN IV FOR RESP RATE 8 OR LESS; Start 11/03/16 at 16:00 Metoclopramide HCl (Reglan) 10 mg Q6 IV Last administered on 11/09/16 12:27; Admin Dose 10 MG; Start 11/04/16 at 00:00 Pantoprazole (Protonix Iv) 40 mg DAILY@06 IV Last administered on 11/09/16 05: 13; Admin Dose 40 MG; Start 11/04/16 at 06:00 Enoxaparin Sodium (Lovenox) 40 mg DAILY SC Last administered on 11/09/16 08:29 ; Admin Dose 40 MG; Start 11/04/16 at 09:00 Zolpidem Tartrate 5 mg 5 mg HS PRN PO INSOMNIA; Start 11/03/16 at 18:30 Acetaminophen (Ofirmev 1000mg/ 100ml Iv) 100 ml @ 400 mls/hr Q6H IVPB Last administered on 11/08/16 15:49; Admin Dose 400 MLS/HR; Start 11/08/16 at 14:30 Methylnaltrexone [place] (Relistor) 12 mg Q48H SC ; Start 11/09/16 at 09:00 Hydromorphone HCl (Dilaudid) 1 mg Q4H PRN IV PAIN Last administered on 09:16; Admin Dose 1 MG; Start 11/08/16 at 14:30 FAM OSULLIVAN NP Nov 09, 2016 12:50
--- NOTE | 2016-11-09 14:17 | PN ---
DATE: 11/09/2016 SUBJECTIVE: She is doing better. States her pain is better controlled today than it was yesterday. Denies nausea, vomiting. Apparently, she is passing gas at this point also. Drain is still in pl [place]. OBJECTIVE: VITAL SIGNS: Blood pressure 125/65, pulse of 80 and regular, respirations of 18, temperature of 98. 6 degrees, 97% saturation on 2 liters. HEENT: She is normocephalic and atraumatic. Anicteric, acyanotic. CHEST: Clear. COR: S1, S2, without S3, S4, murmur, gallop, rub. Normal rate, normal rhythm. ABDOMEN: Grossly benign. LABORATORY DATA: White blood cell count of 8.3, hemoglobin 11.6, hematocrit 33.2, MCV of 90.7, plat elet count of 418,000. Chemistries: Serum sodium 136, potassium 3.9, chloride 97, bicarbonate of 2 6, BUN of 7, creatinine 0.59, blood sugar of 94. ASSESSMENT AND PLAN: Patient will be continued on her current medications including Tylenol intrave nously, scheduled Dilaudid for breakthrough pain, and Relistor. Will follow her course. Will switc h her over to oral medications when cleared by Dr. Orosco, Dr. Salazar. Dictated By: LA BALDERAS MD, LP/LIBAN Conf#: [id number] DID#: [id number]
--- NOTE | 2016-11-09 16:39 | PN ---
Date/Time of Note Date/Time of Note DATE: 11/09/16 TIME: 16:38 Assessment/Plan VTE Prophylaxis VTE Prophylaxis Intervention: LMWH Lines/Catheters IV [facility] Type (from [facility]): Peripheral IV Urinary Cath still in place: No Assessment/Plan Chief Complaint/Hosp Course 1. Perforated diverticulitis and enlarged appendiceal mucocele status post appendectomy and partial colectomy with anastomosis on 11/03/2016. Continue postoperative care. 2. Pelvic mass. Status post left salpingo-oophorectomy, left ureteral dissection with repositioning, and omentectomy with staging. Pathology negative for any malignancy (preliminary). Continue postoperative care. 3. Urinary tract infection. On antibiotics as per infectious diseases. 4. Essentially hypertension. Continue antihypertensives. 5. Obesity. Weight reduction advised. 6. Normocytic normochromic anemia with underlying iron deficiency. Continue to monitor the H and H closely. 7. Vaginal candidiasis status post treatment. 8. Fluid, electrolytes, and nutrition. On full liquid diet. Advance diet as per surgery. 9. Deep venous thrombosis prophylaxis with bilateral sequential compression devices. Subcutaneous Lovenox. 10. Gastrointestinal prophylaxis. Proton pump inhibitors. PLAN: Continue postoperative care. Advancement of diet as per surgery. Encourage frequent ambulation. Encouraged frequent use of incentive spirometry. Continue pain control. The case was discussed with Dr. Shin. Problems: Subjective 24 Hr Interval Summary Free Text/Dictation Patient asking for pain medications [id number]. Exam/Review of Systems Vital Signs Vitals Vital Signs Date Time Temp Pulse Resp B/P Pulse Ox O2 Delivery O2 Flow Rate FiO2 11/09/16 16:03 82 11/09/16 15:02 98.3 16 123/66 95 11/09/16 07:39 Nasal Cannula 2.0 Intake and Output 11/08/16 11/08/16 11/09/16 15:00 23:00 07:00 Intake Total 100 ml 1460 ml 150 ml Output Total 45 ml 30 ml Balance 100 ml 1415 ml 120 ml Exam GENERAL: This is an obese female lying in bed in no apparent distress. HEENT: Head normocephalic and atraumatic. Eyes: Anicteric sclerae. Conjunctivae clear. ENT: Nasal septum is midline. Oral mucosa is dry. NECK: Supple. No JVD noticed. RESPIRATORY: Bilaterally clear to auscultation. No adventitious breath sounds heard. No use of accessory muscles of respiration. CARDIAC: Regular rate and rhythm. No murmurs. ABDOMEN: Distended. Diffuse tenderness. Incision sites clean, dry, and intact. GENITOURINARY: Deferred. EXTREMITIES: No cyanosis, no clubbing, no edema. Peripheral pulses are palpable. NEUROLOGIC: The patient is awake, alert, and oriented. Cranial nerves are grossly int Results Result Diagram: 11/09/16 0655 11/09/16 0655 Results 24 hrs Laboratory Tests Test 11/09/16 06:55 Anion Gap 17 H Basophils # 0.0 Basophils % 0.4 Blood Urea Nitrogen 7 Calcium Level 8.6 Carbon Dioxide Level 26 Chloride Level 97 Creatinine 0.59 Eosinophils # 0.1 Eosinophils % 1.5 Glucose Level 94 Hematocrit 33.2 L Hemoglobin 11.6 L Lymphocytes # 1.2 Lymphocytes % 14.4 L Magnesium Level 1.9 Mean Corpuscular Hemoglobin 31.7 Mean Corpuscular Hemoglobin Concent 34.9 Mean Corpuscular Volume 90.7 Mean Platelet Volume 8.6 Monocytes # 0.5 Monocytes % 6.3 Neutrophils # 6.3 Neutrophils % 76.2 Nucleated Red Blood Cells # 0.0 Nucleated Red Blood Cells % 0.0 Phosphorus Level 4.5 Platelet Count 418 H Potassium Level 3.9 Red Blood Count 3.66 L Red Cell Distribution Width 11.8 Sodium Level 136 White Blood Count 8.3 Medications Medications Current Medications Potassium Chloride/Dextrose/ Sod Cl (D5-1/2ns + KCl 20 Meq) 1,000 ml @ 100 mls/ hr Q10H IV Last administered on 11/08/16 15:49; Admin Dose 100 MLS/HR; Start at 18:28 Ondansetron HCl (Zofran Inj) 4 mg Q6H PRN IV NAUSEA AND/OR VOMITING Last administered on 11/08/16 21:46; Admin Dose 4 MG; Start 10/27/16 at 18:30 Docusate Sodium (Colace) 100 mg Q12H PRN PO CONSTIPATION; Start 10/27/16 at 18: 30 Bisacodyl 5 mg 5 mg DAILY PRN PO CONSTIPATION; Start 10/27/16 at 18:30 Ciprofloxacin/ Dextrose 200 ml @ 200 mls/hr Q12 IVPB Last administered on 08:26; Admin Dose 200 MLS/HR; Start 10/28/16 at 07:30 Metronidazole (Flagyl 500 Mg (Pmx)) 100 ml @ 100 mls/hr Q8 IVPB Last administered on 11/09/16 13:09; Admin Dose 100 MLS/HR; Start 10/28/16 at 01:00 Hydralazine HCl (Apresoline) 10 mg Q6H PRN IV SBP>160; Start 10/28/16 at 15:00 Nystatin (Nystatin Susp) 5 ml QID PO Last administered on 11/09/16 12:27; Admin Dose 5 ML; Start 10/30/16 at 17:45 Neomycin Sulfate (Neomycin) 500 mg QID PO Last administered on 11/09/16 12:27; Admin Dose 500 MG; Start 11/02/16 at 13:00 Erythromycin (Erythromycin Base (Ec)) 500 mg Q8 PO Last administered on 13:12; Admin Dose 500 MG; Start 11/02/16 at 14:00 Naloxone HCl (Narcan) 0.2 mg Q2M PRN IV FOR RESP RATE 8 OR LESS; Start 11/03/16 at 16:00 Metoclopramide HCl (Reglan) 10 mg Q6 IV Last administered on 11/09/16 12:27; Admin Dose 10 MG; Start 11/04/16 at 00:00 Pantoprazole (Protonix Iv) 40 mg DAILY@06 IV Last administered on 11/09/16 05: 13; Admin Dose 40 MG; Start 11/04/16 at 06:00 Enoxaparin Sodium (Lovenox) 40 mg DAILY SC Last administered on 11/09/16 08:29 ; Admin Dose 40 MG; Start 11/04/16 at 09:00 Zolpidem Tartrate 5 mg 5 mg HS PRN PO INSOMNIA; Start 11/03/16 at 18:30 Acetaminophen (Ofirmev 1000mg/ 100ml Iv) 100 ml @ 400 mls/hr Q6H IVPB Last administered on 11/08/16 15:49; Admin Dose 400 MLS/HR; Start 11/08/16 at 14:30 Methylnaltrexone [place] (Relistor) 12 mg Q48H SC ; Start 11/09/16 at 09:00 Hydromorphone HCl (Dilaudid) 1 mg Q4H PRN IV PAIN Last administered on t 13:03; Admin Dose 1 MG; Start 11/08/16 at 14:30 CL KERR NP Nov 09, 2016 16:39 17at 13:03; Admin Dose 1 MG; Start 11/08/16 at 14:30 CL KERR NP Nov 09, 2016 16:39
[2016-11-10] VITALS: BP 118/62; PULSE 82; RESP 20
[2016-11-10 00:37] VITALS: PULSE 78
[2016-11-10] MEDS: HYDROmorphONE 1 MG/ML SYG IV PRN ×6 (01:31→23:38)
[2016-11-10] MEDS: ACETAMINOPHEN 1000MG/100ML IV 100 ML IVPB SCH ×2 (02:30→12:20)
[2016-11-10 04:00] VITALS: BP 120/60; PULSE 80; RESP 20
[2016-11-10] MEDS: D5W-0.45 NACL + KCL 20 MEQ 1,000 ML IV SCH ×2 (04:09→12:40)
[2016-11-10 04:32] VITALS: PULSE 65
[2016-11-10] MEDS: ERYTHROMYCIN BASE (EC) 500 MG TAB PO SCH ×3 (05:51→22:17)
[2016-11-10] MEDS: PANTOPRAZOLE 40 MG INJ IV SCH (05:51)
[2016-11-10] MEDS: METOCLOPRAMIDE 10 MG INJ IV SCH ×4 (05:51→23:38)
[2016-11-10] MEDS: metroNIDAZOLE 500 MG/NS (PMX) 100 ML IVPB SCH ×3 (05:51→22:17)
[2016-11-10 07:24] LABS: ADD SCAN DIFF NO
--- NOTE | 2016-11-10 07:30 | PN ---
Date/Time of Note Date/Time of Note DATE: 11/10/16 TIME: 07:29 Assessment/Plan VTE Prophylaxis VTE Prophylaxis Intervention: LMWH Lines/Catheters IV Catheter Type (from [facility]): Peripheral IV Urinary Cath still in place: No Assessment/Plan Chief Complaint/Hosp Course 1. Perforated diverticulitis and enlarged appendiceal mucocele status post appendectomy and partial colectomy with anastomosis on 11/03/2016. Continue postoperative care. 2. Pelvic mass. Status post left salpingo-oophorectomy, left ureteral dissection with repositioning, and omentectomy with staging. Pathology negative for any malignancy. Continue postoperative care. 3. Urinary tract infection. On antibiotics as per infectious diseases. 4. Essentially hypertension. Continue antihypertensives. 5. Obesity. Weight reduction advised. 6. Normocytic normochromic anemia with underlying iron deficiency. Continue to monitor the H and H closely. 7. Vaginal candidiasis. Status post treatment. 8. Fluid, electrolytes, and nutrition. On a soft diet. Advance diet as per surgery. 9. Deep venous thrombosis prophylaxis. Subcutaneous Lovenox. 10. Gastrointestinal prophylaxis. Proton pump inhibitors. PLAN: Continue postoperative care. Advancement of diet as per surgery. Encourage frequent ambulation. Encouraged frequent use of incentive spirometry. Continue pain control. The case was discussed with Dr. Shin. Problems: Subjective 24 Hr Interval Summary Free Text/Dictation Pain better controlled. Tolerating oral intake. Exam/Review of Systems Vital Signs Vitals Vital Signs Date Time Temp Pulse Resp B/P Pulse Ox O2 Delivery O2 Flow Rate FiO2 11/10/16 04:32 65 11/10/16 04:00 99.0 20 120/60 96 Nasal Cannula 2.0 Intake and Output 11/09/16 11/09/16 11/10/16 15:00 23:00 07:00 Intake Total 1350 ml 300 ml Output Total 30 ml Balance 1320 ml 300 ml Exam GENERAL: This is an obese female lying in bed in no apparent distress. HEENT: Head normocephalic and atraumatic. Eyes: Anicteric sclerae. Conjunctivae clear. ENT: Nasal septum is midline. Oral mucosa is dry. NECK: Supple. No JVD noticed. RESPIRATORY: Bilaterally clear to auscultation. No adventitious breath sounds heard. No use of accessory muscles of respiration. CARDIAC: Regular rate and rhythm. No murmurs. ABDOMEN: Distended. Diffuse tenderness. Incision sites clean, dry, and intact. GENITOURINARY: Deferred. EXTREMITIES: No cyanosis, no clubbing, no edema. Peripheral pulses are palpable. NEUROLOGIC: The patient is awake, alert, and oriented. Cranial nerves are grossly intact. Results Result Diagram: 11/09/16 0655 11/09/16 0655 Medications Medications Current Medications Potassium Chloride/Dextrose/ Sod Cl (D5-1/2ns + KCl 20 Meq) 1,000 ml @ 100 mls/ hr Q10H IV Last administered on 11/10/16 04:09; Admin Dose 100 MLS/HR; Start at 18:28 Ondansetron HCl (Zofran Inj) 4 mg Q6H PRN IV NAUSEA AND/OR VOMITING Last administered on 11/08/16 21:46; Admin Dose 4 MG; Start 10/27/16 at 18:30 Docusate Sodium (Colace) 100 mg Q12H PRN PO CONSTIPATION; Start 10/27/16 at 18: 30 Bisacodyl 5 mg 5 mg DAILY PRN PO CONSTIPATION; Start 10/27/16 at 18:30 Ciprofloxacin/ Dextrose 200 ml @ 200 mls/hr Q12 IVPB Last administered on 20:41; Admin Dose 200 MLS/HR; Start 10/28/16 at 07:30 Metronidazole (Flagyl 500 Mg (Pmx)) 100 ml @ 100 mls/hr Q8 IVPB Last administered on 11/10/16 05:51; Admin Dose 100 MLS/HR; Start 10/28/16 at 01:00 Hydralazine HCl (Apresoline) 10 mg Q6H PRN IV SBP>160; Start 10/28/16 at 15:00 Nystatin (Nystatin Susp) 5 ml QID PO Last administered on 11/09/16 20:42; Admin Dose 5 ML; Start 10/30/16 at 17:45 Neomycin Sulfate (Neomycin) 500 mg QID PO Last administered on 11/09/16 20:42; Admin Dose 500 MG; Start 11/02/16 at 13:00 Erythromycin (Erythromycin Base (Ec)) 500 mg Q8 PO Last administered on 05:51; Admin Dose 500 MG; Start 11/02/16 at 14:00 Naloxone HCl (Narcan) 0.2 mg Q2M PRN IV FOR RESP RATE 8 OR LESS; Start 11/03/16 at 16:00 Metoclopramide HCl (Reglan) 10 mg Q6 IV Last administered on 11/10/16 05:51; Admin Dose 10 MG; Start 11/04/16 at 00:00 Pantoprazole (Protonix Iv) 40 mg DAILY@06 IV Last administered on 11/10/16 05: 51; Admin Dose 40 MG; Start 11/04/16 at 06:00 Enoxaparin Sodium (Lovenox) 40 mg DAILY SC Last administered on 11/09/16 08:29 ; Admin Dose 40 MG; Start 11/04/16 at 09:00 Zolpidem Tartrate 5 mg 5 mg HS PRN PO INSOMNIA; Start 11/03/16 at 18:30 Acetaminophen (Ofirmev 1000mg/ 100ml Iv) 100 ml @ 400 mls/hr Q6H IVPB Last administered on 11/10/16 02:30; Admin Dose 400 MLS/HR; Start 11/08/16 at 14:30 Methylnaltrexone [place] (Relistor) 12 mg Q48H SC ; Start 11/09/16 at 09:00 Hydromorphone HCl (Dilaudid) 1 mg Q4H PRN IV PAIN Last administered on 06:02; Admin Dose 1 MG; Start 11/08/16 at 14:30 CL KERR NP Nov 10, 2016 07:30
[2016-11-10 07:46] LABS: POTASSIUM 3.7 mmol/L (3.5-5.1)
[2016-11-10 07:48] LABS: CREATININE 0.54 mg/dl (0.44-1.00)
[2016-11-10 07:49] LABS: CALCIUM 8.4 mg/dl (8.4-10.2)
[2016-11-10 07:50] LABS: MAGNESIUM 2.1 mg/dl (1.7-2.5); PHOSPHORUS 4.1 mg/dl (2.5-4.9)
[2016-11-10 07:56] LABS: BASOPHIL # 0.1 10^3/ul (0.0-0.1); BASOPHILS % 0.6 % (0.0-2.0); EOSINOPHILS # 0.2 10^3/ul (0.0-0.5); EOSINOPHILS % 1.7 % (0.0-7.0); HEMATOCRIT 33.3 % (37.0-47.0); HEMOGLOBIN 11.3 g/dl (12.0-16.0); LYMPHOCYTES # 1.5 10^3/ul (0.8-2.9); LYMPHOCYTES % 17.3 % (15.0-51.0); MEAN CORPUSCULAR HEMOGLOBIN 30.8 pg (29.0-33.0); MEAN CORPUSCULAR HGB CONC 33.9 g/dl (32.0-37.0); MEAN CORPUSCULAR VOLUME 90.7 fl (82.0-101.0); MEAN PLATELET VOLUME 8.7 fl (7.4-10.4); MONOCYTE # 0.6 10^3/ul (0.3-0.9); MONOCYTES % 6.2 % (0.0-11.0); NEUTROPHIL # 6.4 10^3/ul (1.6-7.5); PLATELET COUNT 416 10^3/UL (140-415); RED BLOOD COUNT 3.67 10^6/ul (4.20-5.40); WHITE BLOOD COUNT 8.8 10^3/ul (4.8-10.8)
[2016-11-10 08:32] VITALS: BP 135/60; RESP 18
[2016-11-10] MEDS: NYSTATIN SUSP 5 ML CUP PO SCH ×4 (12:24→20:30)
[2016-11-10] MEDS: NEOMYCIN 500 MG TAB PO SCH ×4 (12:24→20:30)
[2016-11-10] MEDS: CIPROFLOXACIN 400MG/D5W 200 ML IVPB SCH ×2 (12:30→20:30)
[2016-11-10] MEDS: ENOXAPARIN 40 MG/0.4 ML SYG SC SCH (12:52)
--- NOTE | 2016-11-10 13:20 | CONS ---
Date/Time of Note Date/Time of Note DATE: 11/10/16 TIME: 13:20 Assessment/Plan Assessment/Plan Chief Complaint/Hosp Course SUBJECTIVE: No acute changes overnight, alert, no fevers, no n/v today INDWELLINGS: Right abdominal CASSIE, Green. ANTIMICROBIALS: 1. Erythromycin. 2. Cipro 3. Flagyl. PHYSICAL EXAMINATION: GENERAL: This is a morbidly obese, middle-aged woman who is lying comfortably in bed. HEENT: Head atraumatic, normocephalic. Sclerae anicteric. Buccal mucosa dry. NECK: Supple. CHEST: Rise symmetrical. Breath sounds diminished. HEART: S1, S2. ABDOMEN: Obese, mid abdominal dressing intact. The patient has right CASSIE. EXTREMITIES: With trace edema. ASSESSMENT: 1. Systemic inflammatory response syndrome. 2. Perforated diverticulitis with a large appendiceal mucocele status post resection, partial laminectomy, as well as left oophorectomy, ureterolysis and surgery on the right ovarian cyst. Surgery was performed both by Dr. Orosco and Dr. Salazar 11/05/16 . 3. Morbid obesity. 4. Status post urinary tract infection. 5. ?Post-op ileus PLAN: The patient remains stable. Continue present care, antibiotics. Follow surgical recommendations. DW pt Problems: Consultation Date/Type/Reason Admit Date/Time Oct 27, 2016 at 18:25 Initial Consult Date 10/27/16 Type of Consultation: ID Exam/Review of Systems Vital Signs Vitals Vital Signs Date Time Temp Pulse Resp B/P Pulse Ox O2 Delivery O2 Flow Rate FiO2 11/10/16 08:32 98.3 77 18 135/60 95 11/10/16 04:00 Nasal Cannula 2.0 Intake and Output 11/09/16 11/09/16 11/10/16 15:00 23:00 07:00 Intake Total 1350 ml 300 ml Output Total 30 ml Balance 1320 ml 300 ml Results Result Diagram: 11/10/16 0611/10/16 0626 Results 24 hrs Laboratory Tests Test 11/10/16 06:26 Anion Gap 17 H Basophils # 0.1 Basophils % 0.6 Blood Urea Nitrogen 7 Calcium Level 8.4 Carbon Dioxide Level 27 Chloride Level 99 Creatinine 0.54 Eosinophils # 0.2 Eosinophils % 1.7 Glucose Level 100 Hematocrit 33.3 L Hemoglobin 11.3 L Lymphocytes # 1.5 Lymphocytes % 17.3 Magnesium Level 2.1 Mean Corpuscular Hemoglobin 30.8 Mean Corpuscular Hemoglobin Concent 33.9 Mean Corpuscular Volume 90.7 Mean Platelet Volume 8.7 Monocytes # 0.6 Monocytes % 6.2 Neutrophils # 6.4 Neutrophils % 73.0 Nucleated Red Blood Cells # 0.0 Nucleated Red Blood Cells % 0.0 Phosphorus Level 4.1 Platelet Count 416 H Potassium Level 3.7 Red Blood Count 3.67 L Red Cell Distribution Width 12.0 Sodium Level 139 White Blood Count 8.8 Medications Medications Current Medications Potassium Chloride/Dextrose/ Sod Cl (D5-1/2ns + KCl 20 Meq) 1,000 ml @ 100 mls/ hr Q10H IV Last administered on 11/10/16 12:40; Admin Dose 100 MLS/HR; Start at 18:28 Ondansetron HCl (Zofran Inj) 4 mg Q6H PRN IV NAUSEA AND/OR VOMITING Last administered on 11/08/16 21:46; Admin Dose 4 MG; Start 10/27/16 at 18:30 Docusate Sodium (Colace) 100 mg Q12H PRN PO CONSTIPATION; Start 10/27/16 at 18: 30 Bisacodyl 5 mg 5 mg DAILY PRN PO CONSTIPATION; Start 10/27/16 at 18:30 Ciprofloxacin/ Dextrose 200 ml @ 200 mls/hr Q12 IVPB Last administered on 12:30; Admin Dose 200 MLS/HR; Start 10/28/16 at 07:30 Metronidazole (Flagyl 500 Mg (Pmx)) 100 ml @ 100 mls/hr Q8 IVPB Last administered on 11/10/16 05:51; Admin Dose 100 MLS/HR; Start 10/28/16 at 01:00 Hydralazine HCl (Apresoline) 10 mg Q6H PRN IV SBP>160; Start 10/28/16 at 15:00 Nystatin (Nystatin Susp) 5 ml QID PO Last administered on 11/10/16 12:24; Admin Dose 5 ML; Start 10/30/16 at 17:45 Neomycin Sulfate (Neomycin) 500 mg QID PO Last administered on 11/10/16 12:24; Admin Dose 500 MG; Start 11/02/16 at 13:00 Erythromycin (Erythromycin Base (Ec)) 500 mg Q8 PO Last administered on 05:51; Admin Dose 500 MG; Start 11/02/16 at 14:00 Naloxone HCl (Narcan) 0.2 mg Q2M PRN IV FOR RESP RATE 8 OR LESS; Start 11/03/16 at 16:00 Metoclopramide HCl (Reglan) 10 mg Q6 IV Last administered on 11/10/16 12:41; Admin Dose 10 MG; Start 11/04/16 at 00:00 Pantoprazole (Protonix Iv) 40 mg DAILY@06 IV Last administered on 11/10/16 05: 51; Admin Dose 40 MG; Start 11/04/16 at 06:00 Enoxaparin Sodium (Lovenox) 40 mg DAILY SC Last administered on 11/10/16 12:52 ; Admin Dose 40 MG; Start 11/04/16 at 09:00 Zolpidem Tartrate 5 mg 5 mg HS PRN PO INSOMNIA; Start 11/03/16 at 18:30 Acetaminophen (Ofirmev 1000mg/ 100ml Iv) 100 ml @ 400 mls/hr Q6H IVPB Last administered on 11/10/16 02:30; Admin Dose 400 MLS/HR; Start 11/08/16 at 14:30 Methylnaltrexone [place] (Relistor) 12 mg Q48H SC ; Start 11/09/16 at 09:00 Hydromorphone HCl (Dilaudid) 1 mg Q4H PRN IV PAIN Last administered on 11:13; Admin Dose 1 MG; Start 11/08/16 at 14:30 FAM OSULLIVAN NP Nov 10, 2016 13:20
--- NOTE | 2016-11-10 18:24 | PN ---
DATE: Postoperative day #7. The patient is afebrile. She is now tolerating a regular diet and has normal bowel function. Her abdominal examination is benign. Her white blood cell count is normal. PLAN: Tomorrow morning I will remove her CASSIE drain and she can be discharged. Dictated By: ANISHA MO/LIBAN Conf#: [id number] DID#: [id number]
[2016-11-10 19:00] VITALS: BP 129/75; RESP 16
[2016-11-10] MEDS: ZOLPIDEM 5 MG TAB PO PRN (23:47)
[2016-11-11] MEDS: D5W-0.45 NACL + KCL 20 MEQ 1,000 ML IV SCH ×3 (00:07→10:07)
[2016-11-11] MEDS: HYDROmorphONE 1 MG/ML SYG IV PRN ×3 (03:45→12:26)
[2016-11-11 06:08] LABS: ADD SCAN DIFF NO
[2016-11-11 06:16] LABS: BASOPHIL # 0.1 10^3/ul (0.0-0.1); BASOPHILS % 0.5 % (0.0-2.0); EOSINOPHILS # 0.3 10^3/ul (0.0-0.5); EOSINOPHILS % 2.5 % (0.0-7.0); HEMATOCRIT 33.1 % (37.0-47.0); HEMOGLOBIN 11.2 g/dl (12.0-16.0); LYMPHOCYTES # 1.6 10^3/ul (0.8-2.9); LYMPHOCYTES % 16.6 % (15.0-51.0); MEAN CORPUSCULAR HGB CONC 33.8 g/dl (32.0-37.0); MEAN CORPUSCULAR VOLUME 91.7 fl (82.0-101.0); MEAN PLATELET VOLUME 8.6 fl (7.4-10.4); MONOCYTE # 0.6 10^3/ul (0.3-0.9); MONOCYTES % 6.4 % (0.0-11.0); NEUTROPHIL # 7.2 10^3/ul (1.6-7.5); NEUTROPHILS % 73.2 % (39.0-77.0); PLATELET COUNT 391 10^3/UL (140-415); RED BLOOD COUNT 3.61 10^6/ul (4.20-5.40); RED CELL DISTRIBUTION WIDTH 12.1 % (11.5-14.5); WHITE BLOOD COUNT 9.9 10^3/ul (4.8-10.8)
[2016-11-11 06:33] LABS: POTASSIUM 4.5 mmol/L (3.5-5.1)
[2016-11-11 06:36] LABS: CALCIUM 8.4 mg/dl (8.4-10.2)
[2016-11-11] MEDS: METOCLOPRAMIDE 10 MG INJ IV SCH ×3 (06:37→17:45)
[2016-11-11] MEDS: PANTOPRAZOLE 40 MG INJ IV SCH (06:37)
[2016-11-11] MEDS: metroNIDAZOLE 500 MG/NS (PMX) 100 ML IVPB SCH (06:37)
[2016-11-11] MEDS: ERYTHROMYCIN BASE (EC) 500 MG TAB PO SCH ×3 (06:45→22:00)
[2016-11-11 06:52] LABS: PHOSPHORUS 4.2 mg/dl (2.5-4.9)
[2016-11-11 06:53] LABS: MAGNESIUM 2.1 mg/dl (1.7-2.5)
[2016-11-11 06:58] LABS: CREATININE 0.54 mg/dl (0.44-1.00)
[2016-11-11 07:47] VITALS: BP 110/55; RESP 18
[2016-11-11] MEDS: CIPROFLOXACIN 400MG/D5W 200 ML IVPB SCH (08:10)
[2016-11-11] MEDS: NYSTATIN SUSP 5 ML CUP PO SCH ×4 (08:10→20:16)
[2016-11-11] MEDS: NEOMYCIN 500 MG TAB PO SCH ×4 (08:10→20:21)
[2016-11-11] MEDS: METHYLNALTREXONE 12 MG/0.6 ML VIAL SC SCH (08:17)
[2016-11-11] MEDS: ENOXAPARIN 40 MG/0.4 ML SYG SC SCH (09:10)
--- NOTE | 2016-11-11 10:40 | PN ---
DATE: 11/11/2016 HISTORY: Postoperative day #8. The patient remains afebrile. PHYSICAL EXAMINATION: Her abdominal examination is benign. She is tolerating a regular diet and monreal s bowel function. Her incision is clean. LABORATORIES: White count is normal without left shift. PLAN: I removed the CASSIE drain at the bedside. The patient is cleared for discharge home today with office followup with me in 1 week. Dictated By: ANISHA MO/LIBAN Conf#: [id number] DID#: [id number]
--- NOTE | 2016-11-11 13:05 | CONS ---
Date/Time of Note Date/Time of Note DATE: 11/11/16 TIME: 13:04 Assessment/Plan Assessment/Plan Chief Complaint/Hosp Course SUBJECTIVE: No acute changes overnight, alert, feels good, s/p CASSIE dc'd, no v/d ANTIMICROBIALS: 1. Erythromycin. 2. Cipro 3. Flagyl. PHYSICAL EXAMINATION: GENERAL: This is a morbidly obese, middle-aged woman who is lying comfortably in bed. HEENT: Head atraumatic, normocephalic. Sclerae anicteric. Buccal mucosa dry. NECK: Supple. CHEST: Rise symmetrical. Breath sounds diminished. HEART: S1, S2. ABDOMEN: Obese, mid abdominal dressing intact. The patient has right CASSIE. EXTREMITIES: With trace edema. ASSESSMENT: 1. Systemic inflammatory response syndrome. 2. Perforated diverticulitis with a large appendiceal mucocele status post resection, partial laminectomy, as well as left oophorectomy, ureterolysis and surgery on the right ovarian cyst. Surgery was performed both by Dr. Orosco and Dr. Salazar 11/05/16 . 3. Morbid obesity. 4. Status post urinary tract infection. 5. ?Post-op ileus PLAN: The patient remains stable. Change antibiotics to PO. Follow surgical recommendations. DW pt Problems: Consultation Date/Type/Reason Admit Date/Time Oct 27, 2016 at 18:25 Initial Consult Date 10/27/16 Type of Consultation: ID Exam/Review of Systems Vital Signs Vitals Vital Signs Date Time Temp Pulse Resp B/P Pulse Ox O2 Delivery O2 Flow Rate FiO2 11/11/16 07:47 98.7 84 18 110/55 94 11/10/16 04:00 Nasal Cannula 2.0 Intake and Output 11/10/16 11/10/16 11/11/16 15:00 23:00 07:00 Intake Total 1800 ml 2400 ml Output Total 680 ml Balance 1800 ml 1720 ml Results Result Diagram: 11/11/16 0535 11/11/16 0535 Results 24 hrs Laboratory Tests Test 11/11/16 05:35 Anion Gap 16 Basophils # 0.1 Basophils % 0.5 Blood Urea Nitrogen 8 Calcium Level 8.4 Carbon Dioxide Level 26 Chloride Level 101 Creatinine 0.54 Eosinophils # 0.3 Eosinophils % 2.5 Glucose Level 105 Hematocrit 33.1 L Hemoglobin 11.2 L Lymphocytes # 1.6 Lymphocytes % 16.6 Magnesium Level 2.1 Mean Corpuscular Hemoglobin 31.0 Mean Corpuscular Hemoglobin Concent 33.8 Mean Corpuscular Volume 91.7 Mean Platelet Volume 8.6 Monocytes # 0.6 Monocytes % 6.4 Neutrophils # 7.2 Neutrophils % 73.2 Nucleated Red Blood Cells # 0.0 Nucleated Red Blood Cells % 0.0 Phosphorus Level 4.2 Platelet Count 391 Potassium Level 4.5 Red Blood Count 3.61 L Red Cell Distribution Width 12.1 Sodium Level 138 White Blood Count 9.9 Medications Medications Current Medications Ondansetron HCl (Zofran Inj) 4 mg Q6H PRN IV NAUSEA AND/OR VOMITING Last administered on 11/08/16 21:46; Admin Dose 4 MG; Start 10/27/16 at 18:30 Docusate Sodium (Colace) 100 mg Q12H PRN PO CONSTIPATION; Start 10/27/16 at 18: 30 Bisacodyl 5 mg 5 mg DAILY PRN PO CONSTIPATION; Start 10/27/16 at 18:30 Ciprofloxacin/ Dextrose 200 ml @ 200 mls/hr Q12 IVPB Last administered on 08:10; Admin Dose 200 MLS/HR; Start 10/28/16 at 07:30 Metronidazole (Flagyl 500 Mg (Pmx)) 100 ml @ 100 mls/hr Q8 IVPB Last administered on 11/11/16 06:37; Admin Dose 100 MLS/HR; Start 10/28/16 at 01:00 Hydralazine HCl (Apresoline) 10 mg Q6H PRN IV SBP>160; Start 10/28/16 at 15:00 Nystatin (Nystatin Susp) 5 ml QID PO Last administered on 11/11/16 12:16; Admin Dose 5 ML; Start 10/30/16 at 17:45 Neomycin Sulfate (Neomycin) 500 mg QID PO Last administered on 11/11/16 12:16; Admin Dose 500 MG; Start 11/02/16 at 13:00 Erythromycin (Erythromycin Base (Ec)) 500 mg Q8 PO Last administered on 06:45; Admin Dose 500 MG; Start 11/02/16 at 14:00 Naloxone HCl (Narcan) 0.2 mg Q2M PRN IV FOR RESP RATE 8 OR LESS; Start 11/03/16 at 16:00 Metoclopramide HCl (Reglan) 10 mg Q6 IV Last administered on 11/11/16 12:16; Admin Dose 10 MG; Start 11/04/16 at 00:00 Pantoprazole (Protonix Iv) 40 mg DAILY@06 IV Last administered on 11/11/16 06: 37; Admin Dose 40 MG; Start 11/04/16 at 06:00 Enoxaparin Sodium (Lovenox) 40 mg DAILY SC Last administered on 11/11/16 09:10 ; Admin Dose 40 MG; Start 11/04/16 at 09:00 Zolpidem Tartrate (Ambien) 5 mg HS PRN PO INSOMNIA Last administered on 23:47; Admin Dose 5 MG; Start 11/03/16 at 18:30 Methylnaltrexone [place] (Relistor) 12 mg Q48H SC Last administered on 08:17; Admin Dose 12 MG; Start 11/09/16 at 09:00 Hydromorphone HCl (Dilaudid) 1 mg Q8 PRN IV PAIN; Start 11/11/16 at 14:00 Acetaminophen/ Hydrocodone Bitart ([place] (7.5-325)) 1 tab Q4H PRN PO PAIN LEVEL 7-10; Start 11/11/16 at 13:00 FAM OSULLIVAN NP Nov 11, 2016 13:05
[2016-11-11] MEDS: metroNIDAZOLE 500 MG TAB PO SCH ×2 (13:58→22:00)
[2016-11-11] MEDS ORDERED: HYDROmorphONE 1 MG/ML SYG IV PRN (14:00)
[2016-11-11] MEDS: HYDROCODONE/APAP (7.5/325) TAB PO PRN ×2 (16:26→20:17)
[2016-11-11] MEDS: CIPROFLOXACIN 500 MG TAB PO SCH (17:45)
[2016-11-11 19:00] VITALS: BP 122/60; RESP 16
--- NOTE | 2016-11-11 22:05 | PN ---
Date/Time of Note Date/Time of Note DATE: 11/11/16 TIME: 22:04 Assessment/Plan VTE Prophylaxis VTE Prophylaxis Intervention: SCD's Lines/Catheters IV C[facility]ter Type (from [facility]): Peripheral IV Urinary Cath still in place: No Assessment/Plan Assessment/Plan 1. Perforated diverticulitis and enlarged appendiceal mucocele status post appendectomy and partial colectomy with anastomosis on 11/03/2016. Continue postoperative care. 2. Pelvic mass. Status post left salpingo-oophorectomy, left ureteral dissection with repositioning, and omentectomy with staging. Pathology negative for any malignancy. Continue postoperative care. 3. Urinary tract infection. On antibiotics as per infectious diseases. 4. Essentially hypertension. Continue antihypertensives. 5. Obesity. Weight reduction advised. 6. Normocytic normochromic anemia with underlying iron deficiency. Continue to monitor the H and H closely. 7. Vaginal candidiasis. Status post treatment. 8. Fluid, electrolytes, and nutrition. On a soft diet. Advance diet as per surgery. 9. Deep venous thrombosis prophylaxis. Subcutaneous Lovenox. 10. Gastrointestinal prophylaxis. Proton pump inhibitors. d/c to Home on Tuesday with home health set up Subjective 24 Hr Interval Summary Free Text/Dictation drain removed, BP stable, general surgery following, tolerating PO diet well Exam/Review of Systems Vital Signs Vitals Vital Signs Date Time Temp Pulse Resp B/P Pulse Ox O2 Delivery O2 Flow Rate FiO2 11/11/16 19:00 98.8 70 16 122/60 100 11/10/16 04:00 Nasal Cannula 2.0 Intake and Output 11/10/16 11/10/16 11/11/16 15:00 23:00 07:00 Intake Total 1800 ml 2400 ml Output Total 680 ml Balance 1800 ml 1720 ml Results Result Diagram: 11/11/16 0535 11/11/16 0535 Results 24 hrs Laboratory Tests Test 11/11/16 05:35 Anion Gap 16 Basophils # 0.1 Basophils % 0.5 Blood Urea Nitrogen 8 Calcium Level 8.4 Carbon Dioxide Level 26 Chloride Level 101 Creatinine 0.54 Eosinophils # 0.3 Eosinophils % 2.5 Glucose Level 105 Hematocrit 33.1 L Hemoglobin 11.2 L Lymphocytes # 1.6 Lymphocytes % 16.6 Magnesium Level 2.1 Mean Corpuscular Hemoglobin 31.0 Mean Corpuscular Hemoglobin Concent 33.8 Mean Corpuscular Volume 91.7 Mean Platelet Volume 8.6 Monocytes # 0.6 Monocytes % 6.4 Neutrophils # 7.2 Neutrophils % 73.2 Nucleated Red Blood Cells # 0.0 Nucleated Red Blood Cells % 0.0 Phosphorus Level 4.2 Platelet Count 391 Potassium Level 4.5 Red Blood Count 3.61 L Red Cell Distribution Width 12.1 Sodium Level 138 White Blood Count 9.9 Medications Medications Current Medications Ondansetron HCl (Zofran Inj) 4 mg Q6H PRN IV NAUSEA AND/OR VOMITING Last administered on 11/08/16 21:46; Admin Dose 4 MG; Start 10/27/16 at 18:30 Docusate Sodium (Colace) 100 mg Q12H PRN PO CONSTIPATION; Start 10/27/16 at 18: 30 Bisacodyl (Dulcolax) 5 mg DAILY PRN PO CONSTIPATION; Start 10/27/16 at 18:30 Hydralazine HCl (Apresoline) 10 mg Q6H PRN IV SBP>160; Start 10/28/16 at 15:00 Nystatin (Nystatin Susp) 5 ml QID PO Last administered on 11/11/16 20:16; Admin Dose 5 ML; Start 10/30/16 at 17:45 Neomycin Sulfate (Neomycin) 500 mg QID PO Last administered on 11/11/16 20:21; Admin Dose 500 MG; Start 11/02/16 at 13:00 Erythromycin (Erythromycin Base (Ec)) 500 mg Q8 PO Last administered on 22:00; Admin Dose 500 MG; Start 11/02/16 at 14:00 Naloxone HCl (Narcan) 0.2 mg Q2M PRN IV FOR RESP RATE 8 OR LESS; Start 11/03/16 at 16:00 Metoclopramide HCl (Reglan) 10 mg Q6 IV Last administered on 11/11/16 17:45; Admin Dose 10 MG; Start 11/04/16 at 00:00 Enoxaparin Sodium (Lovenox) 40 mg DAILY SC Last administered on 11/11/16 09:10 ; Admin Dose 40 MG; Start 11/04/16 at 09:00 Zolpidem Tartrate (Ambien) 5 mg HS PRN PO INSOMNIA Last administered on 23:47; Admin Dose 5 MG; Start 11/03/16 at 18:30 Methylnaltrexone Cranks (Relistor) 12 mg Q48H SC Last administered on 08:17; Admin Dose 12 MG; Start 11/09/16 at 09:00 Hydromorphone HCl (Dilaudid) 1 mg Q8 PRN IV PAIN; Start 11/11/16 at 14:00 Acetaminophen/ Hydrocodone Bitart (Joaquin (7.5-325)) 1 tab Q4H PRN PO PAIN LEVEL 7-10 Last administered on 11/11/16 20:17; Admin Dose 1 TAB; Start 11/11/16 at 13:00 Ciprofloxacin (Cipro) 500 mg BID@06,18 PO Last administered on 11/11/16 17:45; Admin Dose 500 MG; Start 11/11/16 at 18:00 Metronidazole (Flagyl) 500 mg Q8 PO Last administered on 11/11/16 22:00; Admin Dose 500 MG; Start 11/11/16 at 14:00 Pantoprazole (Protonix Tab) 40 mg DAILY@06 PO ; Start 11/12/16 at 06:00 FADI HARTMANN MD Nov 11, 2016 22:05
[2016-11-12] MEDS: METOCLOPRAMIDE 10 MG INJ IV SCH ×3 (01:00→13:30)
[2016-11-12] MEDS: ZOLPIDEM 5 MG TAB PO PRN (01:00)
[2016-11-12] MEDS: HYDROCODONE/APAP (7.5/325) TAB PO PRN ×4 (01:00→13:30)
[2016-11-12] MEDS: ERYTHROMYCIN BASE (EC) 500 MG TAB PO SCH ×2 (05:21→13:29)
[2016-11-12] MEDS: metroNIDAZOLE 500 MG TAB PO SCH ×2 (05:22→13:30)
[2016-11-12] MEDS: CIPROFLOXACIN 500 MG TAB PO SCH (05:22)
[2016-11-12] MEDS ORDERED: PANTOPRAZOLE (EC) 40 MG TAB PO SCH (06:00)
[2016-11-12 07:45] VITALS: BP 101/50; RESP 20
[2016-11-12] MEDS: NYSTATIN SUSP 5 ML CUP PO SCH ×2 (08:29→13:29)
[2016-11-12] MEDS: NEOMYCIN 500 MG TAB PO SCH ×2 (08:30→13:30)
[2016-11-12] MEDS: ENOXAPARIN 40 MG/0.4 ML SYG SC SCH (08:33)
--- NOTE | 2016-11-12 11:03 | PDOCDIS ---
Discharge Instructions CONDITION Patient Condition: Good HOME CARE INSTRUCTIONS: Special Diet: mech soft ACTIVITY: Activity Restrictions: Slowly Increase Activity Rest between Activity Avoid heavy lifting Avoid Heavy Housework FOLLOW UP/APPOINTMENTS Appointments follow up with her own PMD in 1-2 weeek. Follow up with Gen surgery DR.Andrew Orosco in 1-2 week after discharge,. pt is also advised to follow up at [facility] to establish primary care FADI HARTMANN MD Nov 12, 2016 11:02
[2016-11-12] MEDS ORDERED: HYDR-905 PO (11:05)
[2016-11-12] MEDS ORDERED: METO10TA92 PO (11:05)
[2016-11-12] MEDS ORDERED: FAMO-18 PO (11:05)
[2016-11-12] MEDS ORDERED: METR500T14 PO (11:05)
[2016-11-12] MEDS ORDERED: CIPR500T4 PO (11:05)
--- NOTE | 2016-11-12 11:56 | CONS ---
Date/Time of Note Date/Time of Note DATE: 11/12/16 TIME: 11:55 Assessment/Plan Assessment/Plan Chief Complaint/Hosp Course SUBJECTIVE: No acute changes overnight, alert, feels good, no fevers ANTIMICROBIALS: 1. Erythromycin. 2. Cipro 3. Flagyl. PHYSICAL EXAMINATION: GENERAL: This is a morbidly obese, middle-aged woman who is lying comfortably in bed. HEENT: Head atraumatic, normocephalic. Sclerae anicteric. Buccal mucosa dry. NECK: Supple. CHEST: Rise symmetrical. Breath sounds diminished. HEART: S1, S2. ABDOMEN: Obese, mid abdominal dressing intact. The patient has right CASSIE. EXTREMITIES: With trace edema. ASSESSMENT: 1. S/p systemic inflammatory response syndrome. 2. Perforated diverticulitis with a large appendiceal mucocele status post resection, partial laminectomy, as well as left oophorectomy, ureterolysis and surgery on the right ovarian cyst. Surgery was performed both by Dr. Orosco and Dr. Salazar 11/05/16 . 3. Morbid obesity. 4. Status post urinary tract infection. 5. S/p post-op ileus PLAN: The patient remains stable. Continue abx for 7 more days, pending dc plan DW pt Problems: Consultation Date/Type/Reason Admit Date/Time Oct 27, 2016 at 18:25 Initial Consult Date 10/27/16 Type of Consultation: ID Exam/Review of Systems Vital Signs Vitals Vital Signs Date Time Temp Pulse Resp B/P Pulse Ox O2 Delivery O2 Flow Rate FiO2 11/12/16 07:45 98.2 71 20 101/50 95 11/10/16 04:00 Nasal Cannula 2.0 Intake and Output 11/11/16 11/11/16 11/12/16 15:00 23:00 07:00 Intake Total 200 ml 1160 ml 1000 ml Output Total 1400 ml 650 ml Balance 200 ml -240 ml 350 ml Results Result Diagram: 11/11/16 0535 11/11/16 0535 Medications Medications Current Medications Ondansetron HCl (Zofran Inj) 4 mg Q6H PRN IV NAUSEA AND/OR VOMITING Last administered on 11/08/16t 21:46; Admin Dose 4 MG; Start 10/27/16 at 18:30 Docusate Sodium (Colace) 100 mg Q12H PRN PO CONSTIPATION; Start 10/27/16 at 18: 30 Bisacodyl (Dulcolax) 5 mg DAILY PRN PO CONSTIPATION; Start 10/27/16 at 18:30 Hydralazine HCl (Apresoline) 10 mg Q6H PRN IV SBP>160; Start 10/28/16 at 15:00 Nystatin (Nystatin Susp) 5 ml QID PO Last administered on 11/12/16 08:29; Admin Dose 5 ML; Start 10/30/16 at 17:45 Neomycin Sulfate (Neomycin) 500 mg QID PO Last administered on 11/12/16 08:30 ; Admin Dose 500 MG; Start 11/02/16 at 13:00 Erythromycin (Erythromycin Base (Ec)) 500 mg Q8 PO Last administered on 05:21; Admin Dose 500 MG; Start 11/02/16 at 14:00 Naloxone HCl (Narcan) 0.2 mg Q2M PRN IV FOR RESP RATE 8 OR LESS; Start 11/03/16 at 16:00 Metoclopramide HCl (Reglan) 10 mg Q6 IV Last administered on 11/12/16 05:22; Admin Dose 10 MG; Start 11/04/16 at 00:00 Enoxaparin Sodium (Lovenox) 40 mg DAILY SC Last administered on 11/12/16 08:33 ; Admin Dose 40 MG; Start 11/04/16 at 09:00 Zolpidem Tartrate (Ambien) 5 mg HS PRN PO INSOMNIA Last administered on 01:00; Admin Dose 5 MG; Start 11/03/16 at 18:30 Methylnaltrexone [place] (Relistor) 12 mg Q48H SC Last administered on 08:17; Admin Dose 12 MG; Start 11/09/16 at 09:00 Hydromorphone HCl (Dilaudid) 1 mg Q8 PRN IV PAIN; Start 11/11/16 at 14:00 Acetaminophen/ Hydrocodone Bitart (Cable (7.5-325)) 1 tab Q4H PRN PO PAIN LEVEL 7-10 Last administered on 11/12/16 09:33; Admin Dose 1 TAB; Start at 13:00 Ciprofloxacin (Cipro) 500 mg BID@18 PO Last administered on 11/12/16 05:22 ; Admin Dose 500 MG; Start 11/11/16 at 18:00 Metronidazole (Flagyl) 500 mg Q8 PO Last administered on 11/12/16 05:22; Admin Dose 500 MG; Start 11/11/16 at 14:00 Pantoprazole (Protonix Tab) 40 mg DAILY@06 PO Last administered on 11/12/16 05 :22; Admin Dose 40 MG; Start 11/12/16 at 06:00 FAM OSULLIVAN NP Nov 12, 2016 11:56
--- NOTE | 2016-11-14 23:42 | DS ---
DATE OF ADMISSION: 10/27/2016 DATE OF DISCHARGE: 11/12/2016 FINAL DISCHARGE DIAGNOSES: 1. Perforated diverticulitis with enlarged appendiceal mucocele status post appendectomy and partia l colectomy with anastomosis on 11/03/2016. 2. Pelvic mass, status post left salpingo-oophorectomy, left ureteral dissection with repositioning and omentectomy with staging pathology negative for any malignancy. 3. Urinary tract infection. 4. Essential hypertension. 5. Morbid obesity. 6. Normocytic normochromic anemia with underlying iron deficiency. 7. Vaginal candidiasis. CONSULTATIONS DONE DURING THIS HOSPITALIZATION: 1. General surgery consult. 2. [facility] consult. 3. Infectious disease consult, Dr. Echevarria. OPERATIONS PERFORMED DURING THIS HOSPITALIZATION: 1. The patient underwent appendectomy and partial colectomy with anastomosis on 11/03/2016. 2. The patient is status post left salpingo-oophorectomy, left ureteral dissection with repositioni ng and omentectomy with staging pathology negative for malignancy. HOSPITAL COURSE: This is a 46-year-old female with a past medical history of hypertension, history of morbid obesity, and chronic anemia who presented with a complaint of abdominal pain. The patient presented with abdominal discomfort on and off for the past 1 month and associated with abdominal d istention and ____ of severe abdominal pain. The patient was noted to have a pelvic mass associated with diverticulitis and mild perforation of the viscus. Her case was discussed with Dr. Cruz from [facility] and Dr. Orosco from general surgery. She underwent 2 kinds of surgery, appendicectomy a nd partial colectomy with anastomosis on 11/03/2016. She also underwent left salpingo-oophorectomy with left ureteral dissection with repositioning and omentectomy with staging pathology negative for any malignancy. She remained in the hospital. The patient has a Green catheter and also had a navin g postoperative course. She slowly gradually improved back to the normal. Her NG tube was disconti nued. Her Green catheter was discontinued. She only had a pelvic incision. After getting clearanc e from general surgery, the patient was discharged home. The patient has emergency medical, so she was also attempted to set up for home health upon discharge. The patient is advised to follow up at the [facility] for further care. DISPOSITION: To home. DISCHARGE CONDITION: Stable and improved compared to admission. DISCHARGE ACTIVITIES: As tolerated, slowly resume to the normal baseline activity. DISCHARGE DIET: Regular diet. DISCHARGE MEDICATIONS: 1. She is given prescription of [place]ar for pain control upon discharge. 2. She is also given prescriptions for Cipro. 3. Flagyl to cover for the next 7 days course upon discharge. DISCHARGE FOLLOWUP INSTRUCTIONS: 1. The patient is to follow up with her own primary care doctor through her HMO insurance 1 to 2 we eks after discharge. 2. The patient is to follow up with [facility] for further primary care and con tinuity of care. Dictated By: FADI HARTMANN MD, KP/LIBAN Conf#: [id number] DID#: [id number]
== END 2016-11-12 15:00 | disposition home health service (06) | DRG 854 ==
LOC: FTE 13:16 → MS2 18:25 → MS1 11-03 20:25 → TEL 11-03 21:15 → MS2 11-10 08:10
PROVIDERS: ADMIT Family Medicine; ATTEND Family Medicine
PROC: 0UB10ZZ Excision of Left Ovary, Open Approach (ICD-10-PCS; 2016-11-03)
PROC: 0UB60ZZ Excision of Left Fallopian Tube, Open Approach (ICD-10-PCS; 2016-11-03)
PROC: 0TN70ZZ Release Left Ureter, Open Approach (ICD-10-PCS; 2016-11-03)
PROC: 0US90ZZ Reposition Uterus, Open Approach (ICD-10-PCS; 2016-11-03)
PROC: 0DBN0ZZ Excision of Sigmoid Colon, Open Approach (ICD-10-PCS; principal; 2016-11-03 15:00)
PROC: 0DTS0ZZ (ICD-10-PCS; 2016-11-03 15:00)
PROC: 0DTJ0ZZ Resection of Appendix, Open Approach (ICD-10-PCS; 2016-11-03 15:00)
DX: A41.9 Sepsis, unspecified organism (principal); K57.80 Diverticulitis of intestine, part unspecified, with perforation and abscess without bleeding; B37.0 Candidal stomatitis; K76.0 Fatty (change of) liver, not elsewhere classified; Z68.41 Body mass index [BMI] 40.0-44.9, adult; N20.1 Calculus of ureter; K91.3 Postprocedural intestinal obstruction; N39.0 Urinary tract infection, site not specified; B37.3 Candidiasis of vulva and vagina; B96.20 Unspecified Escherichia coli [E. coli] as the cause of diseases classified elsewhere; K38.8 Other specified diseases of appendix; N83.201 Unspecified ovarian cyst, right side; N83.202 Unspecified ovarian cyst, left side; E61.1 Iron deficiency; I10 Essential (primary) hypertension; E66.9 Obesity, unspecified; D64.9 Anemia, unspecified; D63.8 Anemia in other chronic diseases classified elsewhere; R19.09 Other intra-abdominal and pelvic swelling, mass and lump; Z88.3 Allergy status to other anti-infective agents; Z87.891 Personal history of nicotine dependence; G89.18 Other acute postprocedural pain
CPT/HCPCS: 72197; 74000; 74177; 74178; 74183; 76830; 76856; 80048; 80053; 80061; 81001; 81003; 82150; 82378; 82550; 82553; 82728; 83036; 83540; 83605; 83690; 83735; 84100; 84439; 84443; 84484; 85014; 85018; 85025; 85610; 85730; 86301; 86304; 86850; 86900; 86901; 86920; 87040; 87086; 87400; 88304; 88305; 88307; 88331; 93005; 96361; 96365; 96375; 97116; 97162; 97530; C9113; J0131; J0744; J1170; J1610; J1650; J1885; J2250; J2270; J2274; J2405; J2710; J2765; J3010; J3480; J7030; J7040; Q9967

== ENCOUNTER 2016-11-23 19:33 | Emergency (ER) | payer MEDICAID ==
[~2016-11-23] VITALS: Wt 81.5 kg
[~2016-11-23 19:33] MED LIST: CIPR500T4 PO; FAMO-18 PO; HYDR-905 PO; METO10TA92 PO; METR500T14 PO
[2016-11-23] MEDS ORDERED: morphine 4 MG/ML VIAL IV STA (21:58)
[2016-11-23] MEDS ORDERED: SOD CHLORIDE 0.9% 1,000 ML IV STA (21:58)
[2016-11-23] MEDS ORDERED: ONDANSETRON 4 MG INJ IV STA (21:58)
--- NOTE | 2016-11-23 22:17 | ERD ---
ER Documentation Chief Complaint Date/Time DATE: 11/23/16 TIME: 22:11 Chief Complaint Abdominal pain and fever started today. HPI 46-year-old female presents here in emergency department for complaints of lower abdominal pain and fever started today. Patient had recent multiple abdominal surgeries done Left salpingoophorectomy 2- Left ureteral dissection with repositioning 3- Omentectomy with staging 4-Partial colectomy with anastamosis5-Appendectomy, was diagnosed to have diverticulitis, pelvic mass, , was recently discharge on 11/12/2016, patient did not have any fever after being released, patient had a postoperative evaluation done 4 days ago, patient only started to have severe abdominal pain and lower abdominal pain today and fever. Patient describes the pain as throbbing pain, 8/10 scale, not better or worse with anything. Patient denies any nausea or vomiting. She denies hematuria or dysuria. Patient any flank pain. Patient denies any sick contacts. ROS All systems reviewed and are negative except as per history of present illness. Medications Home Meds Active Scripts Hydrocodone/Acetaminophen ([place] 7.5-325 Tablet) 1 Each Tablet, 1 EACH PO Q8 Y for SEVERE PAIN LEVEL 7-10, #30 TAB Prov:FADI HARTMANN MD 11/12/16 Metoclopramide* (Reglan*) 10 Mg Tablet, 10 MG PO Q6H Y for NAUSEA AND OR VOMITING, #30 TAB Prov:FADI HARTMANN MD 11/12/16 Famotidine* (Pepcid*) 20 Mg Tablet, 20 MG PO BID, #60 TAB Prov:FADI HARTMANN MD 11/12/16 Metronidazole* (Metronidazole*) 500 Mg Tablet, 500 MG PO TID, #21 TAB Prov:FADI HARTMANN MD 11/12/16 Ciprofloxacin Hcl* (Ciprofloxacin Hcl*) 500 Mg Tablet, 500 MG PO BID, #14 TAB Prov:FADI HARTMANN MD 11/12/16 Allergies Allergies: Coded Allergies: No Known Allergy (Unverified , 10/27/16) PMhx/Soc History of Surgery: Yes (3 CAESARIAN SECTION/ colon resection) Anesthesia Reaction: No Hx Neurological Disorder: No Hx Respiratory Disorders: No Hx Cardiac Disorders: No Hx Psychiatric Problems: No Hx Miscellaneous Medical Probl: Yes Hx Alcohol Use: No Hx Substance Use: No Hx Tobacco Use: No FmHx Family History: No coronary disease, No diabetes, No other Physical Exam Vitals Vital Signs Date Time Temp Pulse Resp B/P Pulse Ox O2 Delivery O2 Flow Rate FiO2 11/23/16 19:52 99.2 98 20 141/83 99 Physical Exam GENERAL: The patient is well developed and appropriate for usual state of health, in no apparent distress. CHEST: Clear to auscultation bilaterally. There are no rales, wheezes or rhonchi. HEART: Regular rate and rhythm. No murmurs, clicks, rubs or gallops. No S3 or S4. ABDOMEN: Soft, generalized tenderness noted lower abdominal area, noted incision midline, with some mal in place, mild erythema surrounding the area , tender on palpation.. Good bowel sounds. No rebound or guarding. No gross peritonitis. No gross organomegaly or masses. BACK: No midline or flank tenderness. EXTREMITIES: Equal pulses bilaterally. There is no peripheral clubbing, cyanosis or edema. No focal swelling or erythema. Full range of motion. Grossly neurovascularly intact. NEURO: Alert and oriented. Cranial nerves 2-12 intact. Motor strength in all 4 extremities with 5/5 strength. Sensation grossly intact. Normal speech and gait. SKIN: There is no apparent rash or petechia. The skin is warm and dry. HEMATOLOGIC AND LYMPHATIC: There is no evidence of excessive bruising or lymphedema. No gross cervical, axillary, or inguinal lymphadenopathy. Result Diagram: 11/23/16223011/23/162230 Results 24 hrs Laboratory Tests Test 11/23/16 22:31 Alanine Aminotransferase (ALT/SGPT) 36IU/L Albumin 4.2g/dl Albumin/Globulin Ratio 0.97 Alkaline Phosphatase 121IU/L Anion Gap 16 Aspartate Amino Transf (AST/SGOT) 53IU/L Basophils # 0.110^3/ul Basophils % 0.9% Blood Urea Nitrogen 17mg/dl Calcium Level 9.4mg/dl Carbon Dioxide Level 28mmol/L Chloride Level 102mmol/L Creatinine 0.63mg/dl Direct Bilirubin 0.00mg/dl Eosinophils # 0.410^3/ul Eosinophils % 4.4% Globulin 4.30g/dl Glucose Level 135mg/dl Hematocrit 38.9% Hemoglobin 12.8g/dl Indirect Bilirubin 0.2mg/dl Lipase 222U/L Lymphocytes # 2.310^3/ul Lymphocytes % 28.8% Mean Corpuscular Hemoglobin 30.7pg Mean Corpuscular Hemoglobin Concent 32.9g/dl Mean Corpuscular Volume 93.3fl Mean Platelet Volume 9.1fl Monocytes # 0.510^3/ul Monocytes % 5.7% Neutrophils # 4.810^3/ul Neutrophils % 59.8% Nucleated Red Blood Cells # 0.010^3/ul Nucleated Red Blood Cells % 0.0/100WBC Platelet Count 42591^3/UL Potassium Level 4.1mmol/L Red Blood Count 4.1710^6/ul Red Cell Distribution Width 13.3% Sodium Level 142mmol/L Total Bilirubin 0.2mg/dl Total Protein 8.5g/dl Urine Bilirubin NEGATIVE Urine Clarity CLEAR Urine Color LT. YELLOW Urine Glucose NEGATIVE% Urine Hemoglobin NEGATIVE Urine Ketones NEGATIVE Urine Leukocyte Esterase TRACE Urine Microscopic RBC 0-2/HPF Urine Microscopic WBC 2-5/HPF Urine Nitrite NEGATIVE Urine Specific [place] 1.025 Urine Squamous Epithelial Cells MODERATE Urine Total Protein NEGATIVE Urine Uric Acid Crystals FEW Urine Urobilinogen 0.2 E.U./dL Urine pH 6.0 White Blood Count 8.010^3/ul Current Medications Medications (Trade) Dose Ordered Sig/Nubia Route PRN Reason Start Time Stop Time Status Last Admin Dose Admin Sodium Chloride (NS) 1,000 ml @ 1,000 mls/hr Q1H STAT IV 11/23/16 21:58 11/23/16 22:57 DC 11/23/16 22:30 Morphine Sulfate (morphine) 4 mg ONCE STAT IV 11/23/16 21:58 11/23/16 22:00 DC 11/23/16 22:36 Ondansetron HCl 4 mg 4 mg ONCE STAT IV 11/23/16 21:58 11/23/16 22:00 DC 11/23/16 22:30 Sodium Chloride (NS) 100 ml @ ud STK-MED ONCE .ROUTE 11/23/16 23:55 11/23/16 23:56 DC 11/24/16 00:18 Iohexol (Omnipaque 300mg/ ml) 150 ml STK-MED ONCE .ROUTE 11/23/16 23:55 11/23/16 23:56 DC 11/24/16 00:18 Normal saline IV bolus was given here in emergency department for rehydration, patient tolerated IV fluids.Patient was given medication for pain here in emergency department, after treatment, patient verbalized feeling much better. Patient's pain is improved.Patient was given Zofran here in the emergency department. After treatment, patient was able to tolerate po fluids here in the emergency department without any vomiting. There is no signs and symptoms of dehydration. PROCEDURE: CT Abdomen and Pelvis with contrast. CLINICAL INDICATION: Abdominal pain TECHNIQUE: CT scan of the abdomen and pelvis with contrast was performed on a multidetector high-resolution CT scanner. 100 cc of Omnipaque-300 was injected intravenously.. No oral contrast was administered. Coronal and sagittal reformatted images were obtained from the axial source images. Images were reviewed on a high-resolution PACS workstation. The total exam CTDI equals 20.55 mGy and the total exam DLP equals 1171.45 mGy-cm. One or more of the following dose reduction techniques were used: - Automated exposure control. - Adjustment of the mA and/or kV according to patient size. - Use of iterative reconstruction technique. COMPARISON: Preoperative study of 10/31/2016 FINDINGS: Lungs: Linear atelectasis/fibrosis is seen at the lung bases. Liver: No abnormality seen. Gallbladder: No abnormality seen. Spleen: No abnormality seen. Stomach: The stomach is not fully distended. No gross abnormality seen. Pancreas: No abnormality seen. Adrenals: No abnormality seen. Kidneys: Minimal fluid in bilateral renal collecting systems. Abdominal aorta: No aneurysm seen. Lymph nodes: No enlarged lymph nodes are seen. Small bowel: There is a loop of small bowel in the left lower abdomen with maximal diameter 2.9 cm which could be secondary to mild ileus. There is no specific evidence of small bowel obstruction seen. Colon: Opaque sutures in sigmoid colon. Appendix: Appendectomy. Bladder: No abnormality seen Pelvic organs: No abnormality seen. Likely small Nabothian cyst in cervix. Ascites: None seen. No pneumoperitoneum is seen. Osseous structures: Minimal facet hypertrophy in lower lumbar spine. Mild degenerative disk changes at L5-S1. Minimal degenerative changes at sacroiliac joints. Skin mal midline anterior abdominal wall with underlying soft tissue stranding and small amount of fluid in the subcutaneous fat consistent with postoperative changes. Small surgical clip in subcutaneous fat anterior abdominal wall just above the level of the umbilicus. Very small umbilical hernia containing fat. Mild soft tissue stranding in the mesenteric fat in the left upper pelvis, likely postoperative changes. Mild subcutaneous fat soft tissue stranding in the left lateral lower abdomen upper pelvis likely postoperative. There is no evidence of intra-abdominal or intrapelvic abscess seen. IMPRESSION: Consistent with post operative changes noted above. Please see above. RPTAT: HJES .Jerome Lewis MD, MD Date Time Electronically viewed and signed by .Jerome Lewis MD, MD on 11/24/2016 00:34 .S/ CC: TOAN MOORE IVORY POLISHER Procedures/MDM Medical Decision Making: Patient is abdominal pain nonspecific at this time, possibly postoperative pain. Patient verbalizes that she had a fever, no documented fever here in emergency department, it is controlled, patient also does not have a leukocytosis, no bandemia. Suspicion for any postoperative complications. No abscess noted. No superficial cellulitis noted. There is low suspicion for abdominal emergencies at this time. Patients abdominal exam is normal at this time. Patients radiology exam does not show any abdominal emergencies at this time. There is low suspicion for appendicitis, cholecystitis , abdominal aortic aneurysms or peritonitis at this time. There is low suspicion for sepsis. Patient appears well and is hemodynamically stable. Disposition: Home. Condition: Stable Prescription [place] for severe pain, Colace, MiraLAX Instructions: Patient is advised to take medications as prescribed. Patient is advised to rest, increase fluid intake and do brat diet for next 1-2 days and progress as tolerated. Patient is advised that if symptoms are worse, severe abdominal pain, uncontrolled vomiting, high fever, severe flank pain, worst signs and symptoms, to return to the emergency department immediately. Otherwise, patient can follow up with primary care doctor in 5-7 days. Departure Diagnosis: Primary Impression: Abdominal pain Abdominal location: lower abdomen, unspecified Qualified Code: R10.30 - Lower abdominal pain Condition: Stable Patient Instructions: Post Op Wound Check, Pain Additional Instructions: Patient is advised to take medications as prescribed. Patient is advised to rest, increase fluid intake and do brat diet for next 1-2 days and progress as tolerated. Patient is advised that if symptoms are worse, severe abdominal pain , uncontrolled vomiting, high fever, severe flank pain, worst signs and symptoms , to return to the emergency department immediately. Otherwise, patient can follow up with primary care doctor in 5-7 days. TOAN MOORE NP Nov 23, 2016 22:16
[2016-11-23 22:43] LABS: ADD SCAN DIFF NO
[2016-11-23 22:46] LABS: BASOPHIL # 0.1 10^3/ul (0.0-0.1); BASOPHILS % 0.9 % (0.0-2.0); EOSINOPHILS # 0.4 10^3/ul (0.0-0.5); EOSINOPHILS % 4.4 % (0.0-7.0); HEMATOCRIT 38.9 % (37.0-47.0); HEMOGLOBIN 12.8 g/dl (12.0-16.0); LYMPHOCYTES # 2.3 10^3/ul (0.8-2.9); LYMPHOCYTES % 28.8 % (15.0-51.0); MEAN CORPUSCULAR HEMOGLOBIN 30.7 pg (29.0-33.0); MEAN CORPUSCULAR HGB CONC 32.9 g/dl (32.0-37.0); MEAN CORPUSCULAR VOLUME 93.3 fl (82.0-101.0); MEAN PLATELET VOLUME 9.1 fl (7.4-10.4); MONOCYTE # 0.5 10^3/ul (0.3-0.9); MONOCYTES % 5.7 % (0.0-11.0); NEUTROPHIL # 4.8 10^3/ul (1.6-7.5); NEUTROPHILS % 59.8 % (39.0-77.0); PLATELET COUNT 343 10^3/UL (140-415); RED BLOOD COUNT 4.17 10^6/ul (4.20-5.40); RED CELL DISTRIBUTION WIDTH 13.3 % (11.5-14.5)
[2016-11-23 22:48] LABS: ADD UMIC YES; URINE BILIRUBIN (Dip) NEGATIVE (NEGATIVE); URINE BLOOD (Dip) NEGATIVE (NEGATIVE); URINE COLOR LT. YELLOW (YELLOW); URINE GLUCOSE (Dip) NEGATIVE (NEGATIVE); URINE KETONES (Dip) NEGATIVE (NEGATIVE); URINE LEUKOCYTE ESTERASE (Dip) TRACE (NEGATIVE); URINE NITRITE (Dip) NEGATIVE (NEGATIVE); URINE TOTAL PROTEIN (Dip) NEGATIVE (NEGATIVE); URINE UROBILINOGEN (Dip) 0.2 E.U./dL (0.1-1.0)
[2016-11-23 22:58] LABS: ALBUMIN 4.2 g/dl (3.3-4.9); POTASSIUM 4.1 mmol/L (3.5-5.1)
[2016-11-23 23:00] LABS: CREATININE 0.63 mg/dl (0.44-1.00)
[2016-11-23 23:01] LABS: ALBUMIN/GLOBULIN RATIO 0.97; BILIRUBIN,INDIRECT 0.2 mg/dl (0-1.1); BILIRUBIN,TOTAL 0.2 mg/dl (0.2-1.3); CALCIUM 9.4 mg/dl (8.4-10.2); TOTAL PROTEIN 8.5 g/dl (6.1-8.1)
[2016-11-23 23:05] LABS: SQUAMOUS EPITHELIAL CELL,UR MODERATE; URIC ACID CRYSTALS,URINE FEW; URINE RBCS 0-2 /HPF (0)
[2016-11-23] MEDS ORDERED: SOD CHLORIDE 0.9% 100 ML ONE (23:55)
[2016-11-23] MEDS ORDERED: IOHEXOL 300MG/ML 150 ML BTL ONE (23:55)
--- NOTE | 2016-11-24 00:34 | RADRPT ---
PROCEDURE: CT Abdomen and Pelvis with contrast. CLINICAL INDICATION: Abdominal pain TECHNIQUE: CT scan of the abdomen and pelvis with contrast was performed on a multidetector high-r Rethinkolution CT scanner. 100 cc of Omnipaque-300 was injected intravenously.. No oral contrast was admi nistered. Coronal and sagittal reformatted images were obtained from the axial source images. Images were reviewed on a high-resolution PACS workstation. The total exam CTDI equals 20.55 mGy and the total exam DLP equals 1171.45 mGy-cm. One or more of the following dose reduction techniques were used: - Automated exposure control. - Adjustment of the mA and/or kV according to patient size. - Use of iterative reconstruction technique. COMPARISON: Preoperative study of 10/31/2016 FINDINGS: Lungs: Linear atelectasis/fibrosis is seen at the lung bases. Liver: No abnormality seen. Gallbladder: No abnormality seen. Spleen: No abnormality seen. Stomach: The stomach is not fully distended. No gross abnormality seen. Pancreas: No abnormality seen. Adrenals: No abnormality seen. Kidneys: Minimal fluid in bilateral renal collecting systems. Abdominal aorta: No aneurysm seen. Lymph nodes: No enlarged lymph nodes are seen. Small bowel: There is a loop of small bowel in the left lower abdomen with maximal diameter 2.9 cm w hich could be secondary to mild ileus. There is no specific evidence of small bowel obstruction see n. Colon: Opaque sutures in sigmoid colon. Appendix: Appendectomy. Bladder: No abnormality seen Pelvic organs: No abnormality seen. Likely small Nabothian cyst in cervix. Ascites: None seen. No pneumoperitoneum is seen. Osseous structures: Minimal facet hypertrophy in lower lumbar spine. Mild degenerative disk changes at L5-S1. Minimal degenerative changes at sacroiliac joints. Skin mal midline anterior abdominal wall with underlying soft tissue stranding and small amount of fluid in the subcutaneous fat consistent with postoperative changes. Small surgical clip in subc utaneous fat anterior abdominal wall just above the level of the umbilicus. Very small umbilical he rnia containing fat. Mild soft tissue stranding in the mesenteric fat in the left upper pelvis, like ly postoperative changes. Mild subcutaneous fat soft tissue stranding in the left lateral lower abdo men upper pelvis likely postoperative. There is no evidence of intra-abdominal or intrapelvic absce ss seen. IMPRESSION: Consistent with post operative changes noted above. Please see above. RPTAT: HJES .Jerome Lewis MD, MD Date Time Electronically viewed and signed by .Jerome Lewis MD, on 11/24/2016 00:34 .S/
[2016-11-24] MEDS ORDERED: POLY17PO6 PO (00:43)
[2016-11-24] MEDS ORDERED: DOCU-144 PO (00:43)
[2016-11-24] MEDS ORDERED: HYDR-906 PO (00:43)
[2016-11-24 02:09] VITALS: BP 127/77; PULSE 85; RESP 20; TEMP 99.1
== END 2016-11-24 02:10 | disposition home or self-care (01) ==
LOC: FTE 19:33
DX: R10.30 Lower abdominal pain, unspecified (principal)
CPT/HCPCS: 36415; 74177; 80053; 81001; 83690; 85025; 96374; 96375; J2270; J2405; J7030; Q9967; Z7502; Z7610; 81003

== ENCOUNTER 2016-12-10 01:24 | Emergency (ER) | payer MEDICAID ==
[~2016-12-10] VITALS: Ht 144.8 cm; Wt 82.0 kg
[~2016-12-10 01:24] MED LIST changes: +DOCU-144 PO; +HYDR-906 PO; +POLY17PO6 PO
[2016-12-10 01:37] VITALS: Ht 144.8 cm; Wt 82.0 kg
[2016-12-10] MEDS ORDERED: METHYLPREDNISOLONE 125 MG INJ IM ONE (03:00)
[2016-12-10] MEDS ORDERED: DIPHENHYDRAMINE 50 MG INJ IM ONE (03:00)
[2016-12-10] MEDS ORDERED: EPIN0.3P4 INJ (04:17)
[2016-12-10] MEDS ORDERED: PRED20TA PO (04:17)
[2016-12-10] MEDS ORDERED: BEN25 PO (04:17)
--- NOTE | 2016-12-10 04:27 | ERD ---
ER Documentation Chief Complaint Date/Time DATE: 12/10/16 TIME: 04:24 Chief Complaint Hives and rash all over the body started at 1630 HPI 46-year-old female patient presents to the ED with no synovial past medical history complaining of hives in her bilateral arms, upper back and chest area. Patient presents with her daughter and she applied calamine lotion earlier today at 4:30 PM. Reports that this did not alleviate her symptoms. Denies any new exposure to pets or insects. Denies any new use of soaps or detergents, wearing any new clothing. Denies taking any new medications. Denies eating any new foods. Denies any fever, chills, abdominal pain, short is breath, lip swelling, tongue swelling, wheezing. ROS All systems reviewed and are negative except as per history of present illness. Medications Home Meds Active Scripts Epinephrine (Epipen 2-Joe) 0.3 Mg/0.3 Ml Pen.injctr, 1 EA INJ ONCE Y for ALLERGIC REACTION, #1 EA Prov:TASNEEM APPLE PA-C 12/10/16 Prednisone* (Prednisone*) 20 Mg Tab, 40 MG PO DAILY for 4 Days, TAB Prov:TASNEEM APPLE PA-C 12/10/16 Diphenhydramine Hcl* (Benadryl*) 25 Mg Cap, 25 MG PO Q6 Y for ITCHING/RASH, #30 TAB Prov:TASNEEM APPLE PA-C 12/10/16 Docusate Sodium* (Colace*) 100 Mg Capsule, 100 MG PO TID, #30 CAP Prov:TOAN MOORE NP 11/24/16 Polyethylene Glycol* (Miralax*) 17 Gm Powd.pack, 17 GM PO DAILY, #7 Prov:TOAN MOORE NP 11/24/16 Hydrocodone/Acetaminophen (Lorain 5-325 Tablet) 1 Each Tablet, 1 TAB PO Q6H Y for SEVERE PAIN LEVEL 7-10, #20 TAB Prov:TOAN MOORE NP 11/24/16 Hydrocodone/Acetaminophen ([place]orain 7.5-325 Tablet) 1 Each Tablet, 1 EACH PO Q8 Y for SEVERE PAIN LEVEL 7-10, #30 TAB Prov:FADI HARTMANN MD 11/12/16 Metoclopramide* (Reglan*) 10 Mg Tablet, 10 MG PO Q6H Y for NAUSEA AND OR VOMITING, #30 TAB Prov:FADI HARTMANN MD 11/12/16 Famotidine* (Pepcid*) 20 Mg Tablet, 20 MG PO BID, #60 TAB Prov:FADI HARTMANN MD 11/12/16 Metronidazole* (Metronidazole*) 500 Mg Tablet, 500 MG PO TID, #21 TAB Prov:FADI HARTMANN MD 11/12/16 Ciprofloxacin Hcl* (Ciprofloxacin Hcl*) 500 Mg Tablet, 500 MG PO BID, #14 TAB Prov:FADI HARTMANN MD 11/12/16 Allergies Allergies: Coded Allergies: No Known Allergy (Unverified , 10/27/16) PMhx/Soc History of Surgery: Yes (3 CAESARIAN SECTION/ colon resection) Anesthesia Reaction: No Hx Neurological Disorder: No Hx Respiratory Disorders: No Hx Cardiac Disorders: No Hx Psychiatric Problems: No Hx Miscellaneous Medical Probl: No Hx Alcohol Use: No Hx Substance Use: No Hx Tobacco Use: No Smoking Status: Never smoker Physical Exam Vitals Vital Signs Date Time Temp Pulse Resp B/P Pulse Ox O2 Delivery O2 Flow Rate FiO2 12/10/16 01:37 99.4 89 18 155/79 99 Physical Exam Const: [id number]-[id number], well-nourished. In no acute distress. Head: Atraumatic, normocephalic Eyes: Normal Conjunctiva without injection. No purulent discharge. PERRL. EOMI ENT: Normal external ear. Ear canal without erythema. Tympanic membrane pearly hawthorne without effusion or bulging. Nasal canal clear with normal turbinates. Moist oropharynx without tonsillar exudates. Non-erythematous pharynx. Uvula midline. No drooling. No trismus. Neck: Full range of motion. No meningismus. No cervical lymphadenopathy. Resp: Clear to auscultation bilaterally. No wheezing, rhonchi, rales, or crackles. No accessory muscle use. No retractions. Cardio: Regular rate and rhythm. No murmurs, rubs or gallops. Abd: Soft, non tender, non distended. Normal bowel sounds. No palpable masses. No rebound tenderness. No guarding. Skin: No petechiae, purpura. Convoluted erythematous blanching wheals noted on her posterior back, anterior chest, bilateral upper arms. No fluctuance or induration. No bleeding noted. No purulent discharge. Back: No midline tenderness. No CVA tenderness. Ext: No cyanosis, or edema. Neur: Awake and alert. Psych: Normal Mood and Affect Results 24 hrs Current Medications Medications (Trade) Dose Ordered Sig/Nubia Route PRN Reason Start Time Stop Time Status Last Admin Dose Admin Methylprednisolone Sodium Succinate (Solu-Medrol) 125 mg ONCE ONCE IM 12/10/16 03:00 12/10/16 03:01 DC 12/10/16 03:22 Diphenhydramine HCl (Benadryl) 25 mg ONCE ONCE IM 12/10/16 03:00 12/10/16 03:01 DC 12/10/16 03:22 Procedures/MDM This is a 46-year-old female patient brought in by her daughter complaining of hives all over her body that started at 4:30 PM yesterday. Patient is afebrile and nontoxic-appearing. Patient was noted to be scratching the rashes all over her body. Patient likely has urticaria however at this time it is due to unknown etiology. Patient was treated here in the ED with 125 mg IM Solu-Medrol and 25 mg IM Benadryl. Other differential diagnosis considered include but is not limited to allergic contact dermatitis, insect bites, eczema, tinea infection, psoriasis. Low suspicion for scabies, SJS/TEN, erythema multiforme, sepsis, cellulitis, necrotizing fascitis, gangrene, meningococcemia or other emergent conditions. Discharge medications: Benadryl, Prednisone, EpiPen Follow up with primary care physician in 1-2 days for a referral for allergy testing. Instructed patient to return to the ED sooner for any worsening symptoms. Patient's questions were answered. Patient understood and agreed with discharge plan. Patient discharged stable. Departure Diagnosis: Primary Impression: Urticaria Condition: Stable Patient Instructions: Hives Referrals: COMMUNITY CLINICS YOU HAVE RECEIVED A MEDICAL SCREENING EXAM AND THE RESULTS INDICATE THAT YOU DO NOT HAVE A CONDITION THAT REQUIRES URGENT TREATMENT IN THE EMERGENCY DEPARTMENT. FURTHER EVALUATION AND TREATMENT OF YOUR CONDITION CAN WAIT UNTIL YOU ARE SEEN IN YOUR DOCTORS OFFICE WITHIN THE NEXT 1-2 DAYS. IT IS YOUR RESPONSIBILITY TO MAKE AN APPOINTMENT FOR FOLOW-UP CARE. IF YOU HAVE A PRIMARY DOCTOR --you should call your primary doctor and schedule an appointment IF YOU DO NOT HAVE A PRIMARY DOCTOR YOU CAN CALL OUR PHYSICIAN REFERRAL HOTLINE AT IF YOU CAN NOT AFFORD TO SEE A PHYSICIAN YOU CAN CHOSE FROM THE FOLLOWING [facility] [address] [facility] [address] [facility] [address] [facility] [address] [facility] [address] [facility]. [facility] [address] [facility]. [facility] YOU HAVE RECEIVED A MEDICAL SCREENING EXAM AND THE RESULTS INDICATE THAT YOU DO NOT HAVE A CONDITION THAT REQUIRES URGENT TREATMENT IN THE EMERGENCY DEPARTMENT. FURTHER EVALUATION AND TREATMENT OF YOUR CONDITION CAN WAIT UNTIL YOU ARE SEEN IN YOUR DOCTORS OFFICE WITHIN THE NEXT 1-2 DAYS. IT IS YOUR RESPONSIBILITY TO MAKE AN APPOINTMENT FOR FOLOW-UP CARE. IF YOU HAVE A PRIMARY DOCTOR --you should call your primary doctor and schedule and appointment IF YOU DO NOT HAVE A PRIMARY DOCTOR YOU CAN CALL OUR PHYSICIAN REFERRAL HOTLINE AT . IF YOU CAN NOT AFFORD TO SEE A PHYSICIAN YOU CAN CHOSE FROM THE FOLLOWING [facility]: [facility] [address] [place] [address] [facility] [address] [place] [address] [facility] [address] [place] [address] [facility] Additional Instructions: Call your primary care doctor TOMORROW for an appointment during the next 2-3 days for a referral for allergy testing. See the doctor sooner or return here if your condition worsens before your appointment time. TASNEEM APPLE PA-C Dec 10, 2016 04:27
[2016-12-10 04:38] VITALS: BP 149/77; PULSE 83; RESP 18; TEMP 98.7
== END 2016-12-10 04:39 | disposition home or self-care (01) ==
LOC: FTE 01:24
DX: L50.9 Urticaria, unspecified (principal)
CPT/HCPCS: 96372; J1200; J2930; Z7502

== ENCOUNTER 2017-09-14 05:51 | Day surgery (SDC) | END 2017-09-14 11:18 | disposition home or self-care (01) ==

== ENCOUNTER 2018-08-24 09:05 | Day surgery (SDC) | END 2018-08-24 13:54 | disposition home or self-care (01) ==

== ENCOUNTER 2018-11-26 21:31 | Emergency (ER) | payer OTHER ==
[~2018-11-26] VITALS: Ht 149.9 cm; Wt 87.0 kg
[~2018-11-26 21:31] MED LIST changes: +ASPI-817 PO; +ATOR10TA65 PO; -CIPR500T4 PO; -DOCU-144 PO; -FAMO-18 PO; +FAMO-96 PO; -HYDR-905 PO; -HYDR-906 PO; +METF-849 PO; -METO10TA92 PO; -METR500T14 PO; +OMEG1CAP2 PO; -POLY17PO6 PO
[2018-11-26 21:58] VITALS: BP 131/80; PULSE 91; RESP 18; Ht 149.9 cm; Wt 87.0 kg
--- NOTE | 2018-11-27 01:09 | ERD ---
ER Documentation Chief Complaint Chief Complaint RIGHT TEMPORAL HEAD PAIN X 4 DAYS HPI This is a 48-year-old female presents here in emerge department with complaints of right sided headache, right ear pain. Also added light sensitivity. Stated that this is not the worst headache of her life. LMP: Stated it was 2 years ago. . Denies that this is the worst headache of her life, head injury, loss of consciousness, dizziness, neck pain, neck stiffness, throat pain, difficulty swallowing, difficulty breathing lying flat, shoulder pain, chest pain, back pain, abdominal pain, nausea, vomiting, constipation, diarrhea, urinary symptoms, or possibility being , loss of bowel and bladder control, trauma, injury, falls, difficulty walking due to pain, numbness or tingling sensation, calf pain, recent travel, recent major surgery in the last 3 weeks, calf pain, recent long travel, recent exposure to any illness, recent antibiotic use in the last 3 months, fever, chills, seizures. Past medical history: Prediabetes. Denies family history of stroke, aneurysm. Medication: Metformin. Surgical history: Appendectomy. Social: Denies smoking, use of alcoholic beverages, use of illegal drugs. ROS All systems reviewed and are negative except as per history of present illness. Medications Home Meds Active Scripts Oamtggpeet-Sbxlilaixvdwp-Yqfosquo* (Fioricet*) 50-300-40 Mg Capsule, 1 CAP PO Q4H PRN for severe headache, #10 CAP Prov:PASILABANPAULIEAR F 11/27/18 Meclizine Hcl* (Antivert*) 12.5 Mg Tab, 12.5 MG PO Q6H PRN for DIZZINESS, #20 TAB Prov:PASILABANIGNACIO F 11/27/18 Metoclopramide* (Reglan*) 10 Mg Tablet, 10 MG PO Q6 PRN for NAUSEA AND/OR VOMITING, #20 TAB Prov:PASILABANPAULIEAR F 11/27/18 Ibuprofen* (Motrin*) 800 Mg Tab, 800 MG PO Q6H PRN for PAIN AND OR ELEVATED TEMP, #30 TAB Prov:PASILABAN,PAULIEAR F 11/27/18 Ciprofloxacin Hcl/Dexameth (Ciprodex Otic Suspension) 7.5 Ml Drops.susp, 4 DROP RIGHT EAR BID for 7 Days, EA Prov:PASILABAN,PAULIEAR F 11/27/18 Famotidine* (Pepcid*) 20 Mg Tablet, 20 MG PO BID, #60 TAB Prov:FADI HARTMANN MD 11/12/16 Reported Medications [place]-3 Acid Ethyl Esters (Lovaza) 1 Gm Capsule, 1 GM PO BID, CAP 09/14/17 Aspirin* (Aspirin* EC) 81 Mg Tablet.dr, 81 MG PO DAILY, TAB 09/14/17 Atorvastatin Calcium (Atorvastatin Calcium) 10 Mg Tablet, 10 MG PO QHS, #30 TAB 09/14/17 Metformin* (Glucophage*) 500 Mg Tab, 500 MG PO BID, #30 TAB 09/14/17 Allergies Allergies: Coded Allergies: No Known Allergy (Unverified , 08/24/18) PMhx/Soc History of Surgery: Yes ( X3; APPENDECTOMY; COLON SX; OOPHERECTOMY) Anesthesia Reaction: No Hx Neurological Disorder: No Hx Respiratory Disorders: No Hx Cardiac Disorders: Yes (HTN; HYPERLIPIDEMIA) Hx Psychiatric Problems: No Hx Miscellaneous Medical Probl: No Hx Alcohol Use: No Hx Substance Use: No Hx Tobacco Use: No Physical Exam Vitals Vital Signs Date Temp Pulse Resp B/P (MAP) Pulse Ox O2 O2 Flow FiO2 Time Delivery Rate 11/26/18 97.6 91 18 131/80 99 21:58 (97) Physical Exam Const: No acute distress Head: Atraumatic. Normocephalic. Scalp is intact. Eyes: Normal Conjunctiva. Good eye movement. There is no visual field loss. ENT: Normal External Ears, Nose and Mouth. No vesicular lesions. Right ear: External canal has swelling. TM is not erythematous. No mastoid tenderness. No bleeding. No discharge with no hearing loss. Left ear: TM is not erythematous. No bleeding. No discharge. No hearing loss with no mastoid tenderness. Nose: There is no frontal or maxillary sinus tenderness to palpation. Throat: Uvula is in midline and nondisplaced. Tonsils are +1 bilaterally without redness and without exudates. Able to control tongue movement. Tolerating secretions. Patent airway. Speaks full and clear sentences. Neck: Full range of motion. No meningismus. No nuchal rigidity with no signs of meningeal irritation. Resp: Clear to auscultation bilaterally Cardio: Regular rate and rhythm, no murmurs Abd: Soft, non tender, non distended. Normal bowel sounds Skin: No petechiae or rashes. No vesicular lesions. Back: No midline or flank tenderness Ext: No cyanosis, or edema Neur: Awake and alert. No obvious facial droop. Able to control tongue move ment. Speaks full and clear sentences. Follows commands. Equal cut off sawyer log. Equal strength in bilateral upper and lower extremities. Able to bear weight on right lower extremity. Able to bear weight on left lower extremity. Number test negative. Ambulatory with steady gait. No neurological deficit. Psych: Normal Mood and Affect Results 24 hrs Current Medications Medications Dose Sig/Nubia Start Time Status Last (Trade) Ordered Route PRN Stop Time Admin Dose Reason Admin 1 tab ONCE ONCE 11/27/18 DC 11/27/18 Acetaminophen PO 01:30 02:18 / 11/27/18 01:31 Hydrocodone Bitart ([place] (10/325)) Meclizine 25 mg ONCE ONCE 11/27/18 DC 11/27/18 HCl PO 01:30 02:18 (Antivert) 11/27/18 01:31 10 mg ONCE ONCE 11/27/18 DC 11/27/18 Metoclopramid PO 01:30 02:17 e HCl 11/27/18 01:31 (Reglan) Procedures/MDM Diagnostic tests: Clinical exam. Treatment: [place] p.o. Reglan p.o. Antivert p.o. Re-evaluation: Denies pain. Romberg test negative. No neurological deficit. Ambulatory steady gait. Patient and family member stated that they are comfor table going home. Differential diagnosis I have low suspicion for subarachnoid hemorrhage, stroke, uncontrolled hypertension, hypertensive emergency, carotid dissection, mastoiditis, peritonsillar abscess, shingles. Final diagnosis: Otitis externa. Migraine-like headache. Prescription: Fioricet. Ciprodex. Motrin. Reglan. Benadryl. Antivert. Follow-up with PCP in the next 24-48 hours. PCP to refer patient to neurologist if symptoms persist. Follow-up with an ENT if symptoms persist. Come back here in the emergency department for any new symptoms or any worsening symptoms. All questions and concerns were answered. Patient and family members verbalized understanding and agreed with plan of care. Hemodynamically stable on discharge. Departure Diagnosis: Primary Impression: Headache Additional Impression: Otitis externa Condition: Stable Additional Instructions: Follow-up with PCP in the next 24-48 hours. PCP to refer patient to neurologist if symptoms persist. Follow-up with an ENT if symptoms persist. Come back here in the emergency department for any new symptoms or any worsening symptoms. IGNACIO DOE Nov 27, 2018 01:09
[2018-11-27] MEDS ORDERED: CIPR7.5D RIGHT EAR (01:28)
[2018-11-27] MEDS ORDERED: METO10TA92 PO (01:28)
[2018-11-27] MEDS ORDERED: IBUP800T48 PO (01:28)
[2018-11-27] MEDS ORDERED: MECL12.574 PO (01:28)
[2018-11-27] MEDS ORDERED: BUTA1CAP38 PO (01:29)
[2018-11-27] MEDS ORDERED: HYDROCODONE/APAP (10/325) TAB PO ONE (01:30)
[2018-11-27] MEDS ORDERED: METOCLOPRAMIDE 10 MG TAB PO ONE (01:30)
[2018-11-27] MEDS ORDERED: MECLIZINE 12.5 MG TAB PO ONE (01:30)
== END 2018-11-27 02:26 | disposition home or self-care (01) ==
LOC: FTE 21:31
DX: H60.90 Unspecified otitis externa, unspecified ear (principal); I10 Essential (primary) hypertension; Z79.82 Long term (current) use of aspirin; Z79.84 Long term (current) use of oral hypoglycemic drugs
CPT/HCPCS: Z7502; Z7610; 99283